=== PATIENT | male | born 1955 | race Caucasian/White ===

== ENCOUNTER 2016-08-08 08:40 | Emergency (ER) | payer MEDICARE, MEDICAID ==
[~2016-08-08] VITALS: Ht 182.9 cm; Wt 130.0 kg
[~2016-08-08 08:40] MED LIST: ACET-171 PO; ALBU18HF INH; ALBU2.5V4 INHALATION; AMT50T PO; ARFO15VI2 IH; ARIP2TAB11 PO; ASCO500C6 PO; ASPI-973 PO; ATOR10TA66 PO; CALC500T9 PO; CARB1TAB14 PO; CHOL10008 PO; CINN1CAP PO; CITA40TA13 PO; CLOP75TA3 PO; CYAN500L3 SL; D3; DEXT1DRO8 BOTH_EYES; FLUT9.9S NS; INSU100V7 SUBQ; LACT1CAP13 PO; LATA2.5D6 BOTH_EYES; LORA10CA PO; MAGN400T4 PO; METO25TA6 PO; MULT1CAP33 PO; MYCO TOP; NOV100I SUBQ; OMEP20CA11 PO; OXYC20TA4 PO; POTA20TA7 PO; PRE10 PO; PREG225C PO; SENN-133 PO; SPIR25TA3 PO; TAMS0.4C29 PO; TORS100T3 PO; ZYL100 PO; [UNRECOGNIZED DRUG - OTHER]; [UNRECOGNIZED DRUG - OTHER]; livaplex; super B complex
[2016-08-08 09:05] VITALS: BP 149/54; PULSE 106; RESP 16; O2SAT 97
--- NOTE | 2016-08-08 09:06 | ED.REPORT ---
HPI-General Illness Date of Service Aug 08, 2016 ED Provider: Sacha Dasilva MD A 61 year old male with an extensive medical history including CKD stage III, diabetes type 2 with peripheral neuropathy, hypertension, CHF, COPD, and back pain with chronic opiate use presents to the ED via EMS with shortness of breath onset this morning. The patient has been experiencing worsening respiratory symptoms over the past week including cough. He also reports chills and a headache. The patient denies chest pain, abdominal pain, muscles aches, nausea, or vomiting. He took Tylenol at 0800 this morning. Per EMS his blood sugar was 220 en route. He is on O2 at night and lives with his and caregiver. He was admitted to the hospital last month with decreased level of consciousness and shortness of breath. He is seen at wound care frequently for lower leg wounds with chronic dressings - most recently two days ago. Nursing Notes Stated Complaint: FLU LIKE SYMPTOMS Chief Complaint: General Complaint Nursing Notes Reviewed: Yes Allergies: Coded Allergies: amoxicillin (Verified Adverse Reaction, Severe, Nausea, 07/12/16) VERY NAUSEUOUS clavulanic acid (Verified Adverse Reaction, Severe, Nausea, 07/12/16) aspirin (Verified Adverse Reaction, Intermediate, Hematuria, 07/12/16) Blood in urine after prison use Scheduled Allopurinol (Allopurinol) 100 Mg Tablet 100 MG PO DAILY Amitriptyline (Amitriptyline) 50 Mg Tab 50 MG PO HS Arformoterol Tartrate (Brovana) 15 Mcg/2 Ml Vial.neb 15 MCG IH BID Aripiprazole (Aripiprazole) 2 Mg Tablet 2 MG PO DAILY Ascorbic Acid (Vitamin C) 500 Mg Capsule.er 500 MG PO DAILY Aspirin (Aspirin) 81 Mg Tablet 81 MG PO DAILY Aspirin (Aspirin) 81 Mg Tablet 81 MG PO DAILY Atorvastatin Calcium (Atorvastatin Calcium) 10 Mg Tablet 10 MG PO HS Carbidopa/Levodopa 25-100 mg (Carbidopa/Levodopa 25-100 mg) 1 Each Tablet 2 TABLET PO QID Cholecalciferol (Vitamin D3) (Vitamin D3) 1,000 Unit Tab.chew 1,000 UNIT PO DAILY Cinnamon Bark/Chromium Picolin (Cinnamon Plus Chromium Capsule) 1 Each Capsule 1 EACH PO DAILY Citalopram (Citalopram) 40 Mg Tablet 40 MG PO DAILY Clopidogrel Bisulfate (Plavix) 75 Mg Tablet 75 MG PO DAILY Fluticasone Propionate (Flonase Allergy Relief) 9.9 Ml [place].susp 1 SPRAYS NS DAILY Insulin Aspart (NovoLOG U100 Insulin Vial) 100 Unit/Ml Mdv 10-25 UNITS SUBQ tidwm plus slid scal Insulin Glargine (Lantus U100 Insulin Vial) 100 Unit/Ml Vial 60 UNITS SUBQ BID Lactobacillus Acidophilus (Acidophilus) 1 Each Capsule 1 EACH PO DAILY Latanoprost (Latanoprost) 2.5 Ml Drops 1 GTT BOTH_EYES HS Magnesium Oxide (Magnesium Oxide) 400 Mg Tablet 400 MG PO DAILY Metoprolol Tartrate (Metoprolol Tartrate) 25 Mg Tablet 50 MG PO BID Multivitamin (Multivitamins) 1 Each Capsule 1 EACH PO DAILY Nystatin (Nystatin) 20 Applic/15 Gm Oint 1 APPLIC TOP BID Omeprazole (Omeprazole) 20 Mg Capsule.dr 20 MG PO DAILY Potassium Chloride ER (Klor-Con M20) 20 Meq Tablet 20 MEQ PO DAILY Prednisone (PredniSONE) 10 Mg Tablet 10 MG PO DAILY Pregabalin (Lyrica) 225 Mg Capsule 225 MG PO BID Spironolactone (Spironolactone) 25 Mg Tablet 25 MG PO BID Tamsulosin ER (Tamsulosin ER) 0.4 Mg Cap.er.24h 0.4 MG PO HS Torsemide (Torsemide) 100 Mg Tablet 50 MG PO BID Scheduled PRN Acetaminophen (Acetaminophen) 500 Mg Tablet 500 MG PO Q6H PRN PRN For Pain Albuterol Neb Soln (Albuterol Neb Soln) 2.5 Mg/3 Ml Vial.neb 2.5 MG INHALATION Q4H PRN PRN For Shortness of Breath Albuterol Sulfate (Ventolin HFA Inhaler) 200 Puff/18 Gm Inhaler 2 PUFFS INH q4- 6 hours PRN PRN For Shortness of Breath Calcium Carbonate (Tums) 500 Mg Tab.chew 2,000 MG PO PRN PRN PRN For Indigestion Dextran 70/Hypromellose/Pf (Artificial Tears Drops) 1 Each Droperette 1 DROP BOTH_EYES QID PRN PRN dry eyes Loratadine (Claritin) 10 Mg Capsule 10 MG PO DAILY PRN PRN allergies Sennosides (Senna) 8.6 Mg Tablet 17.2 MG PO BID PRN PRN For Constipation oxyCODONE (oxyCODONE) 20 Mg Tablet 20 MG PO Q4H PRN PRN For Pain Miscellaneous Medications ([livaplex]) ([vitality]) ([D3]) ([super B complex]) ([parsley]) Cyanocobalamin (Vitamin B-12) (B-12) 500 Mcg Tab.rapdis 500 MCG SL General Time Seen by MD: 09:02 Chief Complaint Other (Shortness of breath) Hx Obtained From: Patient, EMS Arrived By: Ambulance Sudden in Onset?: No Onset Occurred: 1 - 4 hours ago Symptom Duration: Since onset Location: : Head Quality: Painful Severity: Current: Mild Severity: Maximum: Mild Associated with: Reports: Cough, Headache, Denies: Chest pain, Fever Pertinent Negative: Relieved by nothing Context Related History: Reports COPD, Reports Diabetes mellitus Recent Healthcare: Recent doctor visit Similar Sx Previous: Yes Past Medical History Past Medical History Notes: PCP: Dr. Pendleton Past Medical History 1. Paroxysmal A-fib with RVR 2. chronic hypoxemic respiratory failure 3. history of MSRA 4. CKD stage III 5. History of pancreatitis 6. BOOP on chronic prednisone 7. Diabetes Mellitus Type 2, insulin-using, poorly controlled 8. Hypertension 9. Parkinsonian Tremor 10. BPH 11. Anxiety and depression 12. CARRIE on CPAP 13. Chronic congestive heart failure secondary to diastolic dysfunction 14. chronic edema 15. Gout 16. COPD 17. Chronic back pain on opiates Past Surgical History Colonoscopy Lung biopsy Hernia repair Reports: Appendectomy Family History Reports: Diabetes mellitus Smoking History Former Smoker Social History Drug Use: Denies drug use (cocaine, marjuana, speed many years ago) Other Social History: Good social support, Frequent ED visitor, , Local resident Ambulatory Status Walker Review of Systems Full Review of Systems Constitutional: Reports: Chills, Denies: Fever Respiratory: Reports: Non-productive cough, Shortness of breath Cardiovascular: Denies: Chest pain GI: Denies: Abdominal pain, Nausea, Vomiting Musculoskeletal: Denies: Myalgia Neurologic: Reports: Headache Complete sys rev & neg: except as marked. Physical Exam Vital Signs Vital Signs Date Time Temp Pulse Resp B/P Pulse Ox O2 Delivery O2 Flow Rate FiO2 08/08/16 12:55 82 2 122/78 98 08/08/16 09:05 37 106 16 149/54 97 Room Air Initial VS: Reviewed Head / Eyes: Atraumatic, Normocephalic ENT: Conjunctiva normal, No scleral icterus Neck: Supple, Full range of motion Abdomen / GI: Soft, Non-tender Skin: Warm, Dry, No cyanosis Neurologic: Alert, Oriented, Nonfocal Psychiatric: Mood/affect normal, Behavior normal, Normal thought content General/Constitutional: Awake, Alert Patient is a morbidly obese, O2 dependant, nearly bed-bound diabetic Warm to touch Respiratory / Chest: Breath sounds NL, Breath sounds = bilat, No respiratory distress, No rales Cardiovascular: Heart rate NL, Regular rhythm, Heart sounds NL Lower Ext Edema: Positive: Bilateral 1+ (Up to thighs) Lower Extremity / Pelvis / MS: No deformity Chronic dressings on legs Interpretation & Diagnostics Lab Results Interpretation Result Diagram: 08/08/16 1000 08/08/16 1000 Test 08/08/16 09:33 08/08/16 10:00 Urine Color Yellow (YELLOW) Urine Appearance Hazy (CLEAR,HAZY) Urine pH 6.0 (5.0-8.0) Urine Specific [place]ven 1.010 (1.003-1.035) Urine Protein Negativemg/dL (NEG,TRACE) Urine Glucose (UA) Negativemg/dL (NEGATIVE) Urine Ketones Negativemg/dL (NEGATIVE) Urine Occult Blood Negative (NEGATIVE) Urine Nitrite Negative (NEGATIVE) Urine Bilirubin Negative (NEGATIVE) Urine Urobilinogen Normalmg/dL (NORMAL) Urine Leukocyte Esterase Negative (NEGATIVE) Urine RBC 0-2/hpf (0-2) Urine WBC 0-5/hpf (0-5) Urine Epithelial Cells Occasional/hpf (NONE-MOD) Urine Crystals None seen (NONE SEEN) Urine Bacteria None/hpf (NONE-FEW) Urine Hyaline Casts None/lpf (NONE) Urine Granular Casts None seen (NONE SEEN) Urine Waxy Casts None seen (NONE SEEN) Urine Red Blood Cell Casts None seen (NONE SEEN) Urine White Blood Cell Casts None seen (NONE SEEN) Urine Mucus None seen (None Seen) Urine Trichomonas None seen (NONE SEEN) Urine Yeast None (NONE SEEN) Urinalysis Comment None Urine Culture Reflexed Not indicated White Blood Count 12.9th/mm3 (3.8-10.1) Red Blood Count 4.32mil/mm3 (4.40-5.80) Hemoglobin 11.2g/dL (13.8-17.2) Hematocrit 37.6% (41.0-50.0) Mean Corpuscular Volume 87.0fL (81-100) Mean Corpuscular Hemoglobin 25.9pg (27.0-35.0) Mean Corpuscular Hemoglobin Concent 29.8% (32.0-37.0) Red Cell Distribution Width 18.0% (12.3-15.4) Platelet Count 170bil/L (150-400) Neutrophils (%) (Auto) 83.9% (40-74) Lymphocytes (%) (Auto) 7.6% (14-46) Monocytes (%) (Auto) 7.2% (4-12) Eosinophils (%) (Auto) 0.7% (0-5) Basophils (%) (Auto) 0.2% (0-3) Prothrombin Time 10.3sec (8.1-12.5) Prothromb Time International Ratio 0.96ratio Sodium Level 141mEq/L (134-144) Potassium Level 4.0mEq/L (3.5-5.2) Chloride Level 93mEq/L (97-108) Carbon Dioxide Level 33mmol/L (18-29) Blood Urea Nitrogen 48mg/dL (8-27) Creatinine 1.64mg/dL (0.76-1.27) Estimat Glomerular Filtration Rate 46mL/min (>59) Glucose Level 238mg/dL (60-99) Lactic Acid Level 1.9mmol/L (0.4-2.0) Calcium Level 8.9mg/dL (8.5-10.1) Magnesium Level 2.5mg/dL (1.6-2.6) Total Bilirubin 0.3mg/dL (0.0-1.2) Aspartate Amino Transf (AST/SGOT) 20U/L (0-50) Alanine Aminotransferase (ALT/SGPT) 5U/L (0-44) Alkaline Phosphatase 89U/L (25-160) Troponin T 0.064ug/L (0.0-0.011) Pro-B-Type Natriuretic Peptide 228.1pg/mL (0-210) Total Protein 6.9g/dL (6.4-8.4) Albumin 3.6g/dL (3.4-5.0) Lipase 24U/L (13-60) Procalcitonin 0.08ng/mL (See Comment) ECG Interpretation ECG Interpretation: Sinus tachycardia rate 104 Time: 09:55 Interpreted by: ED physician X-Ray Chest Interpretation Chest Xray Interpretation: IMPRESSION: Stable cardiomegaly and gas filled hiatal hernia. No acute cardiopulmonary findings. Dictated by: Jenny Mercado M.D. on 08/08/2016 at 12:11 View: Portable, 1 view Interpretation / Wet Read by: Interpret - Radiologist Re-Eval/Medical Decision Source of Hx: Old records Time of Eval: 11:50 Patient Status: Condition improved Re-Evaluation/Progress Note: Discussed with patient x-ray and lab results, diagnosis, and plan for discharge. Follow-up and return to the ER instructions given. Patient agrees with plan for care and all questions were addressed. Time of Eval: 12:08 Patient Status: Condition improved Re-Evaluation/Progress Note: Discussed patient's case with his . She agrees with plan for care and all questions were addressed. Counseled Regarding: Diagnosis, Lab results, Need for follow-up, When/why to return to ED Discharge & Departure Primary Impression: Upper respiratory infection Disposition: Home Discharge Condition All VS Reviewed: Yes Condition: Stable Patient Instructions: Upper Respiratory Infection (ED) Additional Instructions: All of your chronic health conditions seem to be stable at this time. No dangerous cause for your chest symptoms is discovered, specifically, no evidence of pneumonia or worsening congestive heart failure. I recommend follow -up Thursday if your symptoms are not significantly improved, sooner if worse. Referrals: Nicolás Pendleton MD (PCP) Nicolasibmarisa Attestation Portions of this note were transcribed by Annalisa Guadarrama. I, Dr. Dasilva, personally performed the history, physical exam, and medical decision-making; I reviewed and confirmed the accuracy of the information in the transcribed note. Signed by: Tim Alva, 08/08/2016, 13:14 copies to: Nicolás Pendleton MD, Kirk H MD Aug 08, 2016 09:06 ANNALISA GUADARRAMA Aug 08, 2016 09:29
[2016-08-08 10:11] LABS: BASOPHILS % (AUTO) 0.2 % (0-3); EOSINOPHILS % (AUTO) 0.7 % (0-5); MONOCYTES % (AUTO) 7.2 % (4-12); Mean Corpuscular Hemoglobin 25.9 pg (27.0-35.0); NEUTROPHILS % (AUTO) 83.9 % (40-74); Platelet Count 170 bil/L (150-400)
[2016-08-08 10:24] LABS: APPEARANCE,URINE HAZY (CLEAR,HAZY); COLOR,URINE YELLOW (YELLOW); OCCULT BLOOD,URINE NEGATIVE (NEGATIVE); UROBILINOGEN,URINE NORMAL (NORMAL)
[2016-08-08 10:25] LABS: INR 0.96 ratio
[2016-08-08 10:39] LABS: Magnesium 2.5 mg/dL (1.6-2.6)
[2016-08-08 10:45] LABS: TROPONIN T 0.064 ug/L (0.0-0.011)
--- NOTE | 2016-08-08 12:13 | DRSVH ---
PROCEDURE: X-RAY CHEST ONE VIEW, PORTABLE ([id number]) INDICATIONS: dyspnea, chills TECHNIQUE: One view of the chest was acquired. COMPARISON: [facility], CR, XR CHEST 1VW (PORTABLE), 07/12/2016, 4:21. FINDINGS: Surgical changes and devices: None. Lungs and pleura: No pleural effusions or pneumothorax. Lungs are clear. Mediastinum: Mediastinal contours appear normal. Heart size is mildly enlarged, as before. There is a large gas filled hiatal hernia. Bones and chest wall: No suspicious bony lesions. Overlying soft tissues appear unremarkable. IMPRESSION: Stable cardiomegaly and gas filled hiatal hernia. No acute cardiopulmonary findings. Dictated by: Jenny Mercado M.D. on 08/08/2016 at 12:11 Approved by: Jenny Mercado M.D. on 08/08/2016 at 12:11
[2016-08-08 12:55] VITALS: BP 122/78; PULSE 82; RESP 2; O2SAT 98
== END 2016-08-08 12:57 | disposition home or self-care (01) ==
LOC: EDBD 08:40 → SED 08:40
DX: J06.9 Acute upper respiratory infection, unspecified (principal); E11.40 Type 2 diabetes mellitus with diabetic neuropathy, unspecified; E11.22 Type 2 diabetes mellitus with diabetic chronic kidney disease; I13.0 Hypertensive heart and chronic kidney disease with heart failure and stage 1 through stage 4 chronic kidney disease, or unspecified chronic kidney disease; N18.3 Chronic kidney disease, stage 3 (moderate); I50.32 Chronic diastolic (congestive) heart failure; J44.9 Chronic obstructive pulmonary disease, unspecified; M54.9 Dorsalgia, unspecified; G89.29 Other chronic pain; I48.0 Paroxysmal atrial fibrillation; E66.01 Morbid (severe) obesity due to excess calories; Z99.81 Dependence on supplemental oxygen; Z68.38 Body mass index [BMI] 38.0-38.9, adult; Z86.14 Personal history of Methicillin resistant Staphylococcus aureus infection; Z79.891 Long term (current) use of opiate analgesic; Z79.4 Long term (current) use of insulin; Z87.891 Personal history of nicotine dependence; Z79.82 Long term (current) use of aspirin; Z88.0 Allergy status to penicillin; Z88.1 Allergy status to other antibiotic agents; Z88.6 Allergy status to analgesic agent

== ENCOUNTER 2016-08-11 08:19 | Inpatient (IN) | payer MEDICARE, MEDICAID ==
[2016-08-11] VITALS (16 sets, daily range): BP systolic 124–142; BP diastolic 65–82; PULSE 78–110; RESP 13–24; O2SAT 86–98
[~2016-08-11] VITALS: Ht 182.9 cm; Wt 165.1 kg
--- NOTE | 2016-08-11 08:32 | ED.REPORT ---
HPI-Dyspnea / Wheezing Date of Service Aug 11, 2016 ED Provider: Vj Randhawa MD 61 year old male with a history of CKD stage III, HTN, CHF, COPD, and sleep apnea on CPAP presents to the ER via EMS with acute on chronic shortness of breath onset 6 days ago while walking to the bathroom. He was seen here in the department three days ago for similar and diagnosed with a viral syndrome, and states that symptoms have since worsened since. Associated symptoms include chest pain described as "heaviness", currently resolved, fever, and productive cough. Typically he is on 3L home O2 at night, but has lately increased the frequency of O2 use. Nursing Notes Stated Complaint: SHORTNESS OF BREATH Chief Complaint: Respiratory Complaints Nursing Notes Reviewed: Yes ([employer] not reconciled) Allergies: Coded Allergies: amoxicillin (Verified Adverse Reaction, Severe, Nausea, 07/12/16) VERY NAUSEUOUS clavulanic acid (Verified Adverse Reaction, Severe, Nausea, 07/12/16) aspirin (Verified Adverse Reaction, Intermediate, Hematuria, 07/12/16) Blood in urine after jail use Scheduled Allopurinol (Allopurinol) 100 Mg Tablet 100 MG PO DAILY Amitriptyline (Amitriptyline) 50 Mg Tab 50 MG PO HS Arformoterol Tartrate (Brovana) 15 Mcg/2 Ml Vial.neb 15 MCG IH BID Aripiprazole (Aripiprazole) 2 Mg Tablet 2 MG PO DAILY Ascorbic Acid (Vitamin C) 500 Mg Capsule.er 500 MG PO DAILY Aspirin (Aspirin) 81 Mg Tablet 81 MG PO DAILY Aspirin (Aspirin) 81 Mg Tablet 81 MG PO DAILY Atorvastatin Calcium (Atorvastatin Calcium) 10 Mg Tablet 10 MG PO HS Carbidopa/Levodopa 25-100 mg (Carbidopa/Levodopa 25-100 mg) 1 Each Tablet 2 TABLET PO QID Cholecalciferol (Vitamin D3) (Vitamin D3) 1,000 Unit Tab.chew 1,000 UNIT PO DAILY Cinnamon Bark/Chromium Picolin (Cinnamon Plus Chromium Capsule) 1 Each Capsule 1 EACH PO DAILY Citalopram (Citalopram) 40 Mg Tablet 40 MG PO DAILY Clopidogrel Bisulfate (Plavix) 75 Mg Tablet 75 MG PO DAILY Fluticasone Propionate (Flonase Allergy Relief) 9.9 Ml [place].susp 1 SPRAYS NS DAILY Insulin Aspart (NovoLOG U100 Insulin Vial) 100 Unit/Ml Mdv 10-25 UNITS SUBQ tidwm plus slid scal Insulin Glargine (Lantus U100 Insulin Vial) 100 Unit/Ml Vial 60 UNITS SUBQ BID Lactobacillus Acidophilus (Acidophilus) 1 Each Capsule 1 EACH PO DAILY Latanoprost (Latanoprost) 2.5 Ml Drops 1 GTT BOTH_EYES HS Magnesium Oxide (Magnesium Oxide) 400 Mg Tablet 400 MG PO DAILY Metoprolol Tartrate (Metoprolol Tartrate) 25 Mg Tablet 50 MG PO BID Multivitamin (Multivitamins) 1 Each Capsule 1 EACH PO DAILY Nystatin (Nystatin) 20 Applic/15 Gm Oint 1 APPLIC TOP BID Omeprazole (Omeprazole) 20 Mg Capsule.dr 20 MG PO DAILY Potassium Chloride ER (Klor-Con M20) 20 Meq Tablet 20 MEQ PO DAILY Prednisone (PredniSONE) 10 Mg Tablet 10 MG PO DAILY Pregabalin (Lyrica) 225 Mg Capsule 225 MG PO BID Spironolactone (Spironolactone) 25 Mg Tablet 25 MG PO BID Tamsulosin ER (Tamsulosin ER) 0.4 Mg Cap.er.24h 0.4 MG PO HS Torsemide (Torsemide) 100 Mg Tablet 50 MG PO BID Scheduled PRN Acetaminophen (Acetaminophen) 500 Mg Tablet 500 MG PO Q6H PRN PRN For Pain Albuterol Neb Soln (Albuterol Neb Soln) 2.5 Mg/3 Ml Vial.neb 2.5 MG INHALATION Q4H PRN PRN For Shortness of Breath Albuterol Sulfate (Ventolin HFA Inhaler) 200 Puff/18 Gm Inhaler 2 PUFFS INH q4- 6 hours PRN PRN For Shortness of Breath Calcium Carbonate (Tums) 500 Mg Tab.chew 2,000 MG PO PRN PRN PRN For Indigestion Dextran 70/Hypromellose/Pf (Artificial Tears Drops) 1 Each Droperette 1 DROP BOTH_EYES QID PRN PRN dry eyes Loratadine (Claritin) 10 Mg Capsule 10 MG PO DAILY PRN PRN allergies Sennosides (Senna) 8.6 Mg Tablet 17.2 MG PO BID PRN PRN For Constipation oxyCODONE (oxyCODONE) 20 Mg Tablet 20 MG PO Q4H PRN PRN For Pain Miscellaneous Medications ([livaplex]) ([vitality]) ([D3]) ([super B complex]) ([parsley]) Cyanocobalamin (Vitamin B-12) (B-12) 500 Mcg Tab.rapdis 500 MCG SL General Time Seen by MD: 08:28 Chief Complaint Shortness of breath Hx Obtained From: Patient, EMS Arrived By: Ambulance Sudden in Onset?: No Onset Occurred: 3 days ago Symptom Duration: Since onset Pertinent Negative: Pt denies other symptoms Similar Sx Previous: Yes Past Medical History Past Medical History Notes: PCP: Dr. Pendleton, Principal Data Architect Dr. Chang, Traffic Manager Dr. Clement Pt seen 08/08/2016 in the emergency department for respiratory symptoms, neg CXR, O2 say 98% on RA per chart Patient Admitted 07/12/16 for hypercapneic resp failure Past Medical History 1. Paroxysmal Atrial Fibrillation 2. ho/ chronic hypoxemic respiratory failure (states patient uses O2 3 L at night at baseline) 3. history of MSRA 4. CKD stage III 5. History of pancreatitis 6. BOOP on chronic prednisone (patient states current dose as of July 2016 is 10 mg daily) 7. Diabetes Mellitus Type 2, insulin-using, poorly controlled 8. Hypertension 9. Parkinsonian Tremor 10. BPH 11. Anxiety and depression 12. CARRIE on CPAP 13. Chronic congestive heart failure secondary to diastolic dysfunction 14. chronic edema 15. Gout 16. COPD 17. Chronic back pain on opiates (history of acute L2 fracture 06/2016 as well) History of cor pulmonale per pulmonology note June 2016 Obesity hypoventilation syndrome per pulmonology note June 2016 Obesity BMI 48.2 Past Surgical History Colonoscopy Lung biopsy Hernia repair Reports: Appendectomy Family History Reports: Diabetes mellitus Smoking History Former Smoker Social History Drug Use: Denies drug use Other Social History: Good social support, Frequent ED visitor, , Local resident Ambulatory Status Walker Review of Systems Constitutional: Reports: Fever Respiratory: Reports: Non-productive cough, Shortness of breath Cardiovascular: Reports: Chest pain Musculoskeletal: Denies: Back pain, Extremity pain, Lumbar pain, Neck pain, Thoracic pain Complete sys rev & neg: except as marked. GI: Denies: Abdominal pain, Nausea, Vomiting Physical Exam Initial Vital Signs Vital Signs (First) Date Time Temp Pulse Resp B/P Pulse Ox O2 Delivery O2 Flow Rate FiO2 08/11/16 08:25 37.3 94 18 124/74 87 Nasal Cannula 4 Initial VS: Reviewed, Unavailable, Vital signs abnormal (O2 say 79%) Head / Eyes: Atraumatic, Normocephalic, PERRL Skin: Warm, Dry, No cyanosis Psychiatric: Mood/affect normal, Behavior normal, Normal thought content General/Constitutional: Awake, Alert, No acute distress, Cooperative Appearance / Presentation: Positive: Obese, morbidly Inappropriately drowsy. Able to wake up and answer questions appropriately. Neck: Atraumatic, Supple, No meningismus, Full range of motion, No swelling, Non-tender, No masses Respiratory / Chest: Atraumatic, No wheezing Diminished Breath Sounds: Positive: Decreased bilateral Hypercapnic respiratory failure. Cardiovascular: Heart rate NL, Regular rhythm, No murmurs Chronic edema of the lower extremities, no gross asymmetry. ENT: Airway patent, Mucous membranes moist, Pharynx NL Abdomen: Atraumatic, Soft, Non-tender Back: Inspection NL, Non-tender, No CVA tenderness Lower Extremity / Pelvis / MS: Atraumatic, No deformity, Neurologic intact, Vascular intact Lower extremities are wrapped. Interpretation & Diagnostics Lab Results Interpretation Result Diagram: 08/11/16 0915 08/11/16 0915 Test 08/11/16 09:15 White Blood Count 11.7th/mm3 (3.8-10.1) Red Blood Count 4.06mil/mm3 (4.40-5.80) Hemoglobin 10.4g/dL (13.8-17.2) Hematocrit 35.7% (41.0-50.0) Mean Corpuscular Volume 87.9fL (81-100) Mean Corpuscular Hemoglobin 25.6pg (27.0-35.0) Mean Corpuscular Hemoglobin Concent 29.1% (32.0-37.0) Red Cell Distribution Width 18.3% (12.3-15.4) Platelet Count 157bil/L (150-400) Neutrophils (%) (Auto) 81.8% (40-74) Lymphocytes (%) (Auto) 8.0% (14-46) Monocytes (%) (Auto) 8.7% (4-12) Eosinophils (%) (Auto) 0.6% (0-5) Basophils (%) (Auto) 0.1% (0-3) D-Dimer 0.5mg/L (<0.50) Sodium Level 139mEq/L (134-144) Potassium Level 4.4mEq/L (3.5-5.2) Chloride Level 94mEq/L (97-108) Carbon Dioxide Level 32mmol/L (18-29) Blood Urea Nitrogen 54mg/dL (8-27) Creatinine 1.86mg/dL (0.76-1.27) Estimat Glomerular Filtration Rate 39mL/min (>59) Glucose Level 200mg/dL (60-99) Lactic Acid Level 0.9mmol/L (0.4-2.0) Calcium Level 8.5mg/dL (8.5-10.1) Total Bilirubin 0.4mg/dL (0.0-1.2) Aspartate Amino Transf (AST/SGOT) 34U/L (0-50) Alanine Aminotransferase (ALT/SGPT) 5U/L (0-44) Alkaline Phosphatase 95U/L (25-160) Troponin T 0.105ug/L (0.0-0.011) Pro-B-Type Natriuretic Peptide 1345pg/mL (0-210) Total Protein 6.6g/dL (6.4-8.4) Albumin 3.7g/dL (3.4-5.0) Lab Results Interpretation: CBC positive leukocytosis CMP is notable for a creatinine that is slightly increased from 1.6, mild hyperglycemia Lactic acid normal D-dimer negative Troponin is elevated-however interpreting is difficult. I reviewed his records indicates all of his recent opponents been elevated, some higher than this, some slightly lower than this, the most recent troponins are marginally lower, but the patient's renal function is worsening today. The patient has profound hypoxia, and renal insufficiency-both which may be contributors-I doubt primary cardiac etiology, but cannot be excluded at this time and troponins may be need to be trended. ECG Interpretation ECG Interpretation: Sinus rhythm, rate 90 baseline 1, 2 no change in EKG from now to a few days ago. Time: 09:24 Interpreted by: ED physician ABG Interpretation ABG Interpretation: pH| 7.329 pCO2| 70 pO2| 54.4 cHCO3| 35.8 X-Ray Chest Interpretation Chest Xray Interpretation: IMPRESSION: Markedly limited study. No definite acute air space opacities. Dictated by: Jenny Mercado M.D. on 08/11/2016 at 10:11 Approved by: Jenny Mercado M.D. on 08/11/2016 at 10:11 View: Portable, 1 view Interpretation / Wet Read by: Interpret - Radiologist Re-Eval/Medical Decision Med Decision/Clinical Course This is a 61-year-old male morbidly obesity, history of hypercapnic respiratory failure is multifactorial from COPD, obesity hypoventilation syndrome, cor pulmonale, intermittent O2, mainly at night-as well as CPAP, presents complaining of increasing shortness of breath. he was recently admitted for hypoxic respiratory failure and is now using Trilogy at nights, he was seen several days ago that responded for shortness of breath but had a negative evaluation at that time and was discharged. He reports since then his breathing is worsened. He reports a mild cough, but denies a clearcut fever or infectious symptoms. His chronic edema in his legs with chronic leg ulcers which are both wrapped and followed by the wound care center-but he does not think there been any changes. Records indicate a history of medication noncompliance, and he does not know his medications. On exam, the patient is able to give a history, but is inappropriately drowsy and starts to nod off during the conversation, with findings highly concerning for acute respiratory failure. However at the same time he does not appear visibly dyspneic. He was profoundly hypoxic with a sat in the 70sr. He is not febrile. He is difficult to clinically evaluate for congestive heart failure given habitus, and he has a history is significant diastolic dysfunction and cor pulmonale according to records. He is on chronic steroids. He has COPD, I did do not appreciate significant bronchospasm, but his breath sounds are very diminished. However given his history, empiric treatment with a steroid bolus , and course of nebulizers was provided. A blood gas reveals a pH of 7.329, PCO2 of 70, PO2 of 54, and bicarbonate 35 consistent with hypercapnic respiratory failure. His ABG is not dramatically different than previous presentations. I do not appreciate any acute findings on his EKG. He did report that this morning he had a severe episode of chest pressure that subsequently resolved but lasted an hour or 2. Given his immobility, hospitalizations, obesity is at risk for DVT/PE, but her d-dimer is negative. A chest x-ray is limited, but no clear acute disease process was identified. He does not have a leukocytosis or lactic acid elevation (for fever or clear clinical findings) to suggest sepsis. His MRSA screen was positive a few weeks ago, his viral panel then was negative. I have not repeated these given the absence of fever, or other driving markers in the emergency department, and am defering a repeat viral workup to the hospitalist. Patient's renal function is worsened slightly. He does have an elevated troponin-again. All of his previous troponins in recent months and been significantly elevated, including to the same level as now. His most recent troponins were slightly lower than they are today, but his renal function is worsening in the interim-therefore the interpretation of the single troponin is difficult. I doubt a primary cardiac event, but cannot be excluded and myocardial injury in the setting of such profound hypoxia and what I think a primary respiratory problems, remains possible. Troponins will need to be trended. I am also having a challenge trying to sort out the patient's anticoagulation status,'s records indicate a prior history of Plavix use, he does not think he is on it. He thinks has had aspirin today. His mom with a clear bacterial infectious component evident on initial evaluation, however given multitude of visits, progressive symptoms, and absence of other pathology, with potential component of acute COPD exacerbation present, appear azithromycin is being initiated. He does not have overt findings of her radiographic pneumonia or indications of MRSA pneumonia, despite the MRSA culture positive on previous screening weeks ago, and indicated need for vancomycin emergently in the department. The patient was placed on BiPAP, and is improved. Point is a multifactorial component potential to the causes of his hyperventilation, but it clearly has been a change of some sort recent days. He is being admitted to the CCU on continued BiPAP support. Case has been discussed with the hospitalist. Source of Hx: Old records Consultation : Consulted With: Hospitalist Call Returned at: 09:25 Wind Turbine Controls Engineer: Agrees with eval, Agrees with plan, Accepts admit Differential Diagnosis: Positive: COPD exacerbation, Respiratory failure, Negative: Allergic reaction, Carbon monoxide poisoning, Hypertensive emergency, Pneumonia, Pneumothorax, Pulmonary embolism Counseled Regarding: Diagnosis, Lab results, Need for admission Discharge & Departure Impression: Primary Impression: Acute and chronic respiratory failure ([id number]) Respiratory failure complication: hypoxia and hypercapnia Qualified Code: J96.21 - Acute and chronic respiratory failure with hypoxia Additional Impressions: Hypoxia COPD (chronic obstructive pulmonary disease) COPD type: COPD with acute exacerbation Qualified Code: J44.1 - Chronic obstructive pulmonary disease with (acute) exacerbation Hypercapnic respiratory failure Chronicity: acute on chronic Qualified Code: J96.22 - Acute and chronic respiratory failure with hypercapnia Chronic kidney disease (CKD) Chronic kidney disease stage: unspecified stage Qualified Code: N18.9 - Chronic kidney disease, unspecified Elevated troponin Disposition: ADMITTED TO HOSPITAL Discharge Condition All VS Reviewed: Yes Condition: Stable Referrals: Nicolás Pendleton MD (PCP) Crit Care Except Billable Proc Time Spent: 30-74 minutes Services Performed: Patient management by me, Time spent at bedside, Reviewing test results, Reviewing imaging, Discussing patient care, Documentation in record Scribe Attestation Portions of this note were transcribed by Victorino Douglas and Kurt Tristan. I, Dr. Randhawa personally performed the history, physical exam and medical decision -making; I reviewed and confirmed the accuracy of the information in the transcribed note. Signed by:Victorino Douglas and Tim Sullivan, 08/11/16 and 12:30. copies to: Nicolás Pendleton MD, Matthew F MD Aug 11, 2016 08:32 Victorino Douglas Aug 11, 2016 10:12 KURT TRISTAN Aug 11, 2016 12:32
[2016-08-11] MEDS ORDERED: Albuterol-Ipratropium 3 mL Inhalation Solution NEB ONE (08:50)
[2016-08-11] MEDS ORDERED: MethylprednisoLONE Sodium Succinate 62.5 mg/mL 2 mL Inj IVPUSH ONE (08:50)
[2016-08-11] MEDS ORDERED: Albuterol 2.5 mg/3 mL Inhalation Solution NEB ONE (08:50)
--- NOTE | 2016-08-11 09:11 | ABG ---
DateTimeAnalyzed 09:07:00 -_ pH ____7.329 - 7.350 7.450 pCO2 ___70.0__ -mmHg 35.0 45.0 pO2 ___54.4__ -mmHg 69.0 116 HCO3- ___35.8__ -mmol/L 22.0 26.0 ABE ____8.4__ -mmol/L -2.0 2.0 tHb ___10.5__ -g/dL O2Hb ___83.1__ -% COHb ____1.8__ -% MetHb ____1.6__ -% sO2 ___86.0__ -% 25.0 FIO2 ___35.0__ -% Drawn By MT - Date/Time Notified____ 09:11:00 -_ Notified By MT - Notified Whom ___DR. Edis - B 761 -mmHg tO2 ___12.3__ -Vol% Tereso test _Positive -
[2016-08-11 09:37] LABS: BASOPHILS % (AUTO) 0.1 % (0-3); EOSINOPHILS % (AUTO) 0.6 % (0-5); MONOCYTES % (AUTO) 8.7 % (4-12); Mean Corpuscular Hemoglobin 25.6 pg (27.0-35.0); Mean Corpuscular Volume 87.9 fL (81-100); NEUTROPHILS % (AUTO) 81.8 % (40-74); Platelet Count 157 bil/L (150-400)
[2016-08-11] MEDS ORDERED: Ondansetron 2 mg/mL 2 mL Inj IVPUSH PRN (10:10)
[2016-08-11] MEDS ORDERED: Alum-Mag Hydrox-Simeth 30 mL Suspension PO PRN (10:10)
[2016-08-11] MEDS ORDERED: Polyethylene Glycol (PEG) 17 Gm Powder PO PRN (10:10)
[2016-08-11] MEDS: Sodium Chloride LOK Flush 10 mL Syringe IVFLUSH SCH ×3 (10:10→23:50)
--- NOTE | 2016-08-11 10:12 | DRSVH ---
PROCEDURE: X-RAY CHEST ONE VIEW, PORTABLE ([id number]) INDICATIONS: SOB, hypoxia TECHNIQUE: One view of the chest was acquired. COMPARISON: [facility], CR, XR CHEST 1VW (PORTABLE), 08/08/2016, 10:35. FINDINGS: This is a markedly limited study due to patient body habitus. Surgical changes and devices: None. Lungs and pleura: No pleural effusions or pneumothorax. Lungs are clear. Mediastinum: Mediastinal contours appear normal. Heart size is normal. Bones and chest wall: No suspicious bony lesions. Overlying soft tissues appear unremarkable. IMPRESSION: Markedly limited study. No definite acute air space opacities. Dictated by: Jenny Mercado M.D. on 08/11/2016 at 10:11 Approved by: Jenny Mercado M.D. on 08/11/2016 at 10:11
[2016-08-11] MEDS ORDERED: Furosemide 10 mg/mL 10 mL Inj IVPUSH SCH (10:20)
[2016-08-11] MEDS ORDERED: Albuterol-Ipratropium 3 mL Inhalation Solution NEB PRN (10:20)
[2016-08-11] MEDS ORDERED: Azithromycin Inj 500 MG in Dextrose 5% w/Vial Mate 250 ML IV ONE (10:40)
[2016-08-11 10:42] LABS: TROPONIN T 0.105 ug/L (0.0-0.011)
[2016-08-11 11:28] LABS: APPEARANCE,URINE CLEAR (CLEAR,HAZY); COLOR,URINE STRAW (YELLOW); OCCULT BLOOD,URINE NEGATIVE (NEGATIVE); PH,URINE 5.5 (5.0-8.0); UROBILINOGEN,URINE NORMAL (NORMAL)
--- NOTE | 2016-08-11 11:50 | NUR ---
Arrived He arrived to [facility] 2024 from the ED with a diagnosis of respiratory failure about 1150. A&Ox3. Was slid by four people from the gurney to the bed. He was settled into bed. Vitals and assessment complete. brought in trilogy, but it appears to be having issues and alarming falsely. Respiratory therapy placed him on the hospital bipap instead. His seems very concerned about him and is quite anxious frequently interrupting the nurse while talking or performing a task to ask multiple questions. Staff calmly replied to her and explained his care and answered her questions. Care continues.
--- NOTE | 2016-08-11 15:17 | NUR ---
Wound Care Order received for wound care to bilateral LE. Patient found to have newly resolved venous stasis ulcers to bilateral legs. Patient reports being seen in outpatient wound clinic and by home health with wound healing reported last week. Patient continues with fragile new skin to justin LE with significant edema noted. Removed compression dressings, cleaned LE with NS, applied ABD to fragile skin justin and secured with kerlix and coban. Patient also noted with healed "cut" to medial right great toe, covered with silicone corn pad. Resolved traumatic injury to right 5th toenail. states "It is hanging." Bruising to toe noted. Patient also with Stage I non-blanchable area, approx 6cm around to sacrum. Patient instructed to roll side to side to keep weight off of area. Patient on CHRISTIANE bariatric bed and reports turning/weight shifting frequently. Patient reports doing this at home, too. Wound care to follow every 2 to 3 days for bilateral LE dressings. Nursing to apply calmoseptine as needed to scaral area and turn q2 hours to prevent further pressure to sacrum.
--- NOTE | 2016-08-11 15:57 | PCM.HPMED ---
Subjective Date of Service Aug 11, 2016 Primary Provider: Admitting Physician: Ravi Nails MD Primary Care Physician: Nicolás Pendleton MD Attending Physician: Ravi Nails MD Admit Status: From the Emergency Department, Admit to [facility] Team Chief Complaint: 61-year-old man with morbid obesity and obesity hypoventilation syndrome presents with several days of increasing cough and dyspnea, found to be in acute on chronic respiratory failure with hypercarbia History of Present Illness: Approximate 5 days prior to admission patient began to experience increased cough and worsening dyspnea. He was evaluated in the emergency department 3 days prior to admission and discharged home. Since we noted his cough to be worse. It is moderately productive of thick gaffney phlegm. He increased his Trilogy device use but continued to decline. He reports some chills. He denies sweats or subjective fevers. He has chest pain with deep inspiration related to his dyspnea, but no other anginal sounding complaint. His legs are chronically swollen but no change recently. Has no abdominal complaints. Review of Systems: Complete review of systems performed and significant findings noted in history of present illness and PMH Allergies Coded Allergies: amoxicillin (Verified Adverse Reaction, Severe, Nausea, 07/12/16) VERY NAUSEUOUS clavulanic acid (Verified Adverse Reaction, Severe, Nausea, 07/12/16) aspirin (Verified Adverse Reaction, Intermediate, Hematuria, 07/12/16) Blood in urine after fci use Home Medications Extensive list of medications reviewed and reconciled. PMH # Recurrent cellulitis - hospitalizations 1-2 times per month # Type II diabetes mellitus - neuropathy and nephropathy # CKD stage III - # Parkinson disease # BOOP on chronic prednisone # CARRIE on CPAP # Hypertension # Chronic atrial fibrillation # Chronic diastolic CHF # BPH # History MRSA # COPD Family History No familial transient pulmonary disease. No familial thrombophilic disease. Social History Hx Alcohol Use: No Hx Substance Use: No Hx Tobacco Use: Yes Smoking Status: Former Smoker Living Arrangement: with Family (lives with , very limited ambulation from bed to chair at baseline.) Exam Vital Signs Vital Sign - Last Date Time Temp Pulse Resp B/P Pulse Ox O2 Delivery O2 Flow Rate FiO2 08/11/16 13:04 86 08/11/16 12:39 Supplement Oxygen 08/11/16 12:12 37.2 20 137/69 86 2.00 08/11/16 09:31 35 Exam General: Morbidly obese man eating lunch with nasal cannula in no acute distress HEENT: sclerae anicteric, oral mucosa moist Neck: Supple Chest: Distant breath sounds, clear to auscultation, no wheezing, intermittent cough Cardiac: S1S2, distant, regular, no audible murmur Abdomen: Abdomen protuberant, BS normal, non-tender Extremities: 3+ edema, healing desquamation lesions calves bilaterally Neuro: A&O, cranial nerves symmetric, motor strength 5/5, coordination normal, reflexes diminished symmetrically Lab and Diagnostics Labs DateTimeAnalyzed 09:07:00 -_ pH ____7.329 - 7.350 7.450 pCO2 ___70.0__ -mmHg 35.0 45.0 pO2 ___54.4__ -mmHg 69.0 116 HCO3- ___35.8__ -mmol/L 22.0 26.0 ABE ____8.4__ -mmol/L -2.0 2.0 tHb ___10.5__ -g/dL O2Hb ___83.1__ -% COHb ____1.8__ -% MetHb ____1.6__ -% sO2 ___86.0__ -% 25.0 FIO2 ___35.0__ -% Result Diagram: 08/11/1615 08/11/1615 X-Rays, CTs and MRIs PROCEDURE: X-RAY CHEST ONE VIEW, PORTABLE ([id number]) IMPRESSION: Markedly limited study. No definite acute air space opacities. Dictated by: Jenny Mercado M.D. on 08/11/2016 at 10:11 . 12-lead ECG Regular rate 90 bpm, p-wave activity not clearly discerned, QTC 448, no acute ischemic ST-T wave changes. Assessment & Plan 61-year-old man with hospitalization on approximately monthly basis due to severe restrictive obesity lung disease, obesity hypoventilation, organizing pneumonia, and COPD on Trilogy APAP device, presents with several days of cough and dyspnea found to be in acute on chronic respiratory failure. Acute, active and/or high-risk problem: # Acute on chronic respiratory failure with hypoxia and hypercarbia. ABG reveals acute respiratory acidosis superimposed on chronic respiratory acidosis and chronic compensation. Symptoms suggest acute lower respiratory infection.. Also possibly acute exacerbation of chronic diastolic heart failure precipitated by hypoxia. His current weight seems to be at the upper range of recent measurements. - Continue BPAP at home Trilogy - Bronchodilators as needed - Repeat VBG after stabilization # Lower respiratory tract infection. Patient shows no SIRS criteria. Mild leukocytosis is essentially baseline for him. He is afebrile. History is notable for increased productive cough. Chest x-ray is nondiagnostic. Working diagnosis is acute bronchitis. - Ceftriaxone and azithromycin - Expectorant cough syrup # Acute on chronic diastolic CHF. - Continue diuretics - usually on torsemide and spironolactone, will use IV furosemide at present. # Chronic kidney disease stage III. Serum creatinine on admission is 1.86. Recent creatinine measurements have ranged from 1.39-1.93. Some element of a chaotic, possibly due to acute diastolic heart failure related to hypoxic respiratory failure. - Follow daily creatinine and BMP with diuresis - May need to hold diuretics if significant worsening with diuresis # Type II diabetes mellitus - 4 times a day capillary blood glucose - Glucose control goals: Random less than 180, fasting less than 140, none less than 70 - Insulin as needed, divided 50-50 long-acting and nutritional/correctional Stable, resolved and/or chronic problems:. # Acute fracture of L2, present on admission. Active. - 10 mg po oxycodone every 4 hours as needed for pain #. Elevated troponin, of uncertain significance, present on admission. Active. #. CARRIE on BiPAP, present on admission. Stable - Continue Trilogy, encouraged to use both day and night at present #. Chronic bilateral lower extremity wounds, present on admission. Active. - Has been followed by wound care so will order while in hospital #. 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 Active. - Continued prednisone at home dose. #. Hypertension, chronic. Stable. - Continued metoprolol, aspirin, and diuretics. #. Parkinsonism, present on admission. Stable. - Continued home Sinemet. #. Anxiety and depression, chronic. Active. - Continued outpatient neuropsychiatric meds. #. Chronic pain with opiate habituation - Continued Oxycodone 10 mg every 4 hours as needed for pain. #. History of chronic paroxysmal atrial fibrillation, with history of episodic RVR. Prior decision of no anticoagulation. - Continue beta amanda #. Morbid obesity, chronic. Class III. Severe mobility impairment. Ongoing. - Calorie restricted diet recommended Pain Evaluation: Adequate Pain Control VTE Prophylaxis: Sub-Q Enoxaparin Resuscitation Status: Limited Interventions (no CPR, cardioversion and intubation for respiratory support is okay) Time spent 65 minutes Ravi Nails MD Aug 11, 2016 15:57
[2016-08-11] MEDS ORDERED: Codeine-guaiFENesin 10 mL Syrup PO PRN (16:00)
[2016-08-11] MEDS ORDERED: Glucose 40% Oral Gel 15 Gm Tube PO PRN (16:00)
[2016-08-11] MEDS ORDERED: cefTRIAXone Inj 2,000 MG in IV Premix 1 EACH IV SCH (16:11)
[2016-08-11] MEDS: Insulin LISPRO 300 Unit/3 mL Inj SUBQ SCH ×2 (18:15→21:11)
[2016-08-11] MEDS: cefTRIAXone Inj 2,000 MG in Dextrose 5% Minibag Plus 50 ML IV SCH (20:45)
[2016-08-11] MEDS ORDERED: 0.9% Sodium Chloride 100 ML ONE (20:51)
[2016-08-11] MEDS ORDERED: Insulin GLARgine 100 Unit/mL Syringe SUBQ SCH (22:00)
[2016-08-12] VITALS (11 sets, daily range): BP systolic 112–150; BP diastolic 55–77; PULSE 66–86; RESP 18–22; O2SAT 93–97
[2016-08-12 04:41] LABS: Mean Corpuscular Hemoglobin 25.9 pg (27.0-35.0); Mean Corpuscular Volume 86.8 fL (81-100)
--- NOTE | 2016-08-12 06:37 | NUR ---
Blood Sugars/Pain/BIPAP/Turns Per report from day RN pt received 12 units insulin to cover blood sugar in 400s. At HS pt blood sugar continued to be in mid 400s, given Lantus and Humalog per sliding scale. Pt checked again around 0100 and result still in mid 400s, paged about reassessed sugar after interventions and asked if additional coverage needed. No new orders given at this time. Pt reassessed again this morning, blood sugar down to 396, paged, no new orders given. Pt c/o 7-03/05 back and anterior upper leg pain, treated effectively w/ PRN oxycodone, pt stated this returns him to tolerable 11/03. Pt described that he originally felt chest pain w/ deep inspiration prior to coming to hospital, pt reminded to inform nursing if any chest pain were to occur, pt voiced understanding. PRN pain med schedule on board. No reports of chest pain. Pt refused BiPAP overnight, reminded that this would be very helpful to treatment. Pt voiced understanding of CO2 retention and CARRIE risks but stated he had claustrophobia and feared wearing the mask. Pt refusing Q2 turns, reminded of skin breakdown risk on sacrum and wound care encouraging turns. Pt states this makes back pain worse. Pt voiced understanding of reasoning and that he "shifts" himself in bed
[2016-08-12] MEDS: Insulin LISPRO 300 Unit/3 mL Inj SUBQ SCH ×4 (08:13→21:33)
[2016-08-12] MEDS: ARIPiprazole 2 mg Tablet PO SCH (08:13)
[2016-08-12] MEDS: predniSONE 10 mg Tablet PO SCH (08:13)
[2016-08-12] MEDS: cefTRIAXone Inj 2,000 MG in Dextrose 5% Minibag Plus 50 ML IV SCH (08:16)
[2016-08-12] MEDS: Sodium Chloride LOK Flush 10 mL Syringe IVFLUSH SCH ×3 (08:17→21:35)
[2016-08-12] MEDS ORDERED: _PredniSONE 10 mg Tablet PO SCH (08:30)
[2016-08-12] MEDS: Insulin GLARgine 100 Unit/mL Syringe SUBQ SCH ×2 (11:12→21:32)
--- NOTE | 2016-08-12 14:20 | NUR ---
Called to Pt. room about Home Trilogy unit. Discussed issue with pt. Pt. Home Health care company is [employer]. Spoke with Carol. Will send school admissions representative to check equipment.
--- NOTE | 2016-08-12 15:43 | NUR ---
Turning, Bipap He is politely refusing turning despite education as he says it is uncomfortable. He has also been refusing bipap as it makes him feel claustrophobic. Currently room air to 1L of O2 via nasal cannula with continuous pulse oximeter (88-94%). Care continues.
--- NOTE | 2016-08-12 17:42 | NUR ---
spiritual care: pt request pt sleeping; left note
--- NOTE | 2016-08-12 18:56 | PCM.PNMED ---
Subjective Date of Service Aug 12, 2016 Subjective 61-year-old man with morbid obesity and obesity hypoventilation syndrome presents with several days of increasing cough and dyspnea, found to be in acute on chronic respiratory failure with hypercarbia. He states his breathing is at baseline today. He has no complaints. His concerns that history that she device is not working properly. Exam Vital Signs Vital Sign - Last Date Time Temp Pulse Resp B/P Pulse Ox O2 Delivery O2 Flow Rate FiO2 08/12/16 16:52 75 08/12/16 16:24 36.7 20 123/74 97 Nasal Cannula 1.00 08/11/16 16:00 35 Intake and Output 08/11/16 08/11/16 08/12/16 Cumulative From/Thru 14:59 22:59 06:59 08/11/16 08:25 - 08/12/16 06:10 Intake Total 0 ml 800 ml 800 ml Output Total 100 ml 2600 ml 2700 ml Balance -100 ml 0 ml -1800 ml -1900 ml Intake Oral 800 ml 800 ml IV Total 0 ml 0 ml Output Urine Total 100 ml 2600 ml 2700 ml # Voids 1 1 Exam General: Morbidly obese man in no acute distress on nasal cannula HEENT: sclerae anicteric, oral mucosa moist Chest: Reduced breath sounds, clear to auscultation Cardiac: S1S2, no audible murmur Abdomen: Obese, BS normal, non-tender Extremities: + edema Neuro: A&O, cranial nerves symmetric, motor strength 5/5, coordination normal Lab and Diagnostics Result Diagram: 08/12/1640908/12/16 0410 X-Rays, CTs and MRIs PROCEDURE: X-RAY CHEST ONE VIEW, PORTABLE ([id number]) IMPRESSION: Markedly limited study. No definite acute air space opacities. Dictated by: Jenny Mercado M.D. on 08/11/2016 at 10:11 . 12-lead ECG Regular rate 90 bpm, p-wave activity not clearly discerned, QTC 448, no acute ischemic ST-T wave changes. Assessment & Plan 61-year-old man with hospitalization on approximately monthly basis due to severe restrictive obesity lung disease, obesity hypoventilation, organizing pneumonia, and COPD on Trilogy APAP device, presents with several days of cough and dyspnea found to be in acute on chronic respiratory failure. Acute, active and/or high-risk problem: # Acute on chronic respiratory failure with hypoxia and hypercarbia. ABG reveals acute respiratory acidosis superimposed on chronic respiratory acidosis and chronic compensation. Symptoms suggest acute lower respiratory infection.. Also possibly acute exacerbation of chronic diastolic heart failure precipitated by hypoxia. His current weight seems to be at the upper range of recent measurements. - Continue BPAP at home Trilogy - Bronchodilators as needed # Lower respiratory tract infection. Patient shows no SIRS criteria. Mild leukocytosis is essentially baseline for him. He is afebrile. History is notable for increased productive cough. Chest x-ray is nondiagnostic. Working diagnosis is acute bronchitis. - Ceftriaxone and azithromycin - Plan to switch to oral antibiotic to complete 5 days - levofloxacin - Expectorant cough syrup # Acute on chronic diastolic CHF. - Continue diuretics - usually on torsemide and spironolactone, will use IV furosemide at present. # Chronic kidney disease stage III. Serum creatinine on admission is 1.86. Recent creatinine measurements have ranged from 1.39-1.93. Some element of a chaotic, possibly due to acute diastolic heart failure related to hypoxic respiratory failure. - Follow daily creatinine and BMP with diuresis - May need to hold diuretics if significant worsening with diuresis # Type II diabetes mellitus - 4 times a day capillary blood glucose - Glucose control goals: Random less than 180, fasting less than 140, none less than 70 - Insulin as needed, divided 50-50 long-acting and nutritional/correctional Stable, resolved and/or chronic problems:. # Acute fracture of L2, present on admission. Active. - 10 mg po oxycodone every 4 hours as needed for pain #. Elevated troponin, of uncertain significance, present on admission. Active. #. CARRIE on BiPAP, present on admission. Stable - Continue Trilogy, encouraged to use both day and night at present #. Chronic bilateral lower extremity wounds, present on admission. Active. - Has been followed by wound care so will order while in hospital #. 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 Active. - Continued prednisone at home dose. #. Hypertension, chronic. Stable. - Continued metoprolol, aspirin, and diuretics. #. Parkinsonism, present on admission. Stable. - Continued home Sinemet. #. Anxiety and depression, chronic. Active. - Continued outpatient neuropsychiatric meds. #. Chronic pain with opiate habituation - Continued Oxycodone 10 mg every 4 hours as needed for pain. #. History of chronic paroxysmal atrial fibrillation, with history of episodic RVR. Prior decision of no anticoagulation. - Continue beta amanda #. Morbid obesity, chronic. Class III. Severe mobility impairment. Ongoing. - Calorie restricted diet recommended Disposition: Expect patient ready for discharge on 08/13/16 VTE Prophylaxis: Sub-Q Enoxaparin Resuscitation Status: Limited Interventions (no CPR, cardioversion and intubation for respiratory support is okay) Time spent 35 minutes Ravi Nails MD Aug 12, 2016 18:56
[2016-08-13 03:33] VITALS: BP 143/78; PULSE 74; RESP 18; O2SAT 97
[2016-08-13 08:00] VITALS: BP 138/78; PULSE 79; O2SAT 89
--- NOTE | 2016-08-13 08:13 | NUR ---
Sleepy Patient sleepy states did not sleep all night. Cooperative with care, answering and asking questions. Care continues.
[2016-08-13] MEDS ORDERED: ZIT250 PO (09:00)
--- NOTE | 2016-08-13 09:03 | PCM.DIMED ---
Discharge Instructions Date of Service Aug 13, 2016 Dates of Hospitalization Aug 11, 2016 at 09:19 Discharge Diagnosis Discharge Diagnosis Acute on chronic respiratory failure with hypoxia; acute bronchitis; obesity hypoventilation syndrome Medication Instructions A prescription for azithromycin has been transmitted to the [facility] pharmacy in [place]. You should complete 3 more days for treatment of your acute bronchitis. Diet Heart Healthy, Diabetic Activity No restrictions Call your provider Shortness of breath Patient Instructions You should contact [employer] if you have any further difficulties with your Trilogy device. Follow-up Provider: Nicolás Pendleton MD Follow-up with PCP in: 1 week (routine posthospitalization follow-up appointment) Ravi Nails MD Aug 13, 2016 09:03
[2016-08-13 10:26] VITALS: PULSE 80
[2016-08-13] MEDS: Insulin LISPRO 300 Unit/3 mL Inj SUBQ SCH (10:35)
[2016-08-13] MEDS: predniSONE 10 mg Tablet PO SCH (10:39)
[2016-08-13] MEDS: ARIPiprazole 2 mg Tablet PO SCH (10:41)
[2016-08-13] MEDS: cefTRIAXone Inj 2,000 MG in Dextrose 5% Minibag Plus 50 ML IV SCH (10:42)
[2016-08-13] MEDS: Sodium Chloride LOK Flush 10 mL Syringe IVFLUSH SCH (10:43)
[2016-08-13] MEDS: Insulin GLARgine 100 Unit/mL Syringe SUBQ SCH (10:54)
--- NOTE | 2016-08-13 11:39 | NUR ---
Social Work Note: Initial Assessment/ Discharge Data& Assessment: EMR reviewed. Per pt is medically ready to discharge home via POV with resume [facility] PT and RN. KARISSA met with pt at bedside to confirm discharge plan and assess for any unmet needs. Xavi Vargas is a 61 year old male admitted on 08/11/2016 for respiratory failure. Pt has Medicare and [facility] supplemental insurance coverage. Pt sees Nicolás Pendleton MD for primary care. Pt lives in [place] with his family and uses an electric wheelchair at baseline. Pt also wears a trilogy machine at night and oxygen during the day through [facility]. Pt has been to [facility] in the past and is currently open with [facility] RN. Pt has DPOA paperwork completed at home, SW requested a copy when possible. Pt does not have LTC insurance or VA benefits. Pt confirmed she is able to transport pt home today. Pt and pt deny any other needs. No other discharge needs identified. Plan: Per pt is medically improved and ready to discharge home via POV with [facility] and RN resumed. KARISSA notified Randall, Liaison with [facility] of pt discharge. Pt confirmed she is able to transport pt home today. Pt and pt deny any other needs. No other discharge needs identified. KATHERINE Mckeon Addendum: 08/13/16 at 1144 by DELLA MAXWELL Amended: Links added.
--- NOTE | 2016-08-13 12:21 | NUR ---
Discharge Patient discharged at approximately 1200 to home with . Patient given discharge packet with next dose to be taken clearly written, dated and timed; followup appointment highlighted and educational material on obesity. Patient IV DC'd with catheter intact, tele DC'd groundwater monitoring technician notified. Patient acknowledged and understood all information. Patient left with all belongings. Pt escorted by [employer] in wheel chair to door to meet .
--- NOTE | 2016-09-02 16:12 | PCM.DC.MED ---
Discharge Summary Date of Service Aug 13, 2016 Dates of Hospitalization Date of Hospital Admission Aug 11, 2016 at 09:19 Date of Discharge: Aug 13, 2016 Providers: Admitting Physician: Roscoe Jefferson MD Primary Care Physician: Nicolás Pendleton MD Attending Physician: Roscoe Jefferson MD Diagnosis at Time of Discharge Diagnosis at Time of Discharge Acute on chronic respiratory failure with hypoxia; acute bronchitis; obesity hypoventilation syndrome Procedures XRay, CTs & MRIs PROCEDURE: X-RAY CHEST ONE VIEW, PORTABLE ([id number]) IMPRESSION: Markedly limited study. No definite acute air space opacities. Dictated by: Jenny Mercado M.D. on 08/11/2016 at 10:11 . ECG 12 Lead Regular rate 90 bpm, p-wave activity not clearly discerned, QTC 448, no acute ischemic ST-T wave changes. Brief History History of Present Illness (per admission note): Approximate 5 days prior to admission patient began to experience increased cough and worsening dyspnea. He was evaluated in the emergency department 3 days prior to admission and discharged home. Since we noted his cough to be worse. It is moderately productive of thick gaffney phlegm. He increased his Trilogy device use but continued to decline. He reports some chills. He denies sweats or subjective fevers. He has chest pain with deep inspiration related to his dyspnea, but no other anginal sounding complaint. His legs are chronically swollen but no change recently. Has no abdominal complaints. Hospital Course 61-year-old man with hospitalization on approximately monthly basis due to severe restrictive obesity lung disease, obesity hypoventilation, organizing pneumonia, and COPD on Trilogy APAP device, presents with several days of cough and dyspnea found to be in acute on chronic respiratory failure. # Acute on chronic respiratory failure with hypoxia and hypercarbia. ABG reveals acute respiratory acidosis superimposed on chronic respiratory acidosis and chronic compensation. Symptoms suggest acute lower respiratory infection.. Also possibly acute exacerbation of chronic diastolic heart failure precipitated by hypoxia. His current weight seems to be at the upper range of recent measurements. - Continue BPAP at home Trilogy - Azithromycin for bronchitis - Bronchodilators as needed # Lower respiratory tract infection. Patient shows no SIRS criteria. Mild leukocytosis is essentially baseline for him. He is afebrile. History is notable for increased productive cough. Chest x-ray is nondiagnostic. Working diagnosis is acute bronchitis. - Ceftriaxone and azithromycin; ceftriaxone discontinued - oral antibiotic to complete 5 days - Expectorant cough syrup # Acute on chronic diastolic CHF. - Continue diuretics - usually on torsemide and spironolactone, will use IV furosemide at present. # Chronic kidney disease stage III. Serum creatinine on admission is 1.86. Recent creatinine measurements have ranged from 1.39-1.93. Some element of a chaotic, possibly due to acute diastolic heart failure related to hypoxic respiratory failure. - Stable at time of discharge # Type II diabetes mellitus - Return to usual outpatient diabetes management; no changes made Stable, resolved and/or chronic problems:. # Acute fracture of L2, present on admission. Active. - 10 mg po oxycodone every 4 hours as needed for pain #. Elevated troponin, of uncertain significance, present on admission. Active. #. CARRIE on BiPAP, present on admission. Stable - Continue Trilogy, encouraged to use both day and night at present #. Chronic bilateral lower extremity wounds, present on admission. Active. - Has been followed by wound care so will order while in hospital #. 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 Active. - Continued prednisone at home dose. #. Hypertension, chronic. Stable. - Continued metoprolol, aspirin, and diuretics. #. Parkinsonism, present on admission. Stable. - Continued home Sinemet. #. Anxiety and depression, chronic. Active. - Continued outpatient neuropsychiatric meds. #. Chronic pain with opiate habituation - Continued Oxycodone 10 mg every 4 hours as needed for pain. #. History of chronic paroxysmal atrial fibrillation, with history of episodic RVR. Prior decision of no anticoagulation. - Continue beta amanda #. Morbid obesity, chronic. Class III. Severe mobility impairment. Ongoing. - Calorie restricted diet recommended Exam Vital Signs (Last) Date Time Temp Pulse Resp B/P Pulse Ox O2 Delivery O2 Flow Rate FiO2 08/13/16 08:00 37.1 79 138/78 89 Nasal Cannula 1.50 08/13/16 03:33 18 08/11/16 16:00 35 Exam General: Morbidly obese man in no acute distress HEENT: sclerae anicteric, oral mucosa moist Neck: Unable to assess JVD Chest: Generally clear to auscultation anterolaterally, occasional rhonchi Cardiac: S1S2, no audible murmur Abdomen: BS normal, non-tender Extremities: Stasis changes with erythema Neuro: A&O, cranial nerves symmetric, motor strength 5/5, coordination normal Test 08/11/16 09:15 08/11/16 10:43 08/12/16 04:10 08/13/16 02:54 Neutrophils (%) (Auto) 81.8% (40-74) Lymphocytes (%) (Auto) 8.0% (14-46) Monocytes (%) (Auto) 8.7% (4-12) Eosinophils (%) (Auto) 0.6% (0-5) Basophils (%) (Auto) 0.1% (0-3) D-Dimer 0.5mg/L (<0.50) Lactic Acid Level 0.9mmol/L (0.4-2.0) Total Bilirubin 0.4mg/dL (0.0-1.2) Aspartate Amino Transf (AST/SGOT) 34U/L (0-50) Alanine Aminotransferase (ALT/SGPT) 5U/L (0-44) Alkaline Phosphatase 95U/L (25-160) Troponin T 0.105ug/L (0.0-0.011) Pro-B-Type Natriuretic Peptide 1345pg/mL (0-210) Total Protein 6.6g/dL (6.4-8.4) Albumin 3.7g/dL (3.4-5.0) Urine Color Straw (YELLOW) Urine Appearance Clear (CLEAR,HAZY) Urine pH 5.5 (5.0-8.0) Urine Specific [place] 1.010 (1.003-1.035) Urine Protein Negativemg/dL (NEG,TRACE) Urine Glucose (UA) Negativemg/dL (NEGATIVE) Urine Ketones Negativemg/dL (NEGATIVE) Urine Occult Blood Negative (NEGATIVE) Urine Nitrite Negative (NEGATIVE) Urine Bilirubin Negative (NEGATIVE) Urine Urobilinogen Normalmg/dL (NORMAL) Urine Leukocyte Esterase Negative (NEGATIVE) Urine RBC 0-2/hpf (0-2) Urine WBC 0-5/hpf (0-5) Urine Epithelial Cells Occasional/hpf (NONE-MOD) Urine Crystals None seen (NONE SEEN) Urine Bacteria None/hpf (NONE-FEW) Urine Hyaline Casts None/lpf (NONE) Urine Granular Casts None seen (NONE SEEN) Urine Waxy Casts None seen (NONE SEEN) Urine Red Blood Cell Casts None seen (NONE SEEN) Urine White Blood Cell Casts None seen (NONE SEEN) Urine Mucus None seen (None Seen) Urine Trichomonas None seen (NONE SEEN) Urine Yeast None (NONE SEEN) Urinalysis Comment None Urine Culture Reflexed Not indicated White Blood Count 9.7th/mm3 (3.8-10.1) Red Blood Count 3.86mil/mm3 (4.40-5.80) Hemoglobin 10.0g/dL (13.8-17.2) Hematocrit 33.5% (41.0-50.0) Mean Corpuscular Volume 86.8fL (81-100) Mean Corpuscular Hemoglobin 25.9pg (27.0-35.0) Mean Corpuscular Hemoglobin Concent 29.9% (32.0-37.0) Red Cell Distribution Width 17.7% (12.3-15.4) Platelet Count 154bil/L (150-400) Sodium Level 138mEq/L (134-144) Potassium Level 4.0mEq/L (3.5-5.2) Chloride Level 91mEq/L (97-108) Carbon Dioxide Level 36mmol/L (18-29) Blood Urea Nitrogen 58mg/dL (8-27) Creatinine 1.70mg/dL (0.76-1.27) Estimat Glomerular Filtration Rate 44mL/min (>59) Glucose Level 268mg/dL (60-99) Calcium Level 8.7mg/dL (8.5-10.1) Discharge Medications Discharge Medications Allopurinol (Allopurinol) 100 Mg Tablet 100 MG PO DAILY (Reported) Amitriptyline (Amitriptyline) 50 Mg Tab 50 MG PO HS (Reported) Arformoterol Tartrate (Brovana) 15 Mcg/2 Ml Vial.neb 15 MCG IH BID (Reported) Aripiprazole (Aripiprazole) 2 Mg Tablet 2 MG PO DAILY (Reported) Ascorbic Acid (Vitamin C) 500 Mg Capsule.er 500 MG PO DAILY (Reported) Aspirin (Aspirin) 81 Mg Tablet 81 MG PO DAILY (Reported) Atorvastatin Calcium (Atorvastatin Calcium) 10 Mg Tablet 10 MG PO HS (Reported) Azithromycin (Zithromax) 250 Mg Tablet 500 MG PO DAILY Prescribed by: ROSCOE JEFFERSON MD Carbidopa/Levodopa 25-100 mg (Carbidopa/Levodopa 25-100 mg) 1 Each Tablet 2 TABLET PO QID (Reported) Cholecalciferol (Vitamin D3) (Vitamin D3) 1,000 Unit Tab.chew 1,000 UNIT PO DAILY (Reported) Cinnamon Bark/Chromium Picolin (Cinnamon Plus Chromium Capsule) 1 Each Capsule 1 EACH PO DAILY (Reported) Citalopram (Citalopram) 40 Mg Tablet 40 MG PO DAILY (Reported) Clopidogrel Bisulfate (Plavix) 75 Mg Tablet 75 MG PO DAILY Prescribed by: MIRACLE MERRILL DO Fluticasone Propionate (Flonase Allergy Relief) 9.9 Ml [place].susp 1 SPRAYS NS DAILY (Reported) Insulin Aspart (NovoLOG U100 Insulin Vial) 100 Unit/Ml Mdv 10-25 UNITS SUBQ tidwm plus slid scal Prescribed by: ROBERTO YOUNGBLOOD DO Insulin Glargine (Lantus U100 Insulin Vial) 100 Unit/Ml Vial 60 UNITS SUBQ BID ( Reported) Lactobacillus Acidophilus (Acidophilus) 1 Each Capsule 1 EACH PO DAILY (Reported ) Latanoprost (Latanoprost) 2.5 Ml Drops 1 GTT BOTH_EYES HS (Reported) Magnesium Oxide (Magnesium Oxide) 400 Mg Tablet 400 MG PO DAILY (Reported) Metoprolol Tartrate (Metoprolol Tartrate) 25 Mg Tablet 50 MG PO BID Prescribed by: PONCHO VICENTE MD Multivitamin (Multivitamins) 1 Each Capsule 1 EACH PO DAILY (Reported) Nystatin (Nystatin) 20 Applic/15 Gm Oint 1 APPLIC TOP BID (Reported) Omeprazole (Omeprazole) 20 Mg Capsule.dr 20 MG PO DAILY (Reported) Potassium Chloride ER (Klor-Con M20) 20 Meq Tablet 20 MEQ PO DAILY (Reported) Prednisone (PredniSONE) 10 Mg Tablet 10 MG PO DAILY Prescribed by: MIRACLE MERRILL DO Pregabalin (Lyrica) 225 Mg Capsule 225 MG PO BID (Reported) Spironolactone (Spironolactone) 25 Mg Tablet 25 MG PO BID (Reported) Tamsulosin ER (Tamsulosin ER) 0.4 Mg Cap.er.24h 0.4 MG PO HS (Reported) Torsemide (Torsemide) 100 Mg Tablet 50 MG PO BID (Reported) As needed Acetaminophen (Acetaminophen) 500 Mg Tablet 500 MG PO Q6H PRN PRN For Pain ( Reported) Albuterol Neb Soln (Albuterol Neb Soln) 2.5 Mg/3 Ml Vial.neb 2.5 MG INHALATION Q4H PRN PRN For Shortness of Breath (Reported) Albuterol Sulfate (Ventolin HFA Inhaler) 200 Puff/18 Gm Inhaler 2 PUFFS INH q4- 6 hours PRN PRN For Shortness of Breath (Reported) Calcium Carbonate (Tums) 500 Mg Tab.chew 2,000 MG PO PRN PRN PRN For Indigestion (Reported) Dextran 70/Hypromellose/Pf (Artificial Tears Drops) 1 Each Droperette 1 DROP BOTH_EYES QID PRN PRN dry eyes (Reported) Loratadine (Claritin) 10 Mg Capsule 10 MG PO DAILY PRN PRN allergies (Reported) Sennosides (Senna) 8.6 Mg Tablet 17.2 MG PO BID PRN PRN For Constipation ( Reported) oxyCODONE (oxyCODONE) 20 Mg Tablet 20 MG PO Q4H PRN PRN For Pain (Reported) Miscellaneous Medications ([livaplex]) (Reported) ([vitality]) (Reported) ([D3]) (Reported) ([super B complex]) (Reported) ([parsley]) (Reported) Cyanocobalamin (Vitamin B-12) (B-12) 500 Mcg Tab.rapdis 500 MCG SL (Reported) Additional med instructions A prescription for azithromycin has been transmitted to the [facility] pharmacy in [place]. You should complete 3 more days for treatment of your acute bronchitis. Followup Plan Discharge Diet: Heart Healthy, Diabetic Discharge Activity: No restrictions Patient Instructions You should contact [employer] if you have any further difficulties with your Trilogy device. Follow-up Provider: Nicolás Pendleton MD Follow-up with PCP in: 1 week (routine posthospitalization follow-up appointment) Roscoe Jefferson MD Aug 13, 2016 09:04
== END 2016-08-13 12:00 | disposition home or self-care (01) | DRG 189 ==
LOC: SED 08:19 → PCC 09:19
PROVIDERS: ADMIT Internal Medicine; ATTEND Internal Medicine
PROC: 5A09358 Assistance with Respiratory Ventilation, Less than 24 Consecutive Hours, Intermittent Positive Airway Pressure (ICD-10-PCS; principal; 2016-08-11)
PROC: 4A033R1 Measurement of Arterial Saturation, Peripheral, Percutaneous Approach (ICD-10-PCS; 2016-08-11)
DX: J96.21 Acute and chronic respiratory failure with hypoxia (principal); I50.33 Acute on chronic diastolic (congestive) heart failure; J44.1 Chronic obstructive pulmonary disease with (acute) exacerbation; E66.2 Morbid (severe) obesity with alveolar hypoventilation; Z68.42 Body mass index [BMI] 45.0-49.9, adult; E87.2 Acidosis; F11.20 Opioid dependence, uncomplicated; J96.22 Acute and chronic respiratory failure with hypercapnia; J22 Unspecified acute lower respiratory infection; N18.3 Chronic kidney disease, stage 3 (moderate); E11.9 Type 2 diabetes mellitus without complications; I12.9 Hypertensive chronic kidney disease with stage 1 through stage 4 chronic kidney disease, or unspecified chronic kidney disease; G20 Parkinson's disease; F41.9 Anxiety disorder, unspecified; F32.9 Major depressive disorder, single episode, unspecified; G89.29 Other chronic pain; Z79.82 Long term (current) use of aspirin; Z79.4 Long term (current) use of insulin; Z79.52 Long term (current) use of systemic steroids; Z86.14 Personal history of Methicillin resistant Staphylococcus aureus infection; Z87.891 Personal history of nicotine dependence; I48.2 Chronic atrial fibrillation

== ENCOUNTER 2016-09-15 10:19 | Inpatient (IN) | payer MEDICARE, MEDICAID ==
[~2016-09-15] VITALS: Ht 185.4 cm; Wt 164.3 kg
[2016-09-15] VITALS (12 sets, daily range): BP systolic 137–158; BP diastolic 70–78; PULSE 69–92; RESP 18–30; O2SAT 92–98
--- NOTE | 2016-09-15 10:15 | ED.REPORT ---
HPI-General Illness Date of Service Sep 15, 2016 ED Provider: Omi Abrams MD 61 year old diabetic male with a history of COPD, BOOP, CHF, DVT, hypoxemic respiratory failure, CARRIE on CPAP, and paroxysmal atrial fibrillation presents to the ER via EMS due to acute on chronic shortness of breath and pleuritic pain with respiration onset today. Pain is described as pressure in character, and radiates into his back. He also reports cough, congestion, and URI symptoms for the past week. Patient denies fever, chills, and history of CAD. Symptoms have been treated with patient's daily morning nebulizer with no relief. He also takes Prednisone 10mg daily. Nursing Notes Stated Complaint: SHORTNESS OF BREATH Nursing Notes Reviewed: Yes Allergies: Coded Allergies: amoxicillin (Verified Adverse Reaction, Severe, Nausea, 09/15/16) VERY NAUSEUOUS clavulanic acid (Verified Adverse Reaction, Severe, Nausea, 09/15/16) aspirin (Verified Adverse Reaction, Intermediate, Hematuria, 09/15/16) Blood in urine after senior living use Scheduled Allopurinol (Allopurinol) 100 Mg Tablet 100 MG PO DAILY Amitriptyline (Amitriptyline) 50 Mg Tab 50 MG PO HS Arformoterol Tartrate (Brovana) 15 Mcg/2 Ml Vial.neb 15 MCG IH BID Aripiprazole (Aripiprazole) 2 Mg Tablet 2 MG PO DAILY Ascorbic Acid (Vitamin C) 500 Mg Capsule.er 500 MG PO DAILY Aspirin (Aspirin) 81 Mg Tablet 81 MG PO DAILY Atorvastatin Calcium (Atorvastatin Calcium) 10 Mg Tablet 10 MG PO HS Carbidopa/Levodopa 25-100 mg (Carbidopa/Levodopa 25-100 mg) 1 Each Tablet 2 TABLET PO QID Cinnamon Bark/Chromium Picolin (Cinnamon Plus Chromium Capsule) 1 Each Capsule 1 EACH PO DAILY Clopidogrel Bisulfate (Plavix) 75 Mg Tablet 75 MG PO DAILY Fluticasone Propionate (Flonase Allergy Relief) 9.9 Ml [place].susp 1 SPRAYS NS DAILY Insulin Aspart (NovoLOG U100 Insulin Vial) 100 Unit/Ml Mdv 10-25 UNITS SUBQ tidwm plus slid scal Insulin Glargine (Lantus U100 Insulin Vial) 100 Unit/Ml Vial 60 UNITS SUBQ BID Lactobacillus Acidophilus (Acidophilus) 1 Each Capsule 1 EACH PO DAILY Latanoprost (Latanoprost) 2.5 Ml Drops 1 GTT BOTH_EYES HS Magnesium Oxide (Magnesium Oxide) 400 Mg Tablet 400 MG PO DAILY Metoprolol Tartrate (Metoprolol Tartrate) 25 Mg Tablet 50 MG PO BID Multivitamin (Multivitamins) 1 Each Capsule 1 EACH PO DAILY Omeprazole (Omeprazole) 20 Mg Capsule.dr 20 MG PO DAILY Potassium Chloride ER (Klor-Con M20) 20 Meq Tablet 20 MEQ PO DAILY Prednisone (PredniSONE) 10 Mg Tablet 10 MG PO DAILY Pregabalin (Lyrica) 225 Mg Capsule 225 MG PO BID Spironolactone (Spironolactone) 25 Mg Tablet 25 MG PO BID Tamsulosin ER (Tamsulosin ER) 0.4 Mg Cap.er.24h 0.4 MG PO HS Torsemide (Torsemide) 100 Mg Tablet 50 MG PO BID Scheduled PRN Acetaminophen (Acetaminophen) 500 Mg Tablet 500 MG PO Q6H PRN PRN For Pain Albuterol Neb Soln (Albuterol Neb Soln) 2.5 Mg/3 Ml Vial.neb 2.5 MG INHALATION Q4H PRN PRN For Shortness of Breath Albuterol Sulfate (Ventolin HFA Inhaler) 200 Puff/18 Gm Inhaler 2 PUFFS INH q4- 6 hours PRN PRN For Shortness of Breath Calcium Carbonate (Tums) 500 Mg Tab.chew 2,000 MG PO PRN PRN PRN For Indigestion Dextran 70/Hypromellose/Pf (Artificial Tears Drops) 1 Each Droperette 1 DROP BOTH_EYES QID PRN PRN dry eyes Loratadine (Claritin) 10 Mg Capsule 10 MG PO DAILY PRN PRN allergies Sennosides (Senna) 8.6 Mg Tablet 17.2 MG PO BID PRN PRN For Constipation oxyCODONE (oxyCODONE) 20 Mg Tablet 20 MG PO Q4H PRN PRN For Pain Miscellaneous Medications ([livaplex]) ([vitality]) ([D3]) ([super B complex]) ([parsley]) Cyanocobalamin (Vitamin B-12) (B-12) 500 Mcg Tab.rapdis 500 MCG SL General Time Seen by MD: 10:15 Chief Complaint Other (Shortness of Breath) Hx Obtained From: Patient Arrived By: Ambulance Sudden in Onset?: No Onset Occurred: 1 - 4 hours ago Symptom Duration: Since onset Location: : Chest Quality: Painful, Pressure Radiation: : Back Severity: Current: Moderate Severity: Maximum: Moderate Associated with: Reports: Chest pain, Congestion, Cough, Denies: Fever Context Related History: Reports COPD, Reports Diabetes mellitus Similar Sx Previous: Yes Past Medical History Past Medical History Notes: PCP: Dr. 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 Paroxysmal Atrial Fibrillation 2. ho/ chronic hypoxemic respiratory failure (states patient uses O2 3 L at night at baseline) 3. history of MSRA 4. CKD stage III 5. History of pancreatitis 6. BOOP on chronic prednisone (patient states current dose as of July 2016 is 10 mg daily) 7. Diabetes Mellitus Type 2, insulin-using, poorly controlled 8. Hypertension 9. Parkinsonian Tremor 10. BPH 11. Anxiety and depression 12. CARRIE on CPAP 13. Chronic congestive heart failure secondary to diastolic dysfunction 14. chronic edema 15. Gout 16. Chronic back pain on opiates (history of acute L2 fracture 06/2016 as well) History of cor pulmonale per pulmonology note June 2016 Obesity hypoventilation syndrome per pulmonology note June 2016 Obesity BMI 48.2 Past Surgical History Colonoscopy Lung biopsy Hernia repair Reports: Appendectomy Family History Reports: Diabetes mellitus Smoking History Former Smoker Social History Drug Use: Denies drug use Other Social History: Good social support, Frequent ED visitor, , Local resident Ambulatory Status Walker Review of Systems Full Review of Systems Constitutional: Denies: Chills, Fever Ears / Nose / Throat: Reports: Nasal congestion Respiratory: Reports: Non-productive cough, Pleuritic pain, Shortness of breath Complete sys rev & neg: except as marked. Physical Exam Vital Signs Vital Signs Date Time Temp Pulse Resp B/P Pulse Ox O2 Delivery O2 Flow Rate FiO2 09/15/16 12:12 90 24 158/76 97 Nasal Cannula 3 09/15/16 11:42 91 19 93 Nasal Cannula 3 09/15/16 10:30 36.6 92 30 153/70 98 Nasal Cannula 3 Initial VS: Reviewed Head / Eyes: Atraumatic, Normocephalic Neck: Supple, Non-tender, Full range of motion Abdomen / GI: Soft, Non-tender, No guarding, No rebound, No distention Skin: Warm, Dry, No cyanosis General/Constitutional: Awake, Alert, Well developed, Well nourished Appearance / Presentation: Positive: Obese Respiratory / Chest: No chest tenderness, No chest wall deformity Diminished Breath Sounds: Positive: Decreased bilateral (bases) Wheezing / Retractions: Positive: Prolonged exp phase, Wheezing moderate Coarse breath sounds with audible wheezing. Cardiovascular: Heart rate NL, Regular rhythm, Heart sounds NL, Cap refill not delayed, Peripheral circulation NL Pitting edema bilaterallly extending above the knees. Neurologic: Oriented X3, Speech NL, No sensory deficits Movement Abnormality: Positive: Tremor - resting Interpretation & Diagnostics Lab Results Interpretation Result Diagram: 09/15/16 1045 09/15/16 1045 Test 09/15/16 10:45 09/15/16 11:58 White Blood Count 13.6th/mm3 (3.8-10.1) Red Blood Count 4.28mil/mm3 (4.40-5.80) Hemoglobin 11.0g/dL (13.8-17.2) Hematocrit 37.5% (41.0-50.0) Mean Corpuscular Volume 87.6fL (81-100) Mean Corpuscular Hemoglobin 25.7pg (27.0-35.0) Mean Corpuscular Hemoglobin Concent 29.3% (32.0-37.0) Red Cell Distribution Width 19.2% (12.3-15.4) Platelet Count 187bil/L (150-400) Neutrophils (%) (Auto) 84.7% (40-74) Lymphocytes (%) (Auto) 7.6% (14-46) Monocytes (%) (Auto) 7.2% (4-12) Eosinophils (%) (Auto) 0.2% (0-5) Basophils (%) (Auto) 0.1% (0-3) Prothrombin Time 10.8sec (8.1-12.5) Prothromb Time International Ratio 1.01ratio Sodium Level 136mEq/L (134-144) Potassium Level 4.3mEq/L (3.5-5.2) Chloride Level 87mEq/L (97-108) Carbon Dioxide Level 37mmol/L (18-29) Blood Urea Nitrogen 32mg/dL (8-27) Creatinine 1.55mg/dL (0.76-1.27) Estimat Glomerular Filtration Rate 49mL/min (>59) Glucose Level 223mg/dL (60-99) Calcium Level 8.8mg/dL (8.5-10.1) Magnesium Level 2.4mg/dL (1.6-2.6) Total Bilirubin 0.6mg/dL (0.0-1.2) Aspartate Amino Transf (AST/SGOT) 25U/L (0-50) Alanine Aminotransferase (ALT/SGPT) 5U/L (0-44) Alkaline Phosphatase 94U/L (25-160) Troponin T 0.070ug/L (0.0-0.011) Pro-B-Type Natriuretic Peptide 636.9pg/mL (0-210) Total Protein 7.4g/dL (6.4-8.4) Albumin 4.1g/dL (3.4-5.0) Activated Partial Thromboplast Time 28.9sec (22.8-33.0) ECG Interpretation ECG Interpretation: Sinus rhythm rate, 89 Normal axis Nonspecific intraventricular conduction delay No ST segment changes No acute T wave abnormalities Unchanged from prior ECG 08/11/2016 Time: 11:46 Interpreted by: ED physician X-Ray Chest Interpretation Chest Xray Interpretation: IMPRESSION: 1. Mild pulmonary edema. 2. Linear bibasilar opacities compatible atelectasis versus developing consolidation. Dictated by: Royer Barger M.D. on 09/15/2016 at 11:10 Approved by: Royer Barger M.D. on 09/15/2016 at 11:11 View: Portable, 1 view Interpretation / Wet Read by: Interpret - Radiologist Re-Eval/Medical Decision Med Decision/Clinical Course 61 year old diabetic male with a history of COPD, BOOP, CHF, DVT, hypoxemic respiratory failure, CARRIE on CPAP, and paroxysmal atrial fibrillation presents to the ER via EMS due to acute on chronic shortness of breath and pleuritic pain with respiration onset today. Pain is described as pressure in character, and radiates into his back. He also reports cough, congestion, and URI symptoms for the past week. Patient denies fever, chills, and history of CAD. Symptoms have been treated with patient's daily morning nebulizer with no relief. He also takes Prednisone 10mg daily. Final arrival the patient is afebrile stable vital signs and examination as above. He has significant wheezing and prolonged expiratory phase. Patient was treated with the below medications: IV methylprednisolone 125 mg DuoNeb x2 325 mg ASA given (confirmed to not have any significant allergies) Laboratory studies notable as below: Leukocytosis 13.6 Hct stable BUN 32 Creatinine 1.55 No significant electrolyte abnormalities Troponin 0.07 (decreased from prior of 0.1) BNP 636 Coag studies normal Patient had significant improvement after IV steroids and nebulizer treatments. EKG was obtained and interpreted by myself as documented above. Chest x-ray was obtained as below: 1. Mild pulmonary edema. 2. Linear bibasilar opacities compatible atelectasis versus developing consolidation. I initially considered heparinization given the patient's positive troponin however the overall clinical picture is most consistent with COPD exacerbation. Therefore I opted not to administer heparin bolus and infusion after discussing this further with the admitting hospitalist. While chest x-ray dentistry as mild pulmonary edema I do not believe that this time that this is the primary etiology of his shortness of breath. Given the severity of the patient's symptoms I feel that he warrants admission for further workup as well as serial troponin measurements. Patient was transferred in stable condition for further management. I additionally consider pulmonary embolism in the setting of the patient's pleuritic complaints however overall medical picture unconvincing for PE and chest pain seems musculoskeletal in etiology and setting of increased work of breathing and coughing. Source of Hx: Old records Time of Eval: 10:40 Re-Evaluation/Progress Note: Discussed need for admission pending lab and radiology results. He is amenable to the plan. Time of Eval: 12:31 Re-Evaluation/Progress Note: Discussed lab and radiology results and need for admission. Patient understands and agrees to the plan. All other questions addressed. 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: Agrees with eval, Agrees with plan, Accepts admit Counseled Regarding: Diagnosis, Lab results, Need for admission Discharge & Departure Primary Impression: NSTEMI (non-ST elevated myocardial infarction) Additional Impressions: COPD with acute exacerbation CHF (congestive heart failure) Congestive heart failure type: unspecified congestive heart failure type Congestive heart failure chronicity: unspecified congestive heart failure chronicity Qualified Code: I50.9 - Heart failure, unspecified Respiratory distress GRETEL (acute kidney injury) Elevated brain natriuretic peptide (BNP) level Elevated troponin I level Disposition: ADMITTED TO HOSPITAL Discharge Condition All VS Reviewed: Yes Condition: Stable Referrals: Nicolás Pendleton MD (PCP) Crit Care Except Billable Proc Time Spent: 75-104 minutes Services Performed: Patient management by me, Time spent at bedside, Reviewing test results, Reviewing imaging, Discussing patient care, Documentation in record, Time with fam/surrogate Scribe Attestation Portions of this note were transcribed by Abran Tristan. I, Dr. Abrams, personally performed the history, physical exam and medical decision-making; I reviewed and confirmed the accuracy of the information in the transcribed note. Signed by: Tim Sullivan, 09/15/2016 and 12:38 copies to: Nicolás Pendleton MD, Beck O MD Sep 15, 2016 10:15 ABRAN TRISTAN Sep 15, 2016 10:20
[~2016-09-15 10:19] MED LIST changes: +ZIT250 PO
[2016-09-15] MEDS ORDERED: MethylprednisoLONE Sodium Succinate 62.5 mg/mL 2 mL Inj IVPUSH ONE (10:40)
[2016-09-15] MEDS ORDERED: Albuterol-Ipratropium 3 mL Inhalation Solution NEB ONE (10:40)
[2016-09-15] MEDS ORDERED: Albuterol-Ipratropium 3 mL Inhalation Solution NEB SCH (10:40)
[2016-09-15 10:55] LABS: BASOPHILS % (AUTO) 0.1 % (0-3); EOSINOPHILS % (AUTO) 0.2 % (0-5); MONOCYTES % (AUTO) 7.2 % (4-12); Mean Corpuscular Hemoglobin 25.7 pg (27.0-35.0); Mean Corpuscular Volume 87.6 fL (81-100); NEUTROPHILS % (AUTO) 84.7 % (40-74); Platelet Count 187 bil/L (150-400)
[2016-09-15 11:12] LABS: INR 1.01 ratio
--- NOTE | 2016-09-15 11:13 | DRSVH ---
PROCEDURE: X-RAY CHEST ONE VIEW, PORTABLE ([id number]) INDICATIONS: SHORTNESS OF BREATH TECHNIQUE: One view of the chest was acquired. COMPARISON: [facility], CR, XR CHEST 1VW (PORTABLE), 08/11/2016, 9:46. FINDINGS: Surgical changes and devices: None. Lungs and pleura: No pleural effusions or pneumothorax. There is increased pulmonary vascular promi nence consistent with pulmonary edema. There are a few linear bibasilar opacities likely represent a telectasis, versus developing consolidation. Mediastinum: Mediastinal contours appear unchanged. Heart size is borderline enlarged. Bones and chest wall: No suspicious bony lesions. Overlying soft tissues appear unremarkable. IMPRESSION: 1. Mild pulmonary edema. 2. Linear bibasilar opacities compatible atelectasis versus developing consolidation. Dictated by: Royer Barger M.D. on 09/15/2016 at 11:10 Approved by: Royer Barger M.D. on 09/15/2016 at 11:11
[2016-09-15 11:34] LABS: Magnesium 2.4 mg/dL (1.6-2.6)
[2016-09-15 11:44] LABS: TROPONIN T 0.07 ug/L (0.0-0.011)
[2016-09-15] MEDS ORDERED: Heparin 25K Unit/500mL 0.45 NS 25,000 UNIT in IV Premix 1 EACH IV ONE (11:50)
[2016-09-15] MEDS ORDERED: Heparin 5,000 Unit/mL Inj IVPUSH ONE (11:50)
[2016-09-15] MEDS ORDERED: Ondansetron 2 mg/mL 2 mL Inj IVPUSH PRN (13:05)
[2016-09-15] MEDS ORDERED: Alum-Mag Hydrox-Simeth 30 mL Suspension PO PRN (13:05)
--- NOTE | 2016-09-15 14:15 | NUR ---
Admission Patient admitted to the floor at 1330 from the ED. Admission questions and Med rec. accomplished by admit nurse. Vitals - t-35.6, bp-153/70, p-91, rr-19, 02-93 @ 4L nasal canula. Patient complained of Pain at 6/10. given pain meds in the ED. Oriented patient to the room, placed bed in lowest position and call light within reach.
[2016-09-15] MEDS ORDERED: Artificial Tears 15 mL Ophthalmic Solution BOTH_EYES PRN (17:35)
[2016-09-15] MEDS ORDERED: Albuterol 2.5 mg/3 mL Inhalation Solution NEB PRN (17:35)
--- NOTE | 2016-09-15 18:04 | ABG ---
DateTimeAnalyzed 17:54:00 -_ pH ____7.351 - 7.350 7.450 pCO2 ___68.2__ -mmHg 35.0 45.0 pO2 ___59.3__ -mmHg 69.0 116 HCO3- ___36.8__ -mmol/L 22.0 26.0 ABE ____9.6__ -mmol/L -2.0 2.0 tHb ___10.7__ -g/dL O2Hb ___87.2__ -% COHb ____2.2__ -% MetHb ____1.3__ -% sO2 ___90.4__ -% 25.0 FIO2 ___28.0__ -% PEEP ___13.0__ -cmH2O Drawn By lw - Date/Time Notified____ 18:04:00 -_ Spontaneous_RR ___14.0__ -b/min Oxygen Device 1 __trilogy - Notified By lw - Notified Whom ___Dr. [place] - B 750 -mmHg tO2 ___13.2__ -Vol% Tereso test _Positive -
--- NOTE | 2016-09-15 18:23 | PCM.HPMED ---
Subjective Date of Service Sep 15, 2016 Primary Provider: Admitting Physician: Leonarda Biggs MD Primary Care Physician: Nicolás Pendleton MD Attending Physician: Leonarda Biggs MD Admit Status: From the Emergency Department, Full Admit Chief Complaint: Shortness of breath. . History of Present Illness: Xavi Vargas is a 61-year-old male with a past medical history significant for chronic hypoxemic respiratory failure secondary to morbid obesity, COPD, obesity hypoventilation syndrome, CARRIE on Trilogy, [employer] on chronic prednisone presented to [facility] Emergency Department via EMS due to acute on chronic shortness of breath over the last several days. He reports minimally productive cough, congestion, and dyspnea. He also endorses pleuritic chest pain with deep respiration. He denies chest pain, fever, chills, nausea, or vomiting. Symptoms have been treated with patient's daily morning nebulizer with no relief. He also takes Prednisone 10mg daily. He reports decreased appetite with little by mouth intake. He also endorses constipation and decreased urine output. He denies sick contacts. Of note, the patient's reports that he uses Trilogy at night and infrequently during the day. Vital signs in the ER: Temperature 36.6. Pulse 92. Respiratory rate 30. Blood pressure 153/70. Pulse ox 90% on 3 L nasal cannula. He was given oxycodone 20 mg by mouth 1, aspirin 324 mg 1, Sinemet 25-100 mg 2, methylprednisolone 125 mg IV 1, DuoNeb, and torsemide 100 mg 1. . Review of Systems: A comprehensive review of systems was conducted with the patient and found to be negative except as above in the History of Present Illness. . Allergies Coded Allergies: amoxicillin (Verified Adverse Reaction, Severe, Nausea, 09/15/16) VERY NAUSEUOUS clavulanic acid (Verified Adverse Reaction, Severe, Nausea, 09/15/16) aspirin (Verified Adverse Reaction, Intermediate, Hematuria, 09/15/16) Blood in urine after skilled nursing use Home Medications Aspirin 81 mg daily. Atorvastatin 10 mg daily at bedtime. Tums daily as needed for indigestion Sinemet 44146 mg 2 tablets 4 times a day. Plavix 75 mg daily. Lantus 60 units subcutaneous twice a day. Lantanoprost 0.67 drops both eyes daily at bedtime. Magnesium oxide 4 mg daily. Metoprolol tartrate 50 mg twice a day. Potassium chloride 20 mEq daily. Spironolactone 25 mg twice a day. Tamsulosin 0.4 mg daily at bedtime. Prednisone 10 mg daily. Artificial tears in both eyes 4 times as needed when eyes are dry. Flonase 1 spray intranasally daily. Acidophilus 1 tablet daily. Loratadine 10 mg daily as needed for allergies. Omeprazole 20 mg daily. Oxycodone 20 mg every 4 hours as needed for pain. Lyrica 225 mg twice a day. Several supplements and multivitamins. . PMH Chronic hypercarbic respiratory failure. Chronic elevated troponin. Diabetes mellitus type 2, insulin using, uncontrolled. Obesity hypoventilation syndrome and CARRIE on Triology. Chronic bilateral lower extremity wounds. History of BOOP on chronic prednisone. Hypertension. GERD. Glaucoma. BPH. Peripheral neuropathy Parkinsonism. Anxiety and depression. Chronic congestive heart failure secondary to diastolic dysfunction0 mg daily at bedtime. Chronic pain with opiate habituation. History of atrial fibrillation with RVR. Morbid obesity, chronic. CKD stage II. Gout. . Surgical History Colonoscopy. Lung biopsy. Hernia repair. Appendectomy. Family History Non-contributory. . Social History Hx Alcohol Use: No Hx Substance Use: Yes (40 Y/O) Hx Tobacco Use: Yes Smoking Status: Former Smoker Exam Vital Signs Vital Sign - Last Date Time Temp Pulse Resp B/P Pulse Ox O2 Delivery O2 Flow Rate FiO2 09/15/16 11:42 91 19 93 Nasal Cannula 3 09/15/16 10:30 36.6 153/70 Exam General: Obese male lying in bed, somnolent, no acute distress. HEENT: Normocephalic, atraumatic. External ears without defect. Pupils equal, round, and reactive to light. Anicteric sclerae, moist conjunctivae, and no lid lag. Oropharynx free of erythema and cobble stoning with moist mucosa. Neck: Supple with full range of motion. No lymphadenopathy or thyromegaly. Cardiovascular: Regular rate and rhythm with no murmurs, rubs, or gallops appreciated Pulmonary: Diminished lung sounds throughout anterior lung valdez with scattered crackles. Normal respiratory effort with no use of accessory muscles. Abdomen: Super obesity, firm and distended, nontender, bowel sounds diminished. No hepatosplenomegaly or masses appreciated. Extremities: No clubbing or cyanosis Mild anasarca. Skin: Chronics stasis dermatitis on bilateral lower extremities with scattered bullae. Neurological: Somnolent. . Lab and Diagnostics Labs Item Value Date Time Calcium Level 8.8 mg/dL 09/15/16 1045 Magnesium Level 2.4 mg/dL 09/15/16 1045 Total Bilirubin 0.6 mg/dL 09/15/16 1045 Aspartate Amino Transf (AST/SGOT) 25 U/L 09/15/16 1045 Alanine Aminotransferase (ALT/SGPT) 5 U/L 09/15/16 1045 Alkaline Phosphatase 94 U/L 09/15/16 1045 Troponin T 0.070 ug/L *H 09/15/16 1045 Pro-B-Type Natriuretic Peptide 636.9 pg/mL H 09/15/16 1045 Albumin 4.1 g/dL 09/15/16 1045 Total Protein 7.4 g/dL 09/15/16 1045 Result Diagram: 09/15/16 1045 09/15/16 1045 Microbiology Respiratory viral PCR pending. Strep pneumoniae and legionella urine antigens pending. Blood culture 2 pending. . X-Rays, CTs and MRIs X-RAY CHEST ONE VIEW, PORTABLE IMPRESSION: 1. Mild pulmonary edema. 2. Linear bibasilar opacities compatible atelectasis versus developing consolidation. Dictated by: Royer Barger M.D. on 09/15/2016 at 11:10 Approved by: Royer Barger M.D. on 09/15/2016 at 11:11 . Additional Diagnostics: ABG: PH 7.351. PCO2 68. PO2 59.3. HCO3 36. . 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 1. Acute sepsis, present on admission. Active. - SIRS criteria met includes: Tachypneic (respiratory rate 30) and leukocytosis (WBC 13.6) with probable source pulmonary. - Early goal-directed therapy met including: IV fluid resuscitation with gentle hydration and broad-spectrum antibiotics. 2. Probable healthcare associated pneumonia, present on admission. Active. - Patient presented with URI symptoms including worsening dyspnea, minimally productive cough, congestion, pleuritic chest pain. - DDx: Opiate habituation versus obesity hypoventilation syndrome and CARRIE non- compliant with Trilogy versus less likely PE. - Chest x-ray revealed linear bibasilar opacities compatible atelectasis versus developing consolidation, as above. - Ordered viral respiratory PCR, and pending. - Ordered sputum culture, pending. - Ordered strep pneumoniae and legionella urine antigens, pending. - Ordered lactic acid and if greater than 2.0 will need to trend every 2 hours until under 2.0. - Ordered blood cultures 2 pending. - Started gentle hydration with NS at 50 mL/hr due to history of diastolic CHF. - Started ceftriaxone 2 g IV every 24 hours, azithromycin 500 mg IV every 24 hours, and vancomycin as patient was recently hospitalized 1 month ago. - Received Oxycodone 20 mg in ED. Ordered Naloxone 0.2 mg IV and when nurse went to administer the patient woke up and asked that it not be given. Try to administer if increasingly somnolent. 3. Acute on chronic hypercarbic hypoxemia respiratory failure, present on admission. Active. - Continue Trilogy with current settings with addition of oxygen bled into Trilogy. - ABG revealed compensated respiratory acidosis, as above. - Continue home inhaler Brovana. - See problem #2. 4. Acute constipation, secondary to opiate habituation, present on admission. Active. - Ordered KUB. - May need to perform intraabdominal pressure as this is likely contributing to problem # 2 and #3. - Ordered mineral oil enema x 1. - Started scheduled bowel regimen. Chronic Problems: Chronic elevated troponin, of uncertain significance, present on admission. Active. - Chronically elevated troponin. - Continue to monitor closely on telemetry. Diabetes mellitus type 2, insulin using, uncontrolled, present on admission. Active. - Last hemoglobin A1c 8.6% 06/2016. - Ordered carbohydrate consistent/heart healthy diet. We will hold on giving the patient food until is appropriate for PO intake. - Ordered high-dose correctional scale insulin. - Continued Lantus 60 units twice a day. Obesity hypoventilation syndrome and CARRIE on Triology, present on admission. Active. - Continue Trilogy with additional oxygen bled into machine. Patient is a full code and is amenable to intubation. - See plan above under problem #2. Chronic bilateral lower extremity wounds, present on admission. Active. - Ordered wound care and physical therapy consult. - Consistent with stasis dermatitis. 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 Active. - Continue prednisone 10 mg daily. - See plan above under problem #2. Hypertension, chronic. Stable. - Continue metoprolol tartrate 50 mg twice a day and spironolactone 25 mg twice a day. GERD, chronic. - Continue Protonix 20 mg daily, and Tums daily as needed for indigestion. Glaucoma, chronic. - Continue Latanoprost 0.67 drops both eyes daily at bedtime. Gout, chronic. - Continue Allopurinol 100 mg daily. BPH, chronic. - Continue Tamsulosin 0.4 mg daily at bedtime. Peripheral neuropathy, chronic. - Continue Lyrica 225 mg twice a day. Parkinsonism, present on admission. Stable. - Continue Sinemet 25-100 mg 2 tabs 4 times a day. - Continue Abilify 2 mg daily. Anxiety and depression, chronic. Active. - Continue amitriptyline 50 mg daily at bedtime. Chronic congestive heart failure secondary to diastolic dysfunction, present on admission. Presumed stable. - Continue Spironolactone 25 mg twice a day, metoprolol tartrate 50 mg twice a day, aspirin 81 mg daily, atorvastatin 10 mg daily at bedtime. - Held toresimide and potassium for now. Chronic pain with opiate habituation. - Continue to oxycodone at a lower dose than home dose. Decreased from 20 mg to 10 mg every 4 hours as needed for pain. History of atrial fibrillation with RVR. - Patient in normal sinus rhythm. - Continue aspirin 81 mg and Plavix 75 mg daily. Morbid obesity, chronic. - BMI 49.2. PRN antiemetics: Zofran and Maalox. PRN bowel regimen: Senna and MiraLAX scheduled. PRN analgesics: Oxycodone and Tylenol. Patient is admitted under inpatient status with expected length of stay greater than 2 midnights due to severity of presenting symptoms, risk of adverse event, and complexity of treatment plan. . Attending Statement The patient was seen and examined together with Dr. Kelly on 09-15-16 and I agree with the history, exam and plan as outlined in the note above. Lara Kelly DO Sep 15, 2016 13:45 Leonarda Biggs MD Sep 16, 2016 16:40
[2016-09-15] MEDS ORDERED: Glucose 40% Oral Gel 15 Gm Tube PO PRN (19:00)
[2016-09-15] MEDS: 0.9% Sodium Chloride 1,000 ML IV SCH (19:13)
[2016-09-15] MEDS: Vancomycin Dose per Pharmacist XX SCH (19:15)
[2016-09-15] MEDS ORDERED: Vancomycin Inj 2,250 MG in 0.9% Sodium Chloride 500 ML IV ONE (20:00)
[2016-09-15] MEDS: Albuterol-Ipratropium 3 mL Inhalation Solution NEB SCH (20:14)
[2016-09-15] MEDS: Insulin GLARgine 100 Unit/mL Syringe SUBQ SCH (20:30)
[2016-09-15] MEDS: cefTRIAXone Inj 2,000 MG in Dextrose 5% Minibag Plus 50 ML IV SCH (21:17)
[2016-09-15] MEDS: Polyethylene Glycol (PEG) 17 Gm Powder PO SCH (21:31)
--- NOTE | 2016-09-15 22:00 | NUR ---
Output Pt urinated in urinal, 800ml. Urine was dark yellow, clear. Pt is resting well this night, left room with call light at bedside.
[2016-09-15] MEDS: Insulin LISPRO 300 Unit/3 mL Inj SUBQ SCH (22:01)
[2016-09-15] MEDS: Azithromycin Inj 500 MG in Dextrose 5% w/Vial Mate 250 ML IV SCH (23:17)
[2016-09-16] VITALS (12 sets, daily range): BP systolic 116–157; BP diastolic 60–78; PULSE 70–82; RESP 20–22; O2SAT 92–100
[2016-09-16] MEDS: Heparin 5,000 Unit/mL Inj SUBQ SCH ×3 (01:26→17:28)
--- NOTE | 2016-09-16 02:29 | PCM.CONPHA ---
Subjective Date of Service: Sep 16, 2016 Requesting Provider: Lara Kelly . Reason for Pharmacy Consult: Vancomycin Dosing Objective Vital Signs Date Time Temp Pulse Resp B/P Pulse Ox O2 Delivery O2 Flow Rate FiO2 09/16/16 00:05 36.5 78 22 116/ 92 Nasal Cannula 2.00 09/15/16 22:19 Supplement Oxygen 09/15/16 21:31 37.0 79 21 143/78 94 Nasal Cannula 2.00 09/15/16 20:17 69 18 94 Trilogy AVAPS MODE 3.00 09/15/16 20:00 71 09/15/16 19:07 37.3 80 20 137/74 94 Trilogy 3.00 09/15/16 15:52 86 09/15/16 15:06 36.9 86 20 156/74 92 Trilogy 1.50 09/15/16 14:20 37 92 22 153/70 96 Nasal Cannula 3 09/15/16 14:02 Supplement Oxygen 09/15/16 14:00 92 22 153/70 96 Nasal Cannula 3 09/15/16 13:05 90 24 148/74 98 Nasal Cannula 3 09/15/16 12:12 90 24 158/76 97 Nasal Cannula 3 09/15/16 11:42 91 19 93 Nasal Cannula 3 09/15/16 10:30 36.6 92 30 153/70 98 Nasal Cannula 3 Intake and Output 09/14/16 09/15/16 09/16/16 00:00 00:00 00:00 Intake Total 175 ml Output Total 0 ml Balance 175 ml Weight (Kilograms): 169.000 Height (Feet): 6 Height (Inches): 1.00 Test 09/15/16 10:45 09/15/16 11:58 09/15/16 13:35 09/15/16 18:03 White Blood Count 13.6th/mm3 (3.8-10.1) Red Blood Count 4.28mil/mm3 (4.40-5.80) Hemoglobin 11.0g/dL (13.8-17.2) Hematocrit 37.5% (41.0-50.0) Mean Corpuscular Volume 87.6fL (81-100) Mean Corpuscular Hemoglobin 25.7pg (27.0-35.0) Mean Corpuscular Hemoglobin Concent 29.3% (32.0-37.0) Red Cell Distribution Width 19.2% (12.3-15.4) Platelet Count 187bil/L (150-400) Neutrophils (%) (Auto) 84.7% (40-74) Lymphocytes (%) (Auto) 7.6% (14-46) Monocytes (%) (Auto) 7.2% (4-12) Eosinophils (%) (Auto) 0.2% (0-5) Basophils (%) (Auto) 0.1% (0-3) Prothrombin Time 10.8sec (8.1-12.5) Prothromb Time International Ratio 1.01ratio Sodium Level 136mEq/L (134-144) Potassium Level 4.3mEq/L (3.5-5.2) Chloride Level 87mEq/L (97-108) Carbon Dioxide Level 37mmol/L (18-29) Blood Urea Nitrogen 32mg/dL (8-27) Creatinine 1.55mg/dL (0.76-1.27) Estimat Glomerular Filtration Rate 49mL/min (>59) Glucose Level 223mg/dL (60-99) Calcium Level 8.8mg/dL (8.5-10.1) Magnesium Level 2.4mg/dL (1.6-2.6) Total Bilirubin 0.6mg/dL (0.0-1.2) Aspartate Amino Transf (AST/SGOT) 25U/L (0-50) Alanine Aminotransferase (ALT/SGPT) 5U/L (0-44) Alkaline Phosphatase 94U/L (25-160) Troponin T 0.070ug/L (0.0-0.011) Pro-B-Type Natriuretic Peptide 636.9pg/mL (0-210) Total Protein 7.4g/dL (6.4-8.4) Albumin 4.1g/dL (3.4-5.0) Procalcitonin 0.10ng/mL (0.00-0.08) Activated Partial Thromboplast Time 28.9sec (22.8-33.0) Hold Urine Received (Received) Urine Legionella pneumophilia Ag Negative (Negative) Lactic Acid Level 1.5mmol/L (0.4-2.0) Test 2/21/17 01:12 Hold Red Top Tube Received (Received) Assessment/Plan Assessment/Plan A/ - 61 y/o morbidly obese man brought in ED for acute sepsis and severe dehydrated. Vancomycin therapy initiated for empirical coverage - WBC: 13.6, afebrile - Sputum and blood cultures: pending - Wt: 169 kg, ht: 185.4 cm, BMI: 49.2 kg/m2, SCr: 1.55 mg/dL (at baseline, CKD stage ll), estimated clearance ~ 79 ml/min, t1/2 ~ 10 hrs - Comitant abx: ceftriaxone, azithromycin - Loading dose Vancomycin 2.25G iv at 0030 P/ - Give Vancomycin 1.25g iv q 12h. Trough level ordered before 3rd dose due to patient's dehydration condition and unstable renal clearance @ 0000 on 09/17. Pharmacy will continue to follow and make necessary adjustment based on labs result and patient's clinical response Thank you for consulting clinical pharmacy in the care of this patient Graham Palmer PharmD, [facility] Yudelka Palmer Sep 16, 2016 02:29
[2016-09-16] MEDS: Albuterol-Ipratropium 3 mL Inhalation Solution NEB SCH ×3 (06:00→20:33)
[2016-09-16] MEDS: Pantoprazole 40 mg ER24 Tablet PO SCH (06:09)
[2016-09-16 06:53] LABS: BASOPHILS % (AUTO) 0.3 % (0-3); EOSINOPHILS % (AUTO) 0 % (0-5); MONOCYTES % (AUTO) 12.4 % (4-12); Mean Corpuscular Hemoglobin 25.6 pg (27.0-35.0); Mean Corpuscular Volume 84.5 fL (81-100); NEUTROPHILS % (AUTO) 81.2 % (40-74); Platelet Count 190 bil/L (150-400)
[2016-09-16 07:01] LABS: Magnesium 2.6 mg/dL (1.6-2.6); Phosphorus 4.3 mg/dL (2.5-4.9)
[2016-09-16] MEDS: cefTRIAXone Inj 2,000 MG in Dextrose 5% Minibag Plus 50 ML IV SCH (08:30)
[2016-09-16] MEDS: Arformoterol 15 mCg/2 mL Inhalation Solution INHALATION SCH ×2 (08:30→20:33)
[2016-09-16] MEDS: Vancomycin Dose per Pharmacist XX SCH (08:30)
[2016-09-16] MEDS ORDERED: Potassium Chloride 20 mEq SR Tablet PO SCH (08:30)
[2016-09-16] MEDS: Insulin GLARgine 100 Unit/mL Syringe SUBQ SCH ×2 (08:40→20:30)
[2016-09-16] MEDS: Insulin LISPRO 300 Unit/3 mL Inj SUBQ SCH ×4 (08:40→22:36)
[2016-09-16] MEDS: Fluticasone 0.05% 15 Spray/2 Gm 16 Gm Nasal Spray NASAL SCH (08:41)
[2016-09-16] MEDS: ARIPiprazole 2 mg Tablet PO SCH (08:42)
[2016-09-16] MEDS: predniSONE 10 mg Tablet PO SCH (08:43)
[2016-09-16] MEDS: Lactobacillus Rhamnosus 10 Bil Unit Capsule PO SCH (08:43)
[2016-09-16] MEDS: Polyethylene Glycol (PEG) 17 Gm Powder PO SCH (08:44)
--- NOTE | 2016-09-16 09:57 | DRSVH ---
PROCEDURE: X-RAY KUB ([id number]) INDICATIONS: ileus TECHNIQUE: One view of the abdomen acquired. COMPARISON: [facility], CR, XR KUB, 04/14/2016, 15:27. [facility], CR, XR CH EST 1VW (PORTABLE), 09/15/2016, 10:39. FINDINGS: Surgical changes and devices: None. Bowel: There is mild gaseous distention of multiple bowel loops of the abdomen and pelvis a moderate amount of stool seen within the colon. Soft tissues: No suspicious abdominal calcifications. Visualized solid organ contours appear normal in size. Bones: No suspicious bony lesions. IMPRESSION: Nonspecific bowel gas pattern. If patient's symptoms persist, recommend repeat imaging or CT. Dictated by: Britton BETTENCOURT Interpreted: Brenda Tobin MD on 09/16/2016 at 9:57 Transcribed by: ARIA on 09/16/2016 at 9:57 Approved by: Brenda Tobin M.D. on 09/16/2016 at 16:43
[2016-09-16] MEDS ORDERED: Ipratropium 0.02% 0.5 mg/2.5 mL Inhalation Solution NEB ONE (10:08)
[2016-09-16 11:40] LABS: APPEARANCE,URINE CLEAR (CLEAR,HAZY); COLOR,URINE STRAW (YELLOW); OCCULT BLOOD,URINE NEGATIVE (NEGATIVE); PH,URINE 5.5 (5.0-8.0); UROBILINOGEN,URINE NORMAL (NORMAL)
[2016-09-16] MEDS: Vancomycin Inj 1,250 MG in 0.9% Sodium Chloride 250 ML IV SCH (12:24)
--- NOTE | 2016-09-16 16:05 | NUR ---
spiritual care: pt request conversational visit. pt carefully listened to dr report and recommendations. in room clarifying. pt explored his feelings about prognosis, desire for better health and some of the barriers (including expense of bed to replace broken chair at home) pt framed his hopes in terms of his islam elizabeth and explored changes he hopes to make both in terms of equipment and attitude. Prayer. relayed family's concern about medical equipment to sw.
--- NOTE | 2016-09-16 16:34 | PCM.PNMED ---
Subjective Date of Service Sep 16, 2016 Subjective Xavi Vargas is a 61-year-old male with a past medical history significant for chronic hypoxemic respiratory failure secondary to morbid obesity, COPD, obesity hypoventilation syndrome and CARRIE on Trilogy, [employer] on chronic prednisone who presented to [facility] Emergency Department via EMS due to acute on chronic shortness of breath over the last several days. Hospital day # 2. Overnight: There were no acute events. Telemetry overnight was sinus rhythm, heart rate 70 to 80s, without ectopy. The patient is resting in bed comfortably and in no acute distress. He denies headache, ear pain, rhinitis, sore throat, shortness of breath, chest pain, abdominal pain, nausea, vomiting, fever, chills, dysuria, or diarrhea. He does endorse constipation but is able to pass gas. He is voiding without difficulty. He predominantly in bed but is working with physical therapy. . Exam Vital Signs Vital Sign - Last Date Time Temp Pulse Resp B/P Pulse Ox O2 Delivery O2 Flow Rate FiO2 09/16/16 15:53 Supplement Oxygen 09/16/16 14:07 70 20 94 3.00 09/16/16 13:19 36.8 135/71 Intake and Output 09/15/16 09/15/16 09/16/16 Cumulative From/Thru 15:00 23:00 07:00 09/15/16 10:30 - 09/16/16 05:55 Intake Total 175 ml 1200 ml 1375 ml Output Total 0 ml 1600 ml 1600 ml Balance 175 ml -400 ml -225 ml Intake Oral 175 ml 1200 ml 1375 ml Output Urine Total 0 ml 1600 ml 1600 ml # Bowel Movements 0 0 0 Exam General: Obese male lying in bed, somnolent, no acute distress. HEENT: Normocephalic, atraumatic. External ears without defect. Pupils equal, round, and reactive to light. Anicteric sclerae, moist conjunctivae, and no lid lag. Oropharynx free of erythema and cobble stoning with moist mucosa. Neck: Supple with full range of motion. No lymphadenopathy or thyromegaly. Cardiovascular: Regular rate and rhythm with no murmurs, rubs, or gallops appreciated Pulmonary: Diminished lung sounds throughout anterior lung valdez with scattered crackles. Normal respiratory effort with no use of accessory muscles. Abdomen: Super obesity, firm and distended, nontender, bowel sounds diminished. No hepatosplenomegaly or masses appreciated. Extremities: No clubbing or cyanosis Mild anasarca. Skin: Chronics stasis dermatitis on bilateral lower extremities with scattered bullae. Neurological: Somnolent. . IVs and Medications Medications Reviewed: Medications were reviewed in detail Lab and Diagnostics Item Value Date Time Calcium Level 8.3 mg/dL L 09/16/16544 Phosphorus Level 4.3 mg/dL 09/16/16544 Magnesium Level 2.6 mg/dL 09/16/16 05 Total Bilirubin 0.7 mg/dL 09/16/16 05 Aspartate Amino Transf (AST/SGOT) 37 U/L 09/16/16 05 Alanine Aminotransferase (ALT/SGPT) 11 U/L 09/16/16 05 Alkaline Phosphatase 114 U/L 09/16/16 05 Total Protein 6.8 g/dL 09/16/16 05 Albumin 3.7 g/dL 09/16/16 05 Procalcitonin 0.24 ng/mL H 09/16/16 05 Result Diagram: 09/16/1654409/16/16544 Microbiology Respiratory viral PCR negative. Strep pneumoniae and legionella urine antigens negative. Blood culture 2 pending. . X-Rays, CTs and MRIs X-RAY CHEST ONE VIEW, PORTABLE IMPRESSION: 1. Mild pulmonary edema. 2. Linear bibasilar opacities compatible atelectasis versus developing consolidation. Dictated by: Royer Barger M.D. on 09/15/2016 at 11:10 Approved by: Royer Barger M.D. on 09/15/2016 at 11:11 . Additional Diagnostics ABG on 09/17/2016: PH 7.351. PCO2 68. PO2 59.3. HCO3 36. . 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 Hospital day # 2. 1. Acute sepsis, present on admission. Resolved. - SIRS criteria met includes: Tachypneic (respiratory rate 30) and leukocytosis (WBC 13.6) with probable source pulmonary. - Early goal-directed therapy met including: IV fluid resuscitation with gentle hydration and broad-spectrum antibiotics. 2. Probable healthcare associated pneumonia, present on admission. Active. - Patient presented with URI symptoms including worsening dyspnea, minimally productive cough, congestion, pleuritic chest pain. - DDx: Opiate habituation versus obesity hypoventilation syndrome and CARRIE non- compliant with Trilogy versus less likely PE. - Chest x-ray revealed linear bibasilar opacities compatible atelectasis versus developing consolidation - Respiratory viral PCR negative as above. - Ordered sputum culture ordered but not obtained as patients cough minimally productive. - Strep pneumoniae and legionella urine antigens negative, as above. - Lactic acid normal. - Procalcitonin slightly elevated but trending up. Will continue to monitor. - Blood cultures 2 pending. - Continue gentle hydration with NS at 50 mL/hr due to history of diastolic CHF. - Continue ceftriaxone 2 g IV every 24 hours, azithromycin 500 mg IV every 24 hours, and vancomycin as patient was recently hospitalized 1 month ago. - Received Oxycodone 20 mg in ED. Ordered Naloxone 0.2 mg IV and when nurse went to administer the patient woke up and asked that it not be given. Try to administer if increasingly somnolent. 3. Acute on chronic hypercarbic hypoxemia respiratory failure, present on admission. Improving. - Multifactorial and secondary to opiate habituation, obesity hypoventilation syndrome and CARRIE non-compliant with Trilogy. - Continue Trilogy with current settings with addition of 3L oxygen bled into Trilogy. Encouraged patient to wear Trilogy all sleeping and intermittently throughout the day. - ABG revealed compensated respiratory acidosis, as above. - Continue home inhaler Brovana. - See problem #2. 4. Acute constipation, secondary to opiate habituation, present on admission. Active. - KUB revealed stool impaction. - Received mineral oil enema x 1. Ordered soapsuds enema. - Continue scheduled bowel regimen. Chronic Problems: Chronic elevated troponin, of uncertain significance, present on admission. Active. - Chronically elevated troponin. - Continue to monitor closely on telemetry. Diabetes mellitus type 2, insulin using, uncontrolled, present on admission. Active. - Last hemoglobin A1c 8.6% 06/2016. - Ordered carbohydrate consistent/heart healthy diet. We will hold on giving the patient food until is appropriate for PO intake. - Ordered high-dose correctional scale insulin. - Continued Lantus 60 units twice a day. Obesity hypoventilation syndrome and CARRIE on Triology, present on admission. Active. - Continue Trilogy with additional oxygen bled into machine. Patient is a full code and is amenable to intubation. - See plan above under problem #2. Chronic bilateral lower extremity wounds, present on admission. Active. - Ordered wound care and physical therapy consult. - Consistent with stasis dermatitis. 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 Active. - Continue prednisone 10 mg daily. - See plan above under problem #2. Hypertension, chronic. Stable. - Continue metoprolol tartrate 50 mg twice a day and spironolactone 25 mg twice a day. GERD, chronic. - Continue Protonix 20 mg daily, and Tums daily as needed for indigestion. Glaucoma, chronic. - Continue Latanoprost 0.67 drops both eyes daily at bedtime. Gout, chronic. - Continue Allopurinol 100 mg daily. BPH, chronic. - Continue Tamsulosin 0.4 mg daily at bedtime. Peripheral neuropathy, chronic. - Continue Lyrica 225 mg twice a day. Parkinsonism, present on admission. Stable. - Continue Sinemet 25-100 mg 2 tabs 4 times a day. - Continue Abilify 2 mg daily. Anxiety and depression, chronic. Active. - Continue amitriptyline 50 mg daily at bedtime. Chronic congestive heart failure secondary to diastolic dysfunction, present on admission. Presumed stable. - Continue Spironolactone 25 mg twice a day, metoprolol tartrate 50 mg twice a day, aspirin 81 mg daily, atorvastatin 10 mg daily at bedtime. - Held toresimide and potassium for now. Chronic pain with opiate habituation. - Continue to oxycodone at a lower dose than home dose. Decreased from 20 mg to 10 mg every 4 hours as needed for pain. History of atrial fibrillation with RVR. - Patient in normal sinus rhythm. - Continue aspirin 81 mg and Plavix 75 mg daily. Morbid obesity, chronic. - BMI 49.2. PRN antiemetics: Zofran and Maalox. PRN bowel regimen: Senna and MiraLAX scheduled. PRN analgesics: Oxycodone and Tylenol. Disposition: Patient likely to discharge in several days depending upon clinical course to home possibly with home health care. . VTE Mechanical Devices: Intermittant Pneumatic CD Attending Statement The patient was seen and examined together with Dr. Kelly on 09-16-16 and I agree with the history, exam and plan as outlined in the note above. Lara Kelly DO Sep 16, 2016 16:34 Leonarda Biggs MD Sep 17, 2016 08:37
[2016-09-16] MEDS: 0.9% Sodium Chloride 1,000 ML IV SCH (17:47)
--- NOTE | 2016-09-16 20:30 | NUR ---
Activity Intolerance Pt. ambulated to chair at bedside via 2 person assist with complaints of dyspnea and SOB. Pt. reported concern for being unable to return to bed. Pt. was returned to bed and given supplemental O2 via nasal canula @ 2L. The pt. was instructed to take deep breaths and the bed was elevated to semi-fowlers position. Pt. reported that ambulation was "easier than expected" and reported that SOB and dyspnea was decreasing with rest. Pt. is in lowered bed with 2 side rails up and was instructed to use call light. Patient is alert and oriented.
--- NOTE | 2016-09-16 22:37 | NUR ---
Medications 20:30-21:30 09/16/16 Pt given all ordered meds at time above. Scanned into system but must not have saved and exited. Meds in emar manually administered.
--- NOTE | 2016-09-16 22:38 | NUR ---
SKIN Pt on bedrest for most of shift. Barri-Bed, Q2H Turns. Checks and bed changes as necessary. Inspection of pt buttocks. Red but blanchable. Continuing turning schedule. Frequent skin care and rounding to prevent breakdown. Pt cooperative with care.
[2016-09-16] MEDS: Azithromycin Inj 500 MG in Dextrose 5% w/Vial Mate 250 ML IV SCH (23:31)
[2016-09-17] VITALS (11 sets, daily range): BP systolic 131–163; BP diastolic 69–80; PULSE 70–88; RESP 16–24; O2SAT 91–98
[2016-09-17] MEDS ORDERED: Vancomycin Serum Trough XX ONE
[2016-09-17] MEDS: Heparin 5,000 Unit/mL Inj SUBQ SCH ×3 (00:57→17:06)
--- NOTE | 2016-09-17 01:16 | PCM.PHAPRO ---
Progress Date of Service: Sep 17, 2016 SIRS . Vancomycin dose per pharmacy Vancomycin trough goal: 15-20 Labs Trough drawn 09/17/16 at 0000: 18.3. SCr: 1.72 (close to baseline -- moderate increase from 1.55 on 09/16). Patient received vancomycin 2250 mg loading dose then 1250 mg maintenance dose. Vancomycin trough within goal range. However, trough was drawn prior to 3rd dose due to unclear renal status -- vancomycin levels have not achieved steady state yet. Continue vancomycin 1250 mg Q12H for now. Next trough has not been ordered yet. Will defer to daytime floor pharmacist to assess once microbiology results are back. Pharmacy to continue to monitor and dose vancomycin. Thank you, Shantel Thomas Pharmacist Shantel Thomas Sep 17, 2016 01:16
--- NOTE | 2016-09-17 03:15 | NUR ---
Constipation Paged night resident concerning unspecified enema, Ducolax suppository ordered. Will continue to monitor pt progress.
[2016-09-17] MEDS: Vancomycin Inj 1,250 MG in 0.9% Sodium Chloride 250 ML IV SCH ×2 (03:27→11:49)
[2016-09-17] MEDS: Albuterol-Ipratropium 3 mL Inhalation Solution NEB SCH ×5 (06:00→20:45)
[2016-09-17] MEDS: Pantoprazole 40 mg ER24 Tablet PO SCH (06:12)
[2016-09-17 06:31] LABS: BASOPHILS % (AUTO) 0.5 % (0-3); EOSINOPHILS % (AUTO) 0.7 % (0-5); Mean Corpuscular Hemoglobin 26.4 pg (27.0-35.0); Mean Corpuscular Volume 85.9 fL (81-100); Platelet Count 195 bil/L (150-400)
--- NOTE | 2016-09-17 06:40 | NUR ---
Constipation Pt had Lg soft, formed BM. Will continue to monitor.
[2016-09-17] MEDS: Arformoterol 15 mCg/2 mL Inhalation Solution INHALATION SCH ×3 (07:25→20:45)
[2016-09-17] MEDS: Insulin LISPRO 300 Unit/3 mL Inj SUBQ SCH ×4 (07:39→22:12)
[2016-09-17] MEDS: Vancomycin Dose per Pharmacist XX SCH (08:30)
[2016-09-17] MEDS: Polyethylene Glycol (PEG) 17 Gm Powder PO SCH (09:20)
[2016-09-17] MEDS: Fluticasone 0.05% 15 Spray/2 Gm 16 Gm Nasal Spray NASAL SCH (09:20)
[2016-09-17] MEDS: predniSONE 10 mg Tablet PO SCH (09:21)
[2016-09-17] MEDS: Lactobacillus Rhamnosus 10 Bil Unit Capsule PO SCH (09:21)
[2016-09-17] MEDS: ARIPiprazole 2 mg Tablet PO SCH (09:21)
[2016-09-17] MEDS: Insulin GLARgine 100 Unit/mL Syringe SUBQ SCH ×2 (09:22→22:11)
[2016-09-17] MEDS: 0.9% Sodium Chloride 1,000 ML IV SCH (10:10)
--- NOTE | 2016-09-17 14:22 | NUR ---
spiritual care: pt request brief check in visit. pt agreeable for caring paper mill manager visit. offered coping including "hard day" and more feelings of tightness in chest area. at bedside.
--- NOTE | 2016-09-17 16:09 | PCM.PNMED ---
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 Emergency Department via EMS due to acute on chronic shortness of breath over the last several days. Hospital day # 3. Overnight there were no significant events. Patient was up at bedside working with physical therapy when I walked in. He still complains of shortness of breath and constipation although he was able to have a bowel movement this morning. Exam Vital Signs Vital Sign - Last Date Time Temp Pulse Resp B/P Pulse Ox O2 Delivery O2 Flow Rate FiO2 09/17/16 04:50 36.3 70 16 132/69 98 Nasal Cannula 2.00 Intake and Output 09/16/16 09/16/16 09/17/16 Cumulative From/Thru 15:00 23:00 07:00 09/15/16 10:30 - 09/17/16 05:12 Intake Total 750 ml 3960 ml 6085 ml Output Total 1700 ml 750 ml 4050 ml Balance -950 ml 3210 ml 2035 ml Intake Oral 750 ml 800 ml 2925 ml IV Total 3160 ml 3160 ml Output Urine Total 1700 ml 750 ml 4050 ml # Bowel Movements 1 1 2 Exam General: Obese male sitting at edge of bed, in no acute distress. HEENT: Normocephalic, atraumatic. External ears without defect. Pupils equal, round, and reactive to light. Anicteric sclerae, moist conjunctivae, and no lid lag. Neck: Supple. No lymphadenopathy or thyromegaly. Cardiovascular: Regular rate and rhythm with no murmurs, rubs, or gallops appreciated Pulmonary: Diminished lung sounds throughout anterior lung valdez with scattered crackles. Normal respiratory effort with no use of accessory muscles. Abdomen: protuberant, firm and distended, nontender, bowel sounds diminished. Extremities: No clubbing or cyanosis Skin: Chronics stasis dermatitis on bilateral lower extremities. IVs and Medications Medications Reviewed: Medications were reviewed in detail Lab and Diagnostics 09/17/16 Na 136 K 4.7 Cl 89 BUN 29 Cr 1.74 Glu 185 Procalcitonin 0.21 Result Diagram: 09/17/16 0610 09/16/16 0545 Microbiology Respiratory viral PCR negative. Strep pneumoniae and legionella urine antigens negative. Blood culture 2 pending. . X-Rays, CTs and MRIs X-RAY CHEST ONE VIEW, PORTABLE IMPRESSION: 1. Mild pulmonary edema. 2. Linear bibasilar opacities compatible atelectasis versus developing consolidation. Dictated by: Royer Barger M.D. on 09/15/2016 at 11:10 Approved by: Royer Barger M.D. on 09/15/2016 at 11:11 . Additional Diagnostics ABG on 09/17/2016: PH 7.351. PCO2 68. PO2 59.3. HCO3 36. . 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 Hospital day #3. 1. Acute sepsis, present on admission. Resolved. - Sepsis criteria met includes: Tachypneic (respiratory rate 30) and leukocytosis (WBC 13.6) with probable source pulmonary. - Early goal-directed therapy met including: IV fluid resuscitation with gentle hydration and broad-spectrum antibiotics. 2. Healthcare associated pneumonia, present on admission. Active. - DDx: Opiate habituation versus obesity hypoventilation syndrome and CARRIE non- compliant with Trilogy versus less likely PE. - Chest x-ray revealed bibasilar PNA vs. CHF - Unable to obtain sputum sample. - Respiratory viral PCR negative, Strep pneumoniae, legionella urine antigens negative - Lactic acid normal. - Last procalcitonin down to 0.21 - Blood cultures 2 no growth at 24 hours. - Had gentle hydration with NS at 50 mL/hr due to history of diastolic CHF, now discontinued. - Continue ceftriaxone 2 g IV every 24 hours, azithromycin 500 mg IV every 24 hours. Vancomycin discontinued with next dose since MRSA negative. Consider D/C antibiotics tomorrow if labs and x-ray stable. - Received Oxycodone 20 mg in ED. Ordered Naloxone 0.2 mg IV and when nurse went to administer the patient woke up and asked that it not be given. Try to administer if increasingly somnolent. - PT is working with patient to get him moving - Repeat x-ray tomorrow 3. Acute on chronic hypercarbic hypoxemia respiratory failure, present on admission. Improving. - Multifactorial and secondary to opiate habituation, obesity hypoventilation syndrome, severe constipation and CARRIE non-compliant with Trilogy. - Continue Trilogy with current settings with addition of 3L oxygen bled into Trilogy. Encouraged patient to wear Trilogy all sleeping and intermittently throughout the day. - ABG revealed compensated respiratory acidosis, as above. - Continue home inhaler Brovana. - O2 to keep sats 88% to 92% - See problem #2. 4. Acute on chronic constipation, secondary to opiate habituation, present on admission. Active. - Likely contributing to his hypoventilation. - KUB revealed stool impaction. - Received mineral oil enema x 1. Ordered soapsuds enema. Scheduled MiraLax and Senna. Ordered ducolax suppository. - Discussed narcotic pain medication and constipation connection - Repeat KUB before discharge 5. Chronic elevated troponin, of uncertain significance, present on admission. Active. - Chronically elevated troponin. - Telemetry. 6. Diabetes mellitus type 2, insulin using, uncontrolled, present on admission. Active. - Last hemoglobin A1c 8.6% 06/2016. - Ordered carbohydrate consistent/heart healthy diet. - Ordered high-dose correctional scale insulin. - Continued home dose Lantus 60 units twice a day. 7. Obesity hypoventilation syndrome and CARRIE on Triology, present on admission. Active. - Continue Trilogy with additional oxygen bled into machine. Patient is a full code and is amenable to intubation. 8. Chronic bilateral lower extremity wounds, present on admission. Active. - Wound care evaluation and treatment ordered and physical therapy. - Consistent with stasis dermatitis. 9. 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 Active. - Continue prednisone 10 mg daily. 10. Hypertension, chronic. Stable. - Continue metoprolol tartrate 50 mg twice a day and spironolactone 25 mg twice a day. 11. GERD, chronic. - Continue Protonix 20 mg daily, and Tums daily as needed for indigestion. 12. Glaucoma, chronic. - Continue Latanoprost 0.67 drops both eyes daily at bedtime. 13. Gout, chronic. - Continue Allopurinol 100 mg daily. 14. BPH, chronic. - Continue Tamsulosin 0.4 mg daily at bedtime. 15. Peripheral neuropathy, chronic. - Continue Lyrica 225 mg twice a day. 16. Parkinsonism, present on admission. Stable. - Continue Sinemet 25-100 mg 2 tabs 4 times a day. - Continue Abilify 2 mg daily. 17. Anxiety and depression, chronic. Active. - Continue amitriptyline 50 mg daily at bedtime. 18. Chronic congestive heart failure secondary to diastolic dysfunction, present on admission. Presumed stable. - Continue Spironolactone 25 mg twice a day, metoprolol tartrate 50 mg twice a day, aspirin 81 mg daily, atorvastatin 10 mg daily at bedtime. - Held toresimide and potassium for now. 19. Chronic pain with opiate habituation. - This is likely a major contributor to his severe constipation as evidenced in KUB. Secondarily causing hypoventilation. Patient and have been advised that narcotic pain medication causes constipation but I do not think they understand. Will continue to stress this point. - Continue to oxycodone at a lower dose than home dose. Decreased from 20 mg to 10 mg every 4 hours as needed for pain. 20. History of atrial fibrillation with RVR. - Patient in normal sinus rhythm. - Continue aspirin 81 mg and Plavix 75 mg daily. 21. Morbid obesity, chronic. - BMI 49.2. - counseled to lose weight PRN antiemetics: Zofran and Maalox. PRN bowel regimen: Senna and MiraLAX scheduled. PRN analgesics: Oxycodone and Tylenol. Disposition: Patient likely to discharge in the next few days, depending upon clinical course. Home possibly with home health care. . VTE Prophylaxis: Sub-Q Heparin (Unfractionated) VTE Mechanical Devices: Intermittant Pneumatic CD Attending Statement The patient was seen and examined together with Dr. Delaney on 09-17-16 and I agree with the history, exam and plan as outlined in the note above. Rose Mary Delaney DO Sep 17, 2016 06:55 Leonarda Biggs MD Sep 18, 2016 13:45
--- NOTE | 2016-09-17 16:10 | NUR ---
Social Work Initial Assessment: SW met with patient and at bedside to discuss discharge plan. Patient is a 61 year old male admitted on 09/15/16 for COPD exacerbation, CHF, and rep distress. Patient payer as Medicare and [facility]. Patient receives SSI of $1305 a month. Patient PCP as MD [facility]. Patient has no VA affiliation. Patient resides in [place] with in single story home. Patient pharmacy of choice as [facility]. Patient has previous HHC history with [facility] in past. Patient has a walker, 02 via [employer], powerchair, Trilogy, hospital bed, and grab bars at home. Patient states being active with [facility] with caregivers support 19hrs/week. Patient denied any AD at this time and declined completion at this time. Patient states that he has been sleeping in his recliner chair as he is unable to fit in his hospital bed any longer. Patient current weight is 169kg which is a qualifying weight for a [facility]. Documentation with be required to determine head of bed elevation and for r/o for pillows for Medicare to cover expense for [facility] bed, per Nav rep [facility], . SW discussed rehab options per therapy recommendations. Patient states having previous SNF history at [facility]. SNF choice list provided to patient and for review. Patient not wanting to discharge to SNF but will discuss with tonight and consult with SW to determine definitive plans. SW to follow. PLAN: Patient resides at home with . Recommendations for SNF placement. Patient to discuss with to determine SNF vs home with C and continued caregiver plans. If plans for home, SW to follow up with Nav to determine if [facility] bed able to be provided with sufficient documentation. SW to follow. Lee MURPHY Addendum: 09/17/16 at 1624 by SHANIKA MAXWELL Amended: Links added.
--- NOTE | 2016-09-17 16:10 | NUR ---
spiritual care: caring warrant server visit
--- NOTE | 2016-09-17 17:36 | NUR ---
Wound Consult for wound care received. 61 yo male with cellulitis of the left lower leg, recently discharged from the wound center. Presents with a large 2 cm x 3cm blister at his left pretibial area, this was unroofed today, patient has multiple superficial ulcers 2 at his right lower leg and 2 at his left lower leg. All ulcers cleaned with saline moist gauze then redressed with xeroform, Kerlix wrap and coban. These can be changed 09/19. Patient can follow up at wound center on discharge.
[2016-09-17] MEDS: cefTRIAXone Inj 2,000 MG in Dextrose 5% Minibag Plus 50 ML IV SCH (18:12)
[2016-09-17] MEDS: Azithromycin Inj 500 MG in Dextrose 5% w/Vial Mate 250 ML IV SCH (22:12)
[2016-09-18] VITALS (14 sets, daily range): BP systolic 138–159; BP diastolic 67–81; PULSE 69–86; RESP 18–24; O2SAT 92–99
[2016-09-18] MEDS: Heparin 5,000 Unit/mL Inj SUBQ SCH ×3 (00:35→17:04)
[2016-09-18] MEDS: Nystatin 100,000 Unit/Gm 15 Gm Powder TOPICAL SCH ×3 (00:35→21:00)
[2016-09-18 06:28] LABS: BASOPHILS % (AUTO) 0.1 % (0-3); EOSINOPHILS % (AUTO) 0.7 % (0-5); MONOCYTES % (AUTO) 11.6 % (4-12); Mean Corpuscular Hemoglobin 25.8 pg (27.0-35.0); Mean Corpuscular Volume 88.4 fL (81-100); NEUTROPHILS % (AUTO) 73.2 % (40-74); Platelet Count 187 bil/L (150-400)
[2016-09-18] MEDS: Pantoprazole 40 mg ER24 Tablet PO SCH (06:30)
[2016-09-18] MEDS: Arformoterol 15 mCg/2 mL Inhalation Solution INHALATION SCH ×2 (07:27→20:39)
[2016-09-18] MEDS: Albuterol-Ipratropium 3 mL Inhalation Solution NEB SCH ×4 (07:27→20:39)
[2016-09-18] MEDS: Insulin LISPRO 300 Unit/3 mL Inj SUBQ SCH ×4 (07:33→20:57)
[2016-09-18] MEDS: Insulin GLARgine 100 Unit/mL Syringe SUBQ SCH ×2 (08:36→20:58)
[2016-09-18] MEDS: Fluticasone 0.05% 15 Spray/2 Gm 16 Gm Nasal Spray NASAL SCH (08:37)
[2016-09-18] MEDS: Polyethylene Glycol (PEG) 17 Gm Powder PO SCH (08:37)
[2016-09-18] MEDS: Lactobacillus Rhamnosus 10 Bil Unit Capsule PO SCH (08:38)
[2016-09-18] MEDS: ARIPiprazole 2 mg Tablet PO SCH (08:39)
[2016-09-18] MEDS: predniSONE 10 mg Tablet PO SCH (08:39)
--- NOTE | 2016-09-18 09:01 | DRSVH ---
PROCEDURE: X-RAY CHEST ONE VIEW, PORTABLE ([id number]) INDICATIONS: pneumonia TECHNIQUE: One view of the chest was acquired. COMPARISON: [facility], CR, XR CHEST 1VW (PORTABLE), 09/15/2016, 10:39. FINDINGS: Surgical changes and devices: None. Lungs and pleura: No pleural effusions or pneumothorax. Mild diffuse interstitial densities redemon strated bilaterally. Mediastinum: Mediastinal contours appear normal. Heart size is normal. Bones and chest wall: No suspicious bony lesions. Overlying soft tissues appear unremarkable. IMPRESSION: Persistent mild edema. Differential diagnosis would also include atypical infection. Dictated by: Britton BETTENCOURT Interpreted: Brenda Tobin MD on 09/18/2016 at 9:00 Transcribed by: ARIA on 09/18/2016 at 9:01 Approved by: Brenda Tobin M.D. on 09/18/2016 at 16:49
[2016-09-18] MEDS ORDERED: predniSONE 10 mg Tablet PO ONE (10:10)
--- NOTE | 2016-09-18 13:52 | NUR ---
Social Work: Readiness for d/c Data: Pt is on day 3 of hospitalization. EMR reviewed. Pt discussed in rounds, MD states pt likely to d/c either today or tomorrow. DANCE STUDIO MANAGER met with pt at bedside to discuss D/C. Pt states MD told him he will d/c tomorrow. DANCE STUDIO MANAGER again presented the option of SNF, pt and spouse continue to deny. Pt is agreeable to HH, choice list provided. Pt states preference is for [facility]. DANCE STUDIO MANAGER called [facility], access given. Spoke with Randall Fitzgerald of [facility]. F2F in DANCE STUDIO MANAGER folder. DANCE STUDIO MANAGER will continue to follow. Assessment: Pt with [facility] at baseline. Plan: Pt will d/c home via POV when medically stable with [facility], RN/OT/PT, [facility] caregiving, O2 with [employer], and caregiving from spouse. DANCE STUDIO MANAGER will continue to follow. KATHERINE Padilla
--- NOTE | 2016-09-18 15:13 | PCM.PNMED ---
Subjective Date of Service Sep 18, 2016 Subjective Xavi Vargas is a 61-year-old male with a past medical history significant for chronic hypoxemic respiratory failure secondary to morbid obesity, COPD, obesity hypoventilation syndrome and CARRIE on Trilogy, RANGE RIDER on chronic prednisone who presented to [facility] Emergency Department via EMS due to acute on chronic shortness of breath over the last several days. Hospital day # 4. Overnight there were no significant events. Patient is still constipated even though he had three small bowel movements. Discussed the role of narcotic medications with constipation and the hypoventilation. Discussed his multiple co -morbidities and touched on some advanced end-of-life planning briefly. He is aware that he is not going to recover from these illnesses but he states that he will make changes in his life. Exam Vital Signs Vital Sign - Last Date Time Temp Pulse Resp B/P Pulse Ox O2 Delivery O2 Flow Rate FiO2 09/18/16 13:38 36.6 76 20 144/78 92 Nasal Cannula 5.00 Intake and Output 09/17/16 09/17/16 09/18/16 Cumulative From/Thru 15:00 23:00 07:00 09/15/16 10:30 - 09/18/16 06:30 Intake Total 3140 ml 835 ml 40716 ml Output Total 2200 ml 6250 ml Balance 940 ml 835 ml 3810 ml Intake Oral 2150 ml 5075 ml IV Total 990 ml 835 ml 4985 ml Output Urine Total 2200 ml 6250 ml # Bowel Movements 2 4 Exam General: Obese male resting comfortably in bed. HEENT: Normocephalic, atraumatic. Pupils equal, round, and reactive to light. Anicteric sclerae. Neck: Supple. Cardiovascular: Regular rate and rhythm with no murmurs, rubs, or gallops appreciated Pulmonary: Diminished lung sounds throughout anterior lung valdez with expiratory wheezing. Normal respiratory effort. Abdomen: protuberant, firm and distended, nontender, + bowel sounds Extremities: No clubbing or cyanosis Skin: Wrapped (Chronics stasis dermatitis on bilateral lower extremities). IVs and Medications Medications Reviewed: Medications were reviewed in detail Lab and Diagnostics Result Diagram: 09/18/16 0610 09/18/16 0610 Microbiology Respiratory viral PCR negative. Strep pneumoniae and legionella urine antigens negative. Blood culture no growth at 48 hours. . X-Rays, CTs and MRIs X-RAY CHEST ONE VIEW, PORTABLE IMPRESSION: 1. Mild pulmonary edema. 2. Linear bibasilar opacities compatible atelectasis versus developing consolidation. Dictated by: Royer Barger M.D. on 09/15/2016 at 11:10 Approved by: Royer Barger M.D. on 09/15/2016 at 11:11 . Date of Service: 09/17/16 1459 X-RAY CHEST ONE VIEW, PORTABLE IMPRESSION: Persistent mild edema. Differential diagnosis would also include atypical infection. Dictated by: Britton Boss RRA Interpreted: Brenda Tobin MD on 09/18/2016 at 9:00 Transcribed by: ARIA on 09/18/2016 at 9:01 Additional Diagnostics ABG on 09/17/2016: PH 7.351. PCO2 68. PO2 59.3. HCO3 36. . Assessment & Plan Xvai Vargas is a 61-year-old male with obesity hypoventilation syndrome, chronic opiate use, RANGE RIDER on chronic prednisone who presented to [facility] ED via EMS due to acute on chronic shortness of breath over the last several days. Hospital day #4. 1. Acute sepsis, present on admission. Resolved. - Sepsis criteria met includes: Tachypneic (respiratory rate 30) and leukocytosis (WBC 13.6) with probable source pulmonary. - Early goal-directed therapy met including: IV fluid resuscitation with gentle hydration and broad-spectrum antibiotics. 2. Healthcare associated pneumonia, present on admission. Resolving. - DDx: Opiate habituation versus obesity hypoventilation syndrome and CARRIE non- compliant with Trilogy versus less likely PE. - Chest x-ray revealed bibasilar PNA vs. CHF - Unable to obtain sputum sample. - Respiratory viral PCR negative, Strep pneumoniae, legionella urine antigens negative. Blood cultures 2 no growth at 48 hours. - Lactic acid normal. - Last procalcitonin down to 0.21 - Had gentle hydration with NS at 50 mL/hr due to history of diastolic CHF, now discontinued. - Discontinue ceftriaxone and azithromycin at next dose. Total of 3 doses given. Vancomycin discontinued after negative MRSA. - PT is working with patient to get him moving - Repeat x-ray 09/17 showed only mild persistent edema. 3. Acute on chronic hypercarbic hypoxemia respiratory failure, present on admission. Improving. - Multifactorial and secondary to opiate habituation, obesity hypoventilation syndrome, severe constipation and CARRIE non-compliant with Trilogy. - Continue Trilogy with current settings with addition of 3L oxygen bled into Trilogy. Encouraged patient to wear Trilogy all sleeping and intermittently throughout the day. - ABG revealed compensated respiratory acidosis, as above. - Continue home inhaler Brovana. - O2 to keep sats 88% to 92% - See problem #2. 4. Acute on chronic constipation, secondary to opiate habituation, present on admission. Active. - Likely contributing to his hypoventilation. - KUB revealed stool impaction. - Received mineral oil enema x 1. Ordered soapsuds enema. Scheduled MiraLax and Senna. Ordered ducolax suppository. Today added magnesium citrate to regimen. - Discussed narcotic pain medication and constipation connection 5. Chronic elevated troponin, of uncertain significance, present on admission. Active. - Chronically elevated troponin. - Telemetry. 6. Diabetes mellitus type 2, insulin using, uncontrolled, present on admission. Active. - Last hemoglobin A1c 8.6% 06/2016. - Ordered carbohydrate consistent/heart healthy diet. - Continued home dose Lantus 60 units twice a day. - Ordered high-dose correctional scale insulin. (Used 19 units total on 09/17) 7. Obesity hypoventilation syndrome and CARRIE on Triology, present on admission. Active. - Continue Trilogy with additional oxygen bled into machine. Patient is a full code and is amenable to intubation. 8. Chronic bilateral lower extremity wounds, present on admission. Active. - Wound care, Chuck Hoyos, saw patient and provided care. Recommends outpatient wound care follow up. (He has been a patient of theirs in the past.) - Consistent with stasis dermatitis. 9. 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 Active. - Continue prednisone 10 mg daily. 10. Hypertension, chronic. Stable. - Continue metoprolol tartrate 50 mg twice a day and spironolactone 25 mg twice a day. 11. GERD, chronic. - Continue Protonix 20 mg daily, and Tums daily as needed for indigestion. 12. Glaucoma, chronic. - Continue Latanoprost 0.67 drops both eyes daily at bedtime. 13. Gout, chronic. - Continue Allopurinol 100 mg daily. 14. BPH, chronic. - Continue Tamsulosin 0.4 mg daily at bedtime. 15. Peripheral neuropathy, chronic. - Continue Lyrica 225 mg twice a day. 16. Parkinsonism, present on admission. Stable. - Continue Sinemet 25-100 mg 2 tabs 4 times a day. - Continue Abilify 2 mg daily. 17. Anxiety and depression, chronic. Active. - Continue amitriptyline 50 mg daily at bedtime. 18. Chronic congestive heart failure secondary to diastolic dysfunction, present on admission. Presumed stable. - Continue Spironolactone 25 mg twice a day, metoprolol tartrate 50 mg twice a day, aspirin 81 mg daily, atorvastatin 10 mg daily at bedtime. - Restarted toresimide and potassium 19. Chronic pain with opiate habituation. - This is likely a major contributor to his severe constipation as evidenced in KUB. Secondarily causing hypoventilation. Patient and have been advised that narcotic pain medication causes constipation but I do not think they understand. Will continue to stress this point. - Continue to oxycodone at a lower dose than home dose. Decreased from 20 mg to 10 mg every 4 hours as needed for pain. 20. History of atrial fibrillation with RVR. - Patient in normal sinus rhythm. - Continue aspirin 81 mg and Plavix 75 mg daily. 21. Morbid obesity, chronic. - BMI 49.2. - counseled to lose weight PRN antiemetics: Zofran and Maalox. PRN bowel regimen: Senna and MiraLAX scheduled. PRN analgesics: Oxycodone and Tylenol. Disposition: Patient likely to discharge to home on 09/19/16. Home possibly with home health care. . VTE Prophylaxis: Sub-Q Heparin (Unfractionated) VTE Mechanical Devices: Venous Foot Pump Resuscitation Status: CPR: Attempt Resuscitation Attending Statement The patient was seen and examined together with Dr. Delaney on 09/18/2016 and I agree with the history, exam and plan as outlined in the note above. Rose Mary Delaney DO Sep 18, 2016 15:06 Castro Moise MD Sep 19, 2016 13:14
--- NOTE | 2016-09-18 17:58 | NUR ---
spiritual care: follow brief visit. pt rec personal care. reported "better, but swelling up with fluids"
--- NOTE | 2016-09-18 20:26 | NUR ---
constipation, urination, edema -Patient abdomen is distended and hard. Patient unable to have a bowel movement on his own. patient was given an enema and awaiting results -patient able to urinate with assistance via urinal. When patient was sitting in chair he was unable to initiate flow. patient repositioned and was able to urinate. patient states he felt like he could not urinate because his stomach was putting too much pressure on him. patient flow was considerably better in a supine position vs sitting. -Pitting edema noted throughout the body. present in upper + lower extremities and abdomen. patient states he feels like his skin is stretched to the max.
[2016-09-19] VITALS (8 sets, daily range): BP systolic 160–167; BP diastolic 73–78; PULSE 71–88; RESP 18–20; O2SAT 95–98
[2016-09-19] MEDS: Heparin 5,000 Unit/mL Inj SUBQ SCH ×3 (00:17→16:18)
--- NOTE | 2016-09-19 03:21 | NUR ---
Confusion nursing staff answered pt's call light around midnight. pt reported "I'm confused", pt verbalized that he was "in a dream" that may have been related to the television program he was watching. pt was only oriented to self and knew he was "in the hospital", pt did not know the day/date. pt was found to be on RA pt reported that he just removed his Trilogy when he woke up, then he pushed his call light. O2 placed via n/c by RN, sats increased to mid 90s. pt was able to verbalized the correct orientation x3 by the end of the conversation with the RN. pt reported "feeling better" after the O2 was placed. call light placed within reach, using appropriately to make needs known.
[2016-09-19 06:11] LABS: BASOPHILS % (AUTO) 0.1 % (0-3); EOSINOPHILS % (AUTO) 0.4 % (0-5); MONOCYTES % (AUTO) 9.4 % (4-12); Mean Corpuscular Hemoglobin 25.6 pg (27.0-35.0); Mean Corpuscular Volume 88.6 fL (81-100); NEUTROPHILS % (AUTO) 76.1 % (40-74); Platelet Count 193 bil/L (150-400)
[2016-09-19] MEDS: Pantoprazole 40 mg ER24 Tablet PO SCH (06:16)
--- NOTE | 2016-09-19 06:55 | NUR ---
Constipation Mineral oil enema given at HS. no bowel movement during the night. pt reported feeling "movement", pt reported passing gas. bowel tones active in all quadrants. continuing to monitor.
[2016-09-19] MEDS ORDERED: Lactulose 20 Gm/30 mL 30 mL Syrup TUBE ONE (07:00)
[2016-09-19] MEDS: Albuterol-Ipratropium 3 mL Inhalation Solution NEB SCH ×4 (07:09→19:51)
[2016-09-19] MEDS: Arformoterol 15 mCg/2 mL Inhalation Solution INHALATION SCH ×2 (07:13→19:56)
[2016-09-19] MEDS: ARIPiprazole 2 mg Tablet PO SCH (08:17)
[2016-09-19] MEDS: Polyethylene Glycol (PEG) 17 Gm Powder PO SCH (08:17)
[2016-09-19] MEDS: Lactobacillus Rhamnosus 10 Bil Unit Capsule PO SCH (08:18)
[2016-09-19] MEDS: predniSONE 10 mg Tablet PO SCH (08:18)
[2016-09-19] MEDS: Fluticasone 0.05% 15 Spray/2 Gm 16 Gm Nasal Spray NASAL SCH (08:19)
[2016-09-19] MEDS: Insulin LISPRO 300 Unit/3 mL Inj SUBQ SCH ×4 (08:20→21:13)
[2016-09-19] MEDS: Insulin GLARgine 100 Unit/mL Syringe SUBQ SCH ×2 (08:20→21:10)
[2016-09-19] MEDS: Nystatin 100,000 Unit/Gm 15 Gm Powder TOPICAL SCH ×2 (08:21→21:17)
--- NOTE | 2016-09-19 13:39 | NUR ---
spiritual care: follow up brief visit. pt offered updates including his weariness, hopefulness about changes in his diet est salt.
[2016-09-19] MEDS ORDERED: Methylnaltrexone 12 mg/0.6 mL Inj SUBQ ONE (14:30)
--- NOTE | 2016-09-19 17:49 | NUR ---
Bowel Movement: Patient received scheduled Miralax and Senna this am, one time dose of Lactulose and a one time dose of Relistor for constipation. Patient passing gas, positive bowel tones. Patient had 2 extra large hard, formed bowel movements this afternoon. Patient verbalizing feeling of some relief in abdomen.
--- NOTE | 2016-09-19 20:42 | PCM.PNMED ---
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 Hospital day # 5. Overnight there were no significant events. Patient is very frustrated because he has not had a BM and just feels like his abdomen is getting larger. He is passing gas. He had the magnesium citrate as well as enemas and oral meds to help with this problem. Otherwise he feels well and would like to go home. Exam Vital Signs Vital Sign - Last Date Time Temp Pulse Resp B/P Pulse Ox O2 Delivery O2 Flow Rate FiO2 09/19/16 19:57 76 18 95 Nasal Cannula 2.00 09/19/16 14:10 36.7 163/78 Intake and Output 09/18/16 09/18/16 09/19/16 Cumulative From/Thru 15:00 23:00 07:00 09/15/16 10:30 - 09/19/16 06:59 Intake Total 636 ml 1136 ml 800 ml 92113 ml Output Total 1852 ml 1900 ml 1550 ml 28972 ml Balance -1216 ml -764 ml -750 ml 1080 ml Intake Oral 636 ml 1136 ml 800 ml 7647 ml IV Total 4985 ml Output Urine Total 1852 ml 1900 ml 1550 ml 59863 ml # Bowel Movements 0 0 0 4 Exam General: Obese male in bed, in no acute distress. HEENT: Normocephalic, atraumatic.Pupils equal, round, and reactive to light. Anicteric sclerae, moist conjunctivae. Neck: Supple. No lymphadenopathy or thyromegaly. Cardiovascular: Regular rate and rhythm with no murmurs, rubs, or gallops appreciated Pulmonary: Diminished lung sounds throughout anterior lung valdez with scattered crackles. Improved from yesterday Normal respiratory effort with no use of accessory muscles. Abdomen: protuberant, firm and distended, nontender, bowel sounds diminished. Extremities: No clubbing or cyanosis, edema in hands, arms legs Skin: Wrapped LE (Chronic stasis dermatitis on bilateral lower extremities) IVs and Medications Medications Reviewed: Medications were reviewed in detail Lab and Diagnostics Result Diagram: 09/19/16 0555 09/19/16 0555 Microbiology Respiratory viral PCR negative. Strep pneumoniae and legionella urine antigens negative. Blood culture no growth at 48 hours. . X-Rays, CTs and MRIs X-RAY CHEST ONE VIEW, PORTABLE IMPRESSION: 1. Mild pulmonary edema. 2. Linear bibasilar opacities compatible atelectasis versus developing consolidation. Dictated by: Royer Barger M.D. on 09/15/2016 at 11:10 Approved by: Royer Barger M.D. on 09/15/2016 at 11:11 . Date of Service: 09/17/16 1459 X-RAY CHEST ONE VIEW, PORTABLE IMPRESSION: Persistent mild edema. Differential diagnosis would also include atypical infection. Dictated by: Britton Boss RRA Interpreted: Brenda Tobin MD on 09/18/2016 at 9:00 Transcribed by: ARIA on 09/18/2016 at 9:01 Additional Diagnostics ABG on 09/17/2016: PH 7.351. PCO2 68. PO2 59.3. HCO3 36. . Assessment & Plan Xavi Vargas is a 61-year-old male with obesity hypoventilation syndrome, chronic opiate use, MAINSPRING WINDER on chronic prednisone who presented to [facility] ED via EMS due to acute on chronic shortness of breath over the last several days. Hospital day #5. 1. Acute sepsis, present on admission. Resolved. - Sepsis criteria met includes: Tachypneic (respiratory rate 30) and leukocytosis (WBC 13.6) with probable source pulmonary. - Early goal-directed therapy met including: IV fluid resuscitation with gentle hydration and broad-spectrum antibiotics. 2. Healthcare associated pneumonia, present on admission. Resolved. - Chest x-ray revealed bibasilar PNA vs. CHF - Unable to obtain sputum sample. - Respiratory viral PCR negative, Strep pneumoniae, legionella urine antigens negative. Blood cultures 2 no growth at 48 hours. - Lactic acid normal. - Last procalcitonin down to 0.21 - Had gentle hydration with NS at 50 mL/hr due to history of diastolic CHF, now discontinued. - Discontinued ceftriaxone and azithromycin after 3 doses given. Vancomycin discontinued after negative MRSA. - PT is working with patient to get him moving - Repeat x-ray 09/17 showed only mild persistent edema. 3. Acute on chronic hypercarbic hypoxemia respiratory failure, present on admission. Improving. - Multifactorial and secondary to opiate habituation, obesity hypoventilation syndrome, severe constipation and CARRIE non-compliant with Trilogy. - Continue Trilogy with current settings with addition of 3L oxygen bled into Trilogy. Encouraged patient to wear Trilogy when sleeping and intermittently throughout the day. - ABG revealed compensated respiratory acidosis, as above. - Continue home inhaler Brovana. - O2 to keep sats 88% to 92% - See problem #2. 4. Acute on chronic constipation, secondary to opiate habituation, present on admission. Active. - Likely contributing to his hypoventilation. - KUB revealed stool impaction. - Patient has received enemas, MiraLax, Senna, Ducolax suppositories, magnesium citrate, lactulose without success. Will try Relistor next. - Counseled patient on narcotic pain medications and constipation connection 5. Chronic elevated troponin, of uncertain significance, present on admission. Stable. - Chronically elevated troponin. - Telemetry. 6. Diabetes mellitus type 2, insulin using, uncontrolled, present on admission. Stable. - Last hemoglobin A1c 8.6% 06/2016. - Ordered carbohydrate consistent/heart healthy diet. - Continued home dose Lantus 60 units twice a day. - Ordered high-dose correctional scale insulin. 7. Obesity hypoventilation syndrome and CARRIE on Triology, present on admission. Active. - Continue Trilogy with additional oxygen bled into machine. Patient is a full code and is amenable to intubation. 8. Chronic bilateral lower extremity wounds, present on admission. Active. - Wound care, Chuck Hyoos, saw patient and provided care. Recommends outpatient wound care follow up. (He has been a patient of theirs in the past.) - Consistent with stasis dermatitis. 9. 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 Active. - Continue prednisone 10 mg daily. 10. Hypertension, chronic. Stable. - Continue metoprolol tartrate 50 mg twice a day and spironolactone 25 mg twice a day. 11. GERD, chronic. - Continue Protonix 20 mg daily, and Tums daily as needed for indigestion. 12. Glaucoma, chronic. - Continue Latanoprost 0.67 drops both eyes daily at bedtime. 13. Gout, chronic. - Continue Allopurinol 100 mg daily. 14. BPH, chronic. - Continue Tamsulosin 0.4 mg daily at bedtime. 15. Peripheral neuropathy, chronic. - Continue Lyrica 225 mg twice a day. 16. Parkinsonism, present on admission. Stable. - Continue Sinemet 25-100 mg 2 tabs 4 times a day. - Continue Abilify 2 mg daily. 17. Anxiety and depression, chronic. Active. - Continue amitriptyline 50 mg daily at bedtime. 18. Chronic congestive heart failure secondary to diastolic dysfunction, present on admission. Presumed stable. - Continue Spironolactone 25 mg twice a day, metoprolol tartrate 50 mg twice a day, aspirin 81 mg daily, atorvastatin 10 mg daily at bedtime. - Restarted torsemide and potassium 19. Chronic pain with opiate habituation. - This is likely a major contributor to his severe constipation as evidenced in KUB. Secondarily causing hypoventilation. Patient and have been advised that narcotic pain medication causes constipation but I do not think they understand. Will continue to stress this point. - Continue to oxycodone at a lower dose than home dose. Decreased from 20 mg to 10 mg every 4 hours as needed for pain. 20. History of atrial fibrillation with RVR. - Patient in normal sinus rhythm. - Continue aspirin 81 mg and Plavix 75 mg daily. 21. Morbid obesity, chronic. - BMI 49.2. - counseled to lose weight PRN antiemetics: Zofran and Maalox. PRN bowel regimen: Senna and MiraLAX scheduled. PRN analgesics: Oxycodone and Tylenol. Disposition: Patient likely to discharge to home on 09/20/16. Home possibly with home health care. . VTE Prophylaxis: Sub-Q Heparin (Unfractionated) VTE Mechanical Devices: Venous Foot Pump Resuscitation Status: CPR: Attempt Resuscitation Attending Statement The patient was seen and examined together with Dr. Delaney on 09/19/2016 and I agree with the history, exam and plan as outlined in the note above. Rose Mary Delaney DO Sep 19, 2016 20:42 Castro Moise MD Sep 20, 2016 13:13
[2016-09-20] MEDS: Heparin 5,000 Unit/mL Inj SUBQ SCH ×2 (00:18→08:34)
[2016-09-20 04:21] VITALS: BP 178/70; PULSE 72; RESP 20; O2SAT 97
--- NOTE | 2016-09-20 06:03 | NUR ---
Triology cPap remind pt to wear breathing machine while napping. He fell asleep on only 2L nasal cannula and woke very disoriented and confused. Pt knows how to fill Trilogy machine incase you need to refill sterile water just ask him. Addendum: 09/20/16 at 0606 by DOMINIQUE SAGASTUME Amended: Links added.
[2016-09-20] MEDS: Pantoprazole 40 mg ER24 Tablet PO SCH (06:52)
[2016-09-20] MEDS: Arformoterol 15 mCg/2 mL Inhalation Solution INHALATION SCH (07:49)
[2016-09-20] MEDS: Albuterol-Ipratropium 3 mL Inhalation Solution NEB SCH ×2 (07:49→11:58)
[2016-09-20 07:53] VITALS: PULSE 70; RESP 20; O2SAT 96
[2016-09-20] MEDS: Insulin LISPRO 300 Unit/3 mL Inj SUBQ SCH ×2 (08:00→12:10)
[2016-09-20 08:27] LABS: BASOPHILS % (AUTO) 0.3 % (0-3); EOSINOPHILS % (AUTO) 1.2 % (0-5); MONOCYTES % (AUTO) 9.5 % (4-12); Mean Corpuscular Hemoglobin 25.6 pg (27.0-35.0); Mean Corpuscular Volume 83.6 fL (81-100); Platelet Count 221 bil/L (150-400)
[2016-09-20] MEDS: predniSONE 10 mg Tablet PO SCH (08:30)
[2016-09-20] MEDS: ARIPiprazole 2 mg Tablet PO SCH (08:32)
[2016-09-20] MEDS: Lactobacillus Rhamnosus 10 Bil Unit Capsule PO SCH (08:32)
[2016-09-20] MEDS: Insulin GLARgine 100 Unit/mL Syringe SUBQ SCH (08:34)
[2016-09-20] MEDS: Polyethylene Glycol (PEG) 17 Gm Powder PO SCH (08:34)
[2016-09-20] MEDS: Nystatin 100,000 Unit/Gm 15 Gm Powder TOPICAL SCH (08:35)
[2016-09-20] MEDS: Fluticasone 0.05% 15 Spray/2 Gm 16 Gm Nasal Spray NASAL SCH (08:35)
--- NOTE | 2016-09-20 09:00 | NUR ---
VENKAT signed. KATHERINE Rivera
[2016-09-20] MEDS ORDERED: Methylnaltrexone 12 mg/0.6 mL Inj SUBQ ONE (09:15)
[2016-09-20 11:59] VITALS: PULSE 74; RESP 18; O2SAT 94
--- NOTE | 2016-09-20 12:24 | PCM.DIMED ---
Rose Mary Delaney DO 09/20/16 1224: Discharge Instructions Date of Service Sep 20, 2016 Dates of Hospitalization Sep 15, 2016 at 12:51 Discharge Diagnosis Discharge Diagnosis 1. Acute sepsis, present on admission. Resolved. 2. Healthcare associated pneumonia, present on admission. Resolved. 3. Acute on chronic hypercarbic hypoxemia respiratory failure, present on admission. Acute resolved, chronic ongoing. 4. Acute on chronic constipation, secondary to opiate habituation, present on admission. Resolved. 5. Chronic elevated troponin, of uncertain significance, present on admission. Stable. 6. Diabetes mellitus type 2, insulin using, uncontrolled, present on admission. Stable. 7. Obesity hypoventilation syndrome and CARRIE on Triology, present on admission. Chronic and stable. 8. Chronic bilateral lower extremity wounds, present on admission. Stable. 9. 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 Stable. 10. Hypertension, chronic. Stable. 11. GERD, chronic, stable 12. Glaucoma, chronic, stable 13. Gout, chronic, stable 14. BPH, chronic, stable 15. Peripheral neuropathy, chronic, stable 16. Parkinsonism, present on admission. Stable. 17. Anxiety and depression, chronic. stable. 18. Chronic congestive heart failure secondary to diastolic dysfunction, present on admission. Stable. 19. Chronic pain with opiate habituation, stable 20. History of atrial fibrillation with RVR, stable 21. Morbid obesity, chronic, Medication Instructions Please cut down your narcotic medications because of the GI side effects that we have discussed many times. In the hospital, you were getting 1/2 the dose that you were taking at home. Add lots of fiber to your diet. There are several fiber supplements on the market such as Metamucil, Citrucel, and others, and they can be used daily to eliminate your constipation. You may need to go up slowly to avoid the stomach upset that can come from starting too fast. Diet Heart Healthy, Diabetic Activity Other (As tolerated) Call your provider Shortness of breath, Chest pain Patient Instructions Follow-up Provider: Nicolás Pendleton MD Follow-up with PCP in: 1 week Castro Moise MD 09/20/16 1313: Rose Mary Delaney DO Sep 20, 2016 12:24 Castro Moise MD Sep 20, 2016 13:13
--- NOTE | 2016-09-20 12:58 | NUR ---
Social Work-discharge: Data:EMR Reviewed. Pt is on day 5 of hospitalization for COPD per H&P. Pt is medically stable to discharge home today. PT has recommended home with HH, pt and have denied SNF option. SW informed Randall Fitzgerald with [facility] of discharge today and faxed in F2F and orders for RN,OT, and PT. SW confirms plan with pt at bedside and he states his will provide transport home today. Pt to also continue with [facility]. All updated and agreeable to plan. Assessment:Pt who has [facility] and HH. plan:Pt to discharge home today via POV. F2F and orders faxed into [facility] for RN,OT, and PT. Pt to continue with [facility] at home. All updated and agreeable to plan. KATHERINE Rivera
--- NOTE | 2016-09-20 15:25 | NUR ---
Discharge Patient discharge to home with all belongings at 1440. Explained to patient when next medications are due and discharge instructions. Patient verbalized understanding. Dc'd IV intact. Vitals stable. Patient left floor via wheelchair accompanied by GREETING CARD EDITOR and with no signs of distress.
--- NOTE | 2016-09-20 20:17 | PCM.DC.MED ---
Discharge Summary Date of Service Sep 20, 2016 Dates of Hospitalization Date of Hospital Admission Sep 15, 2016 at 12:51 Date of Discharge: Sep 20, 2016 Providers: Admitting Physician: Leonarda Biggs MD Primary Care Physician: Nicolás Pendleton MD Attending Physician: Leonarda Biggs MD Diagnosis at Time of Discharge Diagnosis at Time of Discharge 1. Acute sepsis, present on admission. Resolved. 2. Healthcare associated pneumonia, present on admission. Resolved. 3. Acute on chronic hypercarbic hypoxemia respiratory failure, present on admission. Acute resolved, chronic ongoing. 4. Acute on chronic constipation, secondary to opiate habituation, present on admission. Resolved. 5. Chronic elevated troponin, of uncertain significance, present on admission. Stable. 6. Diabetes mellitus type 2, insulin using, uncontrolled, present on admission. Stable. 7. Obesity hypoventilation syndrome and CARRIE on Triology, present on admission. Chronic and stable. 8. Chronic bilateral lower extremity wounds, present on admission. Stable. 9. 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 Stable. 10. Hypertension, chronic. Stable. 11. GERD, chronic, stable 12. Glaucoma, chronic, stable 13. Gout, chronic, stable 14. BPH, chronic, stable 15. Peripheral neuropathy, chronic, stable 16. Parkinsonism, present on admission. Stable. 17. Anxiety and depression, chronic. stable. 18. Chronic congestive heart failure secondary to diastolic dysfunction, present on admission. Stable. 19. Chronic pain with opiate habituation, stable 20. History of atrial fibrillation with RVR, stable 21. Morbid obesity, chronic, Procedures XRay, CTs & MRIs X-RAY CHEST ONE VIEW, PORTABLE IMPRESSION: 1. Mild pulmonary edema. 2. Linear bibasilar opacities compatible atelectasis versus developing consolidation. Dictated by: Royer Barger M.D. on 09/15/2016 at 11:10 Approved by: Royer Barger M.D. on 09/15/2016 at 11:11 . Date of Service: 09/17/16 1459 X-RAY CHEST ONE VIEW, PORTABLE IMPRESSION: Persistent mild edema. Differential diagnosis would also include atypical infection. Dictated by: Britton BETTENCOURT Interpreted: Brenda Tobin MD on 09/18/2016 at 9:00 Transcribed by: ARIA on 09/18/2016 at 9:01 09/15/16 X-RAY KUB FINDINGS: Surgical changes and devices: None. Bowel: There is mild gaseous distention of multiple bowel loops of the abdomen and pelvis a moderate amount of stool seen within the colon. Soft tissues: No suspicious abdominal calcifications. Visualized solid organ contours appear normal in size. Bones: No suspicious bony lesions. IMPRESSION: Nonspecific bowel gas pattern. If patient's symptoms persist, recommend repeat imaging or CT. Dictated by: Britton Boss RRA Interpreted: Brenda Tobin MD on 09/16/2016 at 9:57 Transcribed by: ARIA on 09/16/2016 at 9:57 Approved by: Brenda Tobin M.D. on 09/16/2016 at 16:43 . Other Diagnostics ABG on 09/17/2016: PH 7.351. PCO2 68. PO2 59.3. HCO3 36. . Brief History From history and physical by Dr. 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 He reports minimally productive cough, congestion, and dyspnea. He also endorses pleuritic chest pain with deep respiration. He denies chest pain, fever, chills, nausea, or vomiting. Symptoms have been treated with patient's daily morning nebulizer with no relief. He also takes Prednisone 10mg daily. He reports decreased appetite with little by mouth intake. He also endorses constipation and decreased urine output. He denies sick contacts. Of note, the patient's reports that he uses Trilogy at night and infrequently during the day. Vital signs in the ER: Temperature 36.6. Pulse 92. Respiratory rate 30. Blood pressure 153/70. Pulse ox 90% on 3 L nasal cannula. He was given oxycodone 20 mg by mouth 1, aspirin 324 mg 1, Sinemet 25-100 mg 2, methylprednisolone 125 mg IV 1, DuoNeb, and torsemide 100 mg 1. . . 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 1. Acute sepsis, present on admission. Resolved. - Sepsis criteria met includes: Tachypneic (respiratory rate 30) and leukocytosis (WBC 13.6) with probable source pulmonary. - Early goal-directed therapy met including: IV fluid resuscitation with gentle hydration and broad-spectrum antibiotics. 2. Healthcare associated pneumonia, present on admission. Resolved. - Chest x-ray revealed bibasilar PNA vs. CHF - Unable to obtain sputum sample. - Respiratory viral PCR negative, Strep pneumoniae, legionella urine antigens negative. Blood cultures 2 no growth at 48 hours. - Lactic acid normal. - Last procalcitonin down to 0.21 - Had gentle hydration with NS at 50 mL/hr due to history of diastolic CHF, then discontinued. - Discontinued ceftriaxone and azithromycin after 3 doses given. Vancomycin discontinued after negative MRSA. Did not continue antibiotics because clinically he was doing so well and labs supported this. - PT worked with patient to get him moving - Repeat x-ray 09/17 showed only mild persistent edema. 3. Acute on chronic hypercarbic hypoxemia respiratory failure, present on admission. Improving. - Multifactorial and secondary to opiate habituation, obesity hypoventilation syndrome, severe constipation and CARRIE non-compliant with Trilogy. - Continued Trilogy with current settings with addition of 3L oxygen bled into Trilogy. Encouraged patient to wear Trilogy when sleeping and intermittently throughout the day. - ABG revealed compensated respiratory acidosis, as above. - Continued home inhaler Brovana. - O2 to keep sats 88% to 92% - See problem #2. 4. Acute on chronic constipation, secondary to opiate habituation, present on admission. Active. - Likely contributing to his hypoventilation. - KUB revealed stool impaction. - Patient received enemas, MiraLax, Senna, Ducolax suppositories, magnesium citrate, lactulose without success. Relistor worked best. - Counseled patient on narcotic pain medications and constipation connection and to reduce pain medications even further and the use of fiber. 5. Chronic elevated troponin, of uncertain significance, present on admission. Stable. - Chronically elevated troponin. - Telemetry. 6. Diabetes mellitus type 2, insulin using, uncontrolled, present on admission. Stable. - Last hemoglobin A1c 8.6% 06/2016. - Ordered carbohydrate consistent/heart healthy diet. - Continued home dose Lantus 60 units twice a day. - Ordered high-dose correctional scale insulin. 7. Obesity hypoventilation syndrome and CARRIE on Triology, present on admission. Chronic. - Continued Trilogy with additional oxygen bled into machine. Patient is a full code and is amenable to intubation. 8. Chronic bilateral lower extremity wounds, present on admission. Active. - Wound care, Chuck Hoyos, saw patient and provided care. Recommended outpatient wound care follow up if needed. (He has been a patient of theirs in the past.) - Consistent with stasis dermatitis. 9. 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 Active. - Continued home prednisone 10 mg daily. 10. Hypertension, chronic. Stable. - Continued metoprolol tartrate 50 mg twice a day and spironolactone 25 mg twice a day. 11. GERD, chronic. - Continued Protonix 20 mg daily, and Tums daily as needed for indigestion. 12. Glaucoma, chronic. - Continued Latanoprost 0.67 drops both eyes daily at bedtime. 13. Gout, chronic. - Continued Allopurinol 100 mg daily. 14. BPH, chronic. - Continued Tamsulosin 0.4 mg daily at bedtime. 15. Peripheral neuropathy, chronic. - Continued Lyrica 225 mg twice a day. 16. Parkinsonism, present on admission. Stable. - Continued Sinemet 25-100 mg 2 tabs 4 times a day. - Continued Abilify 2 mg daily. 17. Anxiety and depression, chronic. Active. - Continued amitriptyline 50 mg daily at bedtime. 18. Chronic congestive heart failure secondary to diastolic dysfunction, present on admission. Presumed stable. - Continued Spironolactone 25 mg twice a day, metoprolol tartrate 50 mg twice a day, aspirin 81 mg daily, atorvastatin 10 mg daily at bedtime. - Restarted torsemide and potassium prior to discharge 19. Chronic pain with opiate habituation. - This is likely a major contributor to his severe constipation as evidenced in KUB. Secondarily causing hypoventilation. Continued to stress this point. - Continued oxycodone at a lower dose than home dose. Decreased from 20 mg to 10 mg every 4 hours as needed for pain. 20. History of atrial fibrillation with RVR. - Patient in normal sinus rhythm. - Continued aspirin 81 mg and Plavix 75 mg daily. 21. Morbid obesity, chronic. - BMI 49.2. - counseled to lose weight Exam Vital Signs (Last) Date Time Temp Pulse Resp B/P Pulse Ox O2 Delivery O2 Flow Rate FiO2 09/20/16 11:59 74 18 94 Room Air 09/20/16 07:53 2.00 09/20/16 04:21 36.7 178/70 Exam General: Obese male in bed, in no acute distress, eating HEENT: Normocephalic, atraumatic. Anicteric sclerae, moist conjunctivae. Neck: Supple. No lymphadenopathy or thyromegaly. Cardiovascular: Regular rate and rhythm with no murmurs, rubs, or gallops appreciated Pulmonary: Diminished lung sounds throughout anterior lung valdez with scattered crackles. Continues to improve. Normal respiratory effort with no use of accessory muscles. Abdomen: protuberant, much softer today, nontender, bowel sounds diminished. Extremities: No clubbing or cyanosis, edema in hands, arms legs Skin: Wrapped LE (Chronic stasis dermatitis on bilateral lower extremities) . Test 09/15/16 10:45 09/15/16 11:58 09/15/16 13:35 09/15/16 18:03 Prothrombin Time 10.8sec (8.1-12.5) Prothromb Time International Ratio 1.01ratio Troponin T 0.070ug/L (0.0-0.011) Pro-B-Type Natriuretic Peptide 636.9pg/mL (0-210) Activated Partial Thromboplast Time 28.9sec (22.8-33.0) Hold Urine Received (Received) Urine Legionella pneumophilia Ag Negative (Negative) Lactic Acid Level 1.5mmol/L (0.4-2.0) Test 09/16/16 01:12 09/16/16 05:45 09/16/16 10:15 09/17/16 00:15 Hold Red Top Tube Received (Received) Phosphorus Level 4.3mg/dL (2.5-4.9) Magnesium Level 2.6mg/dL (1.6-2.6) Urine Color Straw (YELLOW) Urine Appearance Clear (CLEAR,HAZY) Urine pH 5.5 (5.0-8.0) Urine Specific [place] 1.010 (1.003-1.035) Urine Protein Negativemg/dL (NEG,TRACE) Urine Glucose (UA) Negativemg/dL (NEGATIVE) Urine Ketones Negativemg/dL (NEGATIVE) Urine Occult Blood Negative (NEGATIVE) Urine Nitrite Negative (NEGATIVE) Urine Bilirubin Negative (NEGATIVE) Urine Urobilinogen Normalmg/dL (NORMAL) Urine Leukocyte Esterase Negative (NEGATIVE) Urine RBC 0-2/hpf (0-2) Urine WBC 0-5/hpf (0-5) Urine Epithelial Cells Occasional/hpf (NONE-MOD) Urine Crystals None seen (NONE SEEN) Urine Bacteria None/hpf (NONE-FEW) Urine Hyaline Casts Occasional/lpf (NONE) Urine Granular Casts None seen (NONE SEEN) Urine Waxy Casts None seen (NONE SEEN) Urine Red Blood Cell Casts None seen (NONE SEEN) Urine White Blood Cell Casts None seen (NONE SEEN) Urine Mucus None seen (None Seen) Urine Trichomonas None seen (NONE SEEN) Urine Yeast None (NONE SEEN) Urinalysis Comment None Urine Culture Reflexed Not indicated Vancomycin Level Trough 18.3mcg/mL Test 09/18/16 06:10 09/20/16 08:15 Procalcitonin 0.21ng/mL (0.00-0.08) White Blood Count 6.8th/mm3 (3.8-10.1) Red Blood Count 4.03mil/mm3 (4.40-5.80) Hemoglobin 10.3g/dL (13.8-17.2) Hematocrit 33.7% (41.0-50.0) Mean Corpuscular Volume 83.6fL (81-100) Mean Corpuscular Hemoglobin 25.6pg (27.0-35.0) Mean Corpuscular Hemoglobin Concent 30.6% (32.0-37.0) Red Cell Distribution Width 18.9% (12.3-15.4) Platelet Count 221bil/L (150-400) Neutrophils (%) (Auto) 64.0% (40-74) Lymphocytes (%) (Auto) 24.6% (14-46) Monocytes (%) (Auto) 9.5% (4-12) Eosinophils (%) (Auto) 1.2% (0-5) Basophils (%) (Auto) 0.3% (0-3) Sodium Level 139mEq/L (134-144) Potassium Level 4.4mEq/L (3.5-5.2) Chloride Level 92mEq/L (97-108) Carbon Dioxide Level 38mmol/L (18-29) Blood Urea Nitrogen 41mg/dL (8-27) Creatinine 1.62mg/dL (0.76-1.27) Estimat Glomerular Filtration Rate 46mL/min (>59) Glucose Level 146mg/dL (60-99) Calcium Level 8.5mg/dL (8.5-10.1) Total Bilirubin 0.4mg/dL (0.0-1.2) Aspartate Amino Transf (AST/SGOT) 14U/L (0-50) Alanine Aminotransferase (ALT/SGPT) 5U/L (0-44) Alkaline Phosphatase 86U/L (25-160) Total Protein 6.0g/dL (6.4-8.4) Albumin 3.5g/dL (3.4-5.0) Microbiology Results Respiratory viral PCR negative. Strep pneumoniae and legionella urine antigens negative. Blood culture no growth at 48 hours. . Discharge Medications Discharge Medications Allopurinol (Allopurinol) 100 Mg Tablet 100 MG PO DAILY (Reported) Amitriptyline (Amitriptyline) 50 Mg Tab 50 MG PO HS (Reported) Arformoterol Tartrate (Brovana) 15 Mcg/2 Ml Vial.neb 15 MCG IH BID (Reported) Aripiprazole (Aripiprazole) 2 Mg Tablet 2 MG PO DAILY (Reported) Ascorbic Acid (Vitamin C) 500 Mg Capsule.er 500 MG PO DAILY (Reported) Aspirin (Aspirin) 81 Mg Tablet 81 MG PO DAILY (Reported) Atorvastatin Calcium (Atorvastatin Calcium) 10 Mg Tablet 10 MG PO HS (Reported) Carbidopa/Levodopa 25-100 mg (Carbidopa/Levodopa 25-100 mg) 1 Each Tablet 2 TABLET PO QID (Reported) Cinnamon Bark/Chromium Picolin (Cinnamon Plus Chromium Capsule) 1 Each Capsule 1 EACH PO DAILY (Reported) Clopidogrel Bisulfate (Plavix) 75 Mg Tablet 75 MG PO DAILY Prescribed by: MIRACLE MERRILL DO Fluticasone Propionate (Flonase Allergy Relief) 9.9 Ml [place].susp 1 SPRAYS NS DAILY (Reported) Insulin Aspart (NovoLOG U100 Insulin Vial) 100 Unit/Ml Mdv 10-25 UNITS SUBQ tidwm plus slid scal Prescribed by: ROBERTO YOUNGBLOOD DO Insulin Glargine (Lantus U100 Insulin Vial) 100 Unit/Ml Vial 60 UNITS SUBQ BID ( Reported) Lactobacillus Acidophilus (Acidophilus) 1 Each Capsule 1 EACH PO DAILY (Reported ) Latanoprost (Latanoprost) 2.5 Ml Drops 1 GTT BOTH_EYES HS (Reported) Magnesium Oxide (Magnesium Oxide) 400 Mg Tablet 400 MG PO DAILY (Reported) Metoprolol Tartrate (Metoprolol Tartrate) 25 Mg Tablet 50 MG PO BID Prescribed by: PONCHO VICENTE MD Multivitamin (Multivitamins) 1 Each Capsule 1 EACH PO DAILY (Reported) Omeprazole (Omeprazole) 20 Mg Capsule.dr 20 MG PO DAILY (Reported) Potassium Chloride ER (Klor-Con M20) 20 Meq Tablet 20 MEQ PO DAILY (Reported) Prednisone (PredniSONE) 10 Mg Tablet 10 MG PO DAILY Prescribed by: MIRACLE MERRILL DO Pregabalin (Lyrica) 225 Mg Capsule 225 MG PO BID (Reported) Spironolactone (Spironolactone) 25 Mg Tablet 25 MG PO BID (Reported) Tamsulosin ER (Tamsulosin ER) 0.4 Mg Cap.er.24h 0.4 MG PO HS (Reported) Torsemide (Torsemide) 100 Mg Tablet 50 MG PO BID (Reported) As needed Acetaminophen (Acetaminophen) 500 Mg Tablet 500 MG PO Q6H PRN PRN For Pain ( Reported) Albuterol Neb Soln (Albuterol Neb Soln) 2.5 Mg/3 Ml Vial.neb 2.5 MG INHALATION Q4H PRN PRN For Shortness of Breath (Reported) Albuterol Sulfate (Ventolin HFA Inhaler) 200 Puff/18 Gm Inhaler 2 PUFFS INH q4- 6 hours PRN PRN For Shortness of Breath (Reported) Calcium Carbonate (Tums) 500 Mg Tab.chew 2,000 MG PO PRN PRN PRN For Indigestion (Reported) Dextran 70/Hypromellose/Pf (Artificial Tears Drops) 1 Each Droperette 1 DROP BOTH_EYES QID PRN PRN dry eyes (Reported) Loratadine (Claritin) 10 Mg Capsule 10 MG PO DAILY PRN PRN allergies (Reported) Sennosides (Senna) 8.6 Mg Tablet 17.2 MG PO BID PRN PRN For Constipation ( Reported) oxyCODONE (oxyCODONE) 20 Mg Tablet 20 MG PO Q4H PRN PRN For Pain (Reported) Miscellaneous Medications ([livaplex]) (Reported) ([vitality]) (Reported) ([D3]) (Reported) ([super B complex]) (Reported) ([parsley]) (Reported) Cyanocobalamin (Vitamin B-12) (B-12) 500 Mcg Tab.rapdis 500 MCG SL (Reported) Additional med instructions Please cut down your narcotic medications because of the GI side effects that we have discussed many times. In the hospital, you were getting 1/2 the dose that you were taking at home. Add lots of fiber to your diet. There are several fiber supplements on the market such as Metamucil, Citrucel, and others, and they can be used daily to eliminate your constipation. You may need to go up slowly to avoid the stomach upset that can come from starting too fast. Followup Plan Disposition: Home Discharge Diet: Heart Healthy, Diabetic Discharge Activity: Other (As tolerated) Follow-up Provider: Nicolás Pendleton MD Follow-up with PCP in: 1 week Time spent Greater than 30 minutes were spent in preparing pts discharge. Attending Statement The patient was seen and examined together with Dr. Delaney on 09/20/2016 and I agree with the history, exam and plan as outlined in the note above. Rose Mary Delaney DO Sep 20, 2016 20:17 Castro Moise MD Sep 21, 2016 13:03
== END 2016-09-20 14:40 | disposition home or self-care (01) | DRG 871 ==
LOC: SED 10:19 → MPC 12:51
PROVIDERS: ADMIT Hospitalist; ATTEND Hospitalist
PROC: 5A09457 Assistance with Respiratory Ventilation, 24-96 Consecutive Hours, Continuous Positive Airway Pressure (ICD-10-PCS; principal; 2016-09-15)
PROC: 4A033R1 Measurement of Arterial Saturation, Peripheral, Percutaneous Approach (ICD-10-PCS; 2016-09-15)
DX: A41.9 Sepsis, unspecified organism (principal); J18.9 Pneumonia, unspecified organism; J96.22 Acute and chronic respiratory failure with hypercapnia; J96.21 Acute and chronic respiratory failure with hypoxia; E66.2 Morbid (severe) obesity with alveolar hypoventilation; E87.2 Acidosis; I50.32 Chronic diastolic (congestive) heart failure; Z68.42 Body mass index [BMI] 45.0-49.9, adult; J84.89 Other specified interstitial pulmonary diseases; K59.03 Drug induced constipation; T40.605A Adverse effect of unspecified narcotics, initial encounter; E11.65 Type 2 diabetes mellitus with hyperglycemia; K21.9 Gastro-esophageal reflux disease without esophagitis; H40.9 Unspecified glaucoma; N40.0 Benign prostatic hyperplasia without lower urinary tract symptoms; F41.8 Other specified anxiety disorders; G89.29 Other chronic pain; J44.9 Chronic obstructive pulmonary disease, unspecified; I48.91 Unspecified atrial fibrillation; M1A.9XX0 Chronic gout, unspecified, without tophus (tophi); Z79.4 Long term (current) use of insulin; Z79.82 Long term (current) use of aspirin; Z79.52 Long term (current) use of systemic steroids; Y92.009 Unspecified place in unspecified non-institutional (private) residence as the place of occurrence of the external cause

== ENCOUNTER 2016-10-22 13:33 | Inpatient (IN) | payer MEDICARE, MEDICAID ==
[~2016-10-22] VITALS: Ht 182.9 cm; Wt 160.0 kg
[~2016-10-22 13:33] MED LIST changes: -CHOL10008 PO; -CITA40TA13 PO; -MYCO TOP; -ZIT250 PO
[2016-10-22 13:40] VITALS: BP 139/85; PULSE 84; RESP 16; O2SAT 96
[2016-10-22 14:14] LABS: BASOPHILS % (AUTO) 0.2 % (0-3); EOSINOPHILS % (AUTO) 0.5 % (0-5); MONOCYTES % (AUTO) 7.7 % (4-12); Mean Corpuscular Hemoglobin 25.6 pg (27.0-35.0); Mean Corpuscular Volume 86.5 fL (81-100); NEUTROPHILS % (AUTO) 81.8 % (40-74); Platelet Count 225 bil/L (150-400)
--- NOTE | 2016-10-22 14:15 | ED.REPORT ---
HPI-General Illness Date of Service Oct 22, 2016 ED Provider: Tarun Wilkins MD The patient is a 61 year old diabetic male with a history of COPD, BOOP, CHF, DVT, hypoxemic respiratory failure, CARRIE on CPAP, paroxysmal atrial fibrillation , hypertension, diabetes mellitus, kidney disease, and chronic pain on narcotics , who presents to the emergency department via EMS complaining of generalized weakness. The patient has also noticed a productive cough with green/brown sputum, congestion, shortness of breath, lower extremity swelling, elevated blood sugar levels, fever, and increased fatigue. He denies chest pain, vomiting or diarrhea. He was admitted to the hospital from 09/15-09/20 for pneumonia and sepsis. He states his symptoms have worsened since he was discharged home. 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 Scheduled Allopurinol (Allopurinol) 100 Mg Tablet 100 MG PO DAILY Amitriptyline (Amitriptyline) 50 Mg Tab 50 MG PO HS Arformoterol Tartrate (Brovana) 15 Mcg/2 Ml Vial.neb 15 MCG IH BID Aripiprazole (Aripiprazole) 2 Mg Tablet 2 MG PO DAILY Ascorbic Acid (Vitamin C) 500 Mg Capsule.er 500 MG PO DAILY Aspirin (Aspirin) 81 Mg Tablet 81 MG PO DAILY Atorvastatin Calcium (Atorvastatin Calcium) 10 Mg Tablet 10 MG PO HS Carbidopa/Levodopa 25-100 mg (Carbidopa/Levodopa 25-100 mg) 1 Each Tablet 2 TABLET PO QID Cholecalciferol (Vitamin D3) (Vitamin D3) 2,000 Unit Capsule 2,000 UNIT PO DAILY Cinnamon Bark/Chromium Picolin (Cinnamon Plus Chromium Capsule) 1 Each Capsule 1 EACH PO DAILY Citalopram (Citalopram) 40 Mg Tablet 40 MG PO DAILY Clopidogrel Bisulfate (Plavix) 75 Mg Tablet 75 MG PO DAILY Cyanocobalamin (Vitamin B-12) (B-12) 500 Mcg Tab.rapdis 500 MCG SL DAILY Fluticasone Propionate (Flonase Allergy Relief) 9.9 Ml [place].susp 1 SPRAYS NS DAILY Insulin Glargine (Lantus U100 Insulin Vial) 100 Unit/Ml Vial 60 UNITS SUBQ BID Insulin Regular, Human (HUMulin-R U-500 Insulin Vial) 500 Unit/1 Ml Vial 8 UNITS SUBQ TIDAC Lactobacillus Acidophilus (Acidophilus) 1 Each Capsule 1 EACH PO DAILY Latanoprost (Latanoprost) 2.5 Ml Drops 1 GTT BOTH_EYES HS Magnesium Oxide (Magnesium Oxide) 400 Mg Tablet 400 MG PO DAILY Metolazone (Metolazone) 5 Mg Tablet 5 MG PO Q2DAY Metoprolol Tartrate (Metoprolol Tartrate) 25 Mg Tablet 50 MG PO BID Multivitamin (Multivitamins) 1 Each Capsule 1 EACH PO DAILY Omeprazole (Omeprazole) 20 Mg Capsule.dr 20 MG PO DAILY Potassium Chloride ER (Klor-Con M20) 20 Meq Tablet 20 MEQ PO DAILY Prednisone (PredniSONE) 10 Mg Tablet 10 MG PO DAILY Pregabalin (Lyrica) 225 Mg Capsule 225 MG PO BID Spironolactone (Spironolactone) 25 Mg Tablet 25 MG PO BID Tamsulosin ER (Tamsulosin ER) 0.4 Mg Cap.er.24h 0.4 MG PO HS Torsemide (Torsemide) 100 Mg Tablet 50 MG PO BID Scheduled PRN Acetaminophen (Acetaminophen) 500 Mg Tablet 500 MG PO Q6H PRN PRN For Pain Albuterol Neb Soln (Albuterol Neb Soln) 2.5 Mg/3 Ml Vial.neb 2.5 MG INHALATION Q4H PRN PRN For Shortness of Breath Albuterol Sulfate (Ventolin HFA Inhaler) 200 Puff/18 Gm Inhaler 2 PUFFS INH q4- 6 hours PRN PRN For Shortness of Breath Calcium Carbonate (Tums) 500 Mg Tab.chew 2,000 MG PO PRN PRN PRN For Indigestion Dextran 70/Hypromellose/Pf (Artificial Tears Drops) 1 Each Droperette 1 DROP BOTH_EYES QID PRN PRN dry eyes Loratadine (Claritin) 10 Mg Capsule 10 MG PO DAILY PRN PRN allergies Polyethylene Glycol 3350 (Gavilax) 17 Gm Powd.pack 17 GM PO DAILY PRN PRN For Constipation Sennosides (Senna) 8.6 Mg Tablet 17.2 MG PO BID PRN PRN For Constipation oxyCODONE (oxyCODONE) 20 Mg Tablet 20 MG PO Q4H PRN PRN For Pain General Time Seen by MD: 14:11 Chief Complaint Weakness Hx Obtained From: Patient, Spouse, EMS Arrived By: Ambulance Sudden in Onset?: No Onset Occurred: More than a week ago... Symptom Duration: Since onset Severity: Current: No pain currently Severity: Maximum: No pain Recent Healthcare: Recent doctor visit, Recent hospitalization Similar Sx Previous: Yes Past Medical History Past Medical History Notes: PCP: Dr. Pendleton Electronic Development Technician Dr. Chang [employer] [facility]. Clement Past Medical History 1. Paroxysmal Atrial Fibrillation 2. ho/ chronic hypoxemic respiratory failure (states patient uses O2 3 L at night at baseline) 3. history of MSRA 4. CKD stage III 5. History of pancreatitis 6. BOOP on chronic prednisone (patient states current dose as of July 2016 is 10 mg daily) 7. Diabetes Mellitus Type 2, insulin-using, poorly controlled 8. Hypertension 9. Parkinsonian Tremor 10. BPH 11. Anxiety and depression 12. CARRIE on CPAP 13. Chronic congestive heart failure secondary to diastolic dysfunction 14. chronic edema 15. Gout 16. Chronic back pain on opiates (history of acute L2 fracture 06/2016 as well) History of cor pulmonale per pulmonology note June 2016 Obesity hypoventilation syndrome per pulmonology note June 2016 Obesity BMI 48.2 Past Surgical History Colonoscopy Lung biopsy Hernia repair Reports: Appendectomy Family History Reports: Diabetes mellitus Smoking History Former Smoker (over 30 years ago) Social History Drug Use: Denies drug use Other Social History: Good social support, Frequent ED visitor, , Local resident Ambulatory Status Walker Review of Systems +elevated sugars Full Review of Systems Constitutional: Reports: Fatigue, Weakness - generalized Ears / Nose / Throat: Reports: Nasal congestion Respiratory: Reports: Prod cough, brown, Prod cough, green, Shortness of breath Cardiovascular: Denies: Chest pain GI: Denies: Diarrhea, Vomiting Musculoskeletal: Reports: Extremity swelling Complete sys rev & neg: except as marked. Physical Exam Vital Signs Vital Signs Date Time Temp Pulse Resp B/P Pulse Ox O2 Delivery O2 Flow Rate FiO2 10/22/16 13:40 37.3 84 16 139/85 96 Nasal Cannula 4 Initial VS: Reviewed Head / Eyes: Atraumatic, Normocephalic, PERRL ENT: Mucous membranes moist, Conjunctiva normal, No scleral icterus Neck: Supple, Non-tender, Full range of motion Abdomen / GI: Soft, Non-tender, No guarding, No rebound, No distention Lymphatic: No lymphadenopathy Extremities: Vascular intact, Neuro intact Skin: Warm, Dry, No cyanosis Neurologic: Alert, Oriented, Nonfocal Psychiatric: Mood/affect normal, Behavior normal, Normal thought content General/Constitutional: Awake, Alert, Cooperative Appearance / Presentation: Positive: Obese, morbidly Respiratory / Chest: No respiratory distress, No chest tenderness, No chest wall deformity Coarse breath sounds bilaterally with scattered wheezes. Cardiovascular: Heart rate NL, Regular rhythm, Heart sounds NL, No gallop, No murmurs, No rubs, Peripheral circulation NL, Pulses = bilaterally Lower Ext Edema: Positive: Bilateral 2+ Interpretation & Diagnostics Lab Results Interpretation Result Diagram: 10/22/16 1353 10/22/16 1353 Test 10/22/16 13:53 10/22/16 14:28 White Blood Count 12.0th/mm3 (3.8-10.1) Red Blood Count 4.29mil/mm3 (4.40-5.80) Hemoglobin 11.0g/dL (13.8-17.2) Hematocrit 37.1% (41.0-50.0) Mean Corpuscular Volume 86.5fL (81-100) Mean Corpuscular Hemoglobin 25.6pg (27.0-35.0) Mean Corpuscular Hemoglobin Concent 29.6% (32.0-37.0) Red Cell Distribution Width 18.9% (12.3-15.4) Platelet Count 225bil/L (150-400) Neutrophils (%) (Auto) 81.8% (40-74) Lymphocytes (%) (Auto) 9.6% (14-46) Monocytes (%) (Auto) 7.7% (4-12) Eosinophils (%) (Auto) 0.5% (0-5) Basophils (%) (Auto) 0.2% (0-3) Sodium Level 137mEq/L (134-144) Potassium Level 3.8mEq/L (3.5-5.2) Chloride Level 81mEq/L (97-108) Carbon Dioxide Level 39mmol/L (18-29) Blood Urea Nitrogen 74mg/dL (8-27) Creatinine 2.13mg/dL (0.76-1.27) Estimat Glomerular Filtration Rate 34mL/min (>59) Glucose Level 296mg/dL (60-99) Calcium Level 9.8mg/dL (8.5-10.1) Total Bilirubin 0.5mg/dL (0.0-1.2) Aspartate Amino Transf (AST/SGOT) 21U/L (0-50) Alanine Aminotransferase (ALT/SGPT) 9U/L (0-44) Alkaline Phosphatase 86U/L (25-160) Troponin T 0.120ug/L (0.0-0.011) Pro-B-Type Natriuretic Peptide 655.8pg/mL (0-210) Total Protein 7.6g/dL (6.4-8.4) Albumin 3.9g/dL (3.4-5.0) Urine Color Straw (YELLOW) Urine Appearance Clear (CLEAR,HAZY) Urine pH 6.0 (5.0-8.0) Urine Specific [place] 1.010 (1.003-1.035) Urine Protein Negativemg/dL (NEG,TRACE) Urine Glucose (UA) Negativemg/dL (NEGATIVE) Urine Ketones Negativemg/dL (NEGATIVE) Urine Occult Blood Negative (NEGATIVE) Urine Nitrite Negative (NEGATIVE) Urine Bilirubin Negative (NEGATIVE) Urine Urobilinogen Normalmg/dL (NORMAL) Urine Leukocyte Esterase Negative (NEGATIVE) Urine RBC 0-2/hpf (0-2) Urine WBC 0-5/hpf (0-5) Urine Epithelial Cells Occasional/hpf (NONE-MOD) Urine Crystals None seen (NONE SEEN) Urine Bacteria None/hpf (NONE-FEW) Urine Hyaline Casts None/lpf (NONE) Urine Granular Casts None seen (NONE SEEN) Urine Waxy Casts None seen (NONE SEEN) Urine Red Blood Cell Casts None seen (NONE SEEN) Urine White Blood Cell Casts None seen (NONE SEEN) Urine Mucus None seen (None Seen) Urine Trichomonas None seen (NONE SEEN) Urine Yeast None (NONE SEEN) Urinalysis Comment None Urine Culture Reflexed Not indicated ECG Interpretation ECG Interpretation: Sinus rate [address] elevation, lateral leads Time: 15:42 Interpreted by: ED physician X-Ray Chest Interpretation Chest Xray Interpretation: IMPRESSION: There is a persistent appearance of interstitial opacities, although less prominent when compared to 09/17/16. This could represent edema versus persistent atypical infection. Dictated by: Brenda Tobin M.D. on 10/22/2016 at 15:00 Approved by: Brenda Tobin M.D. on 10/22/2016 at 15:01 View: Portable, 1 view Interpretation / Wet Read by: Interpret - Radiologist Re-Eval/Medical Decision Med Decision/Clinical Course 61 yo m h/o copd, chf, morbid obesity recent admission 1 month ago sepsis/pneumonia p/w worsening sob x 1 month and subjective fevers last couple days, cough productive green sputum. CXR concerning possible pneumonia. Wbc 12k. Increased 02 requirements. Admit for HCAP, GRETEL. Likely CHF component as well - torsemide as outpatient with metazolone started last week - patient reports inability to walk d/t LE edema. Vanco/Levo/Cefepime (given pen-allergy) for HCAP. Admitted to Hospitalist. Source of Hx: Old records, EMS, Family Time of Eval: 15:42 Re-Evaluation/Progress Note: Rechecked patient. Discussed plan for admission. Patient understands and agrees with plan. All questions addressed at this time. Consultation : Referral / Consult Name: Brennon Doss MD Call Returned at: 15:37 Production Line Assembler: Will see patient, Agrees with eval, Agrees with plan, Accepts admit Note: Discussed patient's case. Accepts admit. Counseled Regarding: Diagnosis, Lab results, Need for admission Discharge & Departure Primary Impression: Healthcare-associated pneumonia Additional Impressions: Elevated troponin Acute kidney injury Disposition: ADMITTED TO HOSPITAL Discharge Condition All VS Reviewed: Yes Condition: Stable Referrals: Nicolás Pendleton MD (PCP) Tim Attestation Portions of this note were transcribed by Marianne Frias. I, Dr. Wilkins personally performed the history, physical exam and medical decision-making; I reviewed and confirmed the accuracy of the information in the transcribed note. Signed by: Tim Campos, 10/22/2016 at 1500. copies to: Nicolás Pendleton MD, Ben M MD Oct 22, 2016 14:15 Marianne Frias Oct 22, 2016 14:21 NBA ZAMBRANO Oct 22, 2016 15:09
[2016-10-22 14:43] LABS: APPEARANCE,URINE CLEAR (CLEAR,HAZY); COLOR,URINE STRAW (YELLOW); OCCULT BLOOD,URINE NEGATIVE (NEGATIVE); UROBILINOGEN,URINE NORMAL (NORMAL)
[2016-10-22 14:44] LABS: TROPONIN T 0.12 ug/L (0.0-0.011)
--- NOTE | 2016-10-22 15:03 | DRSVH ---
PROCEDURE: X-RAY CHEST ONE VIEW, PORTABLE ([id number]) INDICATIONS: Cough, Shortness of breath TECHNIQUE: One view of the chest was acquired. COMPARISON: [facility], CR, XR CHEST 1VW (PORTABLE), 09/17/2016, 15:48. FINDINGS: Surgical changes and devices: None. Lungs and pleura: No pleural effusions or pneumothorax. Persistent, although less prominent appearan ce of interstitial opacities. Mediastinum: Mediastinal contours appear normal. Heart size is normal. Bones and chest wall: No suspicious bony lesions. Overlying soft tissues appear unremarkable. IMPRESSION: There is a persistent appearance of interstitial opacities, although less prominent when compared to 09/17/16. This could represent edema versus persistent atypical infection. Dictated by: Brenda Tobin M.D. on 10/22/2016 at 15:00 Approved by: Brenda Tobin M.D. on 10/22/2016 at 15:01
[2016-10-22] MEDS ORDERED: levoFLOXacin Inj 750 MG in IV Premix 1 EACH IV ONE (15:45)
[2016-10-22] MEDS ORDERED: Cefepime Inj 2 GM in IV Premix 1 EACH IV ONE (15:45)
[2016-10-22] MEDS ORDERED: Vancomycin Dose per Pharmacist XX ONE (15:45)
[2016-10-22] MEDS ORDERED: Alum-Mag Hydrox-Simeth 30 mL Suspension PO PRN (16:05)
[2016-10-22] MEDS ORDERED: Ondansetron 2 mg/mL 2 mL Inj IVPUSH PRN (16:05)
[2016-10-22 16:14] VITALS: BP 113/53; PULSE 78; RESP 16
[2016-10-22] MEDS ORDERED: Cefepime Inj 2 GM in IV Premix 1 EACH IV SCH (16:40)
--- NOTE | 2016-10-22 16:43 | ABG ---
DateTimeAnalyzed 16:39:00 -_ pH ____7.404 - 7.350 7.450 pCO2 ___74.1__ -mmHg 35.0 45.0 pO2 ___93.5__ -mmHg 69.0 116 HCO3- ___45.3__ -mmol/L 22.0 26.0 ABE ___17.6__ -mmol/L -2.0 2.0 tHb ___10.7__ -g/dL O2Hb ___94.8__ -% COHb ____1.8__ -% MetHb ____1.1__ -% sO2 ___97.6__ -% 25.0 FIO2 ___32.0__ -% Drawn By ___DR. THEE - Date/Time Notified____ 16:43:00 -_ Liter_Flow ____3.0__ -L/min Oxygen Device 1 __CANNULA - Notified By gj - Notified Whom DR THEE - B 754 -mmHg tO2 ___14.3__ -Vol% Tereso test __unknown -
[2016-10-22 16:52] VITALS: BP 106/68; PULSE 79; RESP 18; O2SAT 91
[2016-10-22] MEDS ORDERED: CITA40TA13 PO (16:53)
[2016-10-22] MEDS ORDERED: METO5TAB5 PO (17:23)
[2016-10-22] MEDS ORDERED: INSU500V SUBQ (17:23)
[2016-10-22] MEDS ORDERED: CHOL200047 PO (17:23)
[2016-10-22] MEDS ORDERED: POLY17PO23 PO (17:24)
--- NOTE | 2016-10-22 17:36 | PCM.HPMED ---
Subjective Date of Service Oct 22, 2016 Primary Provider: Admitting Physician: Brennon Doss MD Primary Care Physician: Nicolás Pendleton MD Attending Physician: Brennon Doss MD Chief Complaint: Cough and shortness of breath . History of Present Illness: Xavi Vargas is a 61-year-old man with a past medical history significant for chronic hypoxemic respiratory failure secondary to morbid obesity, BOOP on chronic prednisone, COPD, obesity hypoventilation syndrome, CARRIE on Trilogy, who presented to the [facility] ED via EMS due to altered mentation and hypoxia. The patient has been complaining of acute on chronic shortness of breath over the last several days. He was admitted to the hospital from 09/15-09/20 for HCAP and sepsis. Since his discharge he states he never got back to his normal self and has had ongoing issues with shortness of breath and cough. The patient has also noticed a productive cough with green/brown sputum, congestion, shortness of breath. He also notes chills over the last few days but is unsure if he has had any fevers. His lower extremity swelling has actually improved since he has been placed on Metolazone by Dr. Clement to be taken every other day in addition to his Lasix. The patient states that he is losing 2 lbs a day with this regiment but that he feels very thirsty and his mouth is dry. He denies chest pain, fever, chills, nausea, or vomiting. He denies sick contacts. He received his flu vaccine when he was last hospitalized. The patient has had more than 5 hospitalizations for pneumonia and has been intubated for 14 days at [facility]. Vital signs in the ER T 37.3 HR 84 RR 16 BP 139/85 O2 Sat 96% on 4L. He was given single doses of Levaquin, Vancomycin and Cefepime. Review of Systems: A comprehensive review of systems was conducted with the patient and found to be negative except as above in the History of Present Illness. . 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 Atorvastatin 10 mg daily at bedtime. Tums daily as needed for indigestion Sinemet 54084 mg 2 tablets 4 times a day. Plavix 75 mg daily. Lantus 60 units subcutaneous twice a day. Lantanoprost 0.67 drops both eyes daily at bedtime. Magnesium oxide 4 mg daily. Metoprolol tartrate 50 mg twice a day. Potassium chloride 20 mEq daily. Spironolactone 25 mg twice a day. Tamsulosin 0.4 mg daily at bedtime. Prednisone 10 mg daily. Artificial tears in both eyes 4 times as needed when eyes are dry. Flonase 1 spray intranasally daily. Acidophilus 1 tablet daily. Loratadine 10 mg daily as needed for allergies. Omeprazole 20 mg daily. Oxycodone 20 mg every 4 hours as needed for pain. Lyrica 225 mg twice a day. Metolazone, dose uncertain Several supplements and multivitamins. . PMH Chronic hypercarbic respiratory failure. Chronic elevated troponin. Diabetes mellitus type 2, insulin using, uncontrolled. Obesity hypoventilation syndrome and CARRIE on Triology. Chronic bilateral lower extremity wounds. History of BOOP on chronic prednisone. Hypertension. GERD. Glaucoma. BPH. Peripheral neuropathy Parkinsonism. Anxiety and depression. Chronic congestive heart failure secondary to diastolic dysfunction0 mg daily at bedtime. Chronic pain with opiate habituation. History of atrial fibrillation with RVR. Morbid obesity, chronic. CKD stage II. Gout. . Surgical History Colonoscopy. Lung biopsy. Hernia repair. Appendectomy. Family History Hypertension Social History Hx Alcohol Use: No Hx Substance Use: Yes (40 Y/O) Hx Tobacco Use: Yes Smoking Status: Former Smoker Exam Vital Signs Vital Sign - Last Date Time Temp Pulse Resp B/P Pulse Ox O2 Delivery O2 Flow Rate FiO2 10/22/16 16:52 36.8 79 18 106/68 91 Nasal Cannula 4.00 Exam General: No acute distress, obese, appropriately interactive, nasal cannula on face HEENT: Normocephalic, atraumatic. External ears without defect. Pupils equal, round, and reactive to light and accommodation. Anicteric sclerae, moist conjunctivae, and no lid lag. Oropharynx free of erythema and cobble stoning with moist mucosa. Neck: Supple with full range of motion. No jugular venous distension that can be appreciated but exam limited by body habitus. No bruits. No lymphadenopathy or thyromegaly. Cardiovascular: Regular rate and rhythm with no murmurs, rubs, or gallops appreciated but exam is very limited by body habitus. Pulmonary: Crackles bilaterally. Normal respiratory effort with no use of accessory muscles. Exam limited by body habitus. Abdomen: Bowel tones present. Soft, nontender, nondistended. Markedly obese. No hepatosplenomegaly or masses appreciated. Extremities: Significant pitting edema of both lower extremities. Skin: Erythema of bilateral lower extremities. Neurological: Cranial nerves grossly intact. Normal muscle strength, tone, and bulk. Reflexes, coordination, and sensory function within normal limits. No known gait impairment. Psychiatric: Normal mood and affect. Alert and oriented to person, place, and time. Lab and Diagnostics Result Diagram: 10/22/16 1353 10/22/16 1353 X-Rays, CTs and MRIs X-RAY CHEST ONE VIEW, PORTABLE IMPRESSION: There is a persistent appearance of interstitial opacities, although less prominent when compared to 09/17/16. This could represent edema versus persistent atypical infection. Dictated by: Brenda Tobin M.D. on 10/22/2016 at 15:00 Cardiac Echo Impressions Interpretation Summary A two-dimensional transthoracic echocardiogram with color flow and Doppler was performed in limited views only. A contrast injection of Definity was performed to improve assessment of LV function. The ejection fraction is estimated to be 60-65%. There are no obvious focal wall motion abnormalities noted but poor endocardial definition reduces the sensitivity for the detection of such. Additional Diagnostics: DateTimeAnalyzed 16:39:00 -_ pH ____7.404 - 7.350 7.450 pCO2 ___74.1__ -mmHg 35.0 45.0 pO2 ___93.5__ -mmHg 69.0 116 HCO3- ___45.3__ -mmol/L 22.0 26.0 Liter_Flow ____3.0__ -L/min Assessment & Plan Xavi Vargas is a 61-year-old man with a past medical history significant for chronic hypoxemic respiratory failure secondary to morbid obesity, BOOP on chronic prednisone, COPD, obesity hypoventilation syndrome, CARRIE on Trilogy, who presented to the [facility] ED via EMS due to altered mentation and hypoxia. 1. Probable healthcare associated pneumonia, present on admission. Active. - Patient was recently hospitalized for HCAP and returns with chills, productive cough and elevated white count - Ordered viral respiratory PCR, sputum culture, strep pneumoniae and legionella urine antigens. - Ordered blood cultures 2 pending. - Started Cefepime 2 g IV every 12 hours, azithromycin 500 mg IV every 24 hours - Patient received one dose of vancomycin in the ED however give the recent negative MRSA screen will hold off. 2. Acute on chronic hypercarbic hypoxemic respiratory failure, present on admission. Active. - Continue Trilogy with current settings with addition of oxygen bled into Trilogy. - ABG is as expected for this patient as he is chronically a CO2 retainer. - Continue home inhaler Brovana. 3. Acute kidney injury on chronic kidney injury, present on admission. Active. - Likely secondary to dehydration due to increase in diuretic dose - Will continue Torsemide but will hold Metolazone - Will follow BMP 4.Chronic congestive heart failure secondary to diastolic dysfunction, present on admission. Presumed stable. - Continue Spironolactone 25 mg twice a day, metoprolol tartrate 50 mg twice a day, aspirin 81 mg daily, atorvastatin 10 mg daily at bedtime. - Continue Toresimide and potassium for now. Chronic Problems: Polypharmacy - Patient takes an extensive list of medications - This poses a high risk if adverse reaction and events Chronic elevated troponin, of uncertain significance, present on admission. Active. - Chronically elevated troponin, likely secondary to CHF. Will trend tomorrow. - Continue to monitor closely on telemetry. Diabetes mellitus type 2, insulin using, uncontrolled, present on admission. Active. - Last hemoglobin A1c 8.6% 06/2016. - Ordered carbohydrate consistent/heart healthy diet. - Ordered high-dose correctional scale insulin. - Continued Lantus 40 units twice a day, patient normally on 60 units BID. Obesity hypoventilation syndrome and CARRIE on Triology, present on admission. Active. - Continue Trilogy with additional oxygen bled into machine. - See plan above under problem #2. Chronic bilateral lower extremity wounds, present on admission. Active. - Ordered wound care and physical therapy consult. - Consistent with stasis dermatitis. 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 Active. - Continue prednisone 10 mg daily. - See plan above under problem #2. Hypertension, chronic. Stable. - Continue metoprolol tartrate 50 mg twice a day and spironolactone 25 mg twice a day. GERD, chronic. - Continue Protonix 20 mg daily Glaucoma, chronic. - Continue Latanoprost 0.67 drops both eyes daily at bedtime. Gout, chronic. - Continue Allopurinol 100 mg daily. BPH, chronic. - Continue Tamsulosin 0.4 mg daily at bedtime. Peripheral neuropathy, chronic. - Continue Lyrica 225 mg twice a day. Parkinsonism, present on admission. Stable. - Continue Sinemet 25-100 mg 2 tabs 4 times a day. - Continue Abilify 2 mg daily. Anxiety and depression, chronic. Active. - Continue amitriptyline 50 mg daily at bedtime. Chronic pain with opiate habituation. - Continue to oxycodone at 10 mg every 4 hours as needed for pain. History of atrial fibrillation with RVR. - Patient in normal sinus rhythm. - Continue aspirin 81 mg and Plavix 75 mg daily. Morbid obesity, chronic. - BMI 49.2. PRN antiemetics: Zofran and Maalox. PRN bowel regimen: Senna and MiraLAX scheduled. PRN analgesics: Oxycodone and Tylenol. Patient is admitted under inpatient status with expected length of stay greater than 2 midnights due to severity of presenting symptoms, risk of adverse event, and complexity of treatment plan. . Time spent 60 minutes Attending Statement The patient was seen and examined on 10/22/[address] Mahoney , I agree with the history, exam and plan as outlined in the note above. Twyla Mahoney DO Oct 22, 2016 17:35 Pihll Jaimes MD Oct 23, 2016 07:40 Morbid obesity, chronic. - BMI 49.2. PRN antiemetics: Zofran and Maalox. PRN bowel regimen: Senna and MiraLAX scheduled. PRN analgesics: Oxycodone and Tylenol. Patient is admitted under inpatient status with expected length of stay greater than 2 midnights due to severity of presenting symptoms, risk of adverse event, and complexity of treatment plan. . Twyla Mahoney DO Oct 22, 2016 17:35 Twyla Mahoney DO Oct 22, 2016 17:35 Twyla Mahoney DO Oct 22, 2016 17:35
[2016-10-22] MEDS ORDERED: 0.9% Sodium Chloride 250 ML ONE (17:52)
[2016-10-22] MEDS ORDERED: Polyethylene Glycol (PEG) 17 Gm Powder PO PRN (18:10)
[2016-10-22 18:12] VITALS: PULSE 95
[2016-10-22] MEDS ORDERED: Glucose 40% Oral Gel 15 Gm Tube PO PRN (18:50)
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
[2016-10-22] MEDS ORDERED: oxyCODONE ER 20 mg ER12 Tablet PO ONE (19:25)
[2016-10-22] MEDS: Azithromycin Inj 500 MG in Dextrose 5% w/Vial Mate 250 ML IV SCH (19:26)
[2016-10-22 19:50] VITALS: BP 113/67; PULSE 79; RESP 18; O2SAT 93
[2016-10-22] MEDS ORDERED: Artificial Tears 15 mL Ophthalmic Solution BOTH_EYES PRN (21:30)
[2016-10-22] MEDS: Arformoterol 15 mCg/2 mL Inhalation Solution INHALATION SCH (21:57)
[2016-10-22 21:58] VITALS: PULSE 79; RESP 16; O2SAT 92
[2016-10-22] MEDS: Insulin GLARgine 100 Unit/mL Syringe SUBQ SCH (22:13)
[2016-10-22] MEDS: Insulin LISPRO 300 Unit/3 mL Inj SUBQ SCH (22:13)
--- NOTE | 2016-10-22 22:21 | ABG ---
DateTimeAnalyzed 22:18:00 -_ pH ____7.398 - 7.350 7.450 pCO2 ___74.6__ -mmHg 35.0 45.0 pO2 ___66.3__ -mmHg 69.0 116 HCO3- ___45.0__ -mmol/L 22.0 26.0 ABE ___17.5__ -mmol/L -2.0 2.0 tHb ____9.8__ -g/dL O2Hb ___94.9__ -% COHb ____2.1__ -% sO2 ___94.0__ -% 25.0 FIO2 ___28.0__ -% Drawn By MM - B 757 -mmHg
--- NOTE | 2016-10-22 22:26 | ABG ---
DateTimeAnalyzed 22:21:00 -_ pH ____7.417 - 7.350 7.450 pCO2 ___70.3__ -mmHg 35.0 45.0 pO2 ___71.9__ -mmHg 69.0 116 HCO3- ___44.4__ -mmol/L 22.0 26.0 ABE ___17.1__ -mmol/L -2.0 2.0 tHb ___10.3__ -g/dL O2Hb ___92.2__ -% COHb ____2.1__ -% MetHb ____1.0__ -% sO2 ___95.2__ -% 25.0 FIO2 ___28.0__ -% Drawn By MM - Date/Time Notified____ 22:24:00 -_ Spontaneous_RR ___16.0__ -b/min Liter_Flow ____2.0__ -L/min Oxygen Device 1 __CANNULA - Notified By MM - Notified Whom DR SULLENBERGER - B 757 -mmHg tO2 ___13.4__ -Vol% OrderingPhysicianInitials mf - Tereso test _Positive -
[2016-10-23] VITALS (12 sets, daily range): BP systolic 107–146; BP diastolic 49–92; PULSE 66–86; RESP 16–19; O2SAT 89–99
[2016-10-23] MEDS: Cefepime Inj 2,000 MG in Dextrose 5% Minibag Plus 100 ML IV SCH ×3 (00:38→16:23)
--- NOTE | 2016-10-23 03:17 | NUR ---
mentation: pt sleepy at start of shift, difficult to wake up, and stay awake. sternal rub to wake up pt. ABGs drawn. RT to room for breathing tx, also. pt more alert and awake. trilogy in place. MP30 with pulse ox in place. will continue to monitor pt.
--- NOTE | 2016-10-23 05:34 | NUR ---
actvity gown changed. placed on trilogy.,
[2016-10-23] MEDS: Albuterol 2.5 mg/3 mL Inhalation Solution NEB PRN ×3 (05:35→19:56)
--- NOTE | 2016-10-23 06:34 | NUR ---
sputum brown thick sputum sent to micro
[2016-10-23] MEDS: Arformoterol 15 mCg/2 mL Inhalation Solution INHALATION SCH ×2 (07:37→19:56)
[2016-10-23 07:47] LABS: BASOPHILS % (AUTO) 0.4 % (0-3); EOSINOPHILS % (AUTO) 1.3 % (0-5); MONOCYTES % (AUTO) 10.2 % (4-12); Mean Corpuscular Hemoglobin 25.4 pg (27.0-35.0); NEUTROPHILS % (AUTO) 71.6 % (40-74); Platelet Count 174 bil/L (150-400)
[2016-10-23] MEDS: Azithromycin Inj 500 MG in Dextrose 5% w/Vial Mate 250 ML IV SCH (08:05)
[2016-10-23] MEDS: Pantoprazole 20 mg ER24 Tablet PO SCH (08:10)
[2016-10-23] MEDS: Potassium Chloride 20 mEq SR Tablet PO SCH (08:11)
[2016-10-23] MEDS: Ascorbic Acid 500 mg Tablet PO SCH (08:12)
[2016-10-23] MEDS: ARIPiprazole 2 mg Tablet PO SCH (08:13)
[2016-10-23] MEDS: predniSONE 10 mg Tablet PO SCH (08:14)
[2016-10-23] MEDS: Insulin GLARgine 100 Unit/mL Syringe SUBQ SCH ×2 (08:16→21:58)
[2016-10-23] MEDS: Insulin LISPRO 300 Unit/3 mL Inj SUBQ SCH ×4 (08:17→21:57)
[2016-10-23 08:28] LABS: Magnesium 2.5 mg/dL (1.6-2.6)
[2016-10-23] MEDS ORDERED: Fluticasone 0.05% 15 Spray/2 Gm 16 Gm Nasal Spray NASAL PRN (08:30)
[2016-10-23] MEDS: Polyethylene Glycol (PEG) 17 Gm Powder PO PRN (08:35)
--- NOTE | 2016-10-23 09:18 | NUR ---
Social Work: Initial Assessment Data: Pt is a 61 y/o male admitted for healthcare associated pneumonia. Pt's PCP is Dr Pendleton, pt's insurance is Medicare with HS supp. EMR reviewed, readmit score is 4, high. NSH TEACHER met with pt at bedside. Pt states he lives in [place] with his in a single story home where he uses an electric wheelchair. Pt states he has hx with Vitaly PEARCE and at [facility]. Pt states he has no LTC or VA benefits, is not a caregiver. Pt states he has DAMARIS at 79 hours per week, NSH TEACHER requested UR specialist fax over clinicals for community case manager. Pt states the battery on his electric wheel chair is no longer holding a charge for very long, NSH TEACHER left message for UR specialist to see what the options are for pt to solve this problem. Pt states he plans to go home at d/c and would like [facility] again. HH choice list given. NSH TEACHER called [facility], referred pt, access given, F2F in NSH TEACHER folder. NSH TEACHER will continue to follow. Assessment: Pt with DAMARIS. Plan: Pt will likely d/c home via POV or [facility] transportation (pt came to hospital via ambulance) with Vitaly PEARCE, RN/PT/OT/NSH TEACHER, and DAMARIS. NSH TEACHER will continue to follow. KATHERINE Padilla Addendum: 10/23/16 at 0923 by MATEUS AGUILAR SS Amended: Links added.
[2016-10-23] MEDS ORDERED: Potassium Chloride 20 mEq SR Tablet PO ONE (09:30)
--- NOTE | 2016-10-23 16:22 | CONS ---
[address] [address] CONSULTATION REPORT PATIENT: SAILAJA ESTES : 1955 MR#: [id number] ADMIT: 10/22/2016 JOB ID: [id number] CORRECTED REPORT: DATE OF SERVICE: 10/23/2016 REASON FOR CONSULTATION: Possible respiratory tract infection in a patient with multiple comorbidities, including COPD. HISTORY OF PRESENT ILLNESS: The patient is well known to me from multiple prior admissions. He has an extraordinary list of problems, including diabetes, COPD, bilateral parotitis of unknown etiology, chronic renal insufficiency, hypertension, atrial fibrillation, diastolic congestive heart failure, morbid obesity, obesity hypoventilation syndrome, sleep apnea, and possibly Parkinson's disease. He is admitted on about a once a month basis to [facility]. Recall that because of his many comorbidities, this patient spent a full three years in a long-term before going home last November. He has been able to spend 10 months at home, though with very frequent admissions to [facility]. I last saw this patient back in December of 2014 shortly after he had returned home. Since that time, he has had at least four subsequent admissions for a wide variety of issues related to the above-mentioned problems. On this occasion, the patient was admitted from home with a history of increasing shortness of breath for 3-4 days. The patient repaints that after his last discharge in August, he soon developed a persistent cough with very minimal shortness of breath, but over the last three or four days it got a lot worse, became productive, and was associated with increasing shortness of breath, despite the use of his Trilogy machine at home, so he decided to come in and was readmitted. The patient has had some recent subjective chills, as well as possible fever, though, he does not own a thermometer. He denies new GI or symptoms. He does report he has some pain around his buttock region which he attributes to perhaps spending too much time sitting or lying in one position. Of interest, the patient notes that his has also had a respiratory tract process ongoing the past few days, but not their 23-year-old daughter who lives with them. PAST MEDICAL HISTORY: 1. Diabetes mellitus with secondary peripheral neuropathy and gastroparesis. 2. Chronic renal insufficiency. 3. Hypertension. 4. COPD. 5. 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 Note that prior attempts to wean the patient off steroids have been disastrous and should not be repeated without a clear guidance from the pulmonary commercial solar sales consultant. 6. Organic heart disease with diastolic congestive heart failure. 7. Atrial fibrillation. 8. Gout. 9. GERD. 10. History of MRSA soft tissue infections. 11. History of C. diff. 12. Bilateral parotitis x3 years of unknown etiology despite biopsies. 13. Obesity hypoventilation syndrome. 14. Morbid obesity. 15. Cor pulmonale. 16. Chronic pain. 17. Parkinson's variant with chronic tremor. 18. Chronic venous insufficiency of the lower extremities with stasis dermatitis. SOCIAL HISTORY: The patient is disabled, now living at home for the last 10 months with his and daughter. Previously, he spent three full years in a long-term. He smoked back in his 20s but has not smoked in 30 years. He does not drink or use illicit drugs. FAMILY HISTORY: The patient's family history in first-degree relatives negative for TB. REVIEW OF SYSTEMS: The patient states he has had some headaches recently. No visual complaints. He has had a mild sore throat. No stiff neck. He has had increasing cough, he says productive of greenish sputum in association with some chills and possible fever. No abdominal pain, nausea, vomiting, diarrhea. No dysuria. He states he is able to use his motorized scooter at home and make it from his bed or the sofa to the bathroom as needed. He does note he has had some pain around his anus which has been getting worse over the recent weeks. He does note he has enough strength to get up and walk very short distances by himself which represents an improvement. Remainder of the review of systems negative. PHYSICAL EXAMINATION: Reveals an afebrile gentleman, temperature 36.5, pulse 81, respiratory rate 18, blood pressure 126/73, saturating well on 3 L. Examination of the mental status reveals it to be clear. His mood and affect appear similar on previous admissions. 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 Examination of the head reveals no trauma. Eyes without conjunctivitis. Oral cavity without thrush or pharyngitis. Head and neck with bilateral parotid enlargement which is slowly better over the last 2-1/2 years I have been seeing him, but still strikingly abnormal. The parotids no longer appear to be inflamed as they once were. The neck without notable adenopathy. Lungs: Crackles are heard anteriorly and a few wheezes. Cardiac tones: Irregular rate and rhythm. No significant murmur. Abdomen quite obese, soft, nontender. He does not have a Hooks catheter at this time. No abnormalities are noted. The patient's legs are weak, but he is able to move them around without difficulty, probably 4+ strength. He does not have evidence of synovitis. There is no evidence for skin rash. We did assist the patient in rolling over on his back. There are no significant decubitus ulcers, but he does have stage 1 deep nonblanchable erythema all around the anus and perhaps some very, very shallow excoriations or abrasions there which could represent the beginning of a stage 2 decubitus ulcer. Otherwise, though, no abnormalities of the back and no breakdown of the heels, either. LABORATORIES: Include white count 12,000 yesterday, now 8000. Platelet count 174. Creatinine 1.95. His baseline is about 2. LFTs are normal. Albumin 3.8. Urinalysis is negative. Urine Legionella negative. That is from this admission. Urine pneumococcal antigen negative from this admission. Blood cultures negative so far from this admission. Respiratory sample has mixed baltazar and rare polys so is not a useful sample. Chest x-rays were carefully compared to prior films. There is interstitial prominence which likely represents his BOOP. It is actually less than when he was last in the hospital a month ago. There is definitely no new infiltrate. IMPRESSION: The patient is an unfortunate gentleman, only 61 years, who has an almost insurmountable list of medical problems. Defying the odds, he made it home after living three years in a long-term and has been able to stay there despite frequent readmissions to this facility. As on many prior admissions for possible pneumonia, I see no infiltrate, nor do I hear in the history or by auscultation much that would suggest a lower respiratory tract infection. Given the fact his has a very similar illness, I suspect what we are dealing with here is a respiratory tract viral process. RECOMMENDATIONS: 1. We can continue with the antibiotics which currently include cefepime and azithromycin overnight. 2. We ordered a respiratory viral PCR panel which hopefully will provide an answer. 3. Depending on the patient's overall situation, he might even be considered for discharge as early as tomorrow, as he looks about at his baseline. 4. The patient should be encouraged to spend time on the side and standing or walking as much as possible to take some of the pain off of the intergluteal area around the anus, as he is at risk for additional skin breakdown should he continue to sit or lie on this area. ADDITIONAL INFORMATION: I am amending the record from my consultation to show that the referring physician was Dr. Mahoney. Addenda added by MIGUEL 11/17/16 at 2:18pm
--- NOTE | 2016-10-23 17:25 | NUR ---
Wound Care Wound evaluation orders received, patient seen at bedside. Presents with stasis dermatitis at both LE's with associated swelling and a few superficial wounds, a small wound 2 cm x 2 cm at right medial calf was covered with a mepilex foam dressing and his tubigrip compressions were reapplied to control swelling. Pt presents with hyperkeratotic skin at both buttocks secondary to chronic abrasion with transfers. Patient is in a bariatric bed, no wound care needs at this time.
--- NOTE | 2016-10-23 17:56 | NUR ---
Activity: Patient sat in his chair during his dinner. He is 1-2 person SBA with his front wheel walker. Patient is on 4 liters of 02 with his 02 sat ranging in the low 90s. When he is on room air his 02 sat tends to desaturate into the 80s.
--- NOTE | 2016-10-23 17:59 | PCM.PNMED ---
Subjective Date of Service Oct 23, 2016 Subjective Patient doing well this morning, he continues to have his baseline shortness of breath. He is continuing to produce sputum mainly yellow to brown in color. He reports no chest pain. Exam Vital Signs Vital Sign - Last Date Time Temp Pulse Resp B/P Pulse Ox O2 Delivery O2 Flow Rate FiO2 10/23/16 16:45 36.9 78 19 119/57 96 Nasal Cannula 4.00 Intake and Output 10/22/16 10/22/16 10/23/16 Cumulative From/Thru 15:00 23:00 07:00 10/22/16 13:40 - 10/23/16 06:56 Intake Total 450 ml 450 ml Output Total 400 ml 400 ml Balance 50 ml 50 ml Intake Oral 450 ml 450 ml Output Urine Total 400 ml 400 ml Exam General: No acute distress, obese, appropriately interactive, nasal cannula on face, occasional dozing off HEENT: Normocephalic, atraumatic. External ears without defect. Pupils equal, round, and reactive to light and accommodation. Anicteric sclerae, moist conjunctivae, and no lid lag. Oropharynx free of erythema and cobble stoning with moist mucosa. Neck: Supple with full range of motion. Thick neck. No jugular venous distension that can be appreciated but exam limited by body habitus. No lymphadenopathy or thyromegaly palpable. Cardiovascular: Regular rate and rhythm with no murmurs, rubs, or gallops distant heart sounds due to body habitus. Pulmonary: Crackles bilaterally. Normal respiratory effort with no use of accessory muscles. Poor air movement, exam limited by body habitus. Abdomen: Bowel tones present. Soft, nontender, nondistended. Markedly obese. No hepatosplenomegaly or masses appreciated. Extremities: Significant pitting edema of both lower extremities. Skin: Erythema of bilateral lower extremities. flaking of skin over erythema on right anterior moreira Neurological: Cranial nerves grossly intact. Normal muscle strength, tone, and bulk. No known gait impairment. Psychiatric: Normal mood and affect. Alert and oriented to person, place, and time. Lab and Diagnostics Result Diagram: 10/23/1672210/23/16722 X-Rays, CTs and MRIs X-RAY CHEST ONE VIEW, PORTABLE IMPRESSION: There is a persistent appearance of interstitial opacities, although less prominent when compared to 09/17/16. This could represent edema versus persistent atypical infection. Dictated by: Brenda Tobin M.D. on 10/22/2016 at 15:00 Cardiac Echo Impressions Interpretation Summary A two-dimensional transthoracic echocardiogram with color flow and Doppler was performed in limited views only. A contrast injection of Definity was performed to improve assessment of LV function. The ejection fraction is estimated to be 60-65%. There are no obvious focal wall motion abnormalities noted but poor endocardial definition reduces the sensitivity for the detection of such. Additional Diagnostics DateTimeAnalyzed 16:39:00 -_ pH ____7.404 - 7.350 7.450 pCO2 ___74.1__ -mmHg 35.0 45.0 pO2 ___93.5__ -mmHg 69.0 116 HCO3- ___45.3__ -mmol/L 22.0 26.0 Liter_Flow ____3.0__ -L/min DateTimeAnalyzed 22:21:00 -_ pH ____7.417 - 7.350 7.450 pCO2 ___70.3__ -mmHg 35.0 45.0 pO2 ___71.9__ -mmHg 69.0 116 HCO3- ___44.4__ -mmol/L 22.0 26.0 Liter_Flow ____2.0__ -L/min Assessment & Plan Xavi Vargas is a 61-year-old man with a past medical history significant for chronic hypoxemic respiratory failure secondary to morbid obesity, BOOP on chronic prednisone, COPD, obesity hypoventilation syndrome, CARRIE on Trilogy, who presented to the [facility] ED via EMS due to altered mentation and hypoxia. 1. Probable healthcare associated pneumonia, present on admission. Active. - Patient was recently hospitalized for HCAP and returns with chills, productive cough and elevated white count - Ordered viral respiratory PCR, sputum culture, - strep pneumoniae and legionella urine antigens negative. - Ordered blood cultures 2 pending. - Started Cefepime 2 g IV every 12 hours, azithromycin 500 mg IV every 24 hours - Patient received one dose of vancomycin in the ED however give the recent negative MRSA screen will hold off. 2. Acute on chronic hypercarbic hypoxemic respiratory failure, present on admission. Active. - Continue Trilogy with current settings with addition of oxygen bled into Trilogy. - ABG is as expected for this patient as he is chronically a CO2 retainer. - Continue home inhaler Brovana. 3. Acute kidney injury on chronic kidney injury, present on admission. Active, improving. - Likely secondary to dehydration due to increase in diuretic dose - Will continue Torsemide but will hold Metolazone - Will follow BMP 4.Chronic congestive heart failure secondary to diastolic dysfunction, present on admission. Presumed stable. - Continue Spironolactone 25 mg twice a day, metoprolol tartrate 50 mg twice a day, aspirin 81 mg daily, atorvastatin 10 mg daily at bedtime. - Continue Toresimide and potassium for now. Chronic Problems: Polypharmacy - Patient takes an extensive list of medications - This poses a high risk if adverse reaction and events Chronic elevated troponin, of uncertain significance, present on admission. Active. - Chronically elevated troponin, likely secondary to CHF. Will trend tomorrow. - Continue to monitor closely on telemetry. Diabetes mellitus type 2, insulin using, uncontrolled, present on admission. Active. - Last hemoglobin A1c 8.6% 06/2016. - Ordered carbohydrate consistent/heart healthy diet. - Ordered high-dose correctional scale insulin. - Continued Lantus 40 units twice a day, patient normally on 60 units BID. Obesity hypoventilation syndrome and CARRIE on Triology, present on admission. Active. - Continue Trilogy with additional oxygen bled into machine. - See plan above under problem #2. Chronic bilateral lower extremity wounds, present on admission. Active. - Ordered wound care and physical therapy consult. - Consistent with stasis dermatitis. 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 Active. - Continue prednisone 10 mg daily. - See plan above under problem #2. Hypertension, chronic. Stable. - Continue metoprolol tartrate 50 mg twice a day and spironolactone 25 mg twice a day. GERD, chronic. - Continue Protonix 20 mg daily Glaucoma, chronic. - Continue Latanoprost 0.67 drops both eyes daily at bedtime. Gout, chronic. - Continue Allopurinol 100 mg daily. BPH, chronic. - Continue Tamsulosin 0.4 mg daily at bedtime. Peripheral neuropathy, chronic. - Continue Lyrica 225 mg twice a day. Parkinsonism, present on admission. Stable. - Continue Sinemet 25-100 mg 2 tabs 4 times a day. - Continue Abilify 2 mg daily. Anxiety and depression, chronic. Active. - Continue amitriptyline 50 mg daily at bedtime. Chronic pain with opiate habituation. - Continue to oxycodone at 10 mg every 4 hours as needed for pain. History of atrial fibrillation with RVR. - Patient in normal sinus rhythm. - Continue aspirin 81 mg and Plavix 75 mg daily. Morbid obesity, chronic. - BMI 49.2. PRN antiemetics: Zofran and Maalox. PRN bowel regimen: Senna and MiraLAX scheduled. PRN analgesics: Oxycodone and Tylenol. Patient is admitted under inpatient status with expected length of stay greater than 2 midnights due to severity of presenting symptoms, risk of adverse event, and complexity of treatment plan. He is likely to discharge home tomorrow. . Pain Evaluation: Adequate Pain Control GI Prophylaxis: Proton Pump Inhibitor VTE Mechanical Devices: Anti-Embolic stockings Resuscitation Status: CPR: Attempt Resuscitation Attending Statement The patient was seen and examined independently on 10/23/2016 and case discussed with Dr. Godinez , I agree with the history, exam and plan as outlined in the note above. Libby Godinez DO Oct 23, 2016 17:59 Phill Jaimes MD Oct 23, 2016 20:00
[2016-10-24] MEDS: Cefepime Inj 2,000 MG in Dextrose 5% Minibag Plus 100 ML IV SCH ×2 (00:24→08:19)
[2016-10-24 01:46] VITALS: BP 126/58; PULSE 74; RESP 19; O2SAT 98
[2016-10-24 04:52] VITALS: PULSE 68
[2016-10-24 05:13] VITALS: BP 134/76; PULSE 80; RESP 18; O2SAT 97
[2016-10-24 05:56] LABS: BASOPHILS % (AUTO) 0.3 % (0-3); EOSINOPHILS % (AUTO) 1.1 % (0-5); MONOCYTES % (AUTO) 13.1 % (4-12); Mean Corpuscular Hemoglobin 25.6 pg (27.0-35.0); Mean Corpuscular Volume 86.8 fL (81-100); NEUTROPHILS % (AUTO) 66.9 % (40-74); Platelet Count 166 bil/L (150-400)
[2016-10-24 06:42] LABS: TROPONIN T 0.08 ug/L (0.0-0.011)
[2016-10-24 08:00] VITALS: PULSE 74
[2016-10-24] MEDS: Azithromycin Inj 500 MG in Dextrose 5% w/Vial Mate 250 ML IV SCH (08:07)
[2016-10-24] MEDS: Insulin LISPRO 300 Unit/3 mL Inj SUBQ SCH ×2 (08:11→12:24)
[2016-10-24] MEDS: Insulin GLARgine 100 Unit/mL Syringe SUBQ SCH (08:12)
[2016-10-24] MEDS: Ascorbic Acid 500 mg Tablet PO SCH (08:13)
[2016-10-24] MEDS: Pantoprazole 20 mg ER24 Tablet PO SCH (08:14)
[2016-10-24] MEDS: Potassium Chloride 20 mEq SR Tablet PO SCH (08:15)
[2016-10-24] MEDS: Polyethylene Glycol (PEG) 17 Gm Powder PO PRN (08:16)
[2016-10-24] MEDS: ARIPiprazole 2 mg Tablet PO SCH (08:18)
[2016-10-24 10:20] VITALS: BP 101/50; PULSE 74; RESP 18; O2SAT 98
[2016-10-24 10:41] VITALS: PULSE 72; RESP 22; O2SAT 97
[2016-10-24] MEDS: Albuterol 2.5 mg/3 mL Inhalation Solution NEB PRN (10:41)
[2016-10-24] MEDS: Arformoterol 15 mCg/2 mL Inhalation Solution INHALATION SCH (10:41)
[2016-10-24] MEDS: predniSONE 10 mg Tablet PO SCH (12:19)
--- NOTE | 2016-10-24 12:41 | PROG NOTE ---
[address] [address] PROGRESS NOTE PATIENT: SAILAJA ESTES : 1955 MR#: [id number] ADMIT: 10/22/2016 JOB ID: [id number] DATE: 10/24/2016 REASON FOR FOLLOWUP: Possible pneumonia. INTERVAL HISTORY: The patient reports he is gradually feeling better. He continues to be minimally short of breath with a nonproductive occasional cough. No fevers, chills, sweats. No abdominal complaints. PHYSICAL EXAMINATION: Reveals a gentleman who has been afebrile since admission. Temperature 36.7, pulse 72, respiratory rate 18, blood pressure 101/50. He is in no acute distress. Mental status clear. Oral cavity without change. His lungs with somewhat decreased breath sounds and a few crackles at the base but not bad overall. Cardiac tones without change. Abdomen obese, soft, nontender. No skin rash. LABORATORY STUDIES: White count 6600, platelet count 166,000. Creatinine is 2.03. LFTs normal. Procalcitonin yesterday 0.17. Repeat is pending for some reason from this morning. Urine Legionella antigen negative. Urine pneumococcal antigen negative. Sputum Gram stain had really rare polys only and is not of high quality, though it did grow an ampicillin susceptible Haemophilus influenzae. Blood cultures are negative. Respiratory viral PCR negative. Recall that the imaging showed persistent bilateral interstitial infiltrates consistent with his history of cryptogenic organizing pneumonia. IMPRESSION: I doubt that this patient has any bacterial infection whatsoever though. It is possible that he may have had some degree of Haemophilus influenzae, tracheal bronchitis, or pneumonia. The complete absence of polys, however, on the sputum as well as the absence of a new infiltrate argues strongly against pneumonia. RECOMMENDATIONS: 1. The patient has completed three days of IV antibiotics which include 1500 mg of azithromycin, and I would consider this an adequate treatment course. 2. The patient can be discharged home without additional antibiotics at this time, as he will functionally be on azithromycin for several more days. 3. This case discussed with the primary team. 4. ID will go ahead and sign off on this patient. Thank you for the consult.
--- NOTE | 2016-10-24 13:02 | PCM.DIMED ---
Libby Godinez DO 10/24/16 1251: Discharge Instructions Date of Service Oct 24, 2016 Dates of Hospitalization Oct 22, 2016 at 16:01 Discharge Diagnosis Discharge Diagnosis 1. Possible healthcare associated pneumonia 2. Acute on chronic hypercarbic hypoxemic respiratory failure 3. Acute kidney injury on chronic kidney injury 4. Elevated troponin, chronic 5. Chronic congestive heart failure 6. Polypharmacy 7. Diabetes mellitus type II, insulin use and, uncontrolled 8. Obesity hypoventilation syndrome and obstructive sleep apnea on Trilogy 9. Chronic bilateral lower extremity wounds 10. 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 Hypertension 12. GERD 13. Glaucoma 14. Gout 15. BPH 16. Peripheral neuropathy 17. Parkinsonism 18. Anxiety and depression 19. Chronic pain with opioid habituation 20. History of atrial fibrillation with RVR Medication Instructions You have been adequately treated for your possible pneumonia, you do not need additional antibiotics at this time. Continue your home medications as previously prescribed Continue to hold the metolazone until you are seen by your primary care provider and your acute kidney injury has resolved. Diet Heart Healthy, Diabetic Activity Home Health Phyical Therapy Call your provider Fever or Chills, Shortness of breath, Chest pain, Vomitting, Excessive diarrhea , Weakness (unilateral) Patient Instructions You were treated with antibiotics for possible pneumonia. He will be provided with home health services. Continue to work to regain strength and function. Follow-up plan Follow up with your primary care provider in the next week. We recommend follow -up labs to assess your kidney function to make sure that he continues to improve. Also assessment for restarting the metolazone will be necessary. Follow-up Provider: Nicolás Pendleton MD Follow-up with PCP in: 1 week Phill Jaimes MD 10/25/16 0708: Discharge Instructions Attending's Statement The patient was seen and examined independently on 10/24/2016 and case discussed with Dr. Godinez , I agree with the discharge instructions as outlined in the note above. Libby Godinez DO Oct 24, 2016 12:51 Phill Jaimes MD Oct 25, 2016 07:08
--- NOTE | 2016-10-24 13:58 | NUR ---
Social Work: Discharge Data: Pt is on day 2 of hospitalization. EMR reviewed. D/C orders are in. [employer] met with pt regarding transportation, pt's spouse will drive pt home. [employer] called [facility], notified them that pt is discharging today. No further d/c planning needs. Assessment: Pt with [facility]. Plan: Pt will d/c home via POV today with spouse with [facility], RN/PT/OT/[employer], and [facility] caregiving. No further d/c planning needs. KATHERINE Padilla
--- NOTE | 2016-10-24 15:27 | NUR ---
Discharge Nursing Note: Patient was discharged to home at 1445. His IV was discontinued intact .His telemetry was discontinued. All of his discharge information was reviewed with him and his questions were answered to his satisfaction.Patient was brought to the hospital lobby in a wheelchair by nursing staff member and he was driven to home by his .
--- NOTE | 2016-10-24 20:53 | PCM.DC.MED ---
Discharge Summary Date of Service Oct 24, 2016 Dates of Hospitalization Date of Hospital Admission Oct 22, 2016 at 16:01 Date of Discharge: Oct 24, 2016 Providers: Admitting Physician: Brennon Doss MD Primary Care Physician: Nicolás Pendleton MD Attending Physician: Brennon Doss MD Diagnosis at Time of Discharge Diagnosis at Time of Discharge 1. Possible healthcare associated pneumonia 2. Acute on chronic hypercarbic hypoxemic respiratory failure 3. Acute kidney injury on chronic kidney injury 4. Elevated troponin, chronic 5. Chronic congestive heart failure 6. Polypharmacy 7. Diabetes mellitus type II, insulin use and, uncontrolled 8. Obesity hypoventilation syndrome and obstructive sleep apnea on Trilogy 9. Chronic bilateral lower extremity wounds 10. 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 Hypertension 12. GERD 13. Glaucoma 14. Gout 15. BPH 16. Peripheral neuropathy 17. Parkinsonism 18. Anxiety and depression 19. Chronic pain with opioid habituation 20. History of atrial fibrillation with RVR Consultations Infectious disease Procedures XRay, CTs & MRIs X-RAY CHEST ONE VIEW, PORTABLE IMPRESSION: There is a persistent appearance of interstitial opacities, although less prominent when compared to 09/17/16. This could represent edema versus persistent atypical infection. Dictated by: Brenda Tobin M.D. on 10/22/2016 at 15:00 Cardiac Echo Impression Interpretation Summary A two-dimensional transthoracic echocardiogram with color flow and Doppler was performed in limited views only. A contrast injection of Definity was performed to improve assessment of LV function. The ejection fraction is estimated to be 60-65%. There are no obvious focal wall motion abnormalities noted but poor endocardial definition reduces the sensitivity for the detection of such. Other Diagnostics DateTimeAnalyzed 16:39:00 -_ pH ____7.404 - 7.350 7.450 pCO2 ___74.1__ -mmHg 35.0 45.0 pO2 ___93.5__ -mmHg 69.0 116 HCO3- ___45.3__ -mmol/L 22.0 26.0 Liter_Flow ____3.0__ -L/min DateTimeAnalyzed 22:21:00 -_ pH ____7.417 - 7.350 7.450 pCO2 ___70.3__ -mmHg 35.0 45.0 pO2 ___71.9__ -mmHg 69.0 116 HCO3- ___44.4__ -mmol/L 22.0 26.0 Liter_Flow ____2.0__ -L/min Brief History History of present illness on admission by : Xavi Vargas is a 61-year-old man with a past medical history significant for chronic hypoxemic respiratory failure secondary to morbid obesity, BOOP on chronic prednisone, COPD, obesity hypoventilation syndrome, CARRIE on Trilogy, who presented to the [facility] ED via EMS due to altered mentation and hypoxia. The patient has been complaining of acute on chronic shortness of breath over the last several days. He was admitted to the hospital from 09/15-09/20 for HCAP and sepsis. Since his discharge he states he never got back to his normal self and has had ongoing issues with shortness of breath and cough. The patient has also noticed a productive cough with green/brown sputum, congestion, shortness of breath. He also notes chills over the last few days but is unsure if he has had any fevers. His lower extremity swelling has actually improved since he has been placed on Metolazone by Dr. Clement to be taken every other day in addition to his Lasix. The patient states that he is losing 2 lbs a day with this regiment but that he feels very thirsty and his mouth is dry. He denies chest pain, fever, chills, nausea, or vomiting. He denies sick contacts. He received his flu vaccine when he was last hospitalized. The patient has had more than 5 hospitalizations for pneumonia and has been intubated for 14 days at [facility]. Vital signs in the ER T 37.3 HR 84 RR 16 BP 139/85 O2 Sat 96% on 4L. He was given single doses of Levaquin, Vancomycin and Cefepime. Hospital Course Xavi Vargas is a 61-year-old man with a past medical history significant for chronic hypoxemic respiratory failure secondary to morbid obesity, BOOP on chronic prednisone, COPD, obesity hypoventilation syndrome, CARRIE on Trilogy, who presented to the [facility] ED via EMS due to altered mentation and hypoxia. 1. Probable healthcare associated pneumonia, present on admission. Active.improved - Patient was recently hospitalized for HCAP and returns with chills, productive cough and elevated white count - viral respiratory PCR negative, sputum culture h.influenza, - strep pneumoniae and legionella urine antigens negative. - Ordered blood cultures 2 NGTD - Started Cefepime 2 g IV every 12 hours, azithromycin 500 mg IV every 24 hours.will discharge off antibiotics as per ID - Patient received one dose of vancomycin in the ED however give the recent negative MRSA screen held off. 2. Acute on chronic hypercarbic hypoxemic respiratory failure, present on admission. Active. - Continue Trilogy with current settings with addition of oxygen bled into Trilogy. - ABG is as expected for this patient as he is chronically a CO2 retainer. - Continue home inhaler Brovana. 3. Acute kidney injury on chronic kidney injury, present on admission. Active, improving. - Likely secondary to dehydration due to increase in diuretic dose - Will continue Torsemide but will hold Metolazone - Will follow BMP with PCP 4.Chronic congestive heart failure secondary to diastolic dysfunction, present on admission. Presumed stable. - Continue Spironolactone 25 mg twice a day, metoprolol tartrate 50 mg twice a day, aspirin 81 mg daily, atorvastatin 10 mg daily at bedtime. - Continue Toresimide and potassium for now. -held metolazone Chronic Problems: Polypharmacy - Patient takes an extensive list of medications - This poses a high risk if adverse reaction and events Chronic elevated troponin, of uncertain significance, present on admission. Active. - Chronically elevated troponin, likely secondary to CHF. Will trend tomorrow. - Continue to monitor closely on telemetry. Diabetes mellitus type 2, insulin using, uncontrolled, present on admission. Active. - Last hemoglobin A1c 8.6% 06/2016. - Ordered carbohydrate consistent/heart healthy diet. - Ordered high-dose correctional scale insulin. - Continued Lantus 40 units twice a day, patient normally on 60 units BID. Obesity hypoventilation syndrome and CARRIE on Triology, present on admission. Active. - Continue Trilogy with additional oxygen bled into machine. - See plan above under problem #2. Chronic bilateral lower extremity wounds, present on admission. Active. - Ordered wound care and physical therapy consult. - Consistent with stasis dermatitis. 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 Active. - Continue prednisone 10 mg daily. - See plan above under problem #2. Hypertension, chronic. Stable. - Continue metoprolol tartrate 50 mg twice a day and spironolactone 25 mg twice a day. GERD, chronic. - Continue Protonix 20 mg daily Glaucoma, chronic. - Continue Latanoprost 0.67 drops both eyes daily at bedtime. Gout, chronic. - Continue Allopurinol 100 mg daily. BPH, chronic. - Continue Tamsulosin 0.4 mg daily at bedtime. Peripheral neuropathy, chronic. - Continue Lyrica 225 mg twice a day. Parkinsonism, present on admission. Stable. - Continue Sinemet 25-100 mg 2 tabs 4 times a day. - Continue Abilify 2 mg daily. Anxiety and depression, chronic. Active. - Continue amitriptyline 50 mg daily at bedtime. Chronic pain with opiate habituation. - Continue to oxycodone at 10 mg every 4 hours as needed for pain. History of atrial fibrillation with RVR. - Patient in normal sinus rhythm. - Continue aspirin 81 mg and Plavix 75 mg daily. Morbid obesity, chronic. - BMI 49.2. discharge home condition on discharge ,improved and stable Exam Vital Signs (Last) Date Time Temp Pulse Resp B/P Pulse Ox O2 Delivery O2 Flow Rate FiO2 10/24/16 10:41 72 22 97 Nasal Cannula 3.00 10/24/16 10:20 36.7 101/50 Exam General: No acute distress, obese, appropriately interactive, nasal cannula on face, occasional dozing off HEENT: Normocephalic, atraumatic. External ears without defect. Pupils equal, round, and reactive to light and accommodation. Anicteric sclerae, moist conjunctivae, and no lid lag. Oropharynx free of erythema and cobble stoning with moist mucosa. Neck: Supple with full range of motion. Thick neck. No jugular venous distension that can be appreciated but exam limited by body habitus. No lymphadenopathy or thyromegaly palpable. Cardiovascular: Regular rate and rhythm with no murmurs, rubs, or gallops distant heart sounds due to body habitus. Pulmonary: mild crackles bilaterally. Normal respiratory effort with no use of accessory muscles. Poor air movement, exam limited by body habitus. Abdomen: Bowel tones present. Soft, nontender, nondistended. Markedly obese. No hepatosplenomegaly or masses appreciated. Extremities: Significant pitting edema of both lower extremities. Skin: Erythema of bilateral lower extremities. flaking of skin over erythema on right anterior moreira Neurological: Cranial nerves grossly intact. Normal muscle strength, tone, and bulk. No known gait impairment. Psychiatric: Normal mood and affect. Alert and oriented to person, place, and time. Test 10/22/16 13:53 10/22/16 14:28 10/22/16 16:14 10/23/16 07:23 Pro-B-Type Natriuretic Peptide 655.8pg/mL (0-210) Urine Color Straw (YELLOW) Urine Appearance Clear (CLEAR,HAZY) Urine pH 6.0 (5.0-8.0) Urine Specific [place] 1.010 (1.003-1.035) Urine Protein Negativemg/dL (NEG,TRACE) Urine Glucose (UA) Negativemg/dL (NEGATIVE) Urine Ketones Negativemg/dL (NEGATIVE) Urine Occult Blood Negative (NEGATIVE) Urine Nitrite Negative (NEGATIVE) Urine Bilirubin Negative (NEGATIVE) Urine Urobilinogen Normalmg/dL (NORMAL) Urine Leukocyte Esterase Negative (NEGATIVE) Urine RBC 0-2/hpf (0-2) Urine WBC 0-5/hpf (0-5) Urine Epithelial Cells Occasional/hpf (NONE-MOD) Urine Crystals None seen (NONE SEEN) Urine Bacteria None/hpf (NONE-FEW) Urine Hyaline Casts None/lpf (NONE) Urine Granular Casts None seen (NONE SEEN) Urine Waxy Casts None seen (NONE SEEN) Urine Red Blood Cell Casts None seen (NONE SEEN) Urine White Blood Cell Casts None seen (NONE SEEN) Urine Mucus None seen (None Seen) Urine Trichomonas None seen (NONE SEEN) Urine Yeast None (NONE SEEN) Urinalysis Comment None Urine Culture Reflexed Not indicated Urine Legionella pneumophilia Ag Negative (Negative) Hold Paola Top Tube Received (Received) Magnesium Level 2.5mg/dL (1.6-2.6) Total Bilirubin 0.5mg/dL (0.0-1.2) Aspartate Amino Transf (AST/SGOT) 16U/L (0-50) Alanine Aminotransferase (ALT/SGPT) 5U/L (0-44) Alkaline Phosphatase 82U/L (25-160) Total Protein 6.9g/dL (6.4-8.4) Albumin 3.8g/dL (3.4-5.0) Test 10/24/16 05:28 White Blood Count 6.6th/mm3 (3.8-10.1) Red Blood Count 3.95mil/mm3 (4.40-5.80) Hemoglobin 10.1g/dL (13.8-17.2) Hematocrit 34.3% (41.0-50.0) Mean Corpuscular Volume 86.8fL (81-100) Mean Corpuscular Hemoglobin 25.6pg (27.0-35.0) Mean Corpuscular Hemoglobin Concent 29.4% (32.0-37.0) Red Cell Distribution Width 18.7% (12.3-15.4) Platelet Count 166bil/L (150-400) Neutrophils (%) (Auto) 66.9% (40-74) Lymphocytes (%) (Auto) 18.1% (14-46) Monocytes (%) (Auto) 13.1% (4-12) Eosinophils (%) (Auto) 1.1% (0-5) Basophils (%) (Auto) 0.3% (0-3) Sodium Level 136mEq/L (134-144) Potassium Level 3.2mEq/L (3.5-5.2) Chloride Level 84mEq/L (97-108) Carbon Dioxide Level 37mmol/L (18-29) Blood Urea Nitrogen 73mg/dL (8-27) Creatinine 2.03mg/dL (0.76-1.27) Estimat Glomerular Filtration Rate 36mL/min (>59) Glucose Level 281mg/dL (60-99) Calcium Level 9.2mg/dL (8.5-10.1) Troponin T 0.080ug/L (0.0-0.011) Procalcitonin 0.15ng/mL (0.00-0.08) Microbiology Results Respiratory viral PCR negative Strep pneumoniae urine antigen negative Blood cultures show no growth after 24 hours Sputum culture shows Haemophilus influenza and normal baltazar Discharge Medications Discharge Medications Allopurinol (Allopurinol) 100 Mg Tablet 100 MG PO DAILY (Reported) Amitriptyline (Amitriptyline) 50 Mg Tab 50 MG PO HS (Reported) Arformoterol Tartrate (Brovana) 15 Mcg/2 Ml Vial.neb 15 MCG IH BID (Reported) Aripiprazole (Aripiprazole) 2 Mg Tablet 2 MG PO DAILY (Reported) Ascorbic Acid (Vitamin C) 500 Mg Capsule.er 500 MG PO DAILY (Reported) Aspirin (Aspirin) 81 Mg Tablet 81 MG PO DAILY (Reported) Atorvastatin Calcium (Atorvastatin Calcium) 10 Mg Tablet 10 MG PO HS (Reported) Carbidopa/Levodopa 25-100 mg (Carbidopa/Levodopa 25-100 mg) 1 Each Tablet 2 TABLET PO QID (Reported) Cholecalciferol (Vitamin D3) (Vitamin D3) 2,000 Unit Capsule 2,000 UNIT PO DAILY (Reported) Cinnamon Bark/Chromium Picolin (Cinnamon Plus Chromium Capsule) 1 Each Capsule 1 EACH PO DAILY (Reported) Citalopram (Citalopram) 40 Mg Tablet 40 MG PO DAILY (Reported) Clopidogrel Bisulfate (Plavix) 75 Mg Tablet 75 MG PO DAILY Prescribed by: MIRACLE MERRILL DO Cyanocobalamin (Vitamin B-12) (B-12) 500 Mcg Tab.rapdis 500 MCG SL DAILY ( Reported) Fluticasone Propionate (Flonase Allergy Relief) 9.9 Ml [place].susp 1 SPRAYS NS DAILY (Reported) Insulin Glargine (Lantus U100 Insulin Vial) 100 Unit/Ml Vial 60 UNITS SUBQ BID ( Reported) Insulin Regular, Human (HUMulin-R U-500 Insulin Vial) 500 Unit/1 Ml Vial 8 UNITS SUBQ TIDAC (Reported) Lactobacillus Acidophilus (Acidophilus) 1 Each Capsule 1 EACH PO DAILY (Reported ) Latanoprost (Latanoprost) 2.5 Ml Drops 1 GTT BOTH_EYES HS (Reported) Magnesium Oxide (Magnesium Oxide) 400 Mg Tablet 400 MG PO DAILY (Reported) Metoprolol Tartrate (Metoprolol Tartrate) 25 Mg Tablet 50 MG PO BID Prescribed by: PONCHO VICENTE MD Multivitamin (Multivitamins) 1 Each Capsule 1 EACH PO DAILY (Reported) Omeprazole (Omeprazole) 20 Mg Capsule.dr 20 MG PO DAILY (Reported) Potassium Chloride ER (Klor-Con M20) 20 Meq Tablet 20 MEQ PO DAILY (Reported) Prednisone (PredniSONE) 10 Mg Tablet 10 MG PO DAILY Prescribed by: MIRACLE MERRILL DO Pregabalin (Lyrica) 225 Mg Capsule 225 MG PO BID (Reported) Spironolactone (Spironolactone) 25 Mg Tablet 25 MG PO BID (Reported) Tamsulosin ER (Tamsulosin ER) 0.4 Mg Cap.er.24h 0.4 MG PO HS (Reported) Torsemide (Torsemide) 100 Mg Tablet 50 MG PO BID (Reported) As needed Acetaminophen (Acetaminophen) 500 Mg Tablet 500 MG PO Q6H PRN PRN For Pain ( Reported) Albuterol Neb Soln (Albuterol Neb Soln) 2.5 Mg/3 Ml Vial.neb 2.5 MG INHALATION Q4H PRN PRN For Shortness of Breath (Reported) Albuterol Sulfate (Ventolin HFA Inhaler) 200 Puff/18 Gm Inhaler 2 PUFFS INH q4- 6 hours PRN PRN For Shortness of Breath (Reported) Calcium Carbonate (Tums) 500 Mg Tab.chew 2,000 MG PO PRN PRN PRN For Indigestion (Reported) Dextran 70/Hypromellose/Pf (Artificial Tears Drops) 1 Each Droperette 1 DROP BOTH_EYES QID PRN PRN dry eyes (Reported) Loratadine (Claritin) 10 Mg Capsule 10 MG PO DAILY PRN PRN allergies (Reported) Polyethylene Glycol 3350 (Gavilax) 17 Gm Powd.pack 17 GM PO DAILY PRN PRN For Constipation (Reported) Sennosides (Senna) 8.6 Mg Tablet 17.2 MG PO BID PRN PRN For Constipation ( Reported) oxyCODONE (oxyCODONE) 20 Mg Tablet 20 MG PO Q4H PRN PRN For Pain (Reported) Additional med instructions You have been adequately treated for your possible pneumonia, you do not need additional antibiotics at this time. Continue your home medications as previously prescribed Continue to hold the metolazone until you are seen by your primary care provider and your acute kidney injury has resolved. Followup Plan Disposition: Discharged home with home health Follow-up plan Follow up with your primary care provider in the next week. We recommend follow -up labs to assess your kidney function to make sure that he continues to improve. Also assessment for restarting the metolazone will be necessary. Discharge Diet: Heart Healthy, Diabetic Discharge Activity: Home Health Phyical Therapy Patient Instructions You were treated with antibiotics for possible pneumonia. He will be provided with home health services. Continue to work to regain strength and function. Follow-up Provider: Nicolás Pendleton MD Follow-up with PCP in: 1 week Time spent 40 minutes coordinating discharge Attending Statement The patient was seen and examined independently on 10/24/2016 and case discussed with Dr. Godinez , I agree with the discharge summary as outlined in the note above. copies to: Nicolás Pendleton MD, Erika R DO Oct 24, 2016 20:53 Phill Jaimes MD Oct 25, 2016 07:13
== END 2016-10-24 14:45 | disposition home health service (06) | DRG 189 ==
LOC: SED 13:33 → MPC 16:01
PROVIDERS: ADMIT Hospitalist; ATTEND Internal Medicine
PROC: 4A033R1 Measurement of Arterial Saturation, Peripheral, Percutaneous Approach (ICD-10-PCS; principal; 2016-10-22)
DX: J96.22 Acute and chronic respiratory failure with hypercapnia (principal); J18.9 Pneumonia, unspecified organism; N17.9 Acute kidney failure, unspecified; Z68.42 Body mass index [BMI] 45.0-49.9, adult; E66.2 Morbid (severe) obesity with alveolar hypoventilation; I50.32 Chronic diastolic (congestive) heart failure; F11.20 Opioid dependence, uncomplicated; J84.89 Other specified interstitial pulmonary diseases; I48.0 Paroxysmal atrial fibrillation; E11.9 Type 2 diabetes mellitus without complications; G89.29 Other chronic pain; I12.9 Hypertensive chronic kidney disease with stage 1 through stage 4 chronic kidney disease, or unspecified chronic kidney disease; N18.3 Chronic kidney disease, stage 3 (moderate); Z79.4 Long term (current) use of insulin; J96.21 Acute and chronic respiratory failure with hypoxia; K21.9 Gastro-esophageal reflux disease without esophagitis; F41.9 Anxiety disorder, unspecified; G20 Parkinson's disease; M10.9 Gout, unspecified; G62.9 Polyneuropathy, unspecified; H40.9 Unspecified glaucoma; F32.9 Major depressive disorder, single episode, unspecified

== ENCOUNTER 2016-10-28 01:21 | Emergency (ER) | payer MEDICARE, MEDICAID ==
[~2016-10-28] VITALS: Ht 182.9 cm; Wt 156.4 kg
[~2016-10-28 01:21] MED LIST changes: +CHOL200047 PO; +CITA40TA13 PO; -D3; +INSU500V SUBQ; -NOV100I SUBQ; +POLY17PO23 PO; -[UNRECOGNIZED DRUG - OTHER]; -[UNRECOGNIZED DRUG - OTHER]; -livaplex; -super B complex
[2016-10-28 01:26] VITALS: BP 129/76; PULSE 90; RESP 18; O2SAT 95
--- NOTE | 2016-10-28 01:29 | ED.REPORT ---
HPI-General Illness Date of Service Oct 28, 2016 ED Provider: Wade Santiago MD Patient is an obese 61 year old male with a history of diabetes mellitus, hypertension, chronic kidney disease, congestive heart failure, chronic hypoxemic respiratory failure, BOOP on chronic prednisone, COPD, and Parkinsonian tremor who presents to the ED via EMS complaining of left leg pain after a ground level fall 3 days ago. The patient states that his was changing the pad on his chair 3 days ago when he suddenly "ended up on the floor ". He injured his left leg during this ground level fall. Paramedics were called but he was not transferred to the ED. The patient states that this morning he got up to go to the bathroom when his legs "went out from under him" . He was able to grab onto a chair to prevent himself from falling, but reports that his left leg twisted under him. He is unable to bear weight on his left leg and reports ongoing severe pain of this extremity. Patient also reports increased hip and low back pain since these injuries occurred, but he does experiences chronic pain at his baseline. He denies a fever, head injury, or loss of consciousness. Nursing Notes Stated Complaint: GLF Chief Complaint: Extremity Trauma Nursing Notes Reviewed: Yes Allergies: Coded Allergies: amoxicillin (Verified Adverse Reaction, Severe, Nausea, 10/22/16) VERY NAUSEUOUS clavulanic acid (Verified Adverse Reaction, Severe, Nausea, 10/22/16) aspirin (Verified Adverse Reaction, Intermediate, Hematuria, 10/22/16) Blood in urine after mcc use Scheduled Allopurinol (Allopurinol) 100 Mg Tablet 100 MG PO DAILY Amitriptyline (Amitriptyline) 50 Mg Tab 50 MG PO HS Arformoterol Tartrate (Brovana) 15 Mcg/2 Ml Vial.neb 15 MCG IH BID Aripiprazole (Aripiprazole) 2 Mg Tablet 2 MG PO DAILY Ascorbic Acid (Vitamin C) 500 Mg Capsule.er 500 MG PO DAILY Aspirin (Aspirin) 81 Mg Tablet 81 MG PO DAILY Atorvastatin Calcium (Atorvastatin Calcium) 10 Mg Tablet 10 MG PO HS Carbidopa/Levodopa 25-100 mg (Carbidopa/Levodopa 25-100 mg) 1 Each Tablet 2 TABLET PO QID Cholecalciferol (Vitamin D3) (Vitamin D3) 2,000 Unit Capsule 2,000 UNIT PO DAILY Cinnamon Bark/Chromium Picolin (Cinnamon Plus Chromium Capsule) 1 Each Capsule 1 EACH PO DAILY Citalopram (Citalopram) 40 Mg Tablet 40 MG PO DAILY Clopidogrel Bisulfate (Plavix) 75 Mg Tablet 75 MG PO DAILY Cyanocobalamin (Vitamin B-12) (B-12) 500 Mcg Tab.rapdis 500 MCG SL DAILY Fluticasone Propionate (Flonase Allergy Relief) 9.9 Ml [place].susp 1 SPRAYS NS DAILY Insulin Glargine (Lantus U100 Insulin Vial) 100 Unit/Ml Vial 60 UNITS SUBQ BID Insulin Regular, Human (HUMulin-R U-500 Insulin Vial) 500 Unit/1 Ml Vial 8 UNITS SUBQ TIDAC Lactobacillus Acidophilus (Acidophilus) 1 Each Capsule 1 EACH PO DAILY Latanoprost (Latanoprost) 2.5 Ml Drops 1 GTT BOTH_EYES HS Magnesium Oxide (Magnesium Oxide) 400 Mg Tablet 400 MG PO DAILY Metoprolol Tartrate (Metoprolol Tartrate) 25 Mg Tablet 50 MG PO BID Multivitamin (Multivitamins) 1 Each Capsule 1 EACH PO DAILY Omeprazole (Omeprazole) 20 Mg Capsule.dr 20 MG PO DAILY Potassium Chloride ER (Klor-Con M20) 20 Meq Tablet 20 MEQ PO DAILY Prednisone (PredniSONE) 10 Mg Tablet 10 MG PO DAILY Pregabalin (Lyrica) 225 Mg Capsule 225 MG PO BID Spironolactone (Spironolactone) 25 Mg Tablet 25 MG PO BID Tamsulosin ER (Tamsulosin ER) 0.4 Mg Cap.er.24h 0.4 MG PO HS Torsemide (Torsemide) 100 Mg Tablet 50 MG PO BID Scheduled PRN Acetaminophen (Acetaminophen) 500 Mg Tablet 500 MG PO Q6H PRN PRN For Pain Albuterol Neb Soln (Albuterol Neb Soln) 2.5 Mg/3 Ml Vial.neb 2.5 MG INHALATION Q4H PRN PRN For Shortness of Breath Albuterol Sulfate (Ventolin HFA Inhaler) 200 Puff/18 Gm Inhaler 2 PUFFS INH q4- 6 hours PRN PRN For Shortness of Breath Calcium Carbonate (Tums) 500 Mg Tab.chew 2,000 MG PO PRN PRN PRN For Indigestion Dextran 70/Hypromellose/Pf (Artificial Tears Drops) 1 Each Droperette 1 DROP BOTH_EYES QID PRN PRN dry eyes Loratadine (Claritin) 10 Mg Capsule 10 MG PO DAILY PRN PRN allergies Polyethylene Glycol 3350 (Gavilax) 17 Gm Powd.pack 17 GM PO DAILY PRN PRN For Constipation Sennosides (Senna) 8.6 Mg Tablet 17.2 MG PO BID PRN PRN For Constipation oxyCODONE (oxyCODONE) 20 Mg Tablet 20 MG PO Q4H PRN PRN For Pain oxyCODONE (oxyCODONE) 10 Mg Tablet 30 MG PO Q4H PRN PRN For Pain General Time Seen by MD: 01:27 Chief Complaint Other (left leg pain) Hx Obtained From: Patient Arrived By: Attendant Sudden in Onset?: No Onset Occurred: 3 days ago Symptom Duration: Since onset Caused by: Fall on ground Location: : Leg left Quality: Painful Severity: Current: Moderate Severity: Maximum: Moderate Recent Healthcare: Recent hospitalization Similar Sx Previous: Yes Past Medical History Past Medical History Notes: PCP: Dr. Pendleton Education Administrator Dr. Chang Armature W[employer] Rep[employer] Helper Dr. Clement Past Medical History 1. Paroxysmal Atrial Fibrillation 2. ho/ chronic hypoxemic respiratory failure (states patient uses O2 3 L at night at baseline) 3. history of MSRA 4. CKD stage III 5. History of pancreatitis 6. BOOP on chronic prednisone (patient states current dose as of July 2016 is 10 mg daily) 7. Diabetes Mellitus Type 2, insulin-using, poorly controlled 8. Hypertension 9. Parkinsonian Tremor 10. BPH 11. Anxiety and depression 12. CARRIE on CPAP 13. Chronic congestive heart failure secondary to diastolic dysfunction 14. chronic edema 15. Gout 16. Chronic back pain on opiates (history of acute L2 fracture 06/2016 as well) History of cor pulmonale per pulmonology note June 2016 Obesity hypoventilation syndrome per pulmonology note June 2016 Obesity BMI 48.2 Past Surgical History Colonoscopy Lung biopsy Hernia repair Reports: Appendectomy Family History Reports: Diabetes mellitus Smoking History Former Smoker Social History Drug Use: Denies drug use Other Social History: Good social support, Frequent ED visitor, , Local resident Ambulatory Status Walker Review of Systems Full Review of Systems Constitutional: Denies: Chills, Fever Musculoskeletal: Reports: Back pain, Extremity pain, Joint pain Neurologic: Denies: Change LOC, Headache Complete sys rev & neg: except as marked. Physical Exam Vital Signs Vital Signs Date Time Temp Pulse Resp B/P Pulse Ox O2 Delivery O2 Flow Rate FiO2 10/28/16 05:24 37.0 93 16 144/66 97 Nasal Cannula 3 10/28/16 01:26 36.7 90 18 129/76 95 Nasal Cannula 3 Initial VS: Reviewed ENT: Conjunctiva normal, No scleral icterus Neck: Supple, Non-tender, Full range of motion Neurologic: Alert, Oriented, Nonfocal Psychiatric: Mood/affect normal, Behavior normal, Normal thought content General/Constitutional: Awake, Alert, No acute distress Appearance / Presentation: Positive: Obese Head / Eyes: Atraumatic, Normocephalic, PERRL, EOMI Respiratory / Chest: Breath sounds NL, Breath sounds = bilat, No respiratory distress, No rales, No rhonchi, No wheezing Cardiovascular: Heart rate NL, Regular rhythm, Heart sounds NL, No murmurs Abdomen: Soft, Non-tender, No guarding, No rebound Back: unable to examine due to body habitus Upper Extremities Upper Extremity / MS: No deformity, Neurologic intact, Vascular intact Lower Extremity / Pelvis / MS: No deformity, Neurologic intact, Vascular intact Bilateral lower extremity erythema and edema, chronic. No tension in the anterior compartment, easily compressible. Legs appear symmetric. Reports tenderness to all palpation. Interpretation & Diagnostics CT LUMBAR SPINE CONCLUSION: Severe osteoporosis with multilevel chronic compression. L2 compression fracture shows cortical disruption and is possibly acute. Limited detail due to the patient body habitus. If able, MRI with STIR imaging may be considered for further evaluation. Mild left central stenosis at T-11 T2, due to degenerative facets. AMENDMENT: Comparison is made with a prior lumbar spine CT dated July 12, 2016. There is similar configuration of each vertebral compression fracture, stable compared to prior study, including L2, compatible with chronic fractures. No retropulsion or significant interval change. Radiologist: Rhoda Fernandez MD 10/28/2016 - 3:45:[address] PELVIS CONCLUSION: Osteoporosis. No pelvic or proximal femur fracture. Radiologist: Rhoda Fernandez MD 10/28/2016 - 3:53:54 AM PDT X-Ray Interpretation Xray Interpretation: Impression: Possible new proximal fibular fracture. Old midshaft fibular fracture. X-Ray Ordered: Tibia fibula left Interpretation / Wet Read by: Wet read ED physician Xray Interpretation: Impression: Limited film due to patient's body habitus. X-Ray Ordered: Pelvis Interpretation / Wet Read by: Wet read ED physician Procedures Splint Post-Application Eval Extremity Condition: Cap refill < 2 sec, Distal sensation intact, Distal motor Intact, No compartment syndrome Re-Eval/Medical Decision Med Decision/Clinical Course 61-year-old with multiple medical issues presents after two separate low-grade falls. He has pain in his lower leg and appears to have an acute fracture of his proximal fibula, superimposed on prior healed fractures. He has multiple compression fractures in his L-spine, which appears stable on repeat CT. He is basically nonambulatory already, and this is essentially a nuisance fracture. He has achieved reasonable pain relief with oral oxycodone at 30 mg doses. He is placed in a stirrup splint, and discharged home via ambulance for follow-up with PCP and with orthopedics. He ultimately may need a usp, given his multiple issues, chronic pain, and need for full-time medical supervision. Source of Hx: Old records Time of Eval: 03:23 Re-Evaluation/Progress Note: Rechecked the patient. He was informed of the results of his x-rays and need for CT scans. He has a fracture of his left fibula. Patient reports ongoing pain and will be given additional pain medication. Time of Eval: 04:36 Re-Evaluation/Progress Note: Rechecked the patient to discuss the results of his CT scans. No acute process found. Will give the patient a boot for his left leg. Patient understands and agrees with the plan to be discharged home. Discharge instructions and follow-up discussed. All questions were addressed. Return to the ED warnings given. Counseled Regarding: Diagnosis, Lab results, Need for follow-up, When/why to return to ED Discharge & Departure Primary Impression: Fracture of proximal end of left fibula Encounter type: initial encounter Fracture type: closed Fracture morphology : unspecified fracture morphology Qualified Code: S82.832A - Other fracture of upper and lower end of left fibula, initial encounter for closed fracture Additional Impressions: Fall from ground level Acute exacerbation of chronic low back pain Compression fracture of thoracic vertebra Encounter type: subsequent encounter Disposition: Home Discharge Condition All VS Reviewed: Yes Condition: Stable Patient Instructions: Fall Prevention for Older Adults (GEN), Leg Fracture (DC) Additional Instructions: Increase your oxycodone briefly to 30 mg every four hours as needed to deal with your pain. Contact your doctor for additional instructions. We can only cover your acute pain needs for the first two days until you can be in contact with your doctor today. Leave the splint on supervisor reinforced steel placing and do not bear weight. Call your doctor this morning for follow-up. Call Dr. Lombardo's office tomorrow for follow up. If you are currently seeing an orthopedist, you may call your doctor. Referrals: Nicolás Pendleton MD (PCP) Patricio Lombardo Attestation Portions of this note were transcribed by Marsha Thompson. I, Dr. Santiago personally performed the history, physical exam and medical decision-making; I reviewed and confirmed the accuracy of the information in the transcribed note. Signed by: Tim Campbell, 10/28/2016 [id number] copies to: Nicolás Pendleton MD; Patricio Lombardo Christopher W MD Oct 28, 2016 01:29 Marsha Thompson Oct 28, 2016 01:50
[2016-10-28] MEDS ORDERED: OXYC10TA8 PO (05:00)
[2016-10-28 05:24] VITALS: BP 144/66; PULSE 93; RESP 16; O2SAT 97
--- NOTE | 2016-10-28 08:15 | DRSVH ---
PROCEDURE: CT LUMBAR SPINE WITHOUT CONTRAST ([id number]) INDICATIONS: fall, pain TECHNIQUE: Noncontrast 3 mm thick sections acquired from the T12 level to the sacrum. Sagittal and coronal refo rmats were constructed. For radiation dose reduction, the following was used: automated exposure co ntrol. COMPARISON: [facility], CR, XR LUMBAR SPINE LAT FL EX 3VW, 02/18/2016, 8:34. [facility], CT, CT LUMBAR SPINE WO CON, 07/12/2016, 3:39. FINDINGS: Image quality: Excellent. Bones: There is normal bony alignment. There are multiple vertebral body compression fractures, mode rate at T12, L1, L2, and L4, mild at T11, L3 and L5. Compared to the last examination on 07/12/2016, there is no significant change. There is severe osteopenia. No suspicious lytic or blastic bony lesi ons. There is degenerative disc disease throughout the lower thoracic and lumbar spine. Moderate to severe facet arthropathy at L3-L4, L4-L5 and L5-S1. There is central canal narrowing secondary to con genital short pedicles, posterior disc bulge and facet joint hypertrophy, severe at L2-L3, L3-L4 and L4-L5, and moderate L1-L2. There is a large left T11-T12 facet osteophyte extruding into the central canal posteriorly causing moderate central canal stenosis. Soft tissues: No retroperitoneal masses or hematomas. Visualized aorta is normal in caliber. IMPRESSION: 1. Multilevel compression fractures in lower thoracic and lumbar spine as described, moderate at T12, L1, L2, and L4, mild at T11, L3 and L5. Compared to the last exam on , there is no signific ant change. 2. Osteopenia. 3. Degenerative disc disease and facet arthropathy in lumbar spine. There is severe central canal carri nosis at L2-L3, L3-L4 and L4-L5, and moderate central canal stenosis at T11-T12 and L1-L2. No significant discrepancy with the shift supervisor film processing radiology preliminary report. Dictated by: Melisa Gonzales M.D. on 10/28/2016 at 8:00 Transcribed by: TYRELL on 10/28/2016 at 8:15 Approved by: Melisa Gonzales M.D. on 10/28/2016 at 21:27
--- NOTE | 2016-10-28 08:17 | DRSVH ---
PROCEDURE: X-RAY PELVIS WITH LATERAL HIP, LEFT INDICATIONS: fall COMPARISON: None. FINDINGS: Suboptimal imaging quality secondary to body habitus and difficult positioning. No obvious displaced fracture IMPRESSION: No apparent pelvic or left hip fracture however imaging is suboptimal and nondisplaced f ractures could be missed. CT imaging suggested. Dictated by: Pablo Mckeon M.D. on 10/28/2016 at 8:09 Approved by: Pablo Mckeon M.D. on 10/28/2016 at 8:16
--- NOTE | 2016-10-28 08:19 | DRSVH ---
PROCEDURE: CT PELVIS WITHOUT CONTRAST ([id number]) INDICATIONS: fall, pain TECHNIQUE: Noncontrast 3 mm axial sections acquired through the bony pelvis, with coronal and sagittal reformatt ing. COMPARISON: None. FINDINGS: Image quality: Excellent. Bones: There is a generalized osteopenia. No fracture or dislocation in the bony pelvis. Pelvic drain s intact. There is mild compression deformity of L5. Degenerative disc disease and facet arthropathy noted in lower lumbar spine. Soft tissues: No hematoma or soft tissue mass. IMPRESSION: 1. No fractures in the bony pelvis. 2. Mild compression fracture of L5 and degenerative changes in lower lumbar spine. Please see CT lumb ar spine for detail. 3. Osteopenia. No significant discrepancy with the manager night radiology preliminary report. Dictated by: Melisa Gonzales M.D. on 10/28/2016 at 8:15 Approved by: Melisa Gonzales M.D. on 10/28/2016 at 8:17
--- NOTE | 2016-10-28 08:26 | DRSVH ---
PROCEDURE: X-RAY LEFT TIBIA/FIBULA, TWO VIEWS ([id number]) INDICATIONS: fall TECHNIQUE: 2 views of the tibia and fibula were acquired. COMPARISON: None. FINDINGS: Bones: Slightly displaced acute fracture proximal shaft of the fibula. There is an old healed fractur e in the midshaft of the fibula. Distal femur and tibia appear intact. No suspicious bony lesions. Soft tissues: No suspicious soft tissue calcifications or masses. Calcified arteries in the leg. IMPRESSION: 1. Acute fracture proximal fibular diaphysis. 2. Old healed fracture mid shaft of the fibula. 3. Atherosclerosis. Dictated by: Pablo Mckeon M.D. on 10/28/2016 at 8:16 Approved by: Pablo Mckeon M.D. on 10/28/2016 at 8:25
== END 2016-10-28 05:16 | disposition home or self-care (01) ==
LOC: SED 01:21
DX: S82.832A Other fracture of upper and lower end of left fibula, initial encounter for closed fracture (principal); W18.39XA Other fall on same level, initial encounter; Y93.89 Activity, other specified; Y92.098 Other place in other non-institutional residence as the place of occurrence of the external cause; Y99.8 Other external cause status; S32.028D Other fracture of second lumbar vertebra, subsequent encounter for fracture with routine healing; E11.29 Type 2 diabetes mellitus with other diabetic kidney complication; I12.9 Hypertensive chronic kidney disease with stage 1 through stage 4 chronic kidney disease, or unspecified chronic kidney disease; I50.30 Unspecified diastolic (congestive) heart failure; N18.3 Chronic kidney disease, stage 3 (moderate); G20 Parkinson's disease; J44.9 Chronic obstructive pulmonary disease, unspecified; Z87.891 Personal history of nicotine dependence; Z79.4 Long term (current) use of insulin; Z79.82 Long term (current) use of aspirin; Z99.81 Dependence on supplemental oxygen; Z88.1 Allergy status to other antibiotic agents; Z88.8 Allergy status to other drugs, medicaments and biological substances

== ENCOUNTER 2016-10-28 11:27 | Inpatient (IN) | payer MEDICARE, MEDICAID ==
[~2016-10-28] VITALS: Ht 182.9 cm; Wt 158.5 kg
[2016-10-28] VITALS (10 sets, daily range): BP systolic 122–149; BP diastolic 48–79; PULSE 10–104; RESP 15–20; O2SAT 92–99
[~2016-10-28 11:27] MED LIST changes: +OXYC10TA8 PO
--- NOTE | 2016-10-28 11:35 | ED.REPORT ---
HPI-General Illness Date of Service Oct 28, 2016 ED Provider: Sacha Dasilva MD Xavi Vargas is a 61-year-old man with a past medical history significant for chronic hypoxemic respiratory failure secondary to morbid obesity, BOOP on chronic prednisone, COPD, obesity hypoventilation syndrome, CARRIE on Trilogy, who presents to the ER via EMS from home due to AMS, fever and SOB since this AM. Pt was hospitalized last week for pneumonia and discharged 4 days ago. He was then seen in ER this morning for a broken L fibula. His states that he was at baseline last night prior to being discharged from the ER. She states that the patients Trilogy machine was broken last night and he has deteriorated since. Upon arrival by EMS, medics noted the patient to have pinpoint pupils. History of intubation last time 1 year ago. Nursing Notes Stated Complaint: FEVER Nursing Notes Reviewed: Yes Allergies: Coded Allergies: amoxicillin (Verified Adverse Reaction, Severe, Nausea, 10/28/16) VERY NAUSEUOUS clavulanic acid (Verified Adverse Reaction, Severe, Nausea, 10/28/16) aspirin (Verified Adverse Reaction, Intermediate, Hematuria, 10/28/16) Blood in urine after snf use Scheduled Allopurinol (Allopurinol) 100 Mg Tablet 100 MG PO DAILY Amitriptyline (Amitriptyline) 50 Mg Tab 50 MG PO HS Arformoterol Tartrate (Brovana) 15 Mcg/2 Ml Vial.neb 15 MCG IH BID Aripiprazole (Aripiprazole) 2 Mg Tablet 2 MG PO DAILY Ascorbic Acid (Vitamin C) 500 Mg Capsule.er 500 MG PO DAILY Aspirin (Aspirin) 81 Mg Tablet 81 MG PO DAILY Atorvastatin Calcium (Atorvastatin Calcium) 10 Mg Tablet 10 MG PO HS Carbidopa/Levodopa 25-100 mg (Carbidopa/Levodopa 25-100 mg) 1 Each Tablet 2 TABLET PO QID Cholecalciferol (Vitamin D3) (Vitamin D3) 2,000 Unit Capsule 2,000 UNIT PO DAILY Cinnamon Bark/Chromium Picolin (Cinnamon Plus Chromium Capsule) 1 Each Capsule 1 EACH PO DAILY Citalopram (Citalopram) 40 Mg Tablet 40 MG PO DAILY Clopidogrel Bisulfate (Plavix) 75 Mg Tablet 75 MG PO DAILY Cyanocobalamin (Vitamin B-12) (B-12) 500 Mcg Tab.rapdis 500 MCG SL DAILY Fluticasone Propionate (Flonase Allergy Relief) 9.9 Ml Blairs.susp 1 SPRAYS NS DAILY Insulin Glargine (Lantus U100 Insulin Vial) 100 Unit/Ml Vial 60 UNITS SUBQ BID Insulin Regular, Human (HUMulin-R U-500 Insulin Vial) 500 Unit/1 Ml Vial 8 UNITS SUBQ TIDAC Lactobacillus Acidophilus (Acidophilus) 1 Each Capsule 1 EACH PO DAILY Latanoprost (Latanoprost) 2.5 Ml Drops 1 GTT BOTH_EYES HS Magnesium Oxide (Magnesium Oxide) 400 Mg Tablet 400 MG PO DAILY Metoprolol Tartrate (Metoprolol Tartrate) 25 Mg Tablet 50 MG PO BID Multivitamin (Multivitamins) 1 Each Capsule 1 EACH PO DAILY Omeprazole (Omeprazole) 20 Mg Capsule.dr 20 MG PO DAILY Potassium Chloride ER (Klor-Con M20) 20 Meq Tablet 20 MEQ PO DAILY Prednisone (PredniSONE) 10 Mg Tablet 10 MG PO DAILY Pregabalin (Lyrica) 225 Mg Capsule 225 MG PO BID Spironolactone (Spironolactone) 25 Mg Tablet 25 MG PO BID Tamsulosin ER (Tamsulosin ER) 0.4 Mg Cap.er.24h 0.4 MG PO HS Torsemide (Torsemide) 100 Mg Tablet 50 MG PO BID Scheduled PRN Acetaminophen (Acetaminophen) 500 Mg Tablet 500 MG PO Q6H PRN PRN For Pain Albuterol Neb Soln (Albuterol Neb Soln) 2.5 Mg/3 Ml Vial.neb 2.5 MG INHALATION Q4H PRN PRN For Shortness of Breath Albuterol Sulfate (Ventolin HFA Inhaler) 200 Puff/18 Gm Inhaler 2 PUFFS INH q4- 6 hours PRN PRN For Shortness of Breath Calcium Carbonate (Tums) 500 Mg Tab.chew 2,000 MG PO PRN PRN PRN For Indigestion Dextran 70/Hypromellose/Pf (Artificial Tears Drops) 1 Each Droperette 1 DROP BOTH_EYES QID PRN PRN dry eyes Loratadine (Claritin) 10 Mg Capsule 10 MG PO DAILY PRN PRN allergies Polyethylene Glycol 3350 (Gavilax) 17 Gm Powd.pack 17 GM PO DAILY PRN PRN For Constipation Sennosides (Senna) 8.6 Mg Tablet 17.2 MG PO BID PRN PRN For Constipation oxyCODONE (oxyCODONE) 20 Mg Tablet 20 MG PO Q4H PRN PRN For Pain General Time Seen by MD: 11:30 Chief Complaint Other (AMS and SOB) Hx Obtained From: Patient, Spouse, 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 Pendleton Geotechnical Field Technician Dr. Chang Transport Tech Dr. Clement Past Medical History 1. Paroxysmal Atrial Fibrillation 2. ho/ chronic hypoxemic respiratory failure (states patient uses O2 3 L at night at baseline) 3. history of MSRA 4. CKD stage III 5. History of pancreatitis 6. BOOP on chronic prednisone (patient states current dose as of July 2016 is 10 mg daily) 7. Diabetes Mellitus Type 2, insulin-using, poorly controlled 8. Hypertension 9. Parkinsonian Tremor 10. BPH 11. Anxiety and depression 12. CARRIE on CPAP 13. Chronic congestive heart failure secondary to diastolic dysfunction 14. chronic edema 15. Gout 16. Chronic back pain on opiates (history of acute L2 fracture 06/2016 as well) History of cor pulmonale per pulmonology note June 2016 Obesity hypoventilation syndrome per pulmonology note June 2016 Obesity BMI 48.2 Past Surgical History Colonoscopy Lung biopsy Hernia repair Reports: Appendectomy Family History Reports: Diabetes mellitus Smoking History Former Smoker Social History Alcohol Use: Denies alcohol use Drug Use: Denies drug use Other Social History: Good social support, Frequent ED visitor, , Local resident Ambulatory Status Walker Review of Systems Unable to Obtain ROS Patient condition, Mental status Full Review of Systems Constitutional: Reports: Fever Respiratory: Reports: Shortness of breath Psychiatric: Reports: Change mental status Physical Exam Vital Signs Vital Signs Date Time Temp Pulse Resp B/P Pulse Ox O2 Delivery O2 Flow Rate FiO2 10/28/16 13:23 103 17 140/79 97 BiPAP 10/28/16 12:47 10 18 122/78 99 BiPAP 10/28/16 12:30 16 94 30 10/28/16 12:21 100 17 137/68 99 BiPAP 10/28/16 12:05 98 15 144/79 95 BiPAP 10/28/16 11:37 38.8 104 17 145/73 92 Nasal Cannula Initial VS: Reviewed Alertness: Positive: Somnolent Appearance / Presentation: Positive: Obese, morbidly Head / Eyes: Atraumatic, Normocephalic Pupils: Positive: Pinpoint Neck: Atraumatic, Full range of motion Respiratory / Chest: Breath sounds NL, Breath sounds = bilat, No rales, No rhonchi, No wheezing Cardiovascular: Heart rate NL, Regular rhythm, Heart sounds NL, Cap refill not delayed, Peripheral circulation NL Abdomen: Soft, Non-tender Lower Extremity / Pelvis / MS: Neurologic intact, Vascular intact Chronic venous stasis to bilat lower extremities. Removed splint from L leg. He has pain, with no skin breakdown. Skin: Warm, Dry See GCS. Barnard Coma Score > Age 5 Eye Opening: Open to pain (2) Verbal Response: Confused (4) Motor Response: Localizes pain (5) Bill Coma Score: 11 Interpretation & Diagnostics Lab Results Interpretation Result Diagram: 10/28/16 1145 10/28/16 1145 Test 10/28/16 11:45 10/28/16 14:00 White Blood Count 14.7th/mm3 (3.8-10.1) Red Blood Count 4.23mil/mm3 (4.40-5.80) Hemoglobin 11.0g/dL (13.8-17.2) Hematocrit 36.6% (41.0-50.0) Mean Corpuscular Volume 86.5fL (81-100) Mean Corpuscular Hemoglobin 26.0pg (27.0-35.0) Mean Corpuscular Hemoglobin Concent 30.1% (32.0-37.0) Red Cell Distribution Width 19.2% (12.3-15.4) Platelet Count 195bil/L (150-400) Neutrophils (%) (Auto) 78.3% (40-74) Lymphocytes (%) (Auto) 8.4% (14-46) Monocytes (%) (Auto) 8.7% (4-12) Eosinophils (%) (Auto) 3.9% (0-5) Basophils (%) (Auto) 0.2% (0-3) Prothrombin Time 10.6sec (8.1-12.5) Prothromb Time International Ratio 0.99ratio Sodium Level 137mEq/L (134-144) Potassium Level 4.0mEq/L (3.5-5.2) Chloride Level 85mEq/L (97-108) Carbon Dioxide Level 34mmol/L (18-29) Blood Urea Nitrogen 68mg/dL (8-27) Creatinine 1.90mg/dL (0.76-1.27) Estimat Glomerular Filtration Rate 38mL/min (>59) Glucose Level 277mg/dL (60-99) Lactic Acid Level 1.7mmol/L (0.4-2.0) Calcium Level 9.6mg/dL (8.5-10.1) Phosphorus Level 4.3mg/dL (2.5-4.9) Magnesium Level 2.9mg/dL (1.6-2.6) Total Bilirubin 0.7mg/dL (0.0-1.2) Aspartate Amino Transf (AST/SGOT) 44U/L (0-50) Alanine Aminotransferase (ALT/SGPT) 12U/L (0-44) Alkaline Phosphatase 84U/L (25-160) Troponin T 0.158ug/L (0.0-0.011) Pro-B-Type Natriuretic Peptide 640.0pg/mL (0-210) Total Protein 7.7g/dL (6.4-8.4) Albumin 3.9g/dL (3.4-5.0) Urine Color Yellow (YELLOW) Urine Appearance Clear (CLEAR,HAZY) Urine pH 5.0 (5.0-8.0) Urine Specific [place] 1.010 (1.003-1.035) Urine Protein Negativemg/dL (NEG,TRACE) Urine Glucose (UA) Negativemg/dL (NEGATIVE) Urine Ketones Negativemg/dL (NEGATIVE) Urine Occult Blood Negative (NEGATIVE) Urine Nitrite Negative (NEGATIVE) Urine Bilirubin Negative (NEGATIVE) Urine Urobilinogen Normalmg/dL (NORMAL) Urine Leukocyte Esterase Negative (NEGATIVE) Urine RBC 0-2/hpf (0-2) Urine WBC 0-5/hpf (0-5) Urine Epithelial Cells Occasional/hpf (NONE-MOD) Urine Crystals Amorphous urates (NONE Urine Bacteria Few/hpf (NONE-FEW) Urine Hyaline Casts None/lpf (NONE) Urine Granular Casts None seen (NONE SEEN) Urine Waxy Casts None seen (NONE SEEN) Urine Red Blood Cell Casts None seen (NONE SEEN) Urine White Blood Cell Casts None seen (NONE SEEN) Urine Mucus None seen (None Seen) Urine Trichomonas None seen (NONE SEEN) Urine Yeast None (NONE SEEN) Urinalysis Comment None Urine Culture Reflexed Not indicated General Lab Results Interp 1: Labs reviewed ECG Interpretation ECG Interpretation: Non-specific intraventricular conduction delay Time: 13:36 Interpreted by: ED physician Normal ECG Interpretation: Normal rate (97), Normal sinus rhythm ABG Interpretation ABG Interpretation: pH ____7.366 - pCO2 ___80.9__ -mmHg pO2 ___61.1__ -mmHg HCO3- ___46.3__ -mmol/L Exam Interpreted by: ED physician X-Ray Chest Interpretation Chest Xray Interpretation: IMPRESSION: Small lung volumes likely secondary to shallow inspiration. Bibasilar opacities may be infiltrate or atelectasis. Dictated by: Melisa Gonzales M.D. on 10/28/2016 at 12:05 View: Portable, 1 view Interpretation / Wet Read by: Interpret - Radiologist Chest Xray Interpretation: IMPRESSION: 1. Central line placement with tip in the expected location. 2. Probable small left lower lobe infiltrate. Dictated by: Pablo Mckeon M.D. on 10/28/2016 at 13:09 View: Portable, 1 view Interpretation / Wet Read by: Interpret - Radiologist Procedures Central Line Placement Central Line Placement Note: Pt more awake. Talking mid-procedure. Time: 12:29 Procedure Performed by: ED physician Consent / Setup / Site Prep: No consent - emergent, Time-out performed, Needle aspirate performed, Oxygen administered, Pulse oximeter applied, chamber of commerce division manager applied, Hand hygiene observed, Standard surgical scrub, Max barrier precaution, Sterile drapes applied, Position Trendelenburg Skin Preparation Agent: Hibiclens - Chlorhexidine Local Anesthesia: Lidocaine 1% Side / Location / Ultrasound: Internal jugular right Catheter / Lumen / Technique: Triple lumen, Seldinger technique, Good blood return, Secured w catheter device Central Line Tip Location: Cath tip good position in the SVC Post-Procedure / Complications: Dressing placed, CXR neg for pneumothorax, Condition improved, Tolerated procedure well, Patient stable Re-Eval/Medical Decision Med Decision/Clinical Course After multiple attempts to access his veins with standard IVs and no success, central line was placed, see procedure note. We administered 0.8 mg of intranasal Narcan prior to that with little if any effect. After the IV was established in the internal jugular vein, we administered 0.1 mg of Narcan which had a quite noticeable effect bringing about much more alertness. However initial suspicion of narcotic overdose seems to have been corroborated by this treatment. Additionally I assessed his broken left leg in detail and found that the splint placed last night was not adequate. The fracture is the proximal left fibula and the splint only extended up to the fracture line but not including the joint above. A new splint was placed. Splinting procedure: Long leg posterior splint is placed by hazardous waste material technician on the left lower extremity treating the proximal left fibular fracture. Sugar tong splint was placed over the top of that for additional stabilization. Source of Hx: Old records Time of Eval: 12:20 Re-Evaluation/Progress Note: Multiple doses of narcan given. Pt on BiPAP. Time of Eval: 14:05 Re-Evaluation/Progress Note: Pt's mental status has improved. Responds after narcan is given. Still on Bipap. Recommended admission. Pt and family understands and agrees with plan. All questions addressed. Time of Eval: 14:22 Re-Evaluation/Progress Note: Pt unable to lay flat for CT. Consultation #1: Referral / Consult Name: Joshua Sims MD Consulted With: Geotechnical Field Technician Call Returned at: 12:21 Note: Do not intubate unless necessary. Consultation #2: Referral / Consult Name: Tereso Myers MD Consulted With: Hospitalist Call Returned at: 13:59 Button Bradder: Will see patient, Agrees with eval, Agrees with plan, Accepts admit Counseled Regarding: Diagnosis, Lab results, Need for admission Discharge & Departure Primary Impression: Respiratory failure Chronicity: acute on chronic Respiratory failure complication: hypoxia and hypercapnia Qualified Code: J96.21 - Acute and chronic respiratory failure with hypoxia Additional Impression: Narcotic overdose Encounter type: initial encounter Injury intent: accidental or unintentional Qualified Code: T40.601A - Poisoning by unspecified narcotics, accidental (unintentional), initial encounter Disposition: ADMITTED TO HOSPITAL Discharge Condition All VS Reviewed: Yes Referrals: Nicolás Pendleton MD (PCP) Crit Care Except Billable Proc Time Spent: 30-74 minutes Services Performed: Patient management by me, Time spent at bedside, Reviewing test results, Reviewing imaging, Discussing patient care, Documentation in record, Time with fam/surrogate Scribe Attestation Portions of this note were transcribed by Rupinder Murry. I, (Dr. Sacha Dasilva) personally performed the history, physical exam and medical decision-making; I reviewed and confirmed the accuracy of the information in the transcribed note. Signed by: Rupinder Murry. Tim, 10/28/2016, 2583 copies to: Nicolás Pendleton MD, Kirk H MD Oct 28, 2016 11:35 Rupinder Murry Oct 28, 2016 12:06
--- NOTE | 2016-10-28 12:08 | DRSVH ---
PROCEDURE: X-RAY CHEST ONE VIEW, PORTABLE ([id number]) INDICATIONS: DYSPNEA, ALTERED MENTAL STATUS TECHNIQUE: One view of the chest was acquired. COMPARISON: [facility], CR, XR CHEST 2VW, 06/18/2016, 14:47. [facility], C T, CT CHEST WO CON, 07/02/2016, 14:44. [facility], CR, XR CHEST 1VW (PORTABLE), 7, 15:48. [facility], CR, XR CHEST 1VW (PORTABLE), 10/22/2016, 14:26. FINDINGS: Surgical changes and devices: None. Lungs and pleura: Lung volumes are small. Bibasilar opacities may be infiltrate or atelectasis. No pl eural effusions or pneumothorax. Mediastinum: Mediastinal contours appear normal. Heart size is normal. Bones and chest wall: No suspicious bony lesions. Overlying soft tissues appear unremarkable. IMPRESSION: Small lung volumes likely secondary to shallow inspiration. Bibasilar opacities may be in filtrate or atelectasis. Dictated by: Melisa Gonzales M.D. on 10/28/2016 at 12:05 Approved by: Melisa Gonzales M.D. on 10/28/2016 at 12:07
--- NOTE | 2016-10-28 12:11 | ABG ---
DateTimeAnalyzed 12:05:57 -_ pH ____7.366 - pCO2 ___80.9__ -mmHg pO2 ___61.1__ -mmHg HCO3- ___46.3__ -mmol/L ABE ___19.0__ -mmol/L tHb ___10.3__ -g/dL O2Hb ___89.4__ -% COHb ____2.9__ -% MetHb ___-0.1__ -% sO2 ___92.0__ -% FIO2 ___30.0__ -% Set_RR 14 -b/min Drawn By KBB - Date/Time Notified____ 12:11:00 -_ Oxygen Device 1 ____BIPAP - Notified By kbb - Notified Whom Sacha Woodbine, MD -___ B 754 -mmHg K+ ____3.5__ -mmol/L tO2 ___13.0__ -Vol% Tereso test _Positive -
[2016-10-28 13:00] LABS: BASOPHILS % (AUTO) 0.2 % (0-3)
[2016-10-28 13:03] LABS: EOSINOPHILS % (AUTO) 3.9 % (0-5); MONOCYTES % (AUTO) 8.7 % (4-12); Mean Corpuscular Volume 86.5 fL (81-100); NEUTROPHILS % (AUTO) 78.3 % (40-74); Platelet Count 195 bil/L (150-400)
[2016-10-28 13:04] LABS: INR 0.99 ratio
--- NOTE | 2016-10-28 13:12 | DRSVH ---
PROCEDURE: X-RAY CHEST ONE VIEW, PORTABLE ([id number]) INDICATIONS: post central line TECHNIQUE: One view of the chest was acquired. COMPARISON: 10/28/2016 FINDINGS: Surgical changes and devices: Right IJ central line has been placed, tip overlying the atriocaval brisa ction.. Lungs and pleura: No pleural effusions or pneumothorax. The right lung base appears clear. There is a small infiltrate in the medial aspect of the left lower lobe. Mediastinum: Mediastinal contours appear normal. Heart size is normal. Bones and chest wall: No suspicious bony lesions. Overlying soft tissues appear unremarkable. IMPRESSION: 1. Central line placement with tip in the expected location. 2. Probable small left lower lobe infiltrate. Dictated by: Pablo Mckeon M.D. on 10/28/2016 at 13:09 Approved by: Pablo Mckeon M.D. on 10/28/2016 at 13:11
[2016-10-28 13:26] LABS: Magnesium 2.9 mg/dL (1.6-2.6); Phosphorus 4.3 mg/dL (2.5-4.9)
[2016-10-28 13:34] LABS: TROPONIN T 0.158 ug/L (0.0-0.011)
[2016-10-28 14:31] LABS: APPEARANCE,URINE CLEAR (CLEAR,HAZY); COLOR,URINE YELLOW (YELLOW); OCCULT BLOOD,URINE NEGATIVE (NEGATIVE); UROBILINOGEN,URINE NORMAL (NORMAL)
[2016-10-28] MEDS ORDERED: Sodium Chloride LOK Flush 10 mL Syringe IVFLUSH PRN ×2 (14:35)
--- NOTE | 2016-10-28 14:51 | NUR ---
Pt arrived in CCU from ER at approx 1440hrs Pt arrived from ER on Bi Pap, sats 92%. HR 98, BP 139/51. Pt woke up as we transferred him to the bed, but pt is now back asleep. Narcan given IV in the ER and it did wake him up at that time. CVL insitu. at bedside at this time.
[2016-10-28] MEDS ORDERED: Ondansetron 2 mg/mL 2 mL Inj IVPUSH PRN ×2 (14:55→15:15)
[2016-10-28] MEDS ORDERED: Alum-Mag Hydrox-Simeth 30 mL Suspension PO PRN ×2 (14:55→15:15)
[2016-10-28] MEDS ORDERED: Senna-Docusate 8.6-50 mg Tablet PO PRN (15:15)
[2016-10-28] MEDS ORDERED: Polyethylene Glycol (PEG) 17 Gm Powder PO PRN (15:15)
[2016-10-28] MEDS: Naloxone 0.4 mg/mL 10 mL Inj IV PRN ×4 (15:45→18:48)
[2016-10-28] MEDS: 0.9% Sodium Chloride 1,000 ML IV SCH ×2 (16:30→20:57)
--- NOTE | 2016-10-28 17:13 | PCM.HPMED ---
Subjective Date of Service Oct 28, 2016 Primary Provider: Admitting Physician: Tereso Myers MD Primary Care Physician: Nicolás Pendleton MD Attending Physician: Tereso Myers MD Admit Status: From the Emergency Department, Full Admit, Admit to Yellow Team, Critical Care Chief Complaint: Acute on chronic hypoxic respiratory failure History of Present Illness: Patient seen in ED last noc from 01:00-06:00 and diagnosed with a fibular fracture. Sent home and was essentially unarousable from that time on. Brought back to ED and found to be in acute hypoxic respiratory failure. He was placed on BiPAP and ventilated reasonably well. He was given 3 doses of nasal naloxone with minimal improvement. Patient didn't respond, he was then given one partial IV dose and did improve. He takes chronic oxycodone 20 mg tabs, about 5 a day. He may have been given analgesia in his first ED visit. Family notes his home trilogy ventilator has not powered on for the last 2 nights. Caregiver notes 2 falls from chair Thursday. Hit head and has complained of head pain. Has worried about pna due to cough. Has been choking on food, maybe due to progressive Parkinson's. Has had progressive left leg pain since fall and was diagnosed with a fibular fracture. Review of Systems: Not obtainable due to his confusion. Allergies Coded Allergies: amoxicillin (Verified Adverse Reaction, Severe, Nausea, 10/28/16) VERY NAUSEUOUS clavulanic acid (Verified Adverse Reaction, Severe, Nausea, 10/28/16) aspirin (Verified Adverse Reaction, Intermediate, Hematuria, 10/28/16) Blood in urine after ad terminal makeup operator use Home Medications Allopurinol (Allopurinol) 100 Mg Tablet 100 MG PO DAILY Amitriptyline (Amitriptyline) 50 Mg Tab 50 MG PO HS Arformoterol Tartrate (Brovana) 15 Mcg/2 Ml Vial.neb 15 MCG IH BID Aripiprazole (Aripiprazole) 2 Mg Tablet 2 MG PO DAILY Ascorbic Acid (Vitamin C) 500 Mg Capsule.er 500 MG PO DAILY Aspirin (Aspirin) 81 Mg Tablet 81 MG PO DAILY Atorvastatin Calcium (Atorvastatin Calcium) 10 Mg Tablet 10 MG PO HS Carbidopa/Levodopa 25-100 mg (Carbidopa/Levodopa 25-100 mg) 1 Each Tablet 2 TABLET PO QID Cholecalciferol (Vitamin D3) (Vitamin D3) 2,000 Unit Capsule 2,000 UNIT PO DAILY Cinnamon Bark/Chromium Picolin (Cinnamon Plus Chromium Capsule) 1 Each Capsule 1 EACH PO DAILY Citalopram (Citalopram) 40 Mg Tablet 40 MG PO DAILY Clopidogrel Bisulfate (Plavix) 75 Mg Tablet 75 MG PO DAILY Cyanocobalamin (Vitamin B-12) (B-12) 500 Mcg Tab.rapdis 500 MCG SL DAILY Fluticasone Propionate (Flonase Allergy Relief) 9.9 Ml [place].susp 1 SPRAYS NS DAILY Insulin Glargine (Lantus U100 Insulin Vial) 100 Unit/Ml Vial 60 UNITS SUBQ BID Insulin Regular, Human (HUMulin-R U-500 Insulin Vial) 500 Unit/1 Ml Vial 8 UNITS SUBQ TIDAC Lactobacillus Acidophilus (Acidophilus) 1 Each Capsule 1 EACH PO DAILY Latanoprost (Latanoprost) 2.5 Ml Drops 1 GTT BOTH_EYES HS Magnesium Oxide (Magnesium Oxide) 400 Mg Tablet 400 MG PO DAILY Metoprolol Tartrate (Metoprolol Tartrate) 25 Mg Tablet 50 MG PO BID Multivitamin (Multivitamins) 1 Each Capsule 1 EACH PO DAILY Omeprazole (Omeprazole) 20 Mg Capsule.dr 20 MG PO DAILY Potassium Chloride ER (Klor-Con M20) 20 Meq Tablet 20 MEQ PO DAILY Prednisone (PredniSONE) 10 Mg Tablet 10 MG PO DAILY Pregabalin (Lyrica) 225 Mg Capsule 225 MG PO BID Spironolactone (Spironolactone) 25 Mg Tablet 25 MG PO BID Tamsulosin ER (Tamsulosin ER) 0.4 Mg Cap.er.24h 0.4 MG PO HS Torsemide (Torsemide) 100 Mg Tablet 50 MG PO BID PMH 1. Chronic respiratory failure with hypoxia. 2. Morbid obesity 3. Parkinson's disease 4. BOOP 5 Hypertension 6. New left fibula fracture. Family History Not obtainable Social History Occupation: None Hx Alcohol Use: No Hx Substance Use: Yes (40 Y/O) Hx Tobacco Use: Yes Smoking Status: Former Smoker Living Arrangement: with Family Exam Vital Signs Vital Sign - Last Date Time Temp Pulse Resp B/P Pulse Ox O2 Delivery O2 Flow Rate FiO2 10/28/16 15:38 36.8 97 20 137/61 BiPAP 10/28/16 13:23 97 10/28/16 12:30 30 Exam Sedated. On BiPAP. Not able to answer questions. Normal skull Anicteric sclera Conjugate gaze No facial droop Thick neck, normal thyroid. No adenopathy. Lungs with slow breathing, distant breath sounds. Heart is distant and regular. Abdomen distended, NT Gross chronic edema and venous stasis changes No pedal pulses No ecchymosis Normal muscle tone Lab and Diagnostics Result Diagram: 10/28/16 1145 10/28/16 1145 X-Rays, CTs and MRIs CXR: 1. Central line placement with tip in the expected location. 2. Probable small left lower lobe infiltrate. Additional Diagnostics: pH ____7.366 - pCO2 ___80.9__ -mmHg pO2 ___61.1__ -mmHg HCO3- ___46.3__ -mmol/L ABE ___19.0__ -mmol/L tHb ___10.3__ -g/dL O2Hb ___89.4__ -% COHb ____2.9__ -% MetHb ___-0.1__ -% sO2 ___92.0__ -% FIO2 ___30.0__ -% Set_RR 14 -b/min Drawn By KBB - Date/Time Notified____ 12:11:00 -_ Oxygen Device 1 ____BIPAP - Notified By kbb - Notified Whom Sacha Dasilva MD -___ B 754 -mmHg K+ ____3.5__ -mmol/L tO2 ___13.0__ -Vol% Tereso test _Positive - Assessment & Plan 1. Acute on chronic respiratory failure with hypercarbia and hypoxia. BiPAP tonight. 2. Possible opiate overdose with hypoventilation, POA. Narcan as needed and Bipap. 3. Possible aspiration pna. POA. Emperic meropenem, blood and sputum cultures, procalc. 4. Metabolic encephalopathy, POA. BiPAP and follow. 5. Morbid obesity, POA 6. CARRIE, hypoventilation syndrome, POA. BiPAP and evaluate trilogy. 7. Left fibula fracture, POA. Splint. 8. Headache after fall, POA. CT head tonight R/O injury. 9. Parkinson's, PA. Resume usual meds when able. 10. Dysphagia, POA. Swallow eval when more awake. Full code Inpatient status. 2 nights stay expected. Pain Evaluation: Adequate Pain Control Resuscitation Status: CPR: Attempt Resuscitation Time spent 60 min Tereso Myers MD Oct 28, 2016 17:13
--- NOTE | 2016-10-28 17:17 | NUR ---
P: Resp, Hemodynamics, Neuro I,E: Pt doing well on Bi-PAP, he has required narcan 0.1mg twice since admit and this helps wake him up to deep breathe, but not too much to wake up and be in pain. Sats are around 96% when he is awake and narcan is working, otherwise he will dip to 90% VS are stable, he is afebrile. He wakes up and answers simple questions after Narcan, but usually just yes or no. is at the bedside.
--- NOTE | 2016-10-28 18:24 | CONS ---
[address] [address] CONSULTATION REPORT PATIENT: SAILAJA ESTES : 1955 MR#: [id number] ADMIT: 10/28/2016 JOB ID: [id number] DATE OF SERVICE: 10/28/2016 CONSULTING PHYSICIAN: Tereso Myers MD. REASON FOR CONSULTATION: Ventilator management. HISTORY OF PRESENT ILLNESS: The patient is a 61-year-old, male, morbidly obese, who suffers from severe obesity hypoventilation syndrome. He has been admitted numerous times for acute on chronic ventilatory failure. The patient was recently discharged from the hospital. Apparently, he went home, and being increasingly active, he apparently tried to walk and fell. Apparently hurt his leg but declined to share that with his family and caregiver. He came to the emergency department 24 hours ago because of increasing respiratory secretions and shortness of breath. Was apparently given antibiotics as well as breathing treatments. In retrospec, it turns out that his Trilogy machine has been out of water for the past two or three days. In any case, he began to have increasing pain in his leg. Was found to have a fractured leg. Took some narcotics. Was taking oxycodone, about five a day, and became increasingly lethargic. Brought to the emergency department because of ventilatory failure. The gives a somewhat convoluted history. Hard to understand. Spoke with the manager information who gave a more cogent history, but the somewhat contradicted her and it was hard to get a clean story. In any case, it appears like his Trilogy has not been working the last few days. He has had increasing respiratory congestion and more pain, requiring the use of narcotics, resulting in his respiratory failure. Was given intranasal Narcan in the emergency department with little effect. However 0.4 mg of Narcan IV push woke him up considerably to the point where he was having pain. ALLERGIES: Include: 1. AMOXICILLIN. 2. ASPIRIN. 3. CLAVULANIC ACID. MEDICATIONS: Listed on the chart include: 1. Loratadine. 2. Nebulized albuterol. 3. Inhaled albuterol. 4. Nebulized Brovana. 5. Tamsulosin 0.4 mg q.h.s. 6. Plavix 75 mg daily. 7. Atorvastatin. 8. Metoprolol. 9. Spironolactone. 10. Acetaminophen. 11. Amitriptyline. 12. Aripiprazole. 13. Aspirin. 14. Carbidopa/levodopa. 15. Citalopram. 16. Pregabalin. 17. Oxycodone. 18. Potassium. 19. Furosemide. 20. Flonase nasal spray. 21. Latanoprost eye drops. 22. Calcium carbonate. 23. Lactobacillus. 24. Acidophilus. 25. Magnesium oxide. 26. Omeprazole. 27. Senna. 28. Polyethylene glycol. 29. Insulin glargine. 30. Insulin regular. 31. Prednisone 10 mg daily. 32. Ascorbic acid. 33. Vitamin D3. 34. Vitamin B12. 35. Multivitamin. 36. Allopurinol. 37. Cinnamon bark with chromium. 38. Picolinate. REVIEW OF SYSTEMS: Unable. OBJECTIVE: Temperature 36.8, pulse 97, respiratory rate 20, blood pressure 137/61, O2 sat on BiPAP with an FiO2 of 30%, tidal volume of about 600 results in an O2 sat of about 94% to 99%, varying on whether he is more awake or not. 0.1 mg of Narcan IV push results in significant improvement in mental status without provoking his pain. General appearance: Morbidly obese. Quite lethargic at times to the point where he was barely arousable. Other times, he arouses and spontaneously answers questions, seemingly appropriately. Nose and throat could not be examined. Chest: Markedly distant breath sounds. There are some coarse, low-pitched expiratory continuous sounds in the upper anterior lung field. Essentially inaudible breath sounds in the lower lung field. Heart: Heart tones normal. Abdomen soft. No apparent tenderness. Circular burn sites on the abdominal wall where he apparently was cooking and spilled some cooking oil on his abdomen. Left leg is dressed with Regulo bandage over cast. Right lower extremity has stasis changes, some peeling skin. It is not wet. It is markedly erythematous. Quite distinctly edematous. and manager information say it is better than it has been of recent. LABORATORY STUDIES: White cell count 14,700, with a moderate neutrophilia. Hemoglobin 11. Platelet count 195,000. Sodium 137, potassium 4, chloride 85, CO2 is 34, BUN 68, creatinine 1.9, glucose 277. Lactic acid is 1.7. Calcium 9.6, phosphorus 4.3, magnesium moderately elevated at 2.9. Total bilirubin 0.7. AST 44, ALT 12, alkaline phosphatase 44. Troponin T moderately elevated at 0.158 mcg/L. ProBNP 640, total protein 7.7, albumin 3.9. Arterial blood gases on BiPAP in the emergency department with an FiO2 of 30%, respiratory rate set at 14, inspiratory pressure of 14-60, and an expiratory pressure of 5, shows a pO2 of 61, a pCO2 of 80, pH 7.36. Chest x-ray shows a central line placed. There is a small left lower lobe infiltrate suspected on x-ray. ASSESSMENT: The patient's lethargy appears to be due to the narcotics as he does awaken with Narcan. Blood gases suggests he is at his level of chronic CO2 retention, as pH is normal. It is somewhat disconcerting that we have him on the BiPAP with his lethargy. However, I think we can keep him somewhat awake with frequent doses of low-dose Narcan. Alternative would be intubation and that would be fraught with risk, as I suspect he would be very difficult if impossible to extubate. He will also be a quite difficult intubation and I think lining up the risks and benefits considered use of BiPAP of would be preferable to intubation. He seems to do well when we wake him up with the Narcan, and I think we can get him through the next few hours when the Narcan wears off. PLAN: 1. Follow status with venous blood gases as he has a central line, graciously and expertly placed by Dr. Sacha Dasilva in the ER, as he otherwise has no venous access whatsoever. 2. Narcan p.r.n. 3. Continue his usual bronchodilator medications. Thank you so much, Dr. Myers, for asking us to see this most interesting individual. Will follow his ventilatory status closely along with you.
[2016-10-28] MEDS: Meropenem Inj 1,000 MG in 0.9% Sodium Chloride 100 ML IV SCH (18:47)
[2016-10-28] MEDS ORDERED: Glucose 40% Oral Gel 15 Gm Tube PO PRN (20:10)
[2016-10-28] MEDS: Acetaminophen IV 1,000 MG in IV Premix 1 EACH IV PRN (20:37)
[2016-10-28] MEDS: Insulin GLARgine 100 Unit/mL Syringe SUBQ SCH (23:07)
[2016-10-28] MEDS: Insulin LISPRO 300 Unit/3 mL Inj SUBQ SCH (23:08)
[2016-10-29] VITALS (10 sets, daily range): BP systolic 110–154; BP diastolic 46–77; PULSE 88–110; RESP 13–25; O2SAT 93–99
[2016-10-29] MEDS: Meropenem Inj 1,000 MG in 0.9% Sodium Chloride 100 ML IV SCH ×3 (00:18→17:12)
--- NOTE | 2016-10-29 01:32 | NUR ---
P) Cardiac/Respiratory/skin/fever Pt. continues somnolent with frequent waking, when awake is forgetful and unable to refrain from talking and singing and focus on breathing, even on bipap pt.'s SPO2 will dip to upper 80's and he needs reminded to take deep breaths, laying almost flat for turning and SPO2 dropped to low 80's. Lungs coarse with faint scattered wheezes and faint inspiratory stridor in bases R > L, markedly decreased about half way down bilat. but some of this may be due to body habitus. Cardiac rhythm sinus, sinus tach with an IVCD, no ectopy noted at this time, L leg splinted, thighs to toes, capillary refill brisk on toes, leg not unwrapped. P leg and arms very red and edematous and covered with scaly, dried skin scales, arms also covered with multiple bruises, pink in skin folds but does not appear to have yeast there as yet. T-max so far tonight 38.5c axillary. I) Meds per 's orders, frequent reminders to take deep breaths, tylenol and passive cooling. E) Resting quietly,last temp 37.5c ax. SPO2 93%.
[2016-10-29] MEDS: Acetaminophen IV 1,000 MG in IV Premix 1 EACH IV PRN ×2 (03:35→05:07)
[2016-10-29] MEDS: Insulin LISPRO 300 Unit/3 mL Inj SUBQ SCH ×5 (04:04→21:13)
[2016-10-29 04:06] LABS: BASOPHILS % (AUTO) 0.2 % (0-3); EOSINOPHILS % (AUTO) 1.3 % (0-5); MONOCYTES % (AUTO) 10.5 % (4-12); Mean Corpuscular Hemoglobin 25.4 pg (27.0-35.0); Mean Corpuscular Volume 88.5 fL (81-100); NEUTROPHILS % (AUTO) 71.8 % (40-74); Platelet Count 147 bil/L (150-400)
[2016-10-29] MEDS: 0.9% Sodium Chloride 1,000 ML IV SCH (05:06)
[2016-10-29] MEDS ORDERED: KCl 40 mEq/D5W 500 mL 20 MEQ in IV Premix 1 EACH IV ONE (07:30)
--- NOTE | 2016-10-29 12:00 | NUR ---
Pain: P: c/o 03/05 generalized pain I: MD notified. Ordered Morphine 2mg IVP once. E: Swallow eval was passed. MD notified. MD to start home PO medications.
--- NOTE | 2016-10-29 15:10 | NUR ---
Transfer to [facility] Report given to Irene Burt RN. Pt to be transferred to surgical unit room 1006.
--- NOTE | 2016-10-29 15:45 | NUR ---
Transfer Pt arrived to [facility] rm 1006 from [facility] at approx 1530. Rec'd report from Maya Foley RN. Pt arrived via [facility] bed. Pt a&ox3, daisy. Neva patent and draining to gravity. Cast c/d/i. Skin assmt to be completed w/ wound care. Pt oriented to room and call light by PAWAN.
[2016-10-29] MEDS: ARIPiprazole 2 mg Tablet PO SCH (17:11)
--- NOTE | 2016-10-29 17:21 | PCM.PNMED ---
Subjective Date of Service Oct 29, 2016 Subjective Patient states he is feeling quite a bit better today, staff also reports he is significantly improved. Patient complains of leg pain, shortness of breath. No chest pain or abdominal pain. No diarrhea or constipation. Exam Vital Signs Vital Sign - Last Date Time Temp Pulse Resp B/P Pulse Ox O2 Delivery O2 Flow Rate FiO2 10/29/16 15:50 36.8 101 18 134/77 96 Nasal Cannula 3.00 10/29/16 00:06 30 Intake and Output 10/28/16 10/28/16 10/29/16 Cumulative From/Thru 15:00 23:00 07:00 10/28/16 13:28 - 10/29/16 06:29 Intake Total 500 ml 675 ml 1943 ml 3118 ml Output Total 900 ml 600 ml 1500 ml Balance 500 ml -225 ml 1343 ml 1618 ml Intake Oral 0 ml 0 ml IV Total 500 ml 675 ml 1943 ml 3118 ml Output Urine Total 900 ml 600 ml 1500 ml Exam General: Alert, Oriented X3, NAD Head: Normocephalic, atraumatic Eyes: ERIBERTO, EOMI, no scleral Icterus Chest: Decreased breath sounds throughout, no wheezing rales or rhonchi Heart: Regular rate and rhythm. Normal S1, S2, no murmurs noted Abdomen: soft, non-tender. Bowel sounds are normoactive. No guarding or rebound. Extremities: no cyanosis, clubbing or edema. IVs and Medications Medications Reviewed: Medications were reviewed in detail Lab and Diagnostics Result Diagram: 10/29/16 0400 10/29/16 0400 X-Rays, CTs and MRIs CXR: 1. Central line placement with tip in the expected location. 2. Probable small left lower lobe infiltrate. Additional Diagnostics pH ____7.366 - pCO2 ___80.9__ -mmHg pO2 ___61.1__ -mmHg HCO3- ___46.3__ -mmol/L ABE ___19.0__ -mmol/L tHb ___10.3__ -g/dL O2Hb ___89.4__ -% COHb ____2.9__ -% MetHb ___-0.1__ -% sO2 ___92.0__ -% FIO2 ___30.0__ -% Set_RR 14 -b/min Drawn By KBB - Date/Time Notified____ 12:11:00 -_ Oxygen Device 1 ____BIPAP - Notified By kbb - Notified Whom Sacha Brown, MD -___ B 754 -mmHg K+ ____3.5__ -mmol/L tO2 ___13.0__ -Vol% Tereso test _Positive - Assessment & Plan 1. Acute on chronic respiratory failure with hypercarbia and hypoxia. -Now significantly improved, he is off BiPAP. Nasal cannula only -This was likely secondary to oversedation due to pain medications. 2. Possible opiate overdose with hypoventilation, POA. -Improved with initiation of Narcan -Careful adjustment of his pain medications. -We will restart at his normal home dose 3. Possible aspiration pna. POA. -Emperic meropenem, stepdown is able - blood and sputum cultures, procalc. 4. Metabolic encephalopathy, POA. -Improved today 5. Morbid obesity, POA 6. CARRIE, hypoventilation syndrome, POA. BiPAP and evaluate trilogy. 7. Left fibula fracture, POA. Splint -He will need outpatient follow-up. 8. Headache after fall, POA. -CT originally ordered, discontinued after the patient has returned to baseline. 9. Parkinson's, PA. Resume usual meds 10. Dysphagia, POA. Swallow eval 11. Acute on chronic renal failure, present on admission: -Worse today. Continue to follow BMP -He was given IV fluids overnight, now discontinued. Restart all home meds as appropriate CODE STATUS: Full code DVT prophylaxis: Lovenox Disposition: He has had significant improvement, no longer requiring ICU. Will transfer to [facility] VTE Mechanical Devices: Intermittant Pneumatic CD Resuscitation Status: CPR: Attempt Resuscitation Joshua Murry DO Oct 29, 2016 17:21
--- NOTE | 2016-10-29 17:34 | NUR ---
Wound Care Pressure ulcer protocol received, pt seen at bedside. 61 yo obese male admitted to [facility] for respiratory failure, presents in a bariatric air bed. Skin assessment with nursing reveals no pressure related skin issues at this time. Splint not removed from left lower leg as ortho notes are not seen in EMR yet, will recheck on patient tomorrow.
--- NOTE | 2016-10-29 20:13 | NUR ---
spiritual care: routine caring missile facilities repairer Ewelina Lopez visited pt and reported conversation, prayer and that pt engaged easily in themes important to him including his elizabeth and spirituality.
[2016-10-29] MEDS: Insulin GLARgine 100 Unit/mL Syringe SUBQ SCH (21:14)
[2016-10-29] MEDS: Arformoterol 15 mCg/2 mL Inhalation Solution INHALATION SCH (21:17)
[2016-10-30] VITALS (10 sets, daily range): BP systolic 107–150; BP diastolic 60–84; PULSE 82–96; RESP 18–20; O2SAT 93–98
[2016-10-30] MEDS: Meropenem Inj 1,000 MG in 0.9% Sodium Chloride 100 ML IV SCH ×3 (00:31→17:08)
--- NOTE | 2016-10-30 02:30 | NUR ---
Respiratory/Pain RT in room @ HS and assisted with placing patient on trilogy machine. CPOx- 96-98%. Received Oxycodone 20mg PO x1 this shift for c/o 8/10 generalized pain. Noted to be resting with eyes closed upon reassessment. No further c/o breakthrough pain so far this shift.
[2016-10-30] MEDS: Pantoprazole 40 mg ER24 Tablet PO SCH (05:27)
[2016-10-30 05:44] LABS: Mean Corpuscular Hemoglobin 25.5 pg (27.0-35.0)
[2016-10-30] MEDS: Insulin LISPRO 300 Unit/3 mL Inj SUBQ SCH ×4 (08:33→22:02)
[2016-10-30] MEDS: ARIPiprazole 2 mg Tablet PO SCH (08:35)
[2016-10-30] MEDS: predniSONE 10 mg Tablet PO SCH (08:38)
[2016-10-30] MEDS: Potassium Chloride 20 mEq SR Tablet PO SCH (08:46)
[2016-10-30] MEDS: Arformoterol 15 mCg/2 mL Inhalation Solution INHALATION SCH ×2 (08:56→20:18)
--- NOTE | 2016-10-30 11:25 | PCM.PNMED ---
Subjective Date of Service Oct 30, 2016 Subjective Pt doing well this morning. He states he is feeling well and his mentation has returned to baseline. He states he does not have any shortness of breath at the moment. He is not interested in decreasing his pain medication dose. No other complaints or concerns at this time. Exam Vital Signs Vital Sign - Last Date Time Temp Pulse Resp B/P Pulse Ox O2 Delivery O2 Flow Rate FiO2 10/30/16 09:41 36.3 90 20 107/60 94 Nasal Cannula 10/30/16 08:57 3.00 10/29/16 00:06 30 Intake and Output 10/29/16 10/29/16 10/30/16 Cumulative From/Thru 15:00 23:00 07:00 10/28/16 13:28 - 10/30/16 06:06 Intake Total 2134 ml 1259 ml 6511 ml Output Total 850 ml 1200 ml 3550 ml Balance 1284 ml 59 ml 2961 ml Intake Oral 700 ml 1000 ml 1700 ml IV Total 1434 ml 259 ml 4811 ml Output Urine Total 850 ml 1200 ml 3550 ml # Bowel Movements 0 0 Exam GENERAL: NAD, Pt laying in bed comfortably, Supermorbidly obese HEENT: AT/NC, PERRLA, EOMI, Mucus Membranes are moist CARDIAC: RRR; No M/R/G PULM: CTAB; No wheezes or rhonchi bilaterally ABD: Soft, Nontender, Nondistended, Positive bowel sounds in all quadrants, No Hepatosplenomegaly appreciated EXT: No C/C/E; No calf tenderness bilaterally SKIN: Warm, Dry, [place], and Intact NEURO: Alert and oriented x3; Following all commands PSYCH: Normal mood and affect IVs and Medications Medications Reviewed: Medications were reviewed in detail Lab and Diagnostics Result Diagram: 10/30/1652410/30/16524 X-Rays, CTs and MRIs CXR: 1. Central line placement with tip in the expected location. 2. Probable small left lower lobe infiltrate. Additional Diagnostics pH ____7.366 - pCO2 ___80.9__ -mmHg pO2 ___61.1__ -mmHg HCO3- ___46.3__ -mmol/L ABE ___19.0__ -mmol/L tHb ___10.3__ -g/dL O2Hb ___89.4__ -% COHb ____2.9__ -% MetHb ___-0.1__ -% sO2 ___92.0__ -% FIO2 ___30.0__ -% Set_RR 14 -b/min Drawn By KBB - Date/Time Notified____ 12:11:00 -_ Oxygen Device 1 ____BIPAP - Notified By kbb - Notified Whom Sacha Dasilva MD -___ B 754 -mmHg K+ ____3.5__ -mmol/L tO2 ___13.0__ -Vol% Tereso test _Positive - Assessment & Plan 1. Acute on Chronic Respiratory Failure with hypercarbia and hypoxia. - Improving - Pt was initially on BiPAP however he has been weaned off of this and is receiving O2 by PA - This was likely secondary to oversedation due to pain medications, however pt refuses to decrease his dose of narcotics even after education that this could kill him 2. Chronic Pain Syndrome - Accidental opiate overdose, see #1 - Improved with initiation of Narcan - Resume home dose of Oxycodone, however pt has been advised he needs to reduce the amount of pain medication he is taking as this could cause him to lose his life, he verbalized understanding but states he will continue to take the dose of pain medications his PCP prescribes and does not want to discuss lowering his dose at all 3. Aspiration Pneumonia - Continue Meropenem for one more day - Start PO ABX in AM - Blood cultures are negative 4. Obstructive Sleep Apnea - Continue BiPAP at night - Weight loss - Decrease narcotics as an outpatient with PCP 5. Fibula Fracture, Left - Pt to follow-up with PCP as an outpatient 6. Acute Kidney Injury on CKD - Renal function improved today - Continue IV fluids - Avoid nephrotoxic substances - Monitor BMP 7. Disposition - Anticipate discharge to home in 2 days or so VTE Mechanical Devices: Intermittant Pneumatic CD Resuscitation Status: CPR: Attempt Resuscitation Castro Moise MD Oct 30, 2016 11:25
--- NOTE | 2016-10-30 13:01 | NUR ---
Social Work-initial assessment: Data:See initial assessment. Pt is a 61 y/o male who was admitted on 10/30/16 for Respiratory Failure per H&P. Pt's insurance is [facility] and [facility] and PCP is Nicolás Henao MD. EMR Reviewed. Pt's readmission score is 5-high risk. SW met with pt to discuss discharge planning, SW role explained and initial assessment complete. Pt is alert and oriented x3. Pt resides at home with in a single level home with ramp access. Pt uses a wheel-chair at baseline and does not drive. Pt has [facility] and 19 hours a week though [facility]. Patient's [facility] worker is Nancy. SW will fax patient's clinical to [employer]. Patient has SNF history at [facility]. Pt has completed DPOA/ advanced directive and states that his is his DPOA . Pt has no bundle helper care or VA benefits. Patient will discharge home and resume [facility] and continue to have Caregiver with [facility]. SW will give [facility] access tanna the patient's chart. Patient will discharge home via medicaid transportation at discharge. SW provided phone number and plan on white board in room. SW will continue to follow. Plan: Pt to likely discharge home with [facility] caregiver and resume [facility]. Patient will transport home via medicaid transportation. SW will continue to follow. Camacho Thacker LMSW, KEDAR Addendum: 10/30/16 at 1336 by CAMACHO THACKER SS Amended: Links added.
--- NOTE | 2016-10-30 14:09 | NUR ---
oxygen requirements noted that pt while awake was satting mid 90s on RA, but after receiving 20mg Oxycodone he started desatting about an hour later, required 2L to keep sats above 90%. Discussed with pt but he said he had been on that dose for years
[2016-10-30] MEDS: Insulin GLARgine 100 Unit/mL Syringe SUBQ SCH (22:02)
[2016-10-31] VITALS (9 sets, daily range): BP systolic 118–183; BP diastolic 67–72; PULSE 72–80; RESP 16–20; O2SAT 92–98
[2016-10-31] MEDS: Meropenem Inj 1,000 MG in 0.9% Sodium Chloride 100 ML IV SCH ×3 (00:21→16:27)
--- NOTE | 2016-10-31 04:48 | NUR ---
Activity/Pain/Respiratory Patient in bed all of shift. Q2hour turns. No c/o pain or discomfort. Home trilogy machine placed @ HS, patient resting with eyes closed all of shift so far. CPOx- 97%. On 2L NC while awake.
[2016-10-31] MEDS ORDERED: 0.9% Sodium Chloride 250 ML ONE (06:13)
[2016-10-31] MEDS: Pantoprazole 40 mg ER24 Tablet PO SCH (06:18)
[2016-10-31] MEDS: Arformoterol 15 mCg/2 mL Inhalation Solution INHALATION SCH ×2 (07:19→20:09)
[2016-10-31] MEDS: ARIPiprazole 2 mg Tablet PO SCH (07:55)
[2016-10-31] MEDS: predniSONE 10 mg Tablet PO SCH (07:56)
[2016-10-31] MEDS: Potassium Chloride 20 mEq SR Tablet PO SCH (08:05)
[2016-10-31 08:40] LABS: BASOPHILS % (AUTO) 0.3 % (0-3); EOSINOPHILS % (AUTO) 1.9 % (0-5); MONOCYTES % (AUTO) 10.2 % (4-12); Mean Corpuscular Hemoglobin 25.6 pg (27.0-35.0); Mean Corpuscular Volume 89.4 fL (81-100); NEUTROPHILS % (AUTO) 70.1 % (40-74); Platelet Count 168 bil/L (150-400)
[2016-10-31] MEDS: Insulin LISPRO 300 Unit/3 mL Inj SUBQ SCH ×4 (08:53→22:31)
--- NOTE | 2016-10-31 11:13 | PCM.PNMED ---
Subjective Date of Service Oct 31, 2016 Subjective Pt doing well. Pt has no complaints at this time. He denies shortness of breath. He is doing well on his home O2. Exam Vital Signs Vital Sign - Last Date Time Temp Pulse Resp B/P Pulse Ox O2 Delivery O2 Flow Rate FiO2 10/31/16 07:21 72 20 98 Nasal Cannula 3.00 10/31/16 04:39 36.5 183/67 10/29/16 00:06 30 Intake and Output 10/30/16 10/30/16 10/31/16 Cumulative From/Thru 15:00 23:00 07:00 10/28/16 13:28 - 10/31/16 06:42 Intake Total 820 ml 1000 ml 8331 ml Output Total 1000 ml 1200 ml 5750 ml Balance -180 ml -200 ml 2581 ml Intake Oral 820 ml 1000 ml 3520 ml IV Total 4811 ml Output Urine Total 1000 ml 1200 ml 5750 ml # Bowel Movements 1 2 3 Exam GENERAL: NAD, Pt laying in bed comfortably HEENT: AT/NC, PERRLA, EOMI, Mucus Membranes are moist CARDIAC: RRR; No M/R/G PULM: CTAB; No wheezes or rhonchi bilaterally NEURO: Alert and oriented x3; Following all commands PSYCH: Normal mood and affect IVs and Medications Medications Reviewed: Medications were reviewed in detail Lab and Diagnostics Result Diagram: 10/31/1630 10/31/16 0830 X-Rays, CTs and MRIs CXR: 1. Central line placement with tip in the expected location. 2. Probable small left lower lobe infiltrate. Additional Diagnostics pH ____7.366 - pCO2 ___80.9__ -mmHg pO2 ___61.1__ -mmHg HCO3- ___46.3__ -mmol/L ABE ___19.0__ -mmol/L tHb ___10.3__ -g/dL O2Hb ___89.4__ -% COHb ____2.9__ -% MetHb ___-0.1__ -% sO2 ___92.0__ -% FIO2 ___30.0__ -% Set_RR 14 -b/min Drawn By KBB - Date/Time Notified____ 12:11:00 -_ Oxygen Device 1 ____BIPAP - Notified By kbb - Notified Whom Sacha Brown, MD -___ B 754 -mmHg K+ ____3.5__ -mmol/L tO2 ___13.0__ -Vol% Tereso test _Positive - Assessment & Plan 1. Acute on Chronic Respiratory Failure with hypercarbia and hypoxia. - Improving - Pt was initially on BiPAP however he has been weaned off of this and is receiving O2 by [place] - This was likely secondary to oversedation due to pain medications, however pt refuses to decrease his dose of narcotics even after education that this could kill him 2. Chronic Pain Syndrome - Accidental opiate overdose, see #1 - Improved with initiation of Narcan - Continue Oxycodone at current dose (Pt was advised he needs to reduce the amount of pain medication he is taking as this could cause him to lose his life , he verbalized understanding but states he will continue to take the dose of pain medications his PCP prescribes and does not want to discuss lowering his dose at all) 3. Aspiration Pneumonia - Continue Meropenem until tomorrow as pt is allergic to Penicillin and he cannot be switched to PO Augmentin - Check Procalcitonin today - Blood cultures are negative 4. Obstructive Sleep Apnea - Continue BiPAP at night - Weight loss - Decrease narcotics as an outpatient with PCP 5. Fibula Fracture, Left - Pt to follow-up with PCP as an outpatient 6. Acute Kidney Injury on CKD - Renal function Stable - Continue IV fluids - Avoid nephrotoxic substances - Monitor BMP 7. Disposition - Anticipate discharge to home in AM VTE Mechanical Devices: Intermittant Pneumatic CD Resuscitation Status: CPR: Attempt Resuscitation Castro Moise MD Oct 31, 2016 11:12
--- NOTE | 2016-10-31 12:10 | NUR ---
SNF Choice List Provided Gertrudis Neff MSW
[2016-10-31] MEDS ORDERED: Glucose 40% Oral Gel 15 Gm Tube PO PRN (12:15)
--- NOTE | 2016-10-31 12:47 | NUR ---
elevated blood sugar Blood sugar 477. Notified hospitalist.
--- NOTE | 2016-10-31 13:01 | NUR ---
Evaluation completed. Please go to "Notes" then click on "Assessments and Notes" (bottom left corner of screen). Then select appropriate discipline tab on top of screen.
--- NOTE | 2016-10-31 13:26 | NUR ---
Blood sugar Recheck blood sugar after insulin was given as ordered and is 486. Trent paged hospitalist and awaiting response back.
--- NOTE | 2016-10-31 13:35 | NUR ---
NUTRITION ASSESSMENT Assess: 61 yo M admitted to CCU for respiratory failure due to oversedation from pain meds. He is on a diabetic diet and tolerating well at 50-75% of meals. Wt that has been recorded has fluctuated between 160-185kg. Per chart review, pt's wt is likely closer to current wt that is recorded of 165.6kg as his wt at previous admits was in the 160s. PMHX: Crytopgenic organizing pneumonia, Obesity hypoventilation w/ CARRIE on BiPAP, Cor pulmonale, CHF, CKD 3, Anemia, Chronic corticosteroid use, GERD. DIET: Consistent Carbohydrate, PO 50-75% LABS: Reviewed. Cl 95, CO2 33, Bun 43, Electronic Publishing Specialist 1.61, Glu 259, Mg 2.8, Alb 3.3 MEDICATIONS: Reviewed. Insulin, Prednisone, zofran GI: BM x 2 10/31 SKIN: No concerns WEIGHT: 165.6 kg BMI: 49.5 ADMIT WT: 180 kg (question accuracy) IBW: 77.6 kg, Adj bW: 100.1kg ESTIMATED NEEDS: Obesity/CKD Calories: 8667-3910 kcal/d (25-30kcal/kg adjbw) Protein: 60-85 g/d (.6-.8g/kg adj bw) NUTRITION DIAGNOSIS: 1) No nutrition diagnoses at this time INTERVENTION: 1) Continue current Diabetic diet at this time MONITOR/EVALUATE: PO intake, wt, GI, Labs, POC. Will follow at moderate nutrition risk guidelines
--- NOTE | 2016-10-31 13:42 | NUR ---
CALVIN Voss at [facility] they are acble to accept the pt tomorrow after 10am with Dr. Ortiz to follow. Advised AUDIO PRODUCTION INSTRUCTOR
--- NOTE | 2016-10-31 16:10 | NUR ---
New orders Notified Hospitalist r/t blood sugar before dinner 463. new orders for Lantus 30 units in the morning, give sliding scale as ordered, 10 mg oxycodone PRN every 4 hours, and Tylenol 650 mg PO PRN every 4 hours as needed for leg pain. pharmacy aware. Patient is in agreement with new orders.
--- NOTE | 2016-10-31 16:20 | NUR ---
Social Work- Readiness for Discharge Data: EMR reviewed. Pt is on day 3 of hospitalization for respiratory failure. Pt is not medically ready for discharge, anticipate 1-2 more days. PT evaluated pt, recommending SNF at this time to continue mobility with transfers. SW spoke with pt and at bedside regarding these recommendations. Pt agreeable to SNF, SNF choice list provided. Pt chose [facility]. Referral faxed to [facility], KARISSA informed they can accept pt with MD Ortiz to follow. Pt agreeable to this. Pt to discharge to [facility] with MD Ortiz to follow. Paperwork in chart, PASRR in folder. SW will continue to follow. Assessment: Pt who would benefit from SNF. Plan: Pt to discharge to [facility] with MD Ortiz to follow. Paperwork in chart, PASRR in folder. SW will continue to follow. KATHERINE Owen
[2016-10-31] MEDS: Insulin GLARgine 100 Unit/mL Syringe SUBQ SCH (22:30)
[2016-11-01] MEDS ORDERED: 0.9% Sodium Chloride 250 ML ONE (00:22)
[2016-11-01] MEDS: Meropenem Inj 1,000 MG in 0.9% Sodium Chloride 100 ML IV SCH ×2 (00:29→08:34)
[2016-11-01 00:30] VITALS: BP 132/71; PULSE 78; RESP 16; O2SAT 96
--- NOTE | 2016-11-01 05:23 | NUR ---
Pain Pt making good effort to manage pain with less opioids, understands that he will tolerate a higher level of pain. Oxycodone and Tylenol given every 4 hours. Left leg still very painful. Assisted to reposition frequently for skin care and comfort. Hourly rounding onoging.
[2016-11-01 05:31] VITALS: PULSE 77
[2016-11-01] MEDS: Pantoprazole 40 mg ER24 Tablet PO SCH (06:05)
[2016-11-01 06:23] VITALS: BP 111/70; PULSE 70; RESP 16; O2SAT 98
[2016-11-01] MEDS: Insulin LISPRO 300 Unit/3 mL Inj SUBQ SCH ×2 (08:10→11:42)
[2016-11-01] MEDS ORDERED: OXYC5TAB72 PO (08:26)
--- NOTE | 2016-11-01 08:29 | PCM.DIMED ---
Discharge Instructions Date of Service Nov 01, 2016 Dates of Hospitalization Oct 28, 2016 at 14:14 Discharge Diagnosis Discharge Diagnosis 1. Acute on Chronic Respiratory Failure, Hypoxemic 2. Narcotic Overdose, Accidental 3. Chronic Pain Syndrome 4. Obesity Hypoventilation Syndrome 5. Diabetes Mellitus, Type II 6. Essential Hypertension 7. Glaucoma 8. Super Morbid Obesity 9. Chronic Kidney Disease, Stage III Diet Heart Healthy, Diabetic, Renal Diet Activity No restrictions Call your provider Fever or Chills, Shortness of breath, Bleeding, Chest pain, Vomitting, Excessive diarrhea, Weakness (unilateral) Patient Instructions Follow-up with PCP in: 1 week (Pt to call for an appoinement.) Castro Moise MD Nov 01, 2016 08:29
[2016-11-01] MEDS: predniSONE 10 mg Tablet PO SCH (08:34)
[2016-11-01] MEDS: ARIPiprazole 2 mg Tablet PO SCH (08:35)
[2016-11-01] MEDS: Potassium Chloride 20 mEq SR Tablet PO SCH (08:37)
[2016-11-01 08:54] VITALS: BP 117/55; PULSE 77; RESP 18; O2SAT 100
[2016-11-01 08:59] VITALS: PULSE 78; RESP 18; O2SAT 100
[2016-11-01] MEDS: Arformoterol 15 mCg/2 mL Inhalation Solution INHALATION SCH (08:59)
[2016-11-01] MEDS: Insulin GLARgine 100 Unit/mL Syringe SUBQ SCH (09:05)
[2016-11-01 09:18] VITALS: PULSE 66
--- NOTE | 2016-11-01 09:22 | NUR ---
Aspirin allergy Denies true allergy to aspirin and states that he takes it daily. States "big doses make me bleed."
--- NOTE | 2016-11-01 11:00 | PCM.DC.MED ---
Discharge Summary Date of Service Nov 01, 2016 Dates of Hospitalization Date of Hospital Admission Oct 28, 2016 at 14:14 Date of Discharge: Nov 01, 2016 Providers: Admitting Physician: Tereso Myers MD Primary Care Physician: Nicolás Pendleton MD Attending Physician: Tereso Myers MD Diagnosis at Time of Discharge Diagnosis at Time of Discharge 1. Acute on Chronic Respiratory Failure, Hypoxemic 2. Narcotic Overdose, Accidental 3. Chronic Pain Syndrome 4. Obesity Hypoventilation Syndrome 5. Diabetes Mellitus, Type II 6. Essential Hypertension 7. Glaucoma 8. Super Morbid Obesity 9. Chronic Kidney Disease, Stage III Consultations 1. Pulmonology Procedures XRay, CTs & MRIs CXR: 1. Central line placement with tip in the expected location. 2. Probable small left lower lobe infiltrate. Invasive Procedures 1. Endotracheal Intubation with Mechanical Ventilation Other Diagnostics pH ____7.366 - pCO2 ___80.9__ -mmHg pO2 ___61.1__ -mmHg HCO3- ___46.3__ -mmol/L ABE ___19.0__ -mmol/L tHb ___10.3__ -g/dL O2Hb ___89.4__ -% COHb ____2.9__ -% MetHb ___-0.1__ -% sO2 ___92.0__ -% FIO2 ___30.0__ -% Set_RR 14 -b/min Drawn By KBB - Date/Time Notified____ 12:11:00 -_ Oxygen Device 1 ____BIPAP - Notified By kbb - Notified Whom Sacha Dasilva MD -___ B 754 -mmHg K+ ____3.5__ -mmol/L tO2 ___13.0__ -Vol% Tereso test _Positive - Brief History Patient seen in ED last noc from 01:00-06:00 and diagnosed with a fibular fracture. Sent home and was essentially unarousable from that time on. Brought back to ED and found to be in acute hypoxic respiratory failure. He was placed on BiPAP and ventilated reasonably well. He was given 3 doses of nasal naloxone with minimal improvement. Patient didn't respond, he was then given one partial IV dose and did improve. He takes chronic oxycodone 20 mg tabs, about 5 a day. He may have been given analgesia in his first ED visit. Family notes his home trilogy ventilator has not powered on for the last 2 nights. Caregiver notes 2 falls from chair Thursday. Hit head and has complained of head pain. Has worried about pna due to cough. Has been choking on food, maybe due to progressive Parkinson's. Has had progressive left leg pain since fall and was diagnosed with a fibular fracture. Hospital Course 1. Acute on Chronic Respiratory Failure with hypercarbia and hypoxia. - Improving - Pt was initially on BiPAP however he has been weaned off of this and is receiving O2 by RI - This was likely secondary to oversedation due to pain medications - Pt is now back on his baseline of 3 L of O2 by RI and doing well with this 2. Chronic Pain Syndrome - Accidental opiate overdose, see #1 - Improved with initiation of Narcan - Continue Oxycodone at 10 mg PO q 4 hours MAXIMUM - we have weaned him down from 20 mg PO q 4 hours 3. Aspiration Pneumonia - PT received 5 days of IV Meropenem - On day of discharge his procalcitonin is negative and his WBC count has normalized and he is afebrile - Blood cultures are negative 4. Obstructive Sleep Apnea - Continue BiPAP at night - Weight loss - Decrease narcotics further as an outpatient with PCP 5. Fibula Fracture, Left - Pt to follow-up with PCP as an outpatient 6. Acute Kidney Injury on CKD - Renal function Stable - Avoid nephrotoxic substances - Monitor BMP 7. Disposition - Pt is discharged to SNF in good/stable condition Exam Vital Signs (Last) Date Time Temp Pulse Resp B/P Pulse Ox O2 Delivery O2 Flow Rate FiO2 11/01/16 09:18 66 11/01/16 08:59 18 100 Nasal Cannula 2.50 11/01/16 08:54 36.6 117/55 10/29/16 00:06 30 Exam GENERAL: NAD, Pt laying in bed comfortably HEENT: AT/NC, PERRLA, EOMI, Mucus Membranes are moist CARDIAC: RRR; No M/R/G PULM: CTAB; No wheezes or rhonchi bilaterally NEURO: Alert and oriented x3; Following all commands PSYCH: Normal mood and affect Test 10/28/16 11:45 10/28/16 14:00 10/28/16 19:15 10/29/16 04:00 Prothrombin Time 10.6sec (8.1-12.5) Prothromb Time International Ratio 0.99ratio Hemoglobin A1c 8.1% (4.8-5.6) Lactic Acid Level 1.7mmol/L (0.4-2.0) Phosphorus Level 4.3mg/dL (2.5-4.9) Pro-B-Type Natriuretic Peptide 640.0pg/mL (0-210) Prealbumin 21mg/dL (20-40) Urine Color Yellow (YELLOW) Urine Appearance Clear (CLEAR,HAZY) Urine pH 5.0 (5.0-8.0) Urine Specific [place] 1.010 (1.003-1.035) Urine Protein Negativemg/dL (NEG,TRACE) Urine Glucose (UA) Negativemg/dL (NEGATIVE) Urine Ketones Negativemg/dL (NEGATIVE) Urine Occult Blood Negative (NEGATIVE) Urine Nitrite Negative (NEGATIVE) Urine Bilirubin Negative (NEGATIVE) Urine Urobilinogen Normalmg/dL (NORMAL) Urine Leukocyte Esterase Negative (NEGATIVE) Urine RBC 0-2/hpf (0-2) Urine WBC 0-5/hpf (0-5) Urine Epithelial Cells Occasional/hpf (NONE-MOD) Urine Crystals Amorphous urates (NONE Urine Bacteria Few/hpf (NONE-FEW) Urine Hyaline Casts None/lpf (NONE) Urine Granular Casts None seen (NONE SEEN) Urine Waxy Casts None seen (NONE SEEN) Urine Red Blood Cell Casts None seen (NONE SEEN) Urine White Blood Cell Casts None seen (NONE SEEN) Urine Mucus None seen (None Seen) Urine Trichomonas None seen (NONE SEEN) Urine Yeast None (NONE SEEN) Urinalysis Comment None Urine Culture Reflexed Not indicated Troponin T 0.159ug/L (0.0-0.011) Magnesium Level 2.8mg/dL (1.6-2.6) Total Bilirubin 0.6mg/dL (0.0-1.2) Aspartate Amino Transf (AST/SGOT) 21U/L (0-50) Alanine Aminotransferase (ALT/SGPT) 16U/L (0-44) Alkaline Phosphatase 67U/L (25-160) Total Protein 6.0g/dL (6.4-8.4) Albumin 3.3g/dL (3.4-5.0) Test 10/31/16 08:30 11/01/16 04:45 White Blood Count 7.6th/mm3 (3.8-10.1) Red Blood Count 3.67mil/mm3 (4.40-5.80) Hemoglobin 9.4g/dL (13.8-17.2) Hematocrit 32.8% (41.0-50.0) Mean Corpuscular Volume 89.4fL (81-100) Mean Corpuscular Hemoglobin 25.6pg (27.0-35.0) Mean Corpuscular Hemoglobin Concent 28.7% (32.0-37.0) Red Cell Distribution Width 19.3% (12.3-15.4) Platelet Count 168bil/L (150-400) Neutrophils (%) (Auto) 70.1% (40-74) Lymphocytes (%) (Auto) 16.8% (14-46) Monocytes (%) (Auto) 10.2% (4-12) Eosinophils (%) (Auto) 1.9% (0-5) Basophils (%) (Auto) 0.3% (0-3) Procalcitonin 0.13ng/mL (0.00-0.08) Sodium Level 142mEq/L (134-144) Potassium Level 4.3mEq/L (3.5-5.2) Chloride Level 93mEq/L (97-108) Carbon Dioxide Level 38mmol/L (18-29) Blood Urea Nitrogen 44mg/dL (8-27) Creatinine 1.74mg/dL (0.76-1.27) Estimat Glomerular Filtration Rate 43mL/min (>59) Glucose Level 369mg/dL (60-99) Calcium Level 8.9mg/dL (8.5-10.1) Discharge Medications Discharge Medications Allopurinol (Allopurinol) 100 Mg Tablet 100 MG PO DAILY (Reported) Amitriptyline (Amitriptyline) 50 Mg Tab 50 MG PO HS (Reported) Arformoterol Tartrate (Brovana) 15 Mcg/2 Ml Vial.neb 15 MCG IH BID (Reported) Aripiprazole (Aripiprazole) 2 Mg Tablet 2 MG PO DAILY (Reported) Ascorbic Acid (Vitamin C) 500 Mg Capsule.er 500 MG PO DAILY (Reported) Aspirin (Aspirin) 81 Mg Tablet 81 MG PO DAILY (Reported) Atorvastatin Calcium (Atorvastatin Calcium) 10 Mg Tablet 10 MG PO HS (Reported) Carbidopa/Levodopa 25-100 mg (Carbidopa/Levodopa 25-100 mg) 1 Each Tablet 2 TABLET PO QID (Reported) Cholecalciferol (Vitamin D3) (Vitamin D3) 2,000 Unit Capsule 2,000 UNIT PO DAILY (Reported) Cinnamon Bark/Chromium Picolin (Cinnamon Plus Chromium Capsule) 1 Each Capsule 1 EACH PO DAILY (Reported) Citalopram (Citalopram) 40 Mg Tablet 40 MG PO DAILY (Reported) Clopidogrel Bisulfate (Plavix) 75 Mg Tablet 75 MG PO DAILY Prescribed by: MIRACLE MERRILL DO Cyanocobalamin (Vitamin B-12) (B-12) 500 Mcg Tab.rapdis 500 MCG SL DAILY ( Reported) Fluticasone Propionate (Flonase Allergy Relief) 9.9 Ml Gibson.susp 1 SPRAYS NS DAILY (Reported) Insulin Glargine (Lantus U100 Insulin Vial) 100 Unit/Ml Vial 60 UNITS SUBQ BID ( Reported) Insulin Regular, Human (HUMulin-R U-500 Insulin Vial) 500 Unit/1 Ml Vial 8 UNITS SUBQ TIDAC (Reported) Lactobacillus Acidophilus (Acidophilus) 1 Each Capsule 1 EACH PO DAILY (Reported ) Latanoprost (Latanoprost) 2.5 Ml Drops 1 GTT BOTH_EYES HS (Reported) Magnesium Oxide (Magnesium Oxide) 400 Mg Tablet 400 MG PO DAILY (Reported) Metoprolol Tartrate (Metoprolol Tartrate) 25 Mg Tablet 50 MG PO BID Prescribed by: PONCHO VICENTE MD Multivitamin (Multivitamins) 1 Each Capsule 1 EACH PO DAILY (Reported) Omeprazole (Omeprazole) 20 Mg Capsule.dr 20 MG PO DAILY (Reported) Potassium Chloride ER (Klor-Con M20) 20 Meq Tablet 20 MEQ PO DAILY (Reported) Prednisone (PredniSONE) 10 Mg Tablet 10 MG PO DAILY Prescribed by: MIRACLE MERRILL DO Pregabalin (Lyrica) 225 Mg Capsule 225 MG PO BID (Reported) Spironolactone (Spironolactone) 25 Mg Tablet 25 MG PO BID (Reported) Tamsulosin ER (Tamsulosin ER) 0.4 Mg Cap.er.24h 0.4 MG PO HS (Reported) Torsemide (Torsemide) 100 Mg Tablet 50 MG PO BID (Reported) As needed Acetaminophen (Acetaminophen) 500 Mg Tablet 500 MG PO Q6H PRN PRN For Pain ( Reported) Albuterol Neb Soln (Albuterol Neb Soln) 2.5 Mg/3 Ml Vial.neb 2.5 MG INHALATION Q4H PRN PRN For Shortness of Breath (Reported) Albuterol Sulfate (Ventolin HFA Inhaler) 200 Puff/18 Gm Inhaler 2 PUFFS INH q4- 6 hours PRN PRN For Shortness of Breath (Reported) Calcium Carbonate (Tums) 500 Mg Tab.chew 2,000 MG PO PRN PRN PRN For Indigestion (Reported) Dextran 70/Hypromellose/Pf (Artificial Tears Drops) 1 Each Droperette 1 DROP BOTH_EYES QID PRN PRN dry eyes (Reported) Loratadine (Claritin) 10 Mg Capsule 10 MG PO DAILY PRN PRN allergies (Reported) Polyethylene Glycol 3350 (Gavilax) 17 Gm Powd.pack 17 GM PO DAILY PRN PRN For Constipation (Reported) Sennosides (Senna) 8.6 Mg Tablet 17.2 MG PO BID PRN PRN For Constipation ( Reported) oxyCODONE (oxyCODONE) 5 Mg Tablet 10 MG PO Q4H PRN PRN For Pain Prescribed by: BEBE YEE MD Followup Plan Discharge Diet: Heart Healthy, Diabetic, Renal Diet Discharge Activity: No restrictions Follow-up with PCP in: 1 week (Pt to call for an appoinement.) Time spent 32 minutes Bebe Yee MD Nov 01, 2016 11:00
--- NOTE | 2016-11-01 11:12 | NUR ---
Social Work- Discharge Data: EMR reviewed. Pt is on day 4 of hospitalization for respiratory failure. Pt to discharge today. PT evaluated pt, recommending SNF at this time to continue mobility with transfers. Pt is on O2. KARISSA spoke with Camelia regarding pt's discharge, agreeable to accepting pt today. KARISSA created packet and faxed orders. SW set up BLS transport for 1300. SW spoke with pt and at bedside, explained that although we have reviewed pt's eligibility for BLS transport, we cannot guarantee insurance will cover it in full. Pt agreeable to this. Pt to discharge to [facility] via BLS at 1300 with MD Ortiz to follow. CHRIS, RN, pt/family, and Alyces all updated and agreeable to plan. Assessment: Pt who would benefit from SNF. Plan: Pt to discharge to [facility] via S with MD Ortiz to follow. CHRIS, RN, pt/family, and Alyces all updated and agreeable to plan. Gertrudis Neff MSW
--- NOTE | 2016-11-01 13:39 | NUR ---
Discharge To [facility] via BLS at 13:20. Report phoned to Mary. All belongings, including bipap machine, sent with . IJ line discontinued by IV therapy. Pain meds given just prior to discharge and time updated on report sheet.
== END 2016-11-01 13:20 | DRG 189 ==
LOC: EDBD 11:27 → EDUNIT# 11:27 → SED 11:27 → CCU 14:14 → PCC 10-29 09:40 → OSC 10-29 15:42
PROVIDERS: ADMIT Hospitalist; ATTEND Hospitalist
PROC: 4A033R1 Measurement of Arterial Saturation, Peripheral, Percutaneous Approach (ICD-10-PCS; principal; 2016-10-28)
DX: J96.21 Acute and chronic respiratory failure with hypoxia (principal); J69.0 Pneumonitis due to inhalation of food and vomit; G93.41 Metabolic encephalopathy; Z68.42 Body mass index [BMI] 45.0-49.9, adult; E66.2 Morbid (severe) obesity with alveolar hypoventilation; N17.9 Acute kidney failure, unspecified; I50.32 Chronic diastolic (congestive) heart failure; J96.22 Acute and chronic respiratory failure with hypercapnia; G89.4 Chronic pain syndrome; E11.9 Type 2 diabetes mellitus without complications; I12.9 Hypertensive chronic kidney disease with stage 1 through stage 4 chronic kidney disease, or unspecified chronic kidney disease; N18.3 Chronic kidney disease, stage 3 (moderate); H40.9 Unspecified glaucoma; J44.9 Chronic obstructive pulmonary disease, unspecified; I48.0 Paroxysmal atrial fibrillation; Z79.4 Long term (current) use of insulin; G20 Parkinson's disease; S82.402A Unspecified fracture of shaft of left fibula, initial encounter for closed fracture; T40.2X1A Poisoning by other opioids, accidental (unintentional), initial encounter

== ENCOUNTER 2017-01-19 03:21 | Inpatient (IN) | payer MEDICARE, MEDICAID ==
[~2017-01-19] VITALS: Ht 182.9 cm; Wt 161.6 kg
[2017-01-19] VITALS (13 sets, daily range): BP systolic 84–161; BP diastolic 40–78; PULSE 84–119; RESP 14–30; O2SAT 95–100
[~2017-01-19 03:21] MED LIST changes: -LACT1CAP13 PO; +LACT1CAP26 PO; -OXYC10TA8 PO; -OXYC20TA4 PO; +OXYC5TAB72 PO
--- NOTE | 2017-01-19 03:47 | ED.REPORT ---
HPI-Altered Mental Status Date of Service Jan 19, 2017 ED Provider: Dr. Santiago 61 y/o man with a hx of diabetes mellitus, hypertension, chronic kidney disease , congestive heart failure, chronic hypoxemic respiratory failure, BOOP on chronic prednisone, COPD, and Parkinsonian tremor presents to the ED via EMS complaining of decreased level of consciousness, onset today.The EMS administered Narcan en route, with little effect. The pt states "I was trying to get off the chair but I couldn't. I kept trying and I had stool all over me. " Associated sx include cough with yellow sputum and one episode of vomiting. He denies fever, chills, abdominal pain and dysuria. The pt's states she was concerned because she was unable to wake him up or keep him awake to get dressed. Nursing Notes Stated Complaint: ALTERED LEVEL OF CONSCIOUSNESS Chief Complaint: General Complaint Nursing Notes Reviewed: Yes Allergies: Coded Allergies: amoxicillin (Verified Adverse Reaction, Severe, Nausea, 01/19/17) VERY NAUSEUOUS clavulanic acid (Verified Adverse Reaction, Severe, Nausea, 01/19/17) aspirin (Verified Adverse Reaction, Intermediate, Hematuria, 01/19/17) Blood in urine after exterminator use Scheduled Allopurinol (Allopurinol) 100 Mg Tablet 100 MG PO DAILY Amitriptyline (Amitriptyline) 50 Mg Tab 50 MG PO HS Arformoterol Tartrate (Brovana) 15 Mcg/2 Ml Vial.neb 15 MCG IH BID Aripiprazole (Aripiprazole) 2 Mg Tablet 2 MG PO DAILY Ascorbic Acid (Vitamin C) 500 Mg Capsule.er 500 MG PO DAILY Aspirin (Aspirin) 81 Mg Tablet 81 MG PO DAILY Atorvastatin Calcium (Atorvastatin Calcium) 10 Mg Tablet 10 MG PO HS Carbidopa/Levodopa 25-100 mg (Carbidopa/Levodopa 25-100 mg) 1 Each Tablet 2 TABLET PO QID Cholecalciferol (Vitamin D3) (Vitamin D3) 2,000 Unit Capsule 2,000 UNIT PO DAILY Cinnamon Bark/Chromium Picolin (Cinnamon Plus Chromium Capsule) 1 Each Capsule 1 EACH PO DAILY Citalopram (Citalopram) 40 Mg Tablet 40 MG PO DAILY Clopidogrel Bisulfate (Plavix) 75 Mg Tablet 75 MG PO DAILY Cyanocobalamin (Vitamin B-12) (B-12) 500 Mcg Tab.rapdis 500 MCG SL DAILY Fluticasone Propionate (Flonase Allergy Relief) 9.9 Ml [place].susp 1 SPRAYS NS DAILY Insulin Glargine (Lantus U100 Insulin Vial) 100 Unit/Ml Vial 60 UNITS SUBQ BID Insulin Regular, Human (HUMulin-R U-500 Insulin Vial) 500 Unit/1 Ml Vial 8 UNITS SUBQ TIDAC Lactobacillus Acidophilus (Acidophilus) 1 Each Capsule 1 EACH PO DAILY Latanoprost (Latanoprost) 2.5 Ml Drops 1 GTT BOTH_EYES HS Magnesium Oxide (Magnesium Oxide) 400 Mg Tablet 400 MG PO DAILY Metoprolol Tartrate (Metoprolol Tartrate) 25 Mg Tablet 50 MG PO BID Multivitamin (Multivitamins) 1 Each Capsule 1 EACH PO DAILY Omeprazole (Omeprazole) 20 Mg Capsule.dr 20 MG PO DAILY Potassium Chloride ER (Klor-Con M20) 20 Meq Tablet 20 MEQ PO DAILY Prednisone (PredniSONE) 10 Mg Tablet 10 MG PO DAILY Pregabalin (Lyrica) 225 Mg Capsule 225 MG PO BID Spironolactone (Spironolactone) 25 Mg Tablet 25 MG PO BID Tamsulosin ER (Tamsulosin ER) 0.4 Mg Cap.er.24h 0.4 MG PO HS Torsemide (Torsemide) 100 Mg Tablet 50 MG PO BID Scheduled PRN Acetaminophen (Acetaminophen) 500 Mg Tablet 500 MG PO Q6H PRN PRN For Pain Albuterol Neb Soln (Albuterol Neb Soln) 2.5 Mg/3 Ml Vial.neb 2.5 MG INHALATION Q4H PRN PRN For Shortness of Breath Albuterol Sulfate (Ventolin HFA Inhaler) 200 Puff/18 Gm Inhaler 2 PUFFS INH q4- 6 hours PRN PRN For Shortness of Breath Calcium Carbonate (Tums) 500 Mg Tab.chew 2,000 MG PO PRN PRN PRN For Indigestion Dextran 70/Hypromellose/Pf (Artificial Tears Drops) 1 Each Droperette 1 DROP BOTH_EYES QID PRN PRN dry eyes Loratadine (Claritin) 10 Mg Capsule 10 MG PO DAILY PRN PRN allergies Polyethylene Glycol 3350 (Gavilax) 17 Gm Powd.pack 17 GM PO DAILY PRN PRN For Constipation Sennosides (Senna) 8.6 Mg Tablet 17.2 MG PO BID PRN PRN For Constipation oxyCODONE (oxyCODONE) 5 Mg Tablet 10 MG PO Q4H PRN PRN For Pain General Time Seen by MD: 03:46 Chief Complaint Decreased responsiveness Hx Obtained From: Patient, Spouse Arrived By: Ambulance Sudden in Onset?: Yes Onset Occurred: 1 - 4 hours ago Symptom Duration: Since onset Severity: Current: No pain currently Severity: Maximum: No pain Recent Healthcare: Recent doctor visit Similar Sx Previous: No Past Medical History Past Medical History Notes: PCP: Dr. Pendleton Maintenance Mechanic Engine Dr. Chang Seed Buyer Dr. Clement Past Medical History 1. Paroxysmal Atrial Fibrillation 2. ho/ chronic hypoxemic respiratory failure (states patient uses O2 3 L at night at baseline) 3. history of MSRA 4. CKD stage III 5. History of pancreatitis 6. BOOP on chronic prednisone (patient states current dose as of July 2016 is 10 mg daily) 7. Diabetes Mellitus Type 2, insulin-using, poorly controlled 8. Hypertension 9. Parkinsonian Tremor 10. BPH 11. Anxiety and depression 12. CARRIE on CPAP 13. Chronic congestive heart failure secondary to diastolic dysfunction 14. chronic edema 15. Gout 16. Chronic back pain on opiates (history of acute L2 fracture 06/2016 as well) History of cor pulmonale per pulmonology note June 2016 Obesity hypoventilation syndrome per pulmonology note June 2016 Obesity BMI 48.2 Past Surgical History Colonoscopy Lung biopsy Hernia repair Reports: Appendectomy Family History Reports: Diabetes mellitus Smoking History Former Smoker Social History Alcohol Use: Denies alcohol use Drug Use: Denies drug use Other Social History: Good social support, Frequent ED visitor, , Local resident Ambulatory Status Walker Review of Systems Constitutional: Denies: Chills, Fever Respiratory: Reports: Prod cough, yellow GI: Reports: Vomiting, Denies: Abdominal pain Neurologic: Reports: Change LOC Complete sys rev & neg: except as marked. Male: Denies Dysuria Physical Exam Initial Vital Signs Vital Signs (First) Date Time Temp Pulse Resp B/P Pulse Ox O2 Delivery O2 Flow Rate FiO2 01/19/17 03:40 36.8 119 24 107/58 100 Nasal Cannula 4 Initial VS: Reviewed Abdomen / GI: Soft, Non-tender Extremities: Vascular intact, Neuro intact, No swelling, No tenderness Skin: Warm, Dry, No cyanosis General/Constitutional: Awake, Alert, Cooperative Appearance / Presentation: Positive: Obese, morbidly Head / Eyes: Atraumatic, Normocephalic, PERRL Pupils were 1mm en route via EMS. In the ED, pupils are 3mm. Neck: Atraumatic, Supple, Full range of motion Respiratory / Chest: Atraumatic, Breath sounds NL, Breath sounds = bilat, No respiratory distress, No wheezing Cardiovascular: Regular rhythm, Heart sounds NL, No gallop, No murmurs, No rubs Heart Rate / Rhythm: Positive: Tachycardia Neurologic: Oriented X3, Speech NL, No motor deficits, No sensory deficits ENT: Atraumatic, Airway patent, Pharynx NL Mouth: Positive: Mucous membranes dry Skin: Atraumatic, Dry Cellulitis of lower extremities bilaterally. Interpretation & Diagnostics Lab Results Interpretation Result Diagram: 01/19/17 0350 01/19/17 0350 Test 01/19/17 03:50 01/19/17 05:10 White Blood Count 13.4th/mm3 (3.8-10.1) Red Blood Count 4.58mil/mm3 (4.40-5.80) Hemoglobin 12.1g/dL (13.8-17.2) Hematocrit 39.1% (41.0-50.0) Mean Corpuscular Volume 85.4fL (81-100) Mean Corpuscular Hemoglobin 26.4pg (27.0-35.0) Mean Corpuscular Hemoglobin Concent 30.9% (32.0-37.0) Red Cell Distribution Width 18.4% (12.3-15.4) Platelet Count 195bil/L (150-400) Neutrophils (%) (Auto) 81.0% (40-74) Lymphocytes (%) (Auto) 5.8% (14-46) Monocytes (%) (Auto) 12.6% (4-12) Eosinophils (%) (Auto) 0.1% (0-5) Basophils (%) (Auto) 0.1% (0-3) Hold Purple Top Tube Received (Received) Prothrombin Time 11.2sec (8.1-12.5) Prothromb Time International Ratio 1.05ratio Activated Partial Thromboplast Time 25.0sec (22.8-33.0) Hold Blue Top Tube Received (Received) Sodium Level 141mEq/L (134-144) Potassium Level 3.7mEq/L (3.5-5.2) Chloride Level 90mEq/L (97-108) Carbon Dioxide Level 31mmol/L (18-29) Blood Urea Nitrogen 96mg/dL (8-27) Creatinine 2.41mg/dL (0.76-1.27) Estimat Glomerular Filtration Rate 29mL/min (>59) Glucose Level 260mg/dL (60-99) Lactic Acid Level 2.1mmol/L (0.4-2.0) Calcium Level 8.3mg/dL (8.5-10.1) Phosphorus Level 5.1mg/dL (2.5-4.9) Magnesium Level 2.2mg/dL (1.6-2.6) Total Bilirubin 0.6mg/dL (0.0-1.2) Aspartate Amino Transf (AST/SGOT) 23U/L (0-50) Alanine Aminotransferase (ALT/SGPT) 8U/L (0-44) Alkaline Phosphatase 60U/L (25-160) Troponin T 0.262ug/L (0.0-0.011) Pro-B-Type Natriuretic Peptide 734.2pg/mL (0-210) Total Protein 7.1g/dL (6.4-8.4) Albumin 3.7g/dL (3.4-5.0) Lipase 39U/L (13-60) Procalcitonin 2.93ng/mL (0.00-0.08) Hold Red Top Tube Received (Received) Hold [place] Top Tube Received (Received) Hold [place] Top Tube Received (Received) Urine Color Yellow (YELLOW) Urine Appearance Clear (CLEAR,HAZY) Urine pH 5.0 (5.0-8.0) Urine Specific [place] 1.010 (1.003-1.035) Urine Protein Negativemg/dL (NEG,TRACE) Urine Glucose (UA) Negativemg/dL (NEGATIVE) Urine Ketones Negativemg/dL (NEGATIVE) Urine Occult Blood Negative (NEGATIVE) Urine Nitrite Negative (NEGATIVE) Urine Bilirubin Negative (NEGATIVE) Urine Urobilinogen Normalmg/dL (NORMAL) Urine Leukocyte Esterase Negative (NEGATIVE) Urine RBC 0-2/hpf (0-2) Urine WBC 0-5/hpf (0-5) Urine Epithelial Cells Moderate/hpf (NONE-MOD) Urine Crystals None seen (NONE SEEN) Urine Bacteria Few/hpf (NONE-FEW) Urine Hyaline Casts None/lpf (NONE) Urine Granular Casts None seen (NONE SEEN) Urine Waxy Casts None seen (NONE SEEN) Urine Red Blood Cell Casts None seen (NONE SEEN) Urine White Blood Cell Casts None seen (NONE SEEN) Urine Mucus None seen (None Seen) Urine Trichomonas None seen (NONE SEEN) Urine Yeast None (NONE SEEN) Urinalysis Comment None Urine Culture Reflexed Not indicated ECG Interpretation ECG Interpretation: Sinus tachycardia. Rate 117. Time: 03:43 Interpreted by: ED physician X-Ray Chest Interpretation Chest Xray Interpretation: Result: unremarkable. No pneumonia. View: Portable, 1 view Interpretation / Wet Read by: Wet read ED physician Re-Eval/Medical Decision Med Decision/Clinical Course 61-year-old was CHF, prior leg cellulitis, chronic pain med use, presents with decreased mental status probably secondary to oversedation with his pain meds. However, he is febrile, tachycardic, and appears to have sepsis. Source appears to be a cellulitic legs. Urine is clear and chest x-ray is unrevealing. Admitted for treatment of presumptive sepsis. Limitations of his care include history of CHF and underlying chronic renal insufficiency, rendering fluid application problematic. He is begun with meropenem and vancomycin and clindamycin for his cellulitis. Transported now to the ICU in stable condition. Source of Hx: Old records Re-Evaluation/Progress : Time of Eval: 05:17 Patient Status: Mild relief Re-Evaluation/Progress Note: Rechecked pt. Discussed lab results, imaging results, diagnosis and plan to admit. Pt understands and agrees with the plan for admission. All questions addressed. Counseled Regarding: Diagnosis, Lab results, Need for admission Patient Discharge & Departure Impression: Primary Impression: Altered mental status Additional Impressions: Sepsis CRF (chronic renal failure) Elevated troponin Disposition: ADMITTED TO HOSPITAL Discharge Condition All VS Reviewed: Yes Referrals: Nicolás Pendleton MD (PCP) Crit Care Except Billable Proc Time Spent: 30-74 minutes (thirty minutes) Services Performed: Patient management by me, Time spent at bedside, Reviewing test results, Reviewing imaging, Discussing patient care, Documentation in record, Time with fam/surrogate Scribe Attestation Portions of this note were transcribed by Bradley Damon. I, , personally performed the history, physical exam and medical decision- making;I reviewed and confirmed the accuracy of the information in the transcribed note. Signed by Tim Peñaloza. 01/19/17 05:20 copies to: Nicolás Pendleton MD, Christopher W MD Jan 19, 2017 03:47 Bradley Damon Jan 19, 2017 03:49
[2017-01-19 04:19] LABS: BASOPHILS % (AUTO) 0.1 % (0-3); EOSINOPHILS % (AUTO) 0.1 % (0-5); MONOCYTES % (AUTO) 12.6 % (4-12); Mean Corpuscular Hemoglobin 26.4 pg (27.0-35.0); Mean Corpuscular Volume 85.4 fL (81-100); Platelet Count 195 bil/L (150-400)
[2017-01-19 04:27] LABS: INR 1.05 ratio
[2017-01-19 04:53] LABS: Magnesium 2.2 mg/dL (1.6-2.6); Phosphorus 5.1 mg/dL (2.5-4.9)
[2017-01-19] MEDS ORDERED: 0.9% Sodium Chloride 500 ML IV ONE ×2 (04:55→09:15)
[2017-01-19 05:02] LABS: TROPONIN T 0.262 ug/L (0.0-0.011)
[2017-01-19] MEDS ORDERED: Clindamycin Inj 900 MG in IV Premix 1 EACH IV ONE (05:10)
[2017-01-19] MEDS ORDERED: Meropenem Inj 1,000 MG in 0.9% Sodium Chloride 100 ML IV ONE (05:10)
[2017-01-19] MEDS ORDERED: Vancomycin Dose per Pharmacist XX ONE (05:10)
[2017-01-19 05:22] LABS: APPEARANCE,URINE CLEAR (CLEAR,HAZY); COLOR,URINE YELLOW (YELLOW); OCCULT BLOOD,URINE NEGATIVE (NEGATIVE); UROBILINOGEN,URINE NORMAL (NORMAL)
[2017-01-19] MEDS ORDERED: Vancomycin Inj 2,250 MG in 0.9% Sodium Chloride 500 ML IV ONE (06:00)
[2017-01-19] MEDS: Lactated Ringer's 1,000 ML IV SCH ×2 (06:13→16:13)
[2017-01-19] MEDS ORDERED: Alum-Mag Hydrox-Simeth 30 mL Suspension PO PRN (06:15)
[2017-01-19] MEDS ORDERED: Ondansetron 2 mg/mL 2 mL Inj IVPUSH PRN (06:15)
--- NOTE | 2017-01-19 08:21 | DRSVH ---
PROCEDURE: X-RAY CHEST ONE VIEW, PORTABLE ([id number]) INDICATIONS: fever, altered mental status TECHNIQUE: One view of the chest was acquired. COMPARISON: [facility], CR, XR CHEST 1VW (PORTABLE), 10/28/2016, 12:51. FINDINGS: Surgical changes and devices: Right PICC has been removed. Lungs and pleura: No pleural effusions or pneumothorax. Lungs are clear. Mediastinum: Mediastinal contours appear normal. Heart size is normal. Bones and chest wall: No suspicious bony lesions. Overlying soft tissues appear unremarkable. IMPRESSION: No radiographic evidence of acute cardiopulmonary pathology. Dictated by: Avtar Escoto M.D. on 01/19/2017 at 8:18 Approved by: Avtar Escoto M.D. on 01/19/2017 at 8:19
[2017-01-19] MEDS ORDERED: AMMO385C5 TP (08:23)
[2017-01-19] MEDS ORDERED: METO2.5T12 PO (08:25)
[2017-01-19] MEDS ORDERED: NYST1POW23 MC (08:26)
--- NOTE | 2017-01-19 11:48 | NUR ---
Wound Care Patient seen at bedside for wound care. 61 yo male seen at wound center for care of his venous stasis wounds. Today patient presents with 2+ pitting edema justin at foot and legs. Right leg is erythemic at lateral calf. Patient has 3 open wounds at his legs, all of these wounds are superficial without necrotic tissue. Left lateral calf 1.8 cm L x 1 cm W x 0.1 cm D Right medial calf, 3 cm L x 2 cm W x 0.2 cm D. right lateral calf, 1 cm L x 1 cm W x 0.1 cm D. Wounds cleaned with saline and gauze, redressed xeroform, kerlix and coban for light compression. Follow up for wound care in 48 hours.
[2017-01-19] MEDS ORDERED: TORS100T3 PO (12:55)
[2017-01-19] MEDS ORDERED: SENN-133 PO (12:56)
[2017-01-19] MEDS ORDERED: SPIR25TA3 PO (12:59)
[2017-01-19] MEDS ORDERED: DICL100G8 TOPICAL (13:01)
[2017-01-19] MEDS ORDERED: OXYC-474 PO (13:03)
--- NOTE | 2017-01-19 13:23 | PCM.HPMED ---
Subjective Date of Service Jan 19, 2017 Primary Provider: Admitting Physician: Tereso Myers MD Primary Care Physician: Nicolás Pendleton MD Attending Physician: Tereso Myers MD Chief Complaint: "Feeling sick" History of Present Illness: Xavi Vargas is a 61-year-old man with a past medical history significant for chronic hypoxemic respiratory failure secondary to morbid obesity, BOOP on chronic prednisone, COPD, obesity hypoventilation syndrome, CARRIE on Trilogy, who presented to the [facility] ED via EMS due to altered mentation that starter last night. The patient is well know to this hospital and is frequently admitted due to hypoxemia and hypercapnia. Per ED report the the EMS administered Narcan without effect. The patient notes vomiting that began abruptly without any hematemesis. Per ED report he also noted diarrhea however denied this this morning. He denies any abdominal pain, fevers, chills, or dysuria. He states that his lower extremities are always painful and he did not notice a particularly different feeling in his right leg. His does state that his leg looks worse to her and more erythematous and she did note an open blister on his right leg. Vital signs in the ER T 36.8 HR 119 RR 24 BP 107/58 O2 Sat 100% on 4L. He was given single doses of Vancomycin, Meropenem and Clindamycin as well as one 500 mL bolus of NS for presumed cellulitis. Review of Systems: A comprehensive review of systems was conducted with the patient and found to be negative except as above in the History of Present Illness. Allergies Coded Allergies: amoxicillin (Verified Adverse Reaction, Severe, Nausea, 01/19/17) VERY NAUSEUOUS clavulanic acid (Verified Adverse Reaction, Severe, Nausea, 01/19/17) aspirin (Verified Adverse Reaction, Intermediate, Hematuria, 01/19/17) Blood in urine after chcf use Home Medications Discharge Medications Allopurinol (Allopurinol) 100 Mg Tablet 100 MG PO DAILY (Reported) Amitriptyline (Amitriptyline) 50 Mg Tab 50 MG PO HS (Reported) Arformoterol Tartrate (Brovana) 15 Mcg/2 Ml Vial.neb 15 MCG IH BID (Reported) Aripiprazole (Aripiprazole) 2 Mg Tablet 2 MG PO DAILY (Reported) Ascorbic Acid (Vitamin C) 500 Mg Capsule.er 500 MG PO DAILY (Reported) Aspirin (Aspirin) 81 Mg Tablet 81 MG PO DAILY (Reported) Atorvastatin Calcium (Atorvastatin Calcium) 10 Mg Tablet 10 MG PO HS (Reported) Carbidopa/Levodopa 25-100 mg (Carbidopa/Levodopa 25-100 mg) 1 Each Tablet 2 TABLET PO QID (Reported) Cholecalciferol (Vitamin D3) (Vitamin D3) 2,000 Unit Capsule 2,000 UNIT PO DAILY (Reported) Cinnamon Bark/Chromium Picolin (Cinnamon Plus Chromium Capsule) 1 Each Capsule 1 EACH PO DAILY (Reported) Citalopram (Citalopram) 40 Mg Tablet 40 MG PO DAILY (Reported) Clopidogrel Bisulfate (Plavix) 75 Mg Tablet 75 MG PO DAILY Prescribed by: MIRACLE MERRILL DO Cyanocobalamin (Vitamin B-12) (B-12) 500 Mcg Tab.rapdis 500 MCG SL DAILY ( Reported) Fluticasone Propionate (Flonase Allergy Relief) 9.9 Ml [place].susp 1 SPRAYS NS DAILY (Reported) Insulin Glargine (Lantus U100 Insulin Vial) 100 Unit/Ml Vial 60 UNITS SUBQ BID ( Reported) Insulin Regular, Human (HUMulin-R U-500 Insulin Vial) 500 Unit/1 Ml Vial 8 UNITS SUBQ TIDAC (Reported) Lactobacillus Acidophilus (Acidophilus) 1 Each Capsule 1 EACH PO DAILY (Reported ) Latanoprost (Latanoprost) 2.5 Ml Drops 1 GTT BOTH_EYES HS (Reported) Magnesium Oxide (Magnesium Oxide) 400 Mg Tablet 400 MG PO DAILY (Reported) Metoprolol Tartrate (Metoprolol Tartrate) 25 Mg Tablet 50 MG PO BID Prescribed by: PONCHO VICENTE MD Multivitamin (Multivitamins) 1 Each Capsule 1 EACH PO DAILY (Reported) Omeprazole (Omeprazole) 20 Mg Capsule.dr 20 MG PO DAILY (Reported) Potassium Chloride ER (Klor-Con M20) 20 Meq Tablet 20 MEQ PO DAILY (Reported) Prednisone (PredniSONE) 10 Mg Tablet 10 MG PO DAILY Prescribed by: MIRACLE MERRILL DO Pregabalin (Lyrica) 225 Mg Capsule 225 MG PO BID (Reported) Spironolactone (Spironolactone) 25 Mg Tablet 25 MG PO BID (Reported) Tamsulosin ER (Tamsulosin ER) 0.4 Mg Cap.er.24h 0.4 MG PO HS (Reported) Torsemide (Torsemide) 100 Mg Tablet 50 MG PO BID (Reported) As needed Acetaminophen (Acetaminophen) 500 Mg Tablet 500 MG PO Q6H PRN PRN For Pain ( Reported) Albuterol Neb Soln (Albuterol Neb Soln) 2.5 Mg/3 Ml Vial.neb 2.5 MG INHALATION Q4H PRN PRN For Shortness of Breath (Reported) Albuterol Sulfate (Ventolin HFA Inhaler) 200 Puff/18 Gm Inhaler 2 PUFFS INH q4- 6 hours PRN PRN For Shortness of Breath (Reported) Calcium Carbonate (Tums) 500 Mg Tab.chew 2,000 MG PO PRN PRN PRN For Indigestion (Reported) Dextran 70/Hypromellose/Pf (Artificial Tears Drops) 1 Each Droperette 1 DROP BOTH_EYES QID PRN PRN dry eyes (Reported) Loratadine (Claritin) 10 Mg Capsule 10 MG PO DAILY PRN PRN allergies (Reported) Polyethylene Glycol 3350 (Gavilax) 17 Gm Powd.pack 17 GM PO DAILY PRN PRN For Constipation (Reported) Sennosides (Senna) 8.6 Mg Tablet 17.2 MG PO BID PRN PRN For Constipation ( Reported) oxyCODONE (oxyCODONE) 5 Mg Tablet 10 MG PO Q4H PRN PRN For Pain Prescribed by: BEBE YEE MD [facility] Chronic hypercarbic respiratory failure. Chronic elevated troponin. Diabetes mellitus type 2, insulin using, uncontrolled. Obesity hypoventilation syndrome and CARRIE on Triology. Chronic bilateral lower extremity wounds. History of BOOP on chronic prednisone. Hypertension. GERD. Glaucoma. BPH. Peripheral neuropathy Parkinsonism. Anxiety and depression. Chronic congestive heart failure secondary to diastolic dysfunction0 mg daily at bedtime. Chronic pain with opiate habituation. History of atrial fibrillation with RVR. Morbid obesity, chronic. CKD stage II. Gout. Surgical History Colonoscopy. Lung biopsy. Hernia repair. Appendectomy. Family History Hypertension Social History Hx Alcohol Use: No Hx Substance Use: Yes (40 Y/O) Hx Tobacco Use: Yes Smoking Status: Former Smoker Exam Vital Signs Vital Sign - Last Date Time Temp Pulse Resp B/P Pulse Ox O2 Delivery O2 Flow Rate FiO2 01/19/17 06:35 37.0 102 16 125/44 98 Nasal Cannula 3.00 Intake and Output 01/18/17 01/18/17 01/19/17 Cumulative From/Thru 15:00 23:00 07:00 01/19/17 03:40 - 01/19/17 05:01 Intake Total 500 ml 500 ml Balance 500 ml 500 ml Intake IV Total 500 ml 500 ml Exam General: No acute distress, obese, falls asleep easily but awakens to voice, appropriately interactive, nasal cannula on face HEENT: Normocephalic, atraumatic. External ears without defect. Pupils equal, round, and reactive to light and accommodation. Anicteric sclerae, moist conjunctivae, and no lid lag. Oropharynx free of erythema and cobble stoning with moist mucosa. Neck: Supple with full range of motion. No jugular venous distension that can be appreciated but exam limited by body habitus. No bruits. No lymphadenopathy or thyromegaly. Cardiovascular: Regular rate and rhythm with no murmurs, rubs, or gallops appreciated but exam is very limited by body habitus. Pulmonary: Crackles bilaterally. Normal respiratory effort with no use of accessory muscles. Exam limited by body habitus. Abdomen: Bowel tones present. Soft, nontender, nondistended. Markedly obese. No hepatosplenomegaly or masses appreciated. Extremities: Significant pitting edema of both lower extremities. Skin: Erythema of bilateral lower extremities. Neurological: Cranial nerves grossly intact. Normal muscle strength, tone, and bulk. Reflexes, coordination, and sensory function within normal limits. No known gait impairment. Psychiatric: Normal mood and affect. Alert and oriented to person, place, and time. Lab and Diagnostics Result Diagram: 01/19/17 0350 01/19/17 0350 X-Rays, CTs and MRIs X-RAY CHEST ONE VIEW, PORTABLE IMPRESSION: No radiographic evidence of acute cardiopulmonary pathology. Dictated by: Avtar Escoto M.D. on 01/19/2017 at 8:18 Assessment & Plan Xavi Vargas is a 61-year-old man with a past medical history significant for chronic hypoxemic respiratory failure secondary to morbid obesity, BOOP on chronic prednisone, COPD, obesity hypoventilation syndrome, CARRIE on Trilogy, who presented to the [facility] ED via EMS due to altered mentation. Sepsis secondary to right leg cellulitis on chronic bilateral lower extremity wounds, present on admission. Active. - SIRS: tachycardia, tachypnea ,confusion - Given one dose of Meropenem, Vancomycin, and Clindamycin in the ED. Will continue Vancomycin. MRSA screen pending, patient has a history of MRSA. - Ordered wound care and physical therapy consult. - 500 mL NS bolus x1 and reassess. Acute on chronic hypercarbic hypoxemic respiratory failure secondary to CARRIE and obesity hypoventilation syndrome, present on admission. Active. - Continue Trilogy with current settings with addition of oxygen bled into Trilogy. - ABG PRN mentation chances - Continue home inhaler Brovana Acute kidney injury on chronic kidney injury, present on admission. Active. - Likely secondary to dehydration due vomiting and diarrhea - Will follow BMP - IVF as above Chronic congestive heart failure secondary to diastolic dysfunction, present on admission. Presumed stable. - Hold Spironolactone 25 mg twice a day, metoprolol tartrate 50 mg twice a day as patient is hypotensive - Continue aspirin 81 mg daily, atorvastatin 10 mg daily at bedtime. - Hold Toresimide today Chronic Problems: Polypharmacy - Patient takes an extensive list of medications - This poses a high risk if adverse reaction and events Chronic elevated troponin, of uncertain significance, present on admission. Active. - Chronically elevated troponin, likely secondary to CHF. Of note, today's measurement is higher than usual. Will repeat tomorrow. - Continue to monitor closely on telemetry. Diabetes mellitus type 2, insulin using, uncontrolled, present on admission. Active. - Last hemoglobin A1c 8.6% 06/2016. - Ordered carbohydrate consistent/heart healthy diet. - Ordered high-dose correctional scale insulin. - Continued Lantus 60 units BID with 8 units Lispro TID with meals Obesity hypoventilation syndrome and CARRIE on Triology, present on admission. Active. - Continue Trilogy with additional oxygen bled into machine. - See plan above History of BOOP on chronic prednisone, present on admission. Active. - Continue prednisone 10 mg daily. Consider stress dose steroids if the patient' s blood pressure does not improve with IVF. - See plan above Hypertension, chronic. Stable. - Hold metoprolol tartrate 50 mg twice a day and spironolactone 25 mg twice a day. GERD, chronic. - Continue Protonix 20 mg daily Glaucoma, chronic. - Continue Latanoprost 0.67 drops both eyes daily at bedtime. Gout, chronic. - Continue Allopurinol 100 mg daily. BPH, chronic. - Continue Tamsulosin 0.4 mg daily at bedtime. Peripheral neuropathy, chronic. - Hold Lyrica 225 mg twice a day while patient somnolent Parkinsonism, present on admission. Stable. - Continue Sinemet 25-100 mg 2 tabs 4 times a day. - Continue Abilify 2 mg daily. Anxiety and depression, chronic. Active. - Hold amitriptyline 50 mg daily at bedtime. Chronic pain with opiate habituation. - Hold to oxycodone at 10 mg every 4 hours as needed for pain. History of atrial fibrillation with RVR. - Patient in normal sinus rhythm. - Continue aspirin 81 mg and Plavix 75 mg daily. Morbid obesity, chronic. - BMI 40. Patient is admitted under inpatient status with expected length of stay greater than 2 midnights due to severity of presenting symptoms, risk of adverse event, and complexity of treatment plan. Resuscitation Status: CPR: Attempt Resuscitation Time spent 60 minutes Attending Statement Patient was seen and examined with house staff. Agree with all attached documentation Twyla Mahoney DO Jan 19, 2017 07:47 Tereso Myers MD Jan 20, 2017 14:34
[2017-01-19] MEDS ORDERED: Polyethylene Glycol (PEG) 17 Gm Powder PO PRN (13:25)
[2017-01-19] MEDS ORDERED: Artificial Tears 15 mL Ophthalmic Solution BOTH_EYES PRN (13:25)
[2017-01-19] MEDS ORDERED: Glucose 40% Oral Gel 15 Gm Tube PO PRN (13:30)
[2017-01-19] MEDS ORDERED: Vancomycin Serum Trough XX ONE (14:25)
--- NOTE | 2017-01-19 16:11 | NUR ---
spiritual care: rounds pt known to record retrieval specialist from previous admissions. brief visit pt very sleepy-- shared updates, coping and her [facility] which is source of support for her. she described coping as pt continues to have serious health challenges.
[2017-01-19] MEDS: Insulin LISPRO 300 Unit/3 mL Inj SUBQ SCH ×2 (16:15→21:35)
[2017-01-19] MEDS ORDERED: (U-500) Insulin Regluar, Human 500 Unit/mL Syringe SUBQ SCH (17:00)
[2017-01-19] MEDS ORDERED: INSULIN HUMAN NPH SUBQ SCH (17:30)
--- NOTE | 2017-01-19 18:39 | NUR ---
O2 Pt was difficult to arouse and keep awake. 3L NC O2 placed at 97% Snoring while sleeping. Triology from home brought in by pts and awaiting the proper mask. Pt became more awake throughout the day, tolerating diet. WC came and dressing bilateral lower legs. Pt not allowing Q2 turns at this time. Blood Sugar 280's. Notified pharmacy missing NPH, coverage given.
[2017-01-19] MEDS: Insulin GLARgine 100 Unit/mL Syringe SUBQ SCH (21:35)
[2017-01-19] MEDS: ARIPiprazole 2 mg Tablet PO SCH (21:37)
[2017-01-19] MEDS: Arformoterol 15 mCg/2 mL Inhalation Solution INHALATION SCH (22:13)
[2017-01-20] VITALS (11 sets, daily range): BP systolic 116–129; BP diastolic 43–86; PULSE 77–97; RESP 15–20; O2SAT 92–96
[2017-01-20 04:00] LABS: BASOPHILS % (AUTO) 0.1 % (0-3); EOSINOPHILS % (AUTO) 1.3 % (0-5); MONOCYTES % (AUTO) 10.2 % (4-12); Mean Corpuscular Hemoglobin 25.6 pg (27.0-35.0); Mean Corpuscular Volume 86.2 fL (81-100); NEUTROPHILS % (AUTO) 72.1 % (40-74); Platelet Count 161 bil/L (150-400)
[2017-01-20] MEDS ORDERED: Vancomycin Serum Trough XX ONE ×2 (05:00→20:00)
[2017-01-20 05:20] LABS: Magnesium 2.3 mg/dL (1.6-2.6); Phosphorus 3.7 mg/dL (2.5-4.9)
[2017-01-20 05:22] LABS: TROPONIN T 0.288 ug/L (0.0-0.011)
--- NOTE | 2017-01-20 05:53 | NUR ---
pain pt c/o chronic back pain requesting his oxycodone, oxycodone not ordered r/t pt admitted for change in altered mental status and hard time arousing. called MD and received an order for OT dose of Ultram. pt stating it helped some but requesting his oxycodone. aware
[2017-01-20] MEDS: Pantoprazole 40 mg ER24 Tablet PO SCH (06:15)
[2017-01-20] MEDS: Lactobacillus Rhamnosus 10 Bil Unit Capsule PO SCH (08:20)
[2017-01-20] MEDS: Fluticasone 0.05% 15 Spray/2 Gm 16 Gm Nasal Spray NOSTRIL SCH (08:20)
[2017-01-20] MEDS: Potassium Chloride 20 mEq SR Tablet PO SCH (08:21)
[2017-01-20] MEDS: Vancomycin Dose per Pharmacist XX SCH (08:30)
[2017-01-20] MEDS: predniSONE 10 mg Tablet PO SCH (08:58)
[2017-01-20] MEDS: Insulin LISPRO 300 Unit/3 mL Inj SUBQ SCH ×4 (08:58→21:53)
--- NOTE | 2017-01-20 08:59 | PCM.CONPAL ---
Date of Service Jan 20, 2017 Date of Hospital Admission: Jan 19, 2017 at 05:42 Date of Palliative Consult: Jan 20, 2017 Requesting Provider: Twyla Mahoney DO Reason Palliative Care Consult: Goals of Care Discussion Hospital Unit @time of consult: Progressive Care (Room 2015) Palliative Care Recommendation Summary of palliative recommendations: -Symptom management (Pain/other): per Attending -DPOA/Advanced Directives/POLST: 1. Code: currently FULL CODE in EMR. Changed today to DNR with FULL interventions after lengthy discussion with pt and today (01/20). 2. Advanced Directives: no prior paperwork 3. HCPOA: no prior paperwork. Pt indicates that his would be his designated decisionmaker if he is unable to interact with providers to make his preferences known. 4. POLST: no prior. POLST completed today (01/20) stating: DNR, FULL interventions to include intubation and ventilation if necessary with goal to return to his baseline. He would NOT want to undergo a tracheostomy if he could not be weaned off ventilator. He also would like antibiotics to preserve life and would want a trial of a feeding tube to see if he could return to eating on his own. POLST original is now in paper chart, and given 3 copies. PC office has one copy. -Family/emotional support: 1. Flower Contacts: Home: / Other: [phone]. 2. Friend: LAZARUS Carrillort: [phone] -Spiritual support: identifies as Orthodoxy. Hospital Coal Dumping Equipment Operator has been visiting. FCTM (family conference team meeting): held today for over 60min to discuss patient's preferences if he were to have a respiratory failure/heart failure event that led to management with intubation/ventilation. Present at this conference were Drs. Sifuentes (palliative care attending) and Tom Mcgrath (R1 physician), the patient and his Flower. Pt's goals for care were determined. 1. No CPR or electric shocks (defibrillation) of heart. 2. Yes, progress to intubation and ventilation, if needed. He has been intubated before and felt it helped him through his illness 3. He does not want a tracheostomy, "that would be no life, to have to speak through a hole in my throat." He said, "if I am that bad off, then it is time for me to go be with the Lord...it's my time." His indicates understanding , and also wants to know if he can change his mind later, if he wants to do so. Reassured by providers that POLSTs are usually reviewed every hospitalization, and he can change his mind at any time. Dr. Sifuentes spent over 20 min discussing pt's lung and heart disease and explaining the impact that sleep apnea can have to make it harder for lung and heart to function. She described a progressive debilitating illness that is helped by using the Trilogy or other oxygen masks at night like CPAP or BiPAP-- but that these machines cannot reverse prior damage to lung, heart or memory-- they can only slow down the process by providing oxygen during sleep. She described the natural progression of COPD, CARRIE, diastolic heart disease. The pt and his had no insight into disease process prior to this discuss and probably he benefited more from the counseling today than she did. Her grasp of his medical issues remains very limited. Palliative Care will sign off this case for now as goals are established. We have discussed pt's preferences with the patient's RN and Dr. Myers, the [facility] Team Attending. Problems: Resuscitation Status Resuscitation Status: DNR/DNI:Do Not Resuscitate/Intubate POLST Updates/Changes Antibiotics: Use ABX if can Prolong Life Artificially Admin Nutrition: Trial Period Tube Feeding POLST Discussed with: Patient, Spouse/Other POLST Review Outcome: New Form Completed . Advanced Care Planning Address: POLST, Code status change Symptom management: Dyspnea Pt History History of Present Illness Xavi Vargas is a 61-year-old WMM with a past medical history significant for chronic hypoxemic respiratory failure secondary to morbid obesity, BOOP on chronic prednisone, COPD, obesity hypoventilation syndrome, CARRIE on Trilogy, who presented to the [facility] ED via EMS due to altered mentation on night of 01/18. The patient is well know to this hospital and is frequently admitted due to hypoxemia and hypercapnia. Per ED report the the EMS administered Narcan without effect. The patient notes vomiting that began abruptly without any hematemesis. Per ED report he also noted diarrhea however denied this this morning. He denies any abdominal pain, fevers, chills, or dysuria. He states that his lower extremities are always painful and he did not notice a particularly different feeling in his right leg. His does state that his leg looks worse to her and more erythematous and she did note an open blister on his right leg. He is usually seen at wound center for care of his venous stasis wounds. Vital signs in the ER T 36.8 HR 119 RR 24 BP 107/58 O2 Sat 100% on 4L. Hospital Course: He was admitted 01/19 for with SIRS (tachypnea/tachycardia) and presumptive sepsis due to leg cellulitis after receiving initial IV antibiotics of Vancomycin, Meropenem and Clindamycin as well as one 500 mL bolus of NS in the ED. Today is Hospital Day 2 and Palliative Care asked to meet with him to address his code status and goals of care due to his frequent admissions for respiratory failure. He has had 14 hospital admissions in the past 12 months, most were for respiratory failure, CHF or pneumonia. Past Medical History Significant PMH Noted: Hx of Bilateral parotitis x3 years of unknown etiology despite biopsies. Chronic hypercarbic respiratory failure. Chronic elevated troponin. COPD Diabetes mellitus type 2, insulin using, uncontrolled with secondary peripheral neuropathy and gastroparesis. Obesity hypoventilation syndrome and CARRIE on Triology. Chronic bilateral lower extremity wounds. History of BOOP on chronic prednisone. Prior attempts to wean the patient off steroids have been disastrous and should not be repeated without a clear guidance from a pulmonary end user consultant. Hypertension. GERD. Glaucoma. Gout BPH. Peripheral neuropathy Parkinsonism. Anxiety and depression. Cor Pulmonale Chronic congestive heart failure secondary to diastolic dysfunction Chronic pain with opiate habituation. History of atrial fibrillation with RVR. Morbid obesity, chronic. CKD stage II. History of MRSA soft tissue infections. History of C. diff. Parkinson's variant with chronic tremor. Chronic venous insufficiency of the lower extremities with stasis dermatitis. Surgical History Colonoscopy. Lung biopsy. Hernia repair. Appendectomy. Family History Hypertension Social History pt is disabled, lives in a one story house in [place] with his Flower. Previously, he spent three full years in a shelter until November 2014. He smoked back in his 20s but has not smoked in 30 years. No prior hx alcohol use. Medications Current Medications: Current Medications Lactated Ringer's 1,000 ml @ 100 mls/hr Q10H IV; Start 01/19/17 at 06:13; Stop 01/19/17 at 21:17; Status DC Al Hydrox/Mg Hydrox/Simethicone 30 ml Q6 PRN PO; Start 01/19/17 at 06:15 Ondansetron HCl Dose range: 4 mg to 8 mg Q4H PRN IVPUSH; Start 01/19/17 at 06: 15 Acetaminophen 975 mg Q6H PRN PO Last administered on 01/20/17 06:16; Admin Dose 975 MG; Start 01/19/17 at 06:15 Pharmacy Consult 1 ea DAILY XX; Start 01/20/17 at 08:30 Albuterol 2.5 mg Q4 PRN NEB; Start 01/19/17 at 13:25 Allopurinol 100 mg HS PO Last administered on 01/19/17 21:37; Admin Dose 100 MG ; Start 01/19/17 at 21:00 Arformoterol Tartrate 15 mcg BID INHALATION Last administered on 01/19/17 22:13 ; Admin Dose 15 MCG; Start 01/19/17 at 20:30 Aripiprazole 2 mg HS PO Last administered on 01/19/17 21:37; Admin Dose 2 MG; Start 01/19/17 at 21:00 Aspirin 81 mg DAILY PO Last administered on 01/20/17 08:20; Admin Dose 81 MG; Start 01/20/17 at 08:30 Atorvastatin Calcium 10 mg HS PO Last administered on 01/19/17 21:37; Admin Dose 10 MG; Start 01/19/17 at 21:00 Calcium Carbonate 2,000 mg PRN PRN PO; Start 01/19/17 at 13:25 Carbidopa/Levodopa 2 tablet QID PO Last administered on 01/20/17 06:17; Admin Dose 2 TABLET; Start 01/19/17 at 16:30 Clopidogrel Bisulfate 75 mg DAILY PO Last administered on 01/20/17 08:20; Admin Dose 75 MG; Start 01/20/17 at 08:30 Diclofenac Sodium 1 applic QID TOPICAL; Start 01/19/17 at 16:30 Insulin Glargine 60 unit BID SUBQ Last administered on 01/19/17 21:35; Admin Dose 60 UNIT; Start 01/19/17 at 20:30 Insulin Human Regular 8 unit TIDAC SUBQ; Start 01/19/17 at 17:00; Stop 01/19/17 at 17:00; Status DC Latanoprost 0.067 drop HS BOTH_EYES Last administered on 01/19/17 21:37; Admin Dose 0.067 DROP; Start 01/19/17 at 21:00 Magnesium Oxide 400 mg DAILY PO Last administered on 01/20/17 08:20; Admin Dose 400 MG; Start 01/20/17 at 08:30 Polyethylene Glycol 17 gm DAILY PRN PO; Start 01/19/17 at 13:25 Potassium Chloride 20 meq DAILY PO Last administered on 01/20/17 08:21; Admin Dose 20 MEQ; Start 01/20/17 at 08:30 Prednisone 10 mg DAILY PO; Start 01/20/17 at 08:30 Senna 17.2 mg 1400 PO; Start 01/19/17 at 14:00 Senna 17.2 mg HS PO; Start 01/19/17 at 21:00 Citalopram Hydrobromide 40 mg DAILY PO; Start 01/20/17 at 08:30 Cyanocobalamin 500 mcg DAILY PO Last administered on 01/20/17 08:20; Admin Dose 500 MCG; Start 01/20/17 at 08:30 Artificial Tears 1 drop QID PRN BOTH_EYES; Start 01/19/17 at 13:25 Fluticasone Propionate 1 SPRAY EACH NOST DAILY NOSTRIL Last administered on 01/20 08:20; Admin Dose 1 SPRAY; Start 01/20/17 at 08:30 Lactobacillus Rhamnosus 1 capsule DAILY PO Last administered on 01/20/17 08:20 ; Admin Dose 1 CAPSULE; Start 01/20/17 at 08:30 Loratadine 10 mg DAILY PRN PO; Start 01/19/17 at 13:25 Pantoprazole 40 mg 0630 PO Last administered on 01/20/17 06:15; Admin Dose 40 MG; Start 01/20/17 at 06:30 Insulin Human Lispro Nutritional Dose to be given pr... [facility] SUBQ Last administered on 01/19/17 21:35; Admin Dose 7 UNIT; Start 01/19/17 at 17:30 Dextrose/Water 250 ml 250 ml ONCE PRN IV; Start 01/19/17 at 13:30 Vancomycin HCl/ Dextrose/Water 500 ml @ 333.333 mls/hr Q12 IV Last administered on 01/19/17 21:36; Admin Dose 333.333 MLS/HR; Start 01/19/17 at 20 :30 Insulin Human NPH 20 unit TIDWM SUBQ Last administered on 01/19/17 19:06; Admin Dose 20 UNIT; Start 01/19/17 at 17:30 Scheduled Allopurinol (Allopurinol) 100 Mg Tablet 100 MG PO HS Amitriptyline (Amitriptyline) 50 Mg Tab 50 MG PO HS Ammonium Lactate (Ammonium Lactate) 140 Gm Cream..g. Unknown Dose TP DAILY Arformoterol Tartrate (Brovana) 15 Mcg/2 Ml Vial.neb 15 MCG IH BID Aripiprazole (Aripiprazole) 2 Mg Tablet 2 MG PO HS Ascorbic Acid (Vitamin C) 500 Mg Capsule.er 500 MG PO DAILY Aspirin (Aspirin) 81 Mg Tablet 81 MG PO DAILY Atorvastatin Calcium (Atorvastatin Calcium) 10 Mg Tablet 10 MG PO HS Carbidopa/Levodopa 25-100 mg (Carbidopa/Levodopa 25-100 mg) 1 Each Tablet 2 TABLET PO QID Cholecalciferol (Vitamin D3) (Vitamin D3) 2,000 Unit Capsule 2,000 UNIT PO DAILY Cinnamon Bark/Chromium Picolin (Cinnamon Plus Chromium Capsule) 1 Each Capsule 1 EACH PO DAILY Citalopram (Citalopram) 40 Mg Tablet 40 MG PO DAILY Clopidogrel Bisulfate (Plavix) 75 Mg Tablet 75 MG PO DAILY Cyanocobalamin (Vitamin B-12) (B-12) 500 Mcg Tab.rapdis 500 MCG SL DAILY Diclofenac Gel (Voltaren Gel) 100 Gm Tube 1 APPLIC TOPICAL QID Fluticasone Propionate (Flonase Allergy Relief) 9.9 Ml Reading.susp 1 SPRAYS NS DAILY Insulin Glargine (Lantus U100 Insulin Vial) 100 Unit/Ml Vial 60 UNITS SUBQ BID Insulin Regular, Human (HUMulin-R U-500 Insulin Vial) 500 Unit/1 Ml Vial 8 UNITS SUBQ TIDAC Lactobacillus Acidophilus (Acidophilus) 1 Each Capsule 1 EACH PO DAILY Latanoprost (Latanoprost) 2.5 Ml Drops 1 GTT BOTH_EYES HS Magnesium Oxide (Magnesium Oxide) 400 Mg Tablet 400 MG PO DAILY Metolazone (Metolazone) 2.5 Mg Tablet 5 PO every other day Metoprolol Tartrate (Metoprolol Tartrate) 25 Mg Tablet 50 MG PO BID Multivitamin (Multivitamins) 1 Each Capsule 1 EACH PO DAILY Omeprazole (Omeprazole) 20 Mg Capsule.dr 20 MG PO DAILY Potassium Chloride ER (Klor-Con M20) 20 Meq Tablet 20 MEQ PO DAILY Prednisone (PredniSONE) 10 Mg Tablet 10 MG PO DAILY Pregabalin (Lyrica) 225 Mg Capsule 225 MG PO BID Sennosides (Senna) 8.6 Mg Tablet 17.2 MG PO 1400 Sennosides (Senna) 8.6 Mg Tablet 17.2 MG PO HS Spironolactone (Spironolactone) 25 Mg Tablet 25 MG PO DAILYWM Spironolactone (Spironolactone) 25 Mg Tablet 25 MG PO 1400 Tamsulosin ER (Tamsulosin ER) 0.4 Mg Cap.er.24h 0.4 MG PO HS Torsemide (Torsemide) 100 Mg Tablet 50 MG PO DAILYWM Torsemide (Torsemide) 100 Mg Tablet 50 MG PO 1400 Scheduled PRN Acetaminophen (Acetaminophen) 500 Mg Tablet 500 MG PO Q6H PRN PRN For Pain Albuterol Sulfate (Ventolin HFA Inhaler) 200 Puff/18 Gm Inhaler 2 PUFFS INH q4- 6 hours PRN PRN For Shortness of Breath Calcium Carbonate (Tums) 500 Mg Tab.chew 2,000 MG PO PRN PRN PRN For Indigestion Dextran 70/Hypromellose/Pf (Artificial Tears Drops) 1 Each Droperette 1 DROP BOTH_EYES QID PRN PRN dry eyes Loratadine (Claritin) 10 Mg Capsule 10 MG PO DAILY PRN PRN allergies Oxycodone (Roxicodone) 5 Mg Tablet 10 MG PO Q6H PRN PRN For Pain Polyethylene Glycol 3350 (Gavilax) 17 Gm Powd.pack 17 GM PO DAILY PRN PRN For Constipation Objective Findings Exam Vital Sign - Last Date Time Temp Pulse Resp B/P Pulse Ox O2 Delivery O2 Flow Rate FiO2 01/20/17 08:16 36.6 81 18 129/46 96 Room Air 01/19/17 22:13 3.00 Intake and Output 01/19/17 01/19/17 01/20/17 Cumulative From/Thru 15:00 23:00 07:00 01/19/17 03:40 - 01/20/17 06:16 Intake Total 500 ml 1200 ml 2200 ml Output Total 1500 ml 1800 ml 3300 ml Balance -1000 ml -600 ml -1100 ml Intake Oral 1200 ml 1200 ml IV Total 500 ml 1000 ml Output Urine Total 1500 ml 1800 ml 3300 ml # Voids 3 3 Objective General: No acute distress, obese, falls asleep easily but awakens to voice, appropriately interactive HEENT: Normocephalic, atraumatic. External ears without defect. Pupils equal, round, and reactive to light and accommodation. Anicteric sclerae, moist conjunctivae. Neck: Supple with full range of motion. No jugular venous distension that can be appreciated but exam limited by body habitus. Cardiovascular: Regular rate and rhythm with no murmurs, rubs, or gallops appreciated but exam is very limited by body habitus. Pulmonary: Crackles bilaterally. Normal respiratory effort with no use of accessory muscles. Exam limited by body habitus. Abdomen: Bowel tones present. Soft, nontender, nondistended. Markedly obese. No hepatosplenomegaly or masses appreciated. Extremities: Significant pitting edema of both lower extremities. (See wound RN description of wounds below). Skin: Erythema of bilateral lower extremities, wrapped in rosendo bandages. Fingers , cool to touch. Neurological: Cranial nerves grossly intact. Normal muscle strength, tone, and bulk. Psychiatric: Normal mood and affect. Alert and oriented to person, place, and time. Skin: Wounds/Lacerations Addtional Information Per crimping machine operator, he has 2+ pitting edema justin at foot and legs. Right leg is erythemic at lateral calf. Patient has 3 open wounds at his legs, all of these wounds are superficial without necrotic tissue. Left lateral calf 1.8 cm L x 1 cm W x 0.1 cm D Right medial calf, 3 cm L x 2 cm W x 0.2 cm D. right lateral calf, 1 cm L x 1 cm W x 0.1 cm D. Lab/Diagnostics Lab and Imaging results reviewed in detail in EMR. Time spent Total time [ ] minutes; >50% face to face with patient and/or family, providing counselling regarding plans and recommendations, and in care coordination with his/her medical teams. I also spent an additional [ ] minutes counseling for advanced care planning with the patient/the patients family/the surrogate decision maker. Glory Sifuentes MD Jan 20, 2017 08:59
[2017-01-20] MEDS: Arformoterol 15 mCg/2 mL Inhalation Solution INHALATION SCH ×2 (09:34→20:31)
[2017-01-20] MEDS: Insulin GLARgine 100 Unit/mL Syringe SUBQ SCH ×2 (11:08→21:54)
[2017-01-20] MEDS ORDERED: Insulin Human NPH 100 Unit/mL Syringe SUBQ SCH (12:00)
[2017-01-20] MEDS: Albuterol 2.5 mg/3 mL Inhalation Solution NEB PRN ×2 (13:08→20:31)
--- NOTE | 2017-01-20 13:25 | DRSVH ---
[facility] [address] [place] [address] Echocardiogram Report Name: SAILAJA ESTES LStudy Date: 01/20/2017 Height: 72 in Hospital Exam Location: [facility] Weight: 30 1 lb Gender: Male BSA: 2.5 m2 : 1955 Age: 61 yrs BP: 129/46 mmHg Reason For Study: Elevated Troponin Ordering Physician: HOSPITALIST [facility] Performed By: Azul Monroe Referring Physician: Qiana Rosado Interpretation Summary The study quality was technically difficult. A contrast injection of Definity was performed to improve assessment of LV function. The ejection fraction is estimated to be 65-70%. There are no obvious focal wall motion abnormalities noted but poor endocardial definition reduces the sensitivity for the detection of such. The peak aortic velocity is 3.8 m/sec. The peak aortic velocity on the previous exam was 2.3 m/sec. The aortic valve mean gradient is 39 mmHg. There is moderate to severe aortic stenosis. Right ventricular systolic pressure is estimated to be 32 mmHg plus the clinically estimated CVP which cannot be estimated on this exam. Procedure: A two-dimensional transthoracic echocardiogram with color flow and Doppler was performed. The study quality was technically difficult. A contrast injection of Definity was performed to improve assessment of LV function. Comparison is made with the echocardiogram of 03/29/2016. The patient was in normal sinus rhythm during the exam. Left Ventricle: The left ventricle is normal in size. The LVOT diameter is 2.1 cm. The LVOT velocity is 1.4 m/s. The ejection fraction is estimated to be 65-70%. There are no obvious focal wall motion abnormalities noted but poor endocardial definition reduces the sensitivity for the detection of such. Spectral Doppler of the mitral inflow yields an E/A ratio that is between 0.8 and 1.5. Right Ventricle: The right ventricle grossly appears normal in size with probable normal systolic function. Atria: The left atrium grossly appears normal in size. The right atrium grossly appears normal in size. Mitral Valve: The mitral valve is grossly normal. No obvious mitral regurgitation. Aortic Valve: The aortic valve is not well visualized. The peak aortic velocity is 3.8 m/sec. The peak aortic velocity on the previous exam was 2.3 m/sec. The aortic valve mean gradient is 39 mmHg. There is moderate to severe aortic stenosis. Tricuspid Valve: There is trace tricuspid regurgitation. Right ventricular systolic pressure is estimated to be 32 mmHg plus the clinically estimated CVP which cannot be estimated on this exam. Pulmonic Valve: The pulmonic valve is not well visualized. There is no pulmonic valvular regurgitation. Great Vessels: The aortic root is normal size. The ascending aorta is at the upper limits of normal in size. The inferior vena cava was not visualized. Pericardium/ Pleura There is no pericardial effusion. MMode/2D Measurements & Calculations LVIDd: 5.4 cm LA dimension: 5.0 cm RA long axis LVOT diam LVIDs: 4.5 cm FS: 17.6 % LA A2 area: 25.9 cm RA area AoV Opening EPSS: 0.74 cm LA A4 area: 19.9 cm IVSd: 1.3 cm LA length (vol): 5.7 cm: 15.0 cm Ao root diam LVPWd: 1.3 cm LA vol: 76.7 ml RA vol LA vol index : 34.4 ml Aortic Jxn RA : 30.3 ml/m2 : 13.6 mm2 asc Aorta Diam: 3.3 cm LV westfall. diameter/BSA LV sys. diameter/BSA (cm/m^2): 2.1 (cm/m^2): 1.8 Doppler Measurements & Calculations Ao V2 max MV E max toby MV E/A: 1.3 TR max toby : 380.1 cm/sec : 117.7 cm/sec Med Peak E' Otby : 283.6 cm/sec Ao max PG MV A max toby TR max PG : 57.8 mmHg : 92.5 cm/sec E/E' med: 14.0 : 32.2 mmHg Ao mean PG MV P1/2t: 48.6 msec Lat Peak E' Toby PA V2 max : 38.8 mmHg : 144.6 cm/sec LVOT Max Toby E/E' lat: 13.1 PA mean PG : 136.8 cm/sec E/e' average PA Accel Time JUANITA(I,D): 1.3 cm : 0.11 sec sev ratio MV dec time MV P1/2t max toby Ao V2 mean LV V1 max PG : 0.17 sec : 301.5 cm/sec MVA(P1/2t): 4.5 cm2 Ao V2 VTI: 83.6 cmLV V1 VTI JUANITA(V,D): 1.2 cm2 : 32.3 cm PA V2 mean JUANITA indexed to BSA : 101.1 cm/sec (cm^2/m^2): 0.52 Electronically signed by: Fam Lemos on Reading Physician:01/20/2017 01:25 PM
--- NOTE | 2017-01-20 13:57 | PCM.PNMED ---
Subjective Date of Service Jan 20, 2017 Subjective Xavi Vargas is a 61-year-old man with a past medical history significant for chronic hypoxemic respiratory failure secondary to morbid obesity, BOOP on chronic prednisone, COPD, obesity hypoventilation syndrome, CARRIE on Trilogy, who presented to the [facility] ED via EMS due to altered mentation. Hospital day #2. Overnight: No acute events. Today: The patient complains of pain in his hip and back pain and asking when he can go home. He feels he is back to his normal state of health. He denies any leg pain, shortness of breath, cough, fever, chills, nausea or vomiting. Review of systems is negative except as noted above. Exam Vital Signs Vital Sign - Last Date Time Temp Pulse Resp B/P Pulse Ox O2 Delivery O2 Flow Rate FiO2 01/20/17 10:18 86 01/20/17 09:36 18 95 Nasal Cannula 3.00 01/20/17 08:16 36.6 129/46 Intake and Output 01/19/17 01/19/17 01/20/17 Cumulative From/Thru 15:00 23:00 07:00 01/19/17 03:40 - 01/20/17 06:16 Intake Total 500 ml 1200 ml 2200 ml Output Total 1500 ml 1800 ml 3300 ml Balance -1000 ml -600 ml -1100 ml Intake Oral 1200 ml 1200 ml IV Total 500 ml 1000 ml Output Urine Total 1500 ml 1800 ml 3300 ml # Voids 3 3 Exam General: No acute distress, obese, alert and awake, appropriately interactive, nasal cannula on face HEENT: Normocephalic, atraumatic. External ears without defect. Pupils equal, round, and reactive to light and accommodation. Anicteric sclerae, moist conjunctivae, and no lid lag. Oropharynx free of erythema and cobble stoning with moist mucosa. Neck: Supple with full range of motion. No jugular venous distension that can be appreciated but exam limited by body habitus. No bruits. No lymphadenopathy or thyromegaly. Cardiovascular: Regular rate and rhythm with no murmurs, rubs, or gallops appreciated but exam is very limited by body habitus. Pulmonary: Crackles bilaterally. Normal respiratory effort with no use of accessory muscles. Exam limited by body habitus. Abdomen: Bowel tones present. Soft, nontender, nondistended. Markedly obese. No hepatosplenomegaly or masses appreciated. Extremities: Significant pitting edema of both lower extremities. Skin: Erythema of bilateral lower extremities. Neurological: Cranial nerves grossly intact. Normal muscle strength, tone, and bulk. Reflexes, coordination, and sensory function within normal limits. No known gait impairment. Psychiatric: Normal mood and affect. Alert and oriented to person, place, and time. IVs and Medications Medications Reviewed: Medications were reviewed in detail Lab and Diagnostics Result Diagram: 01/20/17 0350 01/20/17 0350 X-Rays, CTs and MRIs X-RAY CHEST ONE VIEW, PORTABLE IMPRESSION: No radiographic evidence of acute cardiopulmonary pathology. Dictated by: Avtar Escoto M.D. on 01/19/2017 at 8:18 Assessment & Plan Xavi Vargas is a 61-year-old man with a past medical history significant for chronic hypoxemic respiratory failure secondary to morbid obesity, BOOP on chronic prednisone, COPD, obesity hypoventilation syndrome, CARRIE on Trilogy, who presented to the [facility] ED via EMS due to altered mentation. Sepsis secondary to right leg cellulitis on chronic bilateral lower extremity wounds, present on admission. Resolved. - SIRS: tachycardia, tachypnea - Given one dose of Meropenem, Vancomycin, and Clindamycin in the ED. Will continue Vancomycin. MRSA screen positive. - Ordered wound care and physical therapy consult. Acute on chronic hypercarbic hypoxemic respiratory failure secondary to CARRIE and obesity hypoventilation syndrome, present on admission. Active. - Continue Trilogy with current settings with addition of oxygen bled into Trilogy. - ABG PRN mentation chances - Continue home inhaler Brovana - Palliative care consultation to discuss goals of care. Patient has been readmitted here 14 times this year for respiratory related illness. Acute kidney injury on chronic kidney injury, present on admission. Improving back to his baseline. - Likely secondary to dehydration due vomiting and diarrhea - Will follow BMP - IVF as above Chronic congestive heart failure secondary to diastolic dysfunction, present on admission. Presumed stable. - Hold Spironolactone 25 mg twice a day, metoprolol tartrate 50 mg twice a day as patient is hypotensive - Continue aspirin 81 mg daily, atorvastatin 10 mg daily at bedtime. - Hold Toresimide Chronic Problems: Polypharmacy - Patient takes an extensive list of medications - This poses a high risk if adverse reaction and events Chronic elevated troponin, of uncertain significance, present on admission. Active. - Chronically elevated troponin, likely secondary to CHF. Of note, today's measurement is higher than usual. Will repeat tomorrow. - Continue to monitor closely on telemetry. Diabetes mellitus type 2, insulin using, uncontrolled, present on admission. Active. - Last hemoglobin A1c 8.6% 06/2016. - Ordered carbohydrate consistent/heart healthy diet. - Ordered high-dose correctional scale insulin. - Continued Lantus 60 units BID with NPH Obesity hypoventilation syndrome and CARRIE on Triology, present on admission. Active. - Continue Trilogy with additional oxygen bled into machine. - See plan above History of BOOP on chronic prednisone, present on admission. Active. - Continue prednisone 10 mg daily. Consider stress dose steroids if the patient' s blood pressure does not improve with IVF. - See plan above Hypertension, chronic. Stable. - Hold metoprolol tartrate 50 mg twice a day and spironolactone 25 mg twice a day. GERD, chronic. - Continue Protonix 20 mg daily Glaucoma, chronic. - Continue Latanoprost 0.67 drops both eyes daily at bedtime. Gout, chronic. - Continue Allopurinol 100 mg daily. BPH, chronic. - Continue Tamsulosin 0.4 mg daily at bedtime. Peripheral neuropathy, chronic. - Continue Lyrica 225 mg twice a day Parkinsonism, present on admission. Stable. - Continue Sinemet 25-100 mg 2 tabs 4 times a day. - Continue Abilify 2 mg daily. Anxiety and depression, chronic. Active. - Continue amitriptyline 50 mg daily at bedtime. Chronic pain with opiate habituation. - Continue oxycodone at 10 mg every 4 hours as needed for pain. History of atrial fibrillation with RVR. - Continue aspirin 81 mg and Plavix 75 mg daily. Morbid obesity, chronic. - BMI 40. Disposition: Anticipate patient can be discharged home in 1-2 days. Resuscitation Status: CPR: Attempt Resuscitation Attending Statement Patient was seen and examined with house staff. Agree with all attached documentation Twyla Mahoney DO Jan 20, 2017 11:28 Tereso Myers MD Jan 20, 2017 14:59
--- NOTE | 2017-01-20 16:44 | DRSVH ---
PROCEDURE: X-RAY CHEST ONE VIEW, PORTABLE ([id number]) INDICATIONS: respiratory distress TECHNIQUE: One view of the chest was acquired. COMPARISON: [facility], CR, XR CHEST 1VW (PORTABLE), 01/19/2017, 4:12. FINDINGS: Surgical changes and devices: None. Lungs and pleura: No pleural effusions or pneumothorax. Lungs are clear. Mediastinum: Mediastinal contours appear normal. Heart size is normal. Bones and chest wall: No suspicious bony lesions. Overlying soft tissues appear unremarkable. IMPRESSION: No acute cardiopulmonary disease. Dictated by: Britton Boss [facility] Interpreted: Abhijit Colón MD on 01/20/2017 at 11:41 Approved by: Abhijit Colón M.D. on 01/20/2017 at 16:42
--- NOTE | 2017-01-20 18:23 | NUR ---
Skin, bed mobility, and hyperglycemia Dressing over sacrum was changed. Both butt cheeks were red and macerated, which pt. reported as "been raw for a while." New Mapilex applied to sacrum to protect skin. Pt. was frequently reminded to reposition himself in bed. He rolled and turned himself only with firm encouragement. Pt. said his brought trilogy face mask from home this afternoon. Hyperglycemia, BG >250. Dr. Mahoney adjusted insulin SQ (Nutritional and correctional coverage).
[2017-01-20] MEDS: ARIPiprazole 2 mg Tablet PO SCH (21:54)
[2017-01-21 02:49] VITALS: BP 148/59; PULSE 90; RESP 20; O2SAT 94
[2017-01-21] MEDS: Pantoprazole 40 mg ER24 Tablet PO SCH (05:44)
--- NOTE | 2017-01-21 06:30 | NUR ---
Respiratory Uneventful NOC. Denies SOB throughout. Pt hesitant to turn do to back pain. Medicated with some relief. Risks and benefits explained. Pt verbalizes understanding. No overt complications noted.
--- NOTE | 2017-01-21 06:55 | NUR ---
LATE ENTRY: Palliative Care Referral01/20/17 Palliative Care Consultation order received from Dr. Mahoney for goals of care conversation with pt/family. Pt. is 61 year old male admitted to [facility] for AMS. Palliative Care to follow. Pt.'s spouse, Flower Vargas: [phone] KATHERINE Edwards, [facility] Palliative Care Services
[2017-01-21 08:17] VITALS: PULSE 83; RESP 15; O2SAT 95
[2017-01-21] MEDS: Arformoterol 15 mCg/2 mL Inhalation Solution INHALATION SCH (08:17)
[2017-01-21] MEDS: Potassium Chloride 20 mEq SR Tablet PO SCH (08:30)
[2017-01-21 08:32] LABS: BASOPHILS % (AUTO) 0.1 % (0-3); EOSINOPHILS % (AUTO) 1.1 % (0-5); Mean Corpuscular Volume 86.5 fL (81-100); NEUTROPHILS % (AUTO) 76.5 % (40-74); Platelet Count 158 bil/L (150-400)
[2017-01-21 09:11] VITALS: BP 130/46; PULSE 89; RESP 16; O2SAT 95
[2017-01-21] MEDS: predniSONE 10 mg Tablet PO SCH (09:17)
[2017-01-21] MEDS: Fluticasone 0.05% 15 Spray/2 Gm 16 Gm Nasal Spray NOSTRIL SCH (09:18)
[2017-01-21] MEDS: Lactobacillus Rhamnosus 10 Bil Unit Capsule PO SCH (09:18)
[2017-01-21] MEDS: Vancomycin Dose per Pharmacist XX SCH (09:18)
[2017-01-21] MEDS: Insulin GLARgine 100 Unit/mL Syringe SUBQ SCH (09:20)
[2017-01-21] MEDS: Insulin LISPRO 300 Unit/3 mL Inj SUBQ SCH (09:23)
--- NOTE | 2017-01-21 10:28 | PCM.DIMED ---
Twyla Mahoney DO 01/21/17 1028: Discharge Instructions Date of Service Jan 21, 2017 Dates of Hospitalization Jan 19, 2017 at 05:42 Discharge Diagnosis Discharge Diagnosis Sepsis secondary to right leg cellulitis on chronic bilateral lower extremity wounds, present on admission. Resolved. Acute on chronic hypercarbic hypoxemic respiratory failure secondary to CARRIE and obesity hypoventilation syndrome, present on admission. Active. Acute kidney injury on chronic kidney injury, present on admission. Improving back to his baseline. Chronic congestive heart failure secondary to diastolic dysfunction, present on admission. Presumed stable. Chronic Problems: Polypharmacy Chronic elevated troponin, of uncertain significance, present on admission. Active. Diabetes mellitus type 2, insulin using, uncontrolled, present on admission. Active. Obesity hypoventilation syndrome and CARRIE on Triology, present on admission. Active. 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 Active. Hypertension, chronic. Stable. GERD, chronic. Glaucoma, chronic. Gout, chronic. BPH, chronic. Peripheral neuropathy, chronic. Parkinsonism, present on admission. Stable. Anxiety and depression, chronic. Active. Chronic pain with opiate habituation. History of atrial fibrillation with RVR. Morbid obesity Medication Instructions Additional med instructions You will need to take an antibiotic pill at home twice a day for the next 5 days. Your blood pressure was low when you were here, because of this some of your blood pressure medications were held. You can restart them one at a time at home. Please see your primary care doctor within the next couple of days so you can be restarted on your medications under supervision. For now do NOT take Metolazone and Torsemide and potassium until you are seen by your doctor. He can restart them when he feels it is appropriate. Diet Discharge Diet: Low fat, Low Sodium, Heart Healthy, Diabetic Call your provider Call your provider for: Fever or Chills, Weakness (unilateral) Patient Instructions Patient Instructions Follow up with your doctor in a 2-3 days to restart your blood pressure medications. Continue to use your Trilogy machine when you sleep, this means during the day too when you take naps. Resume home health physical therapy with visits 3 days a week for the next two weeks for improvement of generalized weakness secondary to multiple disease processes. Follow-up plan Home health RN for wound care for stasis ulcer care for the next two weeks. Follow-up Provider: Nicolás Pendleton MD Follow-up with PCP in: 1 week (2-3 days) Tereso Myers MD 01/21/17 1404: Discharge Instructions Attending's Statement Patient seen and examined with house staff. Agree with all attached documentation. Twyla Mahoney DO Jan 21, 2017 10:28 Tereso Myers MD Jan 21, 2017 14:04
[2017-01-21] MEDS ORDERED: DOXY100C43 PO (10:45)
--- NOTE | 2017-01-21 11:36 | NUR ---
Social Work Note: Initial Assessment/Discharge Data& Assessment: EMR reviewed. Per pt is medically ready to discharge home via POV with home health PT and RN. SW met with pt and pt at bedside to confirm discharge plan and assess for any unmet needs, SW role explained. Xavi Vargas is a 61 year old male admitted on 01/19/2017 for fever, sepsis, CRF and altered mental status. Per pt is medically improved and ready to discharge home via POV. Pt has Medicare and [facility] insurance coverage. Pt sees Nicolás Pendleton MD for primary care. Pt lives in [place] with his and child and is independent with ADL's at baseline but pt drives. Pt uses a walker and electric wheelchair at baseline. Pt has a hx at [facility] and has had both [facility] and [facility] in the past. Pt does have LTC insurance. Pt is not a . Pt has DPOA/Advance Directive paperwork completed, SW requested a copy when possible. Pt to transport pt home this afternoon. Per MD order, SW provided home health list for preferences for RN for wound care and PT for strengthening. Pt confirmed home bound status. Pt explained that his preference is for [facility]. SW provided referral to Janeth with [facility] and notified her of pt discharge. Pt and pt denies any other needs. No other discharge needs identified. All updated and agreeable to plan. Plan: Per pt is medically ready to discharge home via POV with [facility] PT and RN. No other discharge needs identified. All updated and agreeable to plan. KATHERINE Mckeon Addendum: 01/21/17 at 1144 by DELLA MAXWELL Amended: Links added.
--- NOTE | 2017-01-21 12:00 | NUR ---
Wound Note Patient seen at bedside for wound care and dressing change prior to discharge home with his . Rajinder compression wraps were removed ulcers at left and right lower legs were cleaned with saline and redressed with Xeroform and then compression wraps (multilayer). Patient will be seen at the wound center in the coming week.
--- NOTE | 2017-01-21 12:44 | PCM.DC.MED ---
Discharge Summary Date of Service Jan 21, 2017 Dates of Hospitalization Date of Hospital Admission Jan 19, 2017 at 05:42 Date of Discharge: Jan 21, 2017 Providers: Admitting Physician: Tereso Myers MD Primary Care Physician: Nicolás Pendleton MD Attending Physician: Tereso Myers MD Diagnosis at Time of Discharge Diagnosis at Time of Discharge Sepsis secondary to right leg cellulitis on chronic bilateral lower extremity wounds, present on admission. Resolved. Acute on chronic hypercarbic hypoxemic respiratory failure secondary to CARRIE and obesity hypoventilation syndrome, present on admission. Active. Acute kidney injury on chronic kidney injury, present on admission. Improving back to his baseline. Chronic congestive heart failure secondary to diastolic dysfunction, present on admission. Presumed stable. Chronic Problems: Polypharmacy Chronic elevated troponin, of uncertain significance, present on admission. Active. Diabetes mellitus type 2, insulin using, uncontrolled, present on admission. Active. Obesity hypoventilation syndrome and CARRIE on Triology, present on admission. Active. 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 Active. Hypertension, chronic. Stable. GERD, chronic. Glaucoma, chronic. Gout, chronic. BPH, chronic. Peripheral neuropathy, chronic. Parkinsonism, present on admission. Stable. Anxiety and depression, chronic. Active. Chronic pain with opiate habituation. History of atrial fibrillation with RVR. Morbid obesity Procedures XRay, CTs & MRIs X-RAY CHEST ONE VIEW, PORTABLE IMPRESSION: No radiographic evidence of acute cardiopulmonary pathology. Dictated by: Avtar Escoto M.D. on 01/19/2017 at 8:18 Brief History Xavi Vargas is a 61-year-old man with a past medical history significant for chronic hypoxemic respiratory failure secondary to morbid obesity, BOOP on chronic prednisone, COPD, obesity hypoventilation syndrome, CARRIE on Trilogy, who presented to the [facility] ED via EMS due to altered mentation that starter last night. The patient is well know to this hospital and is frequently admitted due to hypoxemia and hypercapnia. Per ED report the the EMS administered Narcan without effect. The patient notes vomiting that began abruptly without any hematemesis. Per ED report he also noted diarrhea however denied this this morning. He denies any abdominal pain, fevers, chills, or dysuria. He states that his lower extremities are always painful and he did not notice a particularly different feeling in his right leg. His does state that his leg looks worse to her and more erythematous and she did note an open blister on his right leg. Vital signs in the ER T 36.8 HR 119 RR 24 BP 107/58 O2 Sat 100% on 4L. He was given single doses of Vancomycin, Meropenem and Clindamycin as well as one 500 mL bolus of NS for presumed cellulitis. Hospital Course Xavi Vargas is a 61-year-old man with a past medical history significant for chronic hypoxemic respiratory failure secondary to morbid obesity, BOOP on chronic prednisone, COPD, obesity hypoventilation syndrome, CARRIE on Trilogy, who presented to the [facility] ED via EMS due to altered mentation. Sepsis secondary to right leg cellulitis on chronic bilateral lower extremity wounds, present on admission. Resolved. - SIRS: tachycardia, tachypnea,confusion - Treated with vancomycin and transitioned to Doxycycline for outpatient treatment. - Ordered wound care and physical therapy consult. Acute on chronic hypercarbic hypoxemic respiratory failure secondary to CARRIE and obesity hypoventilation syndrome, present on admission. Active. - Continued Trilogy with current settings with addition of oxygen bled into Trilogy. - Continued home inhaler Brovana Acute kidney injury on chronic kidney injury, present on admission. Resolved. - Likely secondary to dehydration due vomiting and diarrhea Chronic congestive heart failure secondary to diastolic dysfunction, present on admission. Presumed stable. - Held Spironolactone 25 mg twice a day, metoprolol tartrate 50 mg twice a day as patient was hypotensive - Continued aspirin 81 mg daily, atorvastatin 10 mg daily at bedtime. - Held Toresimide today, to be restarted outpatient after blood pressure increases. Patient normotensive currently. Chronic Problems: Polypharmacy - Patient takes an extensive list of medications - This poses a high risk if adverse reaction and events Chronic elevated troponin, of uncertain significance, present on admission. Active. - Chronically elevated troponin - Continued to monitor closely on telemetry. Patient asymptomatic. Diabetes mellitus type 2, insulin using, uncontrolled, present on admission. Active. - Ordered carbohydrate consistent/heart healthy diet. Will continue outpatient regiment on discharge. Obesity hypoventilation syndrome and CARRIE on Triology, present on admission. Active. - Continued Trilogy with additional oxygen bled into machine. 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 Active. - Continued prednisone 10 mg daily. Hypertension, chronic. Stable. - Held metoprolol tartrate 50 mg twice a day and spironolactone 25 mg twice a day. GERD, chronic. - Continuee Protonix 20 mg daily Glaucoma, chronic. - Continuee Latanoprost 0.67 drops both eyes daily at bedtime. Gout, chronic. - Continuee Allopurinol 100 mg daily. BPH, chronic. - Continuee Tamsulosin 0.4 mg daily at bedtime. Peripheral neuropathy, chronic. - Lyrica 225 mg twice a day Parkinsonism, present on admission. Stable. - Continued Sinemet 25-100 mg 2 tabs 4 times a day. - Continued Abilify 2 mg daily. Anxiety and depression, chronic. Active. - amitriptyline 50 mg daily at bedtime. Chronic pain with opiate habituation. - oxycodone at 10 mg every 4 hours as needed for pain. History of atrial fibrillation with RVR. - Patient in normal sinus rhythm. - Continued aspirin 81 mg and Plavix 75 mg daily. Morbid obesity, chronic. - BMI 40. Exam Vital Signs (Last) Date Time Temp Pulse Resp B/P Pulse Ox O2 Delivery O2 Flow Rate FiO2 01/21/17 10:11 CPAP/BIPAP 01/21/17 09:11 89 16 130/46 95 01/21/17 08:17 3.00 01/21/17 02:49 36.6 Exam General: No acute distress, obese, alert and awake, appropriately interactive, nasal cannula on face HEENT: Normocephalic, atraumatic. External ears without defect. Pupils equal, round, and reactive to light and accommodation. Anicteric sclerae, moist conjunctivae, and no lid lag. Oropharynx free of erythema and cobble stoning with moist mucosa. Neck: Supple with full range of motion. No jugular venous distension that can be appreciated but exam limited by body habitus. No bruits. No lymphadenopathy or thyromegaly. Cardiovascular: Regular rate and rhythm with no murmurs, rubs, or gallops appreciated but exam is very limited by body habitus. Pulmonary: Crackles bilaterally. Normal respiratory effort with no use of accessory muscles. Exam limited by body habitus. Abdomen: Bowel tones present. Soft, nontender, nondistended. Markedly obese. No hepatosplenomegaly or masses appreciated. Extremities: Significant pitting edema of both lower extremities. Skin: Erythema of bilateral lower extremities. Neurological: Cranial nerves grossly intact. Normal muscle strength, tone, and bulk. Reflexes, coordination, and sensory function within normal limits. No known gait impairment. Psychiatric: Normal mood and affect. Alert and oriented to person, place, and time. Test 01/19/17 03:50 01/19/17 05:10 01/20/17 03:50 01/20/17 21:29 Hold Purple Top Tube Received (Received) Prothrombin Time 11.2sec (8.1-12.5) Prothromb Time International Ratio 1.05ratio Activated Partial Thromboplast Time 25.0sec (22.8-33.0) Hold Blue Top Tube Received (Received) Lactic Acid Level 2.1mmol/L (0.4-2.0) Pro-B-Type Natriuretic Peptide 734.2pg/mL (0-210) Prealbumin 31mg/dL (20-40) Lipase 39U/L (13-60) Hold Red Top Tube Received (Received) Hold [place]all Top Tube Received (Received) Hold Miller Top Tube Received (Received) Urine Color Yellow (YELLOW) Urine Appearance Clear (CLEAR,HAZY) Urine pH 5.0 (5.0-8.0) Urine Specific Cash 1.010 (1.003-1.035) Urine Protein Negativemg/dL (NEG,TRACE) Urine Glucose (UA) Negativemg/dL (NEGATIVE) Urine Ketones Negativemg/dL (NEGATIVE) Urine Occult Blood Negative (NEGATIVE) Urine Nitrite Negative (NEGATIVE) Urine Bilirubin Negative (NEGATIVE) Urine Urobilinogen Normalmg/dL (NORMAL) Urine Leukocyte Esterase Negative (NEGATIVE) Urine RBC 0-2/hpf (0-2) Urine WBC 0-5/hpf (0-5) Urine Epithelial Cells Moderate/hpf (NONE-MOD) Urine Crystals None seen (NONE SEEN) Urine Bacteria Few/hpf (NONE-FEW) Urine Hyaline Casts None/lpf (NONE) Urine Granular Casts None seen (NONE SEEN) Urine Waxy Casts None seen (NONE SEEN) Urine Red Blood Cell Casts None seen (NONE SEEN) Urine White Blood Cell Casts None seen (NONE SEEN) Urine Mucus None seen (None Seen) Urine Trichomonas None seen (NONE SEEN) Urine Yeast None (NONE SEEN) Urinalysis Comment None Urine Culture Reflexed Not indicated Hemoglobin A1c 7.3% (4.8-5.6) Phosphorus Level 3.7mg/dL (2.5-4.9) Magnesium Level 2.3mg/dL (1.6-2.6) Total Bilirubin 0.3mg/dL (0.0-1.2) Aspartate Amino Transf (AST/SGOT) 30U/L (0-50) Alanine Aminotransferase (ALT/SGPT) 9U/L (0-44) Alkaline Phosphatase 49U/L (25-160) Total Protein 6.0g/dL (6.4-8.4) Albumin 3.5g/dL (3.4-5.0) Random Vancomycin Level 27.4ug/mL Rx Vancomycin Level Trough 14.5mcg/mL Test 01/21/17 08:12 White Blood Count 8.4th/mm3 (3.8-10.1) Red Blood Count 3.84mil/mm3 (4.40-5.80) Hemoglobin 10.0g/dL (13.8-17.2) Hematocrit 33.2% (41.0-50.0) Mean Corpuscular Volume 86.5fL (81-100) Mean Corpuscular Hemoglobin 26.0pg (27.0-35.0) Mean Corpuscular Hemoglobin Concent 30.1% (32.0-37.0) Red Cell Distribution Width 18.4% (12.3-15.4) Platelet Count 158bil/L (150-400) Neutrophils (%) (Auto) 76.5% (40-74) Lymphocytes (%) (Auto) 15.1% (14-46) Monocytes (%) (Auto) 7.0% (4-12) Eosinophils (%) (Auto) 1.1% (0-5) Basophils (%) (Auto) 0.1% (0-3) Sodium Level 140mEq/L (134-144) Potassium Level 3.9mEq/L (3.5-5.2) Chloride Level 96mEq/L (97-108) Carbon Dioxide Level 31mmol/L (18-29) Blood Urea Nitrogen 50mg/dL (8-27) Creatinine 1.39mg/dL (0.76-1.27) Estimat Glomerular Filtration Rate 55mL/min (>59) Glucose Level 282mg/dL (60-99) Calcium Level 8.5mg/dL (8.5-10.1) Troponin T 0.242ug/L (0.0-0.011) Procalcitonin 0.29ng/mL (0.00-0.08) Discharge Medications Discharge Medications Allopurinol (Allopurinol) 100 Mg Tablet 100 MG PO HS (Reported) Amitriptyline (Amitriptyline) 50 Mg Tab 50 MG PO HS (Reported) Ammonium Lactate (Ammonium Lactate) 140 Gm Cream..g. Unknown Dose TP DAILY ( Reported) Arformoterol Tartrate (Brovana) 15 Mcg/2 Ml Vial.neb 15 MCG IH BID (Reported) Aripiprazole (Aripiprazole) 2 Mg Tablet 2 MG PO HS (Reported) Ascorbic Acid (Vitamin C) 500 Mg Capsule.er 500 MG PO DAILY (Reported) Aspirin (Aspirin) 81 Mg Tablet 81 MG PO DAILY (Reported) Atorvastatin Calcium (Atorvastatin Calcium) 10 Mg Tablet 10 MG PO HS (Reported) Carbidopa/Levodopa 25-100 mg (Carbidopa/Levodopa 25-100 mg) 1 Each Tablet 2 TABLET PO QID (Reported) Cholecalciferol (Vitamin D3) (Vitamin D3) 2,000 Unit Capsule 2,000 UNIT PO DAILY (Reported) Cinnamon Bark/Chromium Picolin (Cinnamon Plus Chromium Capsule) 1 Each Capsule 1 EACH PO DAILY (Reported) Citalopram (Citalopram) 40 Mg Tablet 40 MG PO DAILY (Reported) Clopidogrel Bisulfate (Plavix) 75 Mg Tablet 75 MG PO DAILY Prescribed by: MIRACLE MERRILL DO Cyanocobalamin (Vitamin B-12) (B-12) 500 Mcg Tab.rapdis 500 MCG SL DAILY ( Reported) Diclofenac Gel (Voltaren Gel) 100 Gm Tube 1 APPLIC TOPICAL QID (Reported) Doxycycline Monohyd (Doxycycline Monohyd) 100 Mg Capsule 100 MG PO BID Prescribed by: TWYLA MAHONEY DO Fluticasone Propionate (Flonase Allergy Relief) 9.9 Ml [place].susp 1 SPRAYS NS DAILY (Reported) Insulin Glargine (Lantus U100 Insulin Vial) 100 Unit/Ml Vial 60 UNITS SUBQ BID ( Reported) Insulin Regular, Human (HUMulin-R U-500 Insulin Vial) 500 Unit/1 Ml Vial 8 UNITS SUBQ TIDAC (Reported) Lactobacillus Acidophilus (Acidophilus) 1 Each Capsule 1 EACH PO DAILY (Reported ) Latanoprost (Latanoprost) 2.5 Ml Drops 1 GTT BOTH_EYES HS (Reported) Magnesium Oxide (Magnesium Oxide) 400 Mg Tablet 400 MG PO DAILY (Reported) Metoprolol Tartrate (Metoprolol Tartrate) 25 Mg Tablet 50 MG PO BID Prescribed by: PONCHO VICENTE MD Multivitamin (Multivitamins) 1 Each Capsule 1 EACH PO DAILY (Reported) Omeprazole (Omeprazole) 20 Mg Capsule.dr 20 MG PO DAILY (Reported) Prednisone (PredniSONE) 10 Mg Tablet 10 MG PO DAILY Prescribed by: MIRACLE MERRILL DO Pregabalin (Lyrica) 225 Mg Capsule 225 MG PO BID (Reported) Sennosides (Senna) 8.6 Mg Tablet 17.2 MG PO 1400 (Reported) Sennosides (Senna) 8.6 Mg Tablet 17.2 MG PO HS (Reported) Spironolactone (Spironolactone) 25 Mg Tablet 25 MG PO DAILYWM (Reported) Spironolactone (Spironolactone) 25 Mg Tablet 25 MG PO 1400 (Reported) Tamsulosin ER (Tamsulosin ER) 0.4 Mg Cap.er.24h 0.4 MG PO HS (Reported) As needed Acetaminophen (Acetaminophen) 500 Mg Tablet 500 MG PO Q6H PRN PRN For Pain ( Reported) Albuterol Sulfate (Ventolin HFA Inhaler) 200 Puff/18 Gm Inhaler 2 PUFFS INH q4- 6 hours PRN PRN For Shortness of Breath (Reported) Calcium Carbonate (Tums) 500 Mg Tab.chew 2,000 MG PO PRN PRN PRN For Indigestion (Reported) Dextran 70/Hypromellose/Pf (Artificial Tears Drops) 1 Each [place]perette 1 DROP BOTH_EYES QID PRN PRN dry eyes (Reported) Loratadine (Claritin) 10 Mg Capsule 10 MG PO DAILY PRN PRN allergies (Reported) Oxycodone (Roxicodone) 5 Mg Tablet 10 MG PO Q6H PRN PRN For Pain (Reported) Polyethylene Glycol 3350 (Gavilax) 17 Gm Powd.pack 17 GM PO DAILY PRN PRN For Constipation (Reported) Additional med instructions You will need to take an antibiotic pill at home twice a day for the next 5 days. Your blood pressure was low when you were here, because of this some of your blood pressure medications were held. You can restart them one at a time at home. Please see your primary care doctor within the next couple of days so you can be restarted on your medications under supervision. For now do NOT take Metolazone and Torsemide and potassium until you are seen by your doctor. He can restart them when he feels it is appropriate. Followup Plan Disposition: Home with home health resume PT, add RN (leg edema care) Follow-up plan Home health RN for wound care for stasis ulcer care for the next two weeks. Discharge Diet: Low fat, Low Sodium, Heart Healthy, Diabetic Patient Instructions Follow up with your doctor in a 2-3 days to restart your blood pressure medications. Continue to use your Trilogy machine when you sleep, this means during the day too when you take naps. Resume home health physical therapy with visits 3 days a week for the next two weeks for improvement of generalized weakness secondary to multiple disease processes. Follow-up Provider: Nicolás Pendleton MD Follow-up with PCP in: 1 week (2-3 days) Time spent 60 min Attending Statement Patient seen and examined with house staff. Agree with all attached documentation. Twyla Mahoney DO Jan 21, 2017 12:44 Tereso Myers MD Jan 21, 2017 14:08
--- NOTE | 2017-01-21 13:02 | NUR ---
Discharge Wheelchair escort down to private vehicle. All belongings with pt. Discharge instructions reviewed. Appt clarification as paperwork [facility] where his PCP is located. His appt is with [facility] on 01/23/17. Pt will resume his BP meds when he gets home. Adv he check his BP prior to taking them and if systolic <100 to call his PCP or just hold the med for that day and further discuss with PCP at visit this Thursday. Pt understood.
--- NOTE | 2017-01-22 13:37 | NUR ---
Faxed clinicals and discharge to [facility] CM per [facility]
== END 2017-01-21 12:58 | disposition home health service (06) | DRG 871 ==
LOC: EDBD 03:21 → SED 03:21 → PCC 05:42 → CCU 06:36 → PCC 09:09 → CCU 11:34 → PCC 21:30
PROVIDERS: ADMIT Hospitalist; ATTEND Hospitalist
DX: A41.9 Sepsis, unspecified organism (principal); J96.22 Acute and chronic respiratory failure with hypercapnia; J96.21 Acute and chronic respiratory failure with hypoxia; L03.116 Cellulitis of left lower limb; L03.115 Cellulitis of right lower limb; N17.9 Acute kidney failure, unspecified; I50.32 Chronic diastolic (congestive) heart failure; Z68.42 Body mass index [BMI] 45.0-49.9, adult; E66.2 Morbid (severe) obesity with alveolar hypoventilation; F11.20 Opioid dependence, uncomplicated; Z99.81 Dependence on supplemental oxygen; E86.0 Dehydration; F51.9 Sleep disorder not due to a substance or known physiological condition, unspecified; J84.89 Other specified interstitial pulmonary diseases; G20 Parkinson's disease; G89.29 Other chronic pain; M54.9 Dorsalgia, unspecified; E11.628 Type 2 diabetes mellitus with other skin complications; K21.9 Gastro-esophageal reflux disease without esophagitis; M10.9 Gout, unspecified; H40.9 Unspecified glaucoma; E11.42 Type 2 diabetes mellitus with diabetic polyneuropathy; Z79.4 Long term (current) use of insulin; J44.9 Chronic obstructive pulmonary disease, unspecified; I12.9 Hypertensive chronic kidney disease with stage 1 through stage 4 chronic kidney disease, or unspecified chronic kidney disease; N18.3 Chronic kidney disease, stage 3 (moderate); Z87.891 Personal history of nicotine dependence; N40.0 Benign prostatic hyperplasia without lower urinary tract symptoms; F41.8 Other specified anxiety disorders; E11.65 Type 2 diabetes mellitus with hyperglycemia; I48.0 Paroxysmal atrial fibrillation

== ENCOUNTER 2017-03-03 13:35 | Emergency (ER) | payer MEDICARE, MEDICAID ==
[~2017-03-03] VITALS: Ht 182.9 cm; Wt 165.0 kg
[~2017-03-03 13:35] MED LIST changes: -ALBU2.5V4 INHALATION; +AMMO385C5 TP; +DICL100G8 TOPICAL; +DOXY100C43 PO; +OXYC-474 PO; -OXYC5TAB72 PO; -POTA20TA7 PO; -TORS100T3 PO
[2017-03-03 13:37] VITALS: BP 127/52; PULSE 81; RESP 14; O2SAT 97
--- NOTE | 2017-03-03 13:42 | ED.REPORT ---
HPI-Dyspnea / Wheezing Date of Service Mar 03, 2017 ED Provider: Dr. Dasilva Pt is a chronically ill 61 y/o male w/ a hx of a-fib, chronic hypoxemic respiratory failure on home O2, CKD 3, chronic bronchitis, IDDM, HTN, CHF, chronic pain, obesity hypoventilation, presenting to the ED via EMS c/o SOB onset 14 days ago. The patient has CHF and suspects the cause of his SOB is fluid overload as he has experienced this before. He does have chronic anasarca. He does not believe he has an infection and denies fever, chills, nausea, vomiting, diarrhea, CP. Echo December 2016 interpreted as below: The study quality was technically difficult. A contrast injection of Definity was performed to improve assessment of LV function. The ejection fraction is estimated to be 65-70%. There are no obvious focal wall motion abnormalities noted but poor endocardial definition reduces the sensitivity for the detection of such. The peak aortic velocity is 3.8 m/sec. The peak aortic velocity on the previous exam was 2.3 m/sec. The aortic valve mean gradient is 39 mmHg. There is moderate to severe aortic stenosis. Right ventricular systolic pressure is estimated to be 32 mmHg plus the clinically estimated CVP which cannot be estimated on this exam. Nursing Notes Stated Complaint: SOB Chief Complaint: Respiratory Complaints Nursing Notes Reviewed: Yes Allergies: Coded Allergies: amoxicillin (Verified Adverse Reaction, Severe, Nausea, 03/03/17) VERY NAUSEUOUS clavulanic acid (Verified Adverse Reaction, Severe, Nausea, 03/03/17) aspirin (Verified Adverse Reaction, Intermediate, Hematuria, 03/03/17) Blood in urine after senior care use Scheduled Allopurinol (Allopurinol) 100 Mg Tablet 100 MG PO HS Amitriptyline (Amitriptyline) 50 Mg Tab 50 MG PO HS Ammonium Lactate (Ammonium Lactate) 140 Gm Cream..g. Unknown Dose TP DAILY Arformoterol Tartrate (Brovana) 15 Mcg/2 Ml Vial.neb 15 MCG IH BID Aripiprazole (Aripiprazole) 2 Mg Tablet 2 MG PO HS Ascorbic Acid (Vitamin C) 500 Mg Capsule.er 500 MG PO DAILY Aspirin (Aspirin) 81 Mg Tablet 81 MG PO DAILY Atorvastatin Calcium (Atorvastatin Calcium) 10 Mg Tablet 10 MG PO HS Carbidopa/Levodopa 25-100 mg (Carbidopa/Levodopa 25-100 mg) 1 Each Tablet 2 TABLET PO QID Cholecalciferol (Vitamin D3) (Vitamin D3) 2,000 Unit Capsule 2,000 UNIT PO DAILY Cinnamon Bark/Chromium Picolin (Cinnamon Plus Chromium Capsule) 1 Each Capsule 1 EACH PO DAILY Citalopram (Citalopram) 40 Mg Tablet 40 MG PO DAILY Clopidogrel Bisulfate (Plavix) 75 Mg Tablet 75 MG PO DAILY Cyanocobalamin (Vitamin B-12) (B-12) 500 Mcg Tab.rapdis 500 MCG SL DAILY Diclofenac Gel (Voltaren Gel) 100 Gm Tube 1 APPLIC TOPICAL QID Doxycycline Monohyd (Doxycycline Monohyd) 100 Mg Capsule 100 MG PO BID Fluticasone Propionate (Flonase Allergy Relief) 9.9 Ml [place].susp 1 SPRAYS NS DAILY Insulin Glargine (Lantus U100 Insulin Vial) 100 Unit/Ml Vial 60 UNITS SUBQ BID Insulin Regular, Human (HUMulin-R U-500 Insulin Vial) 500 Unit/1 Ml Vial 8 UNITS SUBQ TIDAC Lactobacillus Acidophilus (Acidophilus) 1 Each Capsule 1 EACH PO DAILY Latanoprost (Latanoprost) 2.5 Ml Drops 1 GTT BOTH_EYES HS Magnesium Oxide (Magnesium Oxide) 400 Mg Tablet 400 MG PO DAILY Metoprolol Tartrate (Metoprolol Tartrate) 25 Mg Tablet 50 MG PO BID Multivitamin (Multivitamins) 1 Each Capsule 1 EACH PO DAILY Omeprazole (Omeprazole) 20 Mg Capsule.dr 20 MG PO DAILY Prednisone (PredniSONE) 10 Mg Tablet 10 MG PO DAILY Pregabalin (Lyrica) 225 Mg Capsule 225 MG PO BID Sennosides (Senna) 8.6 Mg Tablet 17.2 MG PO 1400 Sennosides (Senna) 8.6 Mg Tablet 17.2 MG PO HS Spironolactone (Spironolactone) 25 Mg Tablet 25 MG PO DAILYWM Spironolactone (Spironolactone) 25 Mg Tablet 25 MG PO 1400 Tamsulosin ER (Tamsulosin ER) 0.4 Mg Cap.er.24h 0.4 MG PO HS Scheduled PRN Acetaminophen (Acetaminophen) 500 Mg Tablet 500 MG PO Q6H PRN PRN For Pain Albuterol Sulfate (Ventolin HFA Inhaler) 200 Puff/18 Gm Inhaler 2 PUFFS INH q4- 6 hours PRN PRN For Shortness of Breath Calcium Carbonate (Tums) 500 Mg Tab.chew 2,000 MG PO PRN PRN PRN For Indigestion Dextran 70/Hypromellose/Pf (Artificial Tears Drops) 1 Each Droperette 1 DROP BOTH_EYES QID PRN PRN dry eyes Loratadine (Claritin) 10 Mg Capsule 10 MG PO DAILY PRN PRN allergies Oxycodone (Roxicodone) 5 Mg Tablet 10 MG PO Q6H PRN PRN For Pain Polyethylene Glycol 3350 (Gavilax) 17 Gm Powd.pack 17 GM PO DAILY PRN PRN For Constipation General Time Seen by MD: 13:41 Chief Complaint Shortness of breath Hx Obtained From: Patient, EMS Arrived By: Ambulance Sudden in Onset?: No Onset Occurred: More than a week ago... (2 weeks) Symptom Duration: Since onset Severity: Current: No pain currently Severity: Maximum: No pain Recent Healthcare: Previous diagnosis Similar Sx Previous: Yes Past Medical History Past Medical History Notes: PCP: Dr. Pendleton Relationship Manager Dr. 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 Clement Past Medical History 1. Paroxysmal Atrial Fibrillation 2. ho/ chronic hypoxemic respiratory failure (states patient uses O2 3 L at night at baseline) 3. history of MSRA 4. CKD stage III 5. History of pancreatitis 6. Bronchiolitis obliterans organizing pneumonia (BOOP) on chronic prednisone (patient states current dose as of July 2016 is 10 mg daily) 7. Diabetes Mellitus Type 2, insulin-using, poorly controlled 8. Hypertension 9. Parkinsonian Tremor 10. BPH 11. Anxiety and depression 12. CARRIE on CPAP 13. Chronic congestive heart failure secondary to diastolic dysfunction 14. chronic edema 15. Gout 16. Chronic back pain on opiates (history of acute L2 fracture 06/2016 as well) History of cor pulmonale per pulmonology note June 2016 Obesity hypoventilation syndrome per pulmonology note June 2016 Obesity BMI 48.2 Past Surgical History Colonoscopy Lung biopsy Hernia repair Reports: Appendectomy Family History Reports: Diabetes mellitus Smoking History Former Smoker Social History Alcohol Use: Denies alcohol use Drug Use: Denies drug use Other Social History: Good social support, Frequent ED visitor, , Local resident Ambulatory Status Walker Review of Systems Constitutional: Denies: Chills, Fever Respiratory: Reports: Shortness of breath, Denies: Non-productive cough Cardiovascular: Reports: Dyspnea on exertion, Edema, Denies: Chest pain Complete sys rev & neg: except as marked. Physical Exam Initial Vital Signs Vital Signs (First) Date Time Temp Pulse Resp B/P Pulse Ox O2 Delivery O2 Flow Rate FiO2 03/03/17 13:37 36.9 81 14 127/52 97 Nasal Cannula 6 Initial VS: Reviewed, Vital signs normal Head / Eyes: Atraumatic, Normocephalic ENT: Mucous membranes moist, Conjunctiva normal, No scleral icterus Skin: Warm, Dry, No cyanosis Neurologic: Alert, Oriented, Nonfocal Psychiatric: Mood/affect normal, Behavior normal, Normal thought content General/Constitutional: Awake, Alert, No acute distress, Cooperative, Not toxic appearing Appearance / Presentation: Positive: Obese, morbidly Appears chronically ill Neck: Supple, Full range of motion Respiratory / Chest: Breath sounds NL, Breath sounds = bilat, No respiratory distress, No rales, No rhonchi, No wheezing Requiring 6 L oxygen by NC Cardiovascular: Heart rate NL, Regular rhythm, Heart sounds NL, No murmurs Pitting lower extremity edema extending to abdomen Interpretation & Diagnostics Lab Results Interpretation Result Diagram: 03/03/17 1530 03/03/17 1520 Test 03/03/17 14:19 03/03/17 15:20 03/03/17 15:30 Urine Color Straw (YELLOW) Urine Appearance Hazy (CLEAR,HAZY) Urine pH 5.5 (5.0-8.0) Urine Specific [place] 1.010 (1.003-1.035) Urine Protein Negativemg/dL (NEG,TRACE) Urine Glucose (UA) Negativemg/dL (NEGATIVE) Urine Ketones Negativemg/dL (NEGATIVE) Urine Occult Blood Negative (NEGATIVE) Urine Nitrite Negative (NEGATIVE) Urine Bilirubin Negative (NEGATIVE) Urine Urobilinogen Normalmg/dL (NORMAL) Urine Leukocyte Esterase Negative (NEGATIVE) Urine RBC 0-2/hpf (0-2) Urine WBC 0-5/hpf (0-5) Urine Epithelial Cells Occasional/hpf (NONE-MOD) Urine Crystals None seen (NONE SEEN) Urine Bacteria None/hpf (NONE-FEW) Urine Hyaline Casts Occasional/lpf (NONE) Urine Granular Casts None seen (NONE SEEN) Urine Waxy Casts None seen (NONE SEEN) Urine Red Blood Cell Casts None seen (NONE SEEN) Urine White Blood Cell Casts None seen (NONE SEEN) Urine Mucus None seen (None Seen) Urine Trichomonas None seen (NONE SEEN) Urine Yeast None (NONE SEEN) Urinalysis Comment None Urine Culture Reflexed Not indicated Sodium Level 137mEq/L (134-144) Potassium Level 4.9mEq/L (3.5-5.2) Chloride Level 91mEq/L (97-108) Carbon Dioxide Level 29mmol/L (18-29) Blood Urea Nitrogen 56mg/dL (8-27) Creatinine 1.66mg/dL (0.76-1.27) Estimat Glomerular Filtration Rate 45mL/min (>59) Glucose Level 174mg/dL (60-99) Lactic Acid Level 1.4mmol/L (0.4-2.0) Calcium Level 8.3mg/dL (8.5-10.1) Total Bilirubin 0.3mg/dL (0.0-1.2) Aspartate Amino Transf (AST/SGOT) 31U/L (0-50) Alanine Aminotransferase (ALT/SGPT) 13U/L (0-44) Alkaline Phosphatase 59U/L (25-160) Troponin T 0.073ug/L (0.0-0.011) Pro-B-Type Natriuretic Peptide 1209pg/mL (0-210) Total Protein 7.0g/dL (6.4-8.4) Albumin 3.7g/dL (3.4-5.0) Procalcitonin 0.09ng/mL (0.00-0.08) White Blood Count 8.3th/mm3 (3.8-10.1) Red Blood Count 3.92mil/mm3 (4.40-5.80) Hemoglobin 10.1g/dL (13.8-17.2) Hematocrit 35.1% (41.0-50.0) Mean Corpuscular Volume 89.5fL (81-100) Mean Corpuscular Hemoglobin 25.8pg (27.0-35.0) Mean Corpuscular Hemoglobin Concent 28.8% (32.0-37.0) Red Cell Distribution Width 18.7% (12.3-15.4) Platelet Count 212bil/L (150-400) Neutrophils (%) (Auto) 79.5% (40-74) Lymphocytes (%) (Auto) 11.3% (14-46) Monocytes (%) (Auto) 8.1% (4-12) Eosinophils (%) (Auto) 0.6% (0-5) Basophils (%) (Auto) 0.1% (0-3) ECG Interpretation Time: 15:56 Interpreted by: ED physician Normal ECG Interpretation: Normal ECG w/ rate of... (76), Normal rate, Normal sinus rhythm, No acute ischemic changes, Normal QRS, Normal axis, Normal intervals, Adequate tracing X-Ray Chest Interpretation Chest Xray Interpretation: IMPRESSION: No acute pulmonary process. Dictated by: Brenda Tobin M.D. on 03/03/2017 at 14:06 Approved by: Brenda Tobin M.D. on 03/03/2017 at 14:06 View: Portable, 1 view Interpretation / Wet Read by: Interpret - Radiologist Re-Eval/Medical Decision Source of Hx: Old records Re-Evaluation/Progress : Time of Eval: 17:00 Patient Status: Condition improved Re-Evaluation/Progress Note: Patient feels well and would like to return home. He says that his symptoms have significantly improved. Patient's evaluation is clearly abnormal but significantly better or at least baseline compared to previous visits. I think that close outpatient follow-up is adequate. Counseled Regarding: Diagnosis, Lab results, Need for follow-up, When/why to return to ED Discharge & Departure Impression: Primary Impression: Shortness of breath Additional Impressions: CHF (congestive heart failure) Congestive heart failure type: unspecified congestive heart failure type Congestive heart failure chronicity: unspecified congestive heart failure chronicity Qualified Code: I50.9 - Heart failure, unspecified COPD with acute exacerbation Disposition: Home Discharge Condition All VS Reviewed: Yes Condition: Stable Patient Instructions: Heart Failure (ED) Additional Instructions: You should expect a phone call from the clinic later today or early tomorrow with an appointment time later this week. Continue your regular medications. I am glad you are feeling somewhat better. Referrals: Nicolás Pendleton MD (PCP) Scribe Attestation Portions of this note were transcribed by Desmond Vegas. I, Dr. Dasilva, personally performed the history, physical exam and medical decision-making; I reviewed and confirmed the accuracy of the information in the transcribed note. copies to: Nicolás Pendleton MD, Kirk H MD Mar 03, 2017 13:42 DESMOND VEGAS Mar 03, 2017 13:49
[2017-03-03 14:15] VITALS: PULSE 81; RESP 15; O2SAT 98
[2017-03-03] MEDS ORDERED: MethylprednisoLONE Sodium Succinate 62.5 mg/mL 2 mL Inj IVPUSH ONE (14:20)
[2017-03-03] MEDS ORDERED: Albuterol-Ipratropium 3 mL Inhalation Solution NEB ONE (14:20)
[2017-03-03] MEDS ORDERED: Furosemide 10 mg/mL 4 mL Inj IVPUSH ONE (14:20)
[2017-03-03 14:44] LABS: APPEARANCE,URINE HAZY (CLEAR,HAZY); COLOR,URINE STRAW (YELLOW)
[2017-03-03 14:45] VITALS: PULSE 78; RESP 15; O2SAT 99
[2017-03-03 14:46] LABS: OCCULT BLOOD,URINE NEGATIVE (NEGATIVE); PH,URINE 5.5 (5.0-8.0); UROBILINOGEN,URINE NORMAL (NORMAL)
--- NOTE | 2017-03-03 15:08 | DRSVH ---
PROCEDURE: X-RAY CHEST ONE VIEW, PORTABLE ([id number]) INDICATIONS: dyspnea TECHNIQUE: One view of the chest was acquired. COMPARISON: [facility], CR, XR CHEST 1VW (PORTABLE), 01/20/2017, 5:03. FINDINGS: Surgical changes and devices: None. Lungs and pleura: No pleural effusions or pneumothorax. Lungs are clear. Mediastinum: Mediastinal contours appear normal. Heart size is normal. Bones and chest wall: No suspicious bony lesions. Overlying soft tissues appear unremarkable. IMPRESSION: No acute pulmonary process. Dictated by: Brenda Tobin M.D. on 03/03/2017 at 14:06 Approved by: Brenda Tobin M.D. on 03/03/2017 at 14:06
[2017-03-03 15:19] VITALS: PULSE 78; RESP 18; O2SAT 98
[2017-03-03 15:34] LABS: BASOPHILS % (AUTO) 0.1 % (0-3); EOSINOPHILS % (AUTO) 0.6 % (0-5); MONOCYTES % (AUTO) 8.1 % (4-12); Mean Corpuscular Hemoglobin 25.8 pg (27.0-35.0); Mean Corpuscular Volume 89.5 fL (81-100); NEUTROPHILS % (AUTO) 79.5 % (40-74); Platelet Count 212 bil/L (150-400)
[2017-03-03 15:45] VITALS: BP 124/60; PULSE 75; RESP 21; O2SAT 100
[2017-03-03 16:09] LABS: TROPONIN T 0.073 ug/L (0.0-0.011)
[2017-03-03 17:35] VITALS: BP 130/39; PULSE 80; RESP 22; O2SAT 98
== END 2017-03-03 17:36 | disposition home or self-care (01) ==
LOC: EDBD 13:35 → SED 13:35
DX: I50.9 Heart failure, unspecified (principal); J44.1 Chronic obstructive pulmonary disease with (acute) exacerbation; I48.91 Unspecified atrial fibrillation; J96.11 Chronic respiratory failure with hypoxia; Z99.81 Dependence on supplemental oxygen; N18.3 Chronic kidney disease, stage 3 (moderate); E11.22 Type 2 diabetes mellitus with diabetic chronic kidney disease; I12.9 Hypertensive chronic kidney disease with stage 1 through stage 4 chronic kidney disease, or unspecified chronic kidney disease; G89.29 Other chronic pain; R60.1 Generalized edema; E66.2 Morbid (severe) obesity with alveolar hypoventilation; Z68.42 Body mass index [BMI] 45.0-49.9, adult; Z86.14 Personal history of Methicillin resistant Staphylococcus aureus infection; Z87.891 Personal history of nicotine dependence; Z79.02 Long term (current) use of antithrombotics/antiplatelets; Z79.82 Long term (current) use of aspirin; Z79.4 Long term (current) use of insulin; Z88.1 Allergy status to other antibiotic agents; Z88.6 Allergy status to analgesic agent
CPT/HCPCS: 36415; 71010; 80053; 81000; 83605; 83880; 84145; 84484; 85025; 93005; 94664; 96374; 96375; 99285; J1940; J2930; J7620